=== PATIENT | female | born 2000 | race Caucasian/White ===

== ENCOUNTER 2020-10-23 23:27 | Emergency (ER) | payer OTHER, MEDICAID, SELFPAY ==
--- NOTE | ~2020-10-23 | CT_ITS ---
EXAMINATION: CT ABDOMEN AND PELVIS WITH CONTRAST CLINICAL INFORMATION: Right lower quadrant pain, nausea/vomiting COMPARISON: None TECHNIQUE: Multidetector volumetric images were obtained from the superior aspect of the liver through the pubic symphysis following administration 85 mL of Omnipaque 350 intravenous contrast. Sagittal and coronal reformatted images were obtained on the technologist's workstation. Oral contrast: No This CT examination was performed using dose optimization techniques as appropriate, variously including the following: *Automated exposure control *Adjustment of mA and/or kV according to patient size (this includes techniques or standardized protocols for targeted exams where dose is matched to indication/reason for exam; i.e. extremities or head) *Use of iterative reconstruction technique DLP: 974 mGy-cm FINDINGS: LUNG BASES: The visualized lung bases are unremarkable. LIVER, GALLBLADDER, AND BILIARY TREE: The liver is normal in size, shape, and attenuation. No focal hepatic lesion or biliary ductal dilatation is present. The gallbladder is unremarkable with no evidence of radiopaque gallstones, gallbladder wall thickening, or obvious pericholecystic inflammatory changes. PANCREAS: Unremarkable. SPLEEN: Unremarkable. ADRENAL GLANDS: Unremarkable. KIDNEYS AND URETERS: The kidneys are normal in size, shape, and attenuation. No hydronephrosis, hydroureter, or obstructing calculi seen. No perinephric stranding. BLADDER: Unremarkable. GASTROINTESTINAL TRACT: The small and large bowel are unremarkable. The appendix is unremarkable. No free fluid or free air is seen. ABDOMINAL WALL: No significant hernia is appreciated. LYMPH NODES: Scattered mesenteric and retroperitoneal subcentimeter lymph nodes are present, without significant enlargement by size criteria. VASCULAR: Unremarkable. PELVIC VISCERA: Unremarkable. OSSEOUS STRUCTURES: Unremarkable. CT/CT abdomen pelvis w con IMPRESSION: No acute findings identified in the abdomen/pelvis. Normal appendix.
[2020-10-24 00:45] VITALS: BP 147/83; PULSE 112; RESP 17; TEMP 37.1; O2SAT 98; BMI 49.1
[2020-10-24 01:03] LABS: Glucose Urine UA NEG (NEG); Leukocyte Esterase Urine NEG (NEG); Nitrite Urine NEG (NEG); Specific Gravity - Urine >= 1.030 (1.005-1.025); Urine Blood TRACE (NEG); Urine Ketones NEG (NEG); Urine Protein TRACE MG/DL (NEG-TRACE)
[2020-10-24 01:14] LABS: Appearance Urine CLEAR; Color Urine YELLOW
[2020-10-24 01:15] LABS: Mucus Urine TRACE /LPF; Squamous Epithelial Cell Urine TRACE /LPF; UPreg QC Valid YES; Urine Pregnancy NEGATIVE (NEGATIVE); WBC Urine 0 /HPF (0-4)
--- NOTE | 2020-10-24 01:23 | ED_ITS ---
HPI - Nausea/Vomiting/Diarrhea General Chief complaint: Nausea/Vomiting/Diarrhea Stated complaint: Vomiting/Headache Time Seen by Provider: 10/23/20 23:30 Source: patient Mode of arrival: ambulatory History of Present Illness HPI Narrative: This is a 20-year-old female without significant past medical history of presents with 1 week of feeling unwell for a few days and states that she has woken up feeling nauseous in the morning, especially after eating and this is been associated with headache but denies any fevers, chills, diarrhea, urinary pain/burning/frequency. Patient is currently menstruating, but feels that her symptoms are similar to when she was diagnosed with . Related Data Allergies Allergy/AdvReac Type Severity Reaction Status Date / Time sulfamethoxazole Allergy Intermediate HIVES Verified 10/24/20 00:44 [From BACTRIM] trimethoprim [From BACTRIM] Allergy Intermediate HIVES Verified 10/24/20 00:44 Review of Systems Review of Systems: Pertinent positives and negatives as stated in HPI 10 point review of systems is otherwise negative. PMFSH Past Medical History Source: nursing notes reviewed Social History Social History Advance Directives: No Advance Directives Information Provided: No Patient : No Physical Exam Vital Signs: Vital Signs: Last Vital Signs Temp 98.6 F 10/24/20 04:20 Pulse 114 H 10/24/20 04:20 Resp 16 10/24/20 04:20 BP 136/79 10/24/20 04:20 Pulse Ox 98 10/24/20 04:20 Body Mass Index 49.1 VITAL SIGNS: Reviewed. GENERAL: Well developed, well nourished, in no acute distress. HEAD: Normocephalic/atraumatic EYES: PERRLA, EOMI OROPHARYNX: no oral lesions noted, posterior pharynx clear NECK: Supple, no adenopathy LUNGS: Normal breath sounds. No adventitious sounds or accessory muscle use. SpO2<98> CARDIOVASCULAR: Regular rate and rhythm without noted murmurs ABDOMEN: Obese, Soft, mild tenderness without rebound noted in the right lower quadrant, non-distended with bowel sounds. Course Course Course Narrative: This is a 20-year-old female with history and clinical presentation suggestive of possible ectopic , renal colic, appendicitis. Review of all investigations negative for acute findings. Suspect that patient's symptoms may be secondary to acid reflux and she was encouraged to pursue [id number] acid control medications. MDM - Nausea/Vomiting/Diarrhea Lab Data Result diagrams: 10/24/20 02:36 10/24/20 02:36 Labs: Lab Results 10/24/20 10/24/20 10/24/20 Range/Units 00:52 00:52 02:36 WBC (4.8-10.8) X10*3/uL RBC (4.20-5.50) X10*6/uL Hgb (12.0-16.0) g/dl Hct (37-47) % MCV (80-98) fL MCH (27.0-33.0) pg MCHC (31.0-35.0) g/dl RDW (11.0-16.0) % Plt Count (160-400) X10*3/uL MPV (9.4-12.3) fL Immature Gran % (Auto) (0.0-0.4) % Neut % (Auto) (45-73) % Lymph % (Auto) (20-40) % Laporte % (Auto) (2-11) % Eos % (Auto) (0-4) % Baso % (Auto) (0-2) % Lymph # (Auto) (1.2-4.9) X10*3/uL [place] # (Auto) (0.1-1.2) X10*3/uL Eos # (Auto) (0.0-0.4) X10*3/uL Baso # (Auto) (0.0-0.2) X10*3/uL Abs Immat Gran (auto) (0.00-0.03) X10*3/uL Absolute Neuts (auto) (2.0-8.3) X10*3/uL Absolute Nucleated RBC (0.0-0.012) X10*3/uL Nucleated RBC % (auto) (0.0-0.2) /100WBC Sodium (135-145) mmol/L Potassium (3.3-5.1) mmol/L Chloride (96-108) mmol/L Carbon Dioxide (22-29) mmol/L Anion Gap (12-20) BUN (9-16) mg/dL Creatinine (0.5-1.4) mg/dL Estim Creat Clear Calc Estimated GFR Random Glucose (60-115) mg/dL Calcium (8.4-10.2) mg/dL Total Bilirubin (0.0-1.0) mg/dL AST (5-31) U/L ALT (0-31) U/L Alkaline Phosphatase (39-117) U/L Total Protein (6.5-8.0) g/dL Albumin (3.5-5.0) g/dL Beta HCG, Quant < 2 mIU/mL Urine Color YELLOW Urine Appearance CLEAR Urine pH 6.0 (5.0-8.0) Ur Specific [place] >= 1.030 H (1.005-1.025) Urine Protein TRACE (NEG-TRACE) MG/DL Urine Glucose (UA) NEG (NEG) MG/DL Urine Ketones NEG (NEG) MG/DL Urine Blood TRACE (NEG) Urine Nitrite NEG (NEG) Ur Leukocyte Esterase NEG (NEG) Urine RBC 5-9 H (0) /HPF Urine WBC 0 (0-4) /HPF Ur Squamous Epith Cells TRACE /LPF Urine Bacteria NONE /LPF Urine Mucus TRACE /LPF Urine Test NEGATIVE (NEGATIVE) 10/24/20 10/24/20 Range/Units 02:36 02:36 WBC 4.6 L (4.8-10.8) X10*3/uL RBC 4.51 (4.20-5.50) X10*6/uL Hgb 11.8 L (12.0-16.0) g/dl Hct 35.8 L (37-47) % MCV 79.4 L (80-98) fL MCH 26.2 L (27.0-33.0) pg MCHC 33.0 (31.0-35.0) g/dl RDW 13.8 (11.0-16.0) % Plt Count 304 (160-400) X10*3/uL MPV 9.3 L (9.4-12.3) fL Immature Gran % (Auto) 0.2 (0.0-0.4) % Neut % (Auto) 36.9 L (45-73) % Lymph % (Auto) 45.2 H (20-40) % Laporte % (Auto) 12.3 H (2-11) % Eos % (Auto) 5.0 H (0-4) % Baso % (Auto) 0.4 (0-2) % Lymph # (Auto) 2.1 (1.2-4.9) X10*3/uL [place] # (Auto) 0.6 (0.1-1.2) X10*3/uL Eos # (Auto) 0.2 (0.0-0.4) X10*3/uL Baso # (Auto) 0.0 (0.0-0.2) X10*3/uL Abs Immat Gran (auto) 0.01 (0.00-0.03) X10*3/uL Absolute Neuts (auto) 1.7 L (2.0-8.3) X10*3/uL Absolute Nucleated RBC 0.000 (0.0-0.012) X10*3/uL Nucleated RBC % (auto) 0.0 (0.0-0.2) /100WBC Sodium 140 (135-145) mmol/L Potassium 3.3 (3.3-5.1) mmol/L Chloride 107 (96-108) mmol/L Carbon Dioxide 24 (22-29) mmol/L Anion Gap 12 (12-20) BUN 10 (9-16) mg/dL Creatinine 0.49 L (0.5-1.4) mg/dL Estim Creat Clear Calc 219.3 Estimated GFR > 60 Random Glucose 137 H (60-115) mg/dL Calcium 9.3 (8.4-10.2) mg/dL Total Bilirubin 0.2 (0.0-1.0) mg/dL AST 13 (5-31) U/L ALT 22 (0-31) U/L Alkaline Phosphatase 162 H (39-117) U/L Total Protein 6.0 L (6.5-8.0) g/dL Albumin 3.7 (3.5-5.0) g/dL Beta HCG, Quant mIU/mL Urine Color Urine Appearance Urine pH (5.0-8.0) Ur Specific [place] (1.005-1.025) Urine Protein (NEG-TRACE) MG/DL Urine Glucose (UA) (NEG) MG/DL Urine Ketones (NEG) MG/DL Urine Blood (NEG) Urine Nitrite (NEG) Ur Leukocyte Esterase (NEG) Urine RBC (0) /HPF Urine WBC (0-4) /HPF Ur Squamous Epith Cells /LPF Urine Bacteria /LPF Urine Mucus /LPF Urine Test (NEGATIVE) Discharge Plan Discharge Clinical Impression: Acid reflux Patient Disposition: Home, Self-Care Instructions: Diet for Stomach Ulcers and Gastritis (ED), Gastroesophageal Reflux Disease (ED) Additional Instructions: 1. Recommend using [id number] acid control medications. 2. Please follow-up with your primary care provider in the next 2-3 days for re- evaluation. Return to the ER for any acute worsening of symptoms. Referrals: Gabby Lee DO [Primary Care Provider] - 2 days
[2020-10-24 02:40] LABS: MANUAL DIFF FLAG NO
[2020-10-24 02:41] LABS: Basophils Percent Auto 0.4 % (0-2); Eosinophils Absolute Auto 0.2 X10*3/uL (0.0-0.4); Hematocrit 35.8 % (37-47); Hemoglobin 11.8 g/dl (12.0-16.0); Imm Gran Abs Auto 0.01 X10*3/uL (0.00-0.03); Imm Gran Pct Auto 0.2 % (0.0-0.4); Lymphocytes Absolute Auto 2.1 X10*3/uL (1.2-4.9); Lymphocytes Percent Auto 45.2 % (20-40); Mean Corpuscular Hemoglobin 26.2 pg (27.0-33.0); Mean Corpuscular Volume 79.4 fL (80-98); Mean Platelet Volume 9.3 fL (9.4-12.3); Monocytes Absolute Auto 0.6 X10*3/uL (0.1-1.2); Monocytes Percent Auto 12.3 % (2-11); Neutrophils Absolute Auto 1.7 X10*3/uL (2.0-8.3); Neutrophils Percent Auto 36.9 % (45-73); Platelet Count 304 X10*3/uL (160-400); Red Blood Count 4.51 X10*6/uL (4.20-5.50); Red Cell Distribution Width 13.8 % (11.0-16.0); White Blood Count 4.6 X10*3/uL (4.8-10.8)
[2020-10-24 03:10] LABS: Alanine Aminotransferase 22 U/L (0-31); Albumin Level 3.7 g/dL (3.5-5.0); Alkaline Phosphatase 162 U/L (39-117); Anion Gap 12 (12-20); Aspartate Amino Transferase 13 U/L (5-31); Bilirubin Total 0.2 mg/dL (0.0-1.0); Blood Urea Nitrogen 10 mg/dL (9-16); Calcium 9.3 mg/dL (8.4-10.2); Carbon Dioxide 24 mmol/L (22-29); Chloride 107 mmol/L (96-108); Creatinine Clr Calc Pharmacy 219.3; Estimated Glomerular Filt Rate > 60; Glucose Random 137 mg/dL (60-115); Potassium 3.3 mmol/L (3.3-5.1); Sodium 140 mmol/L (135-145)
[2020-10-24 03:14] LABS: HCG Quantitative < 2 mIU/mL
[2020-10-24 04:20] VITALS: BP 136/79; PULSE 114; RESP 16; TEMP 37; O2SAT 98
[2020-10-24] MEDS: iohexoL 350 MG/ML 100 ML INFUS..BTL 85 ML IV (04:37)
== END 2020-10-24 06:11 | disposition home or self-care (01) ==
PROVIDERS: Emergency Provider Student in an Organized Health Care Education/Training Program; PCP Pediatrics
DX: K21.9 Gastro-esophageal reflux disease without esophagitis (principal); R11.0 Nausea; R51.9 Headache, unspecified
CPT/HCPCS: 36415; 74177; 80053; 81001; 81025; 84702; 85025; 99284; Q9967

== ENCOUNTER 2020-11-16 14:54 | Emergency (ER) | payer OTHER, MEDICAID, SELFPAY ==
[2020-11-16 14:57] VITALS: BP 145/75; PULSE 98; RESP 18; TEMP 36.4; O2SAT 97; BMI 36.6
--- NOTE | 2020-11-16 15:32 | ED_ITS ---
HPI - Extremity Injury (Lower) General Chief Complaint: Extremity Injury, Lower Stated Complaint: R LEG PAIN Time Seen by Provider: 11/16/20 15:31 Source: patient Mode of arrival: ambulatory Limitations: no limitations History of Present Illness HPI Narrative: otherwise healthy 20-year-old female who denies significant past medical or surgical history who presents today with complaint of right foot pain. Historically she reports on November 09 she fell at home and causing to the foot for which she subsequently went to urgent care and was placed in orthopedic shoe she was unclear if she had a fracture or not so she went to [facility] where she had x-rays she was told that she had navicular fracture of the right foot she was placed in cast and crutches states he has not been doing well with that has moved her splint and she is currently in orthopedic shoe. States still hurts to walk on it. Denies any new injury. Onset (ago): day(s) Injury: Right: foot Place: home Severity: mild Relieving factors: immobilization Exacerbating factors: weight bearing Other symptoms: none Treatments prior to arrival: other ( Crutches, splint) Related Data Previous Rx's Medication Instructions Recorded ibuprofen 800 mg PO Q8H PRN #14 tab 11/16/20 Allergies Allergy/AdvReac Type Severity Reaction Status Date / Time sulfamethoxazole Allergy Intermediate HIVES Verified 10/24/20 00:44 [From BACTRIM] trimethoprim [From BACTRIM] Allergy Intermediate HIVES Verified 10/24/20 00:44 Review of Systems Review of Systems: Constitutional: No Weight loss, No Fever, No Chills, No Night Sweats, No Fatigue, No Malaise ENT/Mouth: No Hearing loss, No Ear Pain, No Nasal Congestion, No Sinus Pain, No Hoarseness, No sore throat, No Rhinorrhea, No Swallowing Difficulty Eyes: No Eye Pain, No Swelling, No Redness, No Foreign Body, No Discharge, No Vision Changes Cardiovascular: No Chest Pain, No SOB, No Dyspnea on Exertion, No Orthopnea, No Edema, No Palpitations Respiratory: No Cough, No Sputum, No Wheezing, No Smoke Exposure, No Dyspnea Gastrointestinal: No Nausea, No Vomiting, No Diarrhea, No Constipation, No abdominal Pain, No Hematochezia, No Melena Genitourinary: no irregular bleeding, No Dysuria, No Urinary Frequency, No Hematuria, No Urinary Incontinence, No Urgency, No Flank Pain, No Urinary Flow Changes, No Hesitancy Musculoskeletal: No joint pain, No Myalgias, No Joint Swelling , as noted per HPI Skin: No Skin Lesions, No rash Neuro: No Weakness, No Numbness, No Paresthesias, No Loss of Consciousness, No Dizziness, No Headache Psych: No Social Issues Heme/Lymph: No Bruising, No Bleeding,No Lymphadenopathy Endocrine: No Polyuria, No Polydipsia, No Temperature Intolerance Yes all other systems are reviewed and are negative [facility] Social History Social History Advance Directives: No Advance Directives Information Provided: No Patient : No Physical Exam Vital Signs: Vital Signs: Last Vital Signs Temp 97.5 F 11/16/20 14:57 Pulse 98 11/16/20 14:57 Resp 18 11/16/20 14:57 BP 145/75 H 11/16/20 14:57 Pulse Ox 97 11/16/20 14:57 Body Mass Index 36.6 reviewed Const: Other: sitting up in bed, smiling conversing with significant other/ family member. General: cooperative and healthy appearing; No acute distress or intoxicated appearing Nutritional Appearance: average body habitus Orientation/consciousness: patient oriented x3 HENMT: Head: Yes normal to inspection Ears: hearing grossly normal bilaterally Eyes: General: appearance normal, both eyes and all related structures Visual Finley: normal visual finley by confrontation Neck: Neck: Yes normal visual inspection, No positive Brudzinski's sign, No positive Kernig's sign and No tender Thyroid: Thyroid normal Resp: Auscultation: clear to auscultation bilaterally : General: Yes no CVA tenderness Back/Spine/Pelvis: Back: no CVA tenderness Skin: General skin exam: no rashes or lesions noted Neuro: General: patient oriented x3 Extrem: Other: Complaint of pain to the mid dorsum foot, without any obvious deformity /ecchymosis. Neurovascularly intact, refill within normal limits. General: Yes normal to inspection Course Reevaluation(s) Reevaluation #1: with patient's consent records were requested from [facility] it appears that patient went to [facility] initially on November 06 were she had femur x-ray as well as right lower extremity ultrasound and foot x- ray which showed navicular fracture otherwise ultrasound was negative she had complaint of some swelling and pain radiating up her leg status post fall and foot x-ray showed again no vertical fracture. She was subsequently placed and splinting crutches she returned 2 days later to the ER at [place] without a splint and complaining of more pain so x-ray was repeated and it showed early healing of navicular fracture in stable alignment. No other fractures of the right foot. She was subsequently placed in ortho boot and has crutches. States she uses ortho boot but still has pain when she does certain activity. Aware that is essentially she continues to use the ortho boot for pain and healing, she can use crutches to support the joint and limit weight-bearing. She can take Tylenol and ibuprofen. I have uploaded the images to patient chart. States she was referred to Orthopedics and [facility] however she lives out here and would like to see Orthopedics here. I have given her referral to our orthopedic team. Consultations Consultation #1: [facility] medical records Discharge Plan Discharge Clinical Impression: Closed navicular fracture of right foot Patient Disposition: Home, Self-Care Instructions: Crutch Instructions (ED), Foot Fracture in Adults (ED), Walking Boot (ED) Additional Instructions: rest, ice, compress, elevate Use crutches as instructed Tylenol/ ibuprofen [id number] per label instructions as needed for pain discomfort Follow-up with orthopedic as discussed Return if any concerns or worsening symptoms Thank you Prescriptions: New ibuprofen 800 mg tablet 800 mg PO Q8H PRN (Reason: pain) Qty: 14 RF: 0 Referrals: Amanda Mcarthur MD [Physician] - 1 week
== END 2020-11-16 16:59 | disposition home or self-care (01) ==
PROVIDERS: Emergency Provider Internal Medicine
DX: S92.254D Nondisplaced fracture of navicular [scaphoid] of right foot, subsequent encounter for fracture with routine healing (principal); W19.XXXD Unspecified fall, subsequent encounter
CPT/HCPCS: 99283

== ENCOUNTER 2020-11-17 02:06 | Emergency (ER) | payer OTHER, MEDICAID, SELFPAY ==
[2020-11-17 02:23] VITALS: BP 123/68; PULSE 122; RESP 16; TEMP 37.1; O2SAT 99; BMI 43.3
--- NOTE | 2020-11-17 02:36 | ED.ALLEREA ---
HPI - Allergic Reaction General Chief complaint: Allergic Reaction Stated complaint: allergic reaction Time Seen by Provider: 11/17/20 02:36 History of Present Illness HPI narrative: Patient 20-year-old female presents today after taking being bitten by a mosquito to the right eye to the forehead and to the right knee. Patient denies any shortness of breath. No systemic complaints. Complaining of swelling around the eye. There is no changes in vision. Patient complained that she attempted to take a Claritin for the symptoms. However the swelling has not come down after 3 hours. Patient from home. Related Data Previous Rx's Medication Instructions Recorded ibuprofen 800 mg PO Q8H PRN #14 tab 11/16/20 Allergies Allergy/AdvReac Type Severity Reaction Status Date / Time sulfamethoxazole Allergy Intermediate HIVES Verified 10/24/20 00:44 [From BACTRIM] trimethoprim [From BACTRIM] Allergy Intermediate HIVES Verified 10/24/20 00:44 Review of Systems Review of Systems: Constitutional: No Weight loss, No Fever, No Chills, No Night Sweats, No Fatigue, No Malaise ENT/Mouth: No Hearing loss, No Ear Pain, No Nasal Congestion, No Sinus Pain, No Hoarseness, No sore throat, No Rhinorrhea, No Swallowing Difficulty Eyes: No Eye Pain, No Swelling, No Redness, No Foreign Body, No Discharge, No Vision Changes Cardiovascular: No Chest Pain, No SOB, No Dyspnea on Exertion, No Orthopnea, No Edema, No Palpitations Respiratory: No Cough, No Sputum, No Wheezing, No Smoke Exposure, No Dyspnea Gastrointestinal: No Nausea, No Vomiting, No Diarrhea, No Constipation, No abdominal Pain, No Hematochezia, No Melena Genitourinary: no irregular bleeding, No Dysuria, No Urinary Frequency, No Hematuria, No Urinary Incontinence, No Urgency, No Flank Pain, No Urinary Flow Changes, No Hesitancy Musculoskeletal: No joint pain, No Myalgias, No Joint Swelling Skin: Positive swelling around the right eye, forehead and right knee Neuro: No Weakness, No Numbness, No Paresthesias, No Loss of Consciousness, No Dizziness, No Headache Psych: No Anxiety/Panic, No Depression, No SI/HI/AH/VH, No Social Issues, Heme/Lymph: No Bruising, No Bleeding,No Lymphadenopathy Endocrine: No Polyuria, No Polydipsia, No Temperature Intolerance PMFSH Social History Social History Patient : No Physical Exam Vital Signs: Vital Signs: Last Vital Signs Temp 98.8 F 11/17/20 02:23 Pulse 122 H 11/17/20 02:23 Resp 16 11/17/20 02:23 BP 123/68 11/17/20 02:23 Pulse Ox 99 11/17/20 02:23 Body Mass Index 43.3 Appearance: Alert. Oriented X3. No acute distress. Eyes: Pupils equal, round and reactive to light. positive redness, swelling around the right eye upper and lower lid. Extraocular muscle was intact vision grossly intact. ENT: Pharynx normal. Neck: Normal inspection. Neck supple. No lymph nodes noted. No crepitus CVS: Normal heart rate and rhythm. Pulses normal. Normal S1 and S2 Respiratory: No respiratory distress. Breath sounds normal. No Wheezing. No rales Abdomen: Soft and nontender. No rigidity. No distention. good BS x4 Skin: Positive swelling around the right eye. Positive swelling in the forehead area positive swelling to the right knee. Range of motion at the knee completely intact. Extremities: No lower extremity edema. Neurovascular intact to all extremities. No Lacerations. No Rash Neuro: Oriented X 3. No motor deficit. No sensory deficit. Moving all extermities. No slurred speech MDM - Allergic Reaction MDM Narrative Medical decision making narrative: Positive insect bite. Lungs are clear no distress. Patient reassured. Told to follow up on an outpatient basis. Continue Claritin Discharge Plan Discharge Clinical Impression: Allergic reaction Patient Disposition: Home, Self-Care Instructions: Insect Bite or Sting (ED) Prescriptions: No Action ibuprofen 800 mg tablet 800 mg PO Q8H PRN (Reason: pain) Qty: 14 RF: 0 Referrals: Physician,Unknown [Primary Care Provider] - 2 days
== END 2020-11-17 02:51 | disposition home or self-care (01) ==
LOC: HO.ED 02:42
PROVIDERS: Emergency Provider Emergency Medicine Emergency Medical Services
DX: T63.481A Toxic effect of venom of other arthropod, accidental (unintentional), initial encounter (principal); Y92.9 Unspecified place or not applicable
CPT/HCPCS: 99282; 99284

== ENCOUNTER 2020-11-28 09:54 | Outpatient (REF) | payer OTHER, MEDICAID, SELFPAY ==
--- NOTE | ~2020-11-28 | XR_ITS ---
EXAMINATION: XR ANKLE, RIGHT CLINICAL INFORMATION: Pain in right ankle and joints. COMPARISON: None TECHNIQUE: AP, lateral, and mortise views of the right ankle. FINDINGS: Suspect a fracture involving the navicular bone without displacement versus a hypertrophic bony spur on the lateral view. The ankle mortise and subtalar joints are normal. No additional bony abnormality is seen. No abnormal soft tissue swelling. XR/XR ankle RT min 3V IMPRESSION: Suspect large bony spur or small fracture along the dorsal navicular bone. There is no abnormal soft tissue swelling seen, however. The rest of the ankle is unremarkable.
== END 2020-11-28 09:55 | disposition home or self-care (01) ==
LOC: HO.HOSX 09:54
PROVIDERS: Visit Provider Physician Assistant
DX: S92.251A Displaced fracture of navicular [scaphoid] of right foot, initial encounter for closed fracture (principal); M25.571 Pain in right ankle and joints of right foot
CPT/HCPCS: 73610

== ENCOUNTER 2021-02-16 19:15 | Emergency (ER) | payer OTHER, MEDICAID, SELFPAY ==
[2021-02-16 20:54] VITALS: BP 158/84; PULSE 121; RESP 20; TEMP 36.7; O2SAT 100; BMI 39.9
--- NOTE | 2021-02-16 21:58 | ED_ITS ---
HPI - Allergic Reaction General Chief complaint: Allergic Reaction Stated complaint: Allergic reaction Time Seen by Provider: 02/16/21 21:58 Source: patient Mode of arrival: ambulatory Limitations: no limitations History of Present Illness HPI narrative: patient was with a dog today, she developed hives, swollen eyes and thought her throat was closing. MD complaint: allergic reaction and hives Onset (ago): hour(s) Symptoms: rash and facial swelling Severity: mild Treatment prior to arrival: none Previous Allergic Reaction History: none Related Data Previous Rx's Medication Instructions Recorded ibuprofen 800 mg tablet 800 mg PO Q8H PRN #14 tab 11/16/20 diphenhydramine HCl 25 mg capsule 25 mg PO TID PRN #20 cap 02/16/21 (Benadryl) Allergies Allergy/AdvReac Type Severity Reaction Status Date / Time sulfamethoxazole Allergy Intermediate HIVES Verified 11/28/20 09:57 [From BACTRIM] trimethoprim [From BACTRIM] Allergy Intermediate HIVES Verified 11/28/20 09:57 Review of Systems Constitutional: Constitutional: Reports no additional constitutional c omplaints Eyes: Eyes: Reports no additional eye complaints ENT: Denies dizziness Cardiovascular: Cardiovascular: Reports no additional cardiovascular complaints Respiratory: Respiratory: Reports as per HPI Gastrointestinal: Gastrointestinal: Reports no additional gastrointestinal complaints Genitourinary: Genitourinary: Reports no additional female genitourinary complaints Musculoskeletal: Musculoskeletal: Reports no additional musculoskeletal complaints Integumentary/Breasts: Skin/Breast: Denies rash Neurologic: Reports system reviewed and no additional complaints, except as documented, Denies dizziness and Denies Sensory deficit (Neuro) Psychiatric: Psychiatric: Denies anxiety [facility] Social History Social History (Updated 11/28/20 @ 09:58 by Dio Rivera) Advance Directives: No Patient : No Current occupational status: employed 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 Physical Exam Vital Signs: Vital Signs: Last Vital Signs Temp 98.2 F 02/16/21 22:04 Pulse 115 H 02/16/21 22:04 Resp 14 02/16/21 22:04 BP 130/65 02/16/21 22:04 Pulse Ox 96 02/16/21 22:04 Body Mass Index 39.9 Const: General: healthy appearing Nutritional Appearance: average body habitus Orientation/consciousness: oriented to person and patient oriented x3 Limitations: no limitations HENMT: Other: pharynx, tongue and uvula all visible Ears: external ears normal General nose exam: Normal external nose present Mouth: Normal oral and palatal mucosa present and oropharynx normal Throat: Yes posterior orop harynx normal Eyes: Other: right eyelid swollen Neck: Other: supple Neck: Yes normal visual inspection Chest: Chest palpation & inspection: normal inspection of the chest Resp: Other: no wheezing Auscultation: clear to auscultation bilaterally Cardio: Jugular venous distension: no JVD Rate: regular rate Rhythm: regular rhythm Heart sounds: S1 normal heart sound present and S2 normal heart sound present GI: Inspection: Yes normal to inspection Palpation (GI): Soft to palpation, nontender and No hepatosplenomegaly present Auscultation: normal bowel sounds : General: Yes no CVA tenderness Back/Spine/Pelvis: Back: no CVA tenderness Skin: General skin exam: no rashes or lesions noted Neuro: General: oriented to person and patient oriented x3 Cranial nerves: Yes CN's II-XII intact bilaterally Motor exam (neuro): 5/5 motor strength present throughout Sensory Exam: No Sensory deficit (Neuro) Extrem: General: Yes normal to inspection Psych: Appearance: grossly normal Course Reevaluation(s) Reevaluation #1: Patient sleeping right eyelid less swollen will dc home. Lungs clear pharnx, tongue and uvula normal Time: 23:31 Discharge Plan Discharge Clinical Impression: Allergic reaction Qualifiers: Encounter type: initial encounter Qualified Code(s): T78.40XA - Allergy, unspecified, initial encounter Patient Disposition: Home, Self-Care Instructions: General Allergic Reaction (ED) Prescriptions: New diphenhydramine HCl [Benadryl] 25 mg capsule 25 mg PO TID PRN (Reason: allergic reaction) Qty: 20 RF: 0 No Action ibuprofen 800 mg tablet 800 mg PO Q8H PRN (Reason: pain) Qty: 14 RF: 0 Referrals: Physician,Unknown [Primary Care Provider] - 1 week
[2021-02-16 22:04] VITALS: BP 130/65; PULSE 115; RESP 14; TEMP 36.8; O2SAT 96
[2021-02-16] MEDS: diphenhydrAMINE HCL 25 MG TABLET 50 MG PO (22:13)
== END 2021-02-17 00:10 | disposition home or self-care (01) ==
PROVIDERS: Emergency Provider Emergency Medicine
DX: L50.0 Allergic urticaria (principal); Z79.899 Other long term (current) drug therapy
CPT/HCPCS: 99283; Q0163

== ENCOUNTER 2021-03-19 18:10 | Emergency (ER) | payer OTHER, MEDICAID, SELFPAY ==
[2021-03-19 18:27] VITALS: BP 141/65; PULSE 122; RESP 18; TEMP 36.7; O2SAT 97; BMI 39.3
--- NOTE | 2021-03-19 19:16 | ED_ITS ---
HPI - Extremity Injury (Lower) General Chief Complaint: Extremity Injury, Lower Stated Complaint: foot swelling Time Seen by Provider: 03/19/21 19:15 Source: patient Mode of arrival: ambulatory Limitations: no limitations History of Present Illness HPI Narrative: Patient had a questionable hairline fracture of navicular bone 11/10 since then complaining of pain in the right foot was seen at [facility] [place] 2 weeks ago x-ray was negative now comes here with nonspecific pain on the dorsum of the foot with slight swelling no recurrent injury patient ambulated to the ER Related Data Previous Rx's Medication Instructions Recorded ibuprofen 800 mg tablet 800 mg PO Q8H PRN #14 tab 11/16/20 diphenhydramine HCl 25 mg capsule 25 mg PO TID PRN #20 cap 02/16/21 (Benadryl) ibuprofen 600 mg tablet 600 mg PO Q6H PRN #20 tab 03/19/21 Allergies Allergy/AdvReac Type Severity Reaction Status Date / Time sulfamethoxazole Allergy Intermediate HIVES Verified 03/19/21 18:27 [From BACTRIM] trimethoprim [From BACTRIM] Allergy Intermediate HIVES Verified 11/28/20 09:57 Review of Systems Review of Systems: Yes all other systems are reviewed and are negative PMFSH Past Medical History Medical History Hyperthyroidism Tachycardia Social History Social History Advance Directives: No Advance Directives Information Provided: No Patient : No Current occupational status: employed 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 Slight soft tissue swelling with tenderness no deformity good muscle strength MDM - Extremity Injury (Lower) MDM Narrative Medical decision making narrative: Patient with soft tissue tenderness , Kamar wrap was applied advised to take ibuprofen patient ambulates in steady gait Discharge Plan Discharge Clinical Impression: Strain of foot, right Qualifiers: Encounter type: initial encounter Qualified Code(s): S96.911A - Strain of unspecified muscle and tendon at ankle and foot level, right foot, initial encounter Patient Disposition: Home, Self-Care Instructions: Musculoskeletal Pain (ED) Additional Instructions: Rest to your right foot Wear the Kamar wrap Ibuprofen for pain Prescriptions: New ibuprofen 600 mg tablet 600 mg PO Q6H PRN (Reason: pain) Qty: 20 RF: 0 No Action ibuprofen 800 mg tablet 800 mg PO Q8H PRN (Reason: pain) Qty: 14 RF: 0 diphenhydramine HCl [Benadryl] 25 mg capsule 25 mg PO TID PRN (Reason: allergic reaction) Qty: 20 RF: 0 Interventions: ED Discharge Assessment Last Done: 03/19/21 19:56 Discharge Date/Time: 03/19/21 19:59
[2021-03-19] MEDS: Ibuprofen 600 MG TABLET PO (19:43)
== END 2021-03-19 19:59 | disposition home or self-care (01) ==
PROVIDERS: Emergency Provider Internal Medicine
DX: S96.911A Strain of unspecified muscle and tendon at ankle and foot level, right foot, initial encounter (principal); X58.XXXA Exposure to other specified factors, initial encounter; Y93.9 Activity, unspecified; Y92.9 Unspecified place or not applicable; Y99.9 Unspecified external cause status
CPT/HCPCS: 99283; 99284

== ENCOUNTER 2021-04-28 13:31 | Emergency (ER) | payer OTHER, MEDICAID, SELFPAY ==
[2021-04-28 13:50] VITALS: BP 134/78; PULSE 108; RESP 18; TEMP 36.3; O2SAT 98; BMI 36.6
[2021-04-28 14:43] LABS: MANUAL DIFF FLAG NO
[2021-04-28 14:55] LABS: Basophils Percent Auto 0.2 % (0-2); Eosinophils Absolute Auto 0.3 X10*3/uL (0.0-0.4); Eosinophils Percent Auto 5.9 % (0-4); Hematocrit 37.8 % (37.0-47.0); Hemoglobin 12.3 g/dl (12.0-16.0); Imm Gran Abs Auto 0.01 X10*3/uL (0.00-0.03); Imm Gran Pct Auto 0.2 % (0.0-0.4); Lymphocytes Absolute Auto 1.4 X10*3/uL (1.2-4.9); Lymphocytes Percent Auto 33.3 % (20-40); Mean Corpuscular HGB Conc 32.5 g/dl (31.0-35.0); Mean Corpuscular Hemoglobin 26.2 pg (27.0-33.0); Mean Corpuscular Volume 80.6 fL (80.0-98.0); Mean Platelet Volume 9.6 fL (9.4-12.3); Monocytes Absolute Auto 0.4 X10*3/uL (0.1-1.2); Monocytes Percent Auto 9.2 % (2-11); Neutrophils Absolute Auto 2.2 x10*3/uL (2.0-8.3); Neutrophils Percent Auto 51.2 % (45-73); Platelet Count 321 X10*3/uL (160-400); Red Blood Count 4.69 X10*6/uL (4.20-5.50); White Blood Count 4.3 X10*3/uL (4.8-10.8)
[2021-04-28 15:12] LABS: Alanine Aminotransferase 32 U/L (0-31); Albumin Level 3.9 g/dL (3.5-5.0); Alkaline Phosphatase 214 U/L (39-117); Anion Gap 12 (12-20); Aspartate Amino Transferase 22 U/L (5-31); Bilirubin Direct 0.2 mg/dL (0.0-0.5); Bilirubin Total 0.5 mg/dL (0.0-1.0); Blood Urea Nitrogen 8 mg/dL (9-16); Calcium 9.5 mg/dL (8.4-10.2); Carbon Dioxide 25 mmol/L (22-29); Chloride 108 mmol/L (96-108); Creatinine Clr Calc Pharmacy 199.9; Estimated Glomerular Filt Rate > 60; Glucose Random 117 mg/dL (60-115); Lipase 9 U/L (8-78); Sodium 141 mmol/L (135-145); Total Protein 6.8 g/dL (6.5-8.0)
[2021-04-28 16:19] LABS: Appearance Urine CLEAR; Color Urine YELLOW; Glucose Urine UA NEG (NEG); Leukocyte Esterase Urine NEG (NEG); Nitrite Urine NEG (NEG); PH 5.5 (5.0-8.0); Specific Gravity - Urine 1.025 (1.005-1.025); UACC Culture Trigger NO; Urine Blood TRACE (NEG); Urine Ketones 5 MG/DL (NEG); Urine Protein 1+ MG/DL (NEG-TRACE)
[2021-04-28 16:28] LABS: UPreg QC Valid YES; Urine Pregnancy NEGATIVE (NEGATIVE)
[2021-04-28 16:30] LABS: Bacteria Urine 1+ /LPF; Calcium Oxalate Crystals Urine 1+ /LPF; WBC Urine 0-2 /HPF (0-4)
[2021-04-28 16:31] LABS: Squamous Epithelial Cell Urine 1+ /LPF
[2021-04-28 17:27] VITALS: BP 142/76; PULSE 125; RESP 16; TEMP 37.1; O2SAT 97
--- NOTE | 2021-04-28 17:43 | ED.NAVMDI ---
HPI - Nausea/Vomiting/Diarrhea General Chief complaint: Nausea/Vomiting/Diarrhea Stated complaint: SHAKING ALL THE TIME Time Seen by Provider: 04/28/21 17:25 Source: patient Mode of arrival: ambulatory Limitations: no limitations History of Present Illness HPI Narrative: 20-year-old female who presents emergency department for evaluation of nausea, vomiting, headache, diarrhea and fatigue. Patient states she has been sick for about 3 days. She states she has had constant nausea with 1 episode of vomiting. She states she has had 3 loose diarrheal stools per day with no blood in the stool. She is complaining of a headache. She states that her whole head hurts and feels as if someone is banging on her head. The headache is constant and is 8/10 at its worst. She has had a cough which is nonproductive. She feels short of breath. She states she is extremely fatigued and she has been sleeping for the past 2-3 days. The patient states that she did have a COVID infection approximately 1 year prior she received her 1st Pfizer COVID 19 vaccination 2 weeks prior. Related Data Previous Rx's Medication Instructions Recorded ibuprofen 800 mg tablet 800 mg PO Q8H PRN #14 tab 11/16/20 diphenhydramine HCl 25 mg capsule 25 mg PO TID PRN #20 cap 02/16/21 (Benadryl) ibuprofen 600 mg tablet 600 mg PO Q6H PRN #20 tab 03/19/21 ondansetron 4 mg disintegrating 4 mg PO Q6-8H PRN #14 tab 04/28/21 tablet Allergies Allergy/AdvReac Type Severity Reaction Status Date / Time sulfamethoxazole Allergy Intermediate HIVES Verified 03/19/21 18:27 [From BACTRIM] trimethoprim [From BACTRIM] Allergy Intermediate HIVES Verified 11/28/20 09:57 Review of Systems Review of Systems: Yes all other systems are reviewed and are negative PMFSH Past Medical History PMFSH Narrative: Social history: The patient denies tobacco, alcohol and drug use. 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 Physical Exam Vital Signs: Vital Signs: Last Vital Signs Temp 98.7 F 04/28/21 17:27 Pulse 115 H 04/28/21 20:55 Resp 16 04/28/21 20:55 BP 122/66 04/28/21 20:55 Pulse Ox 98 04/28/21 20:55 BMI result Body Mass Index 36.6 Const: General: cooperative and no acute distress Orientation/consciousness: oriented to person and oriented to place Limitations: no limitations HENMT: Head: Yes normal to inspection, Yes normocephalic and Yes atraumatic Ears: external ears normal General nose exam: Normal external nose present Face and sinus: Yes normal facial exam Mouth: Normal oral and palatal mucosa present Throat: Yes posterior oropharynx normal Eyes: General: appearance normal, both eyes and all related structures Pupils: Equal, round and reactive pupils present Neck: Neck: Yes normal visual inspection, Yes no lymphadenopathy, Yes trachea midline and Yes supple Chest: Chest palpation & inspection: normal inspection of the chest and normal palpation of entire chest wall Resp: Effort & Inspection: normal respiratory effort and able to speak in complete sentences Auscultation: clear to auscultation bilaterally Cardio: Rate: regular rate Rhythm: regular rhythm Heart sounds: S1 normal heart sound present, S2 normal heart sound present and no murmurs GI: Inspection: Yes normal to inspection Palpation (GI): Soft to palpation, Tenderness to palpation present (GI) in the epigastrum (Moderate) and no guarding Auscultation: normal bowel sounds : General: Yes no CVA tenderness Back/Spine/Pelvis: Back: no CVA tenderness Skin: General skin exam: no rashes or lesions noted Neuro: General: oriented to person and oriented to place Cranial nerves: Yes CN's II-XII intact bilaterally and Yes Equal, round and reactive pupils present Cognition (Neuro): normal cognition Motor exam (neuro): 5/5 motor strength present throughout Extrem: General: Yes normal to inspection Psych: Appearance: grossly normal Speech and movement: Normal speech and movement present Affect: normal affect Attitude: cooperative Thought process: Normal thought process present Thought content: Normal thought content present Course Course Course Narrative: 20-year-old female who presents emergency department for evaluation of 3 days of headache, nausea, emesis x1, diarrhea 3 times a day, occasional cough, shortness of breath and fatigue. The patient had a COVID-19 infection approximately 1 year prior and she had her 1st Pfizer COVID 19 vaccination 2 weeks prior. Vital signs revealed that she was tachycardic with a pulse of 108. Physical examination did reveal epigastric tenderness otherwise was unremarkable. Laboratory evaluation was obtained. I ordered normal saline x1 L. patient's headache we treated with Toradol 15 mg IV, Benadryl 50 mg IV and Reglan and 10 mg IV. 1748: CBC was normal. Glucose was elevated 117 AST and ALT are elevated at 32 and 214. Urine test was negative urinalysis revealed 1+ protein. Microscopic revealed 4 RBCs, 2 WBCs, no bacteria, positive squamous cells. COVID-19 was negative. TSH was below detectable limits. T4 was elevated at 3.4. This is consistent with the patient's untreated hyperthyroidism. 2100: The patient got minimal relief of her headache and symptoms with the above treatment therefore she was given morphine 4 mg IV with improvement of her pain. I did discuss the patient's laboratory evaluation with her. At this time I suspect the patient has acute viral illness as the cause for symptoms, her COVID-19 test was negative however she has only been sick for 1-2 days and I did discuss the possibility of a false negative with her. The patient does have hyperthyroidism that is not being treated and I did [place] when she better she is to follow-up with her window display designer to get restarted on medications or to seek another treatment for hyperthyroidism pain. Patient was was prescribed Zofran ODT 4 mg every 8 hours as needed for nausea vomiting, she also advised to take Tylenol and ibuprofen for pain. MDM - Nausea/Vomiting/Diarrhea Lab Data Result diagrams: 04/28/21 14:32 04/28/21 14:32 Labs: Lab Results 04/28/21 04/28/21 04/28/21 Range/Units 14:32 14:32 15:20 WBC 4.3 L (4.8-10.8) X10*3/uL RBC 4.69 (4.20-5.50) X10*6/uL Hgb 12.3 (12.0-16.0) g/dl Hct 37.8 (37.0-47.0) % MCV 80.6 (80.0-98.0) fL MCH 26.2 L (27.0-33.0) pg MCHC 32.5 (31.0-35.0) g/dl RDW 13.0 (11.0-16.0) % Plt Count 321 (160-400) X10*3/uL MPV 9.6 (9.4-12.3) fL Immature Gran % (Auto) 0.2 (0.0-0.4) % Neut % (Auto) 51.2 (45-73) % Lymph % (Auto) 33.3 (20-40) % [place] % (Auto) 9.2 (2-11) % Eos % (Auto) 5.9 H (0-4) % Baso % (Auto) 0.2 (0-2) % Lymph # (Auto) 1.4 (1.2-4.9) X10*3/uL [place] # (Auto) 0.4 (0.1-1.2) X10*3/uL Eos # (Auto) 0.3 (0.0-0.4) X10*3/uL Baso # (Auto) 0.0 (0.0-0.2) X10*3/uL Abs Immat Gran (auto) 0.01 (0.00-0.03) X10*3/uL Absolute Neuts (auto) 2.2 (2.0-8.3) x10*3/uL Absolute Nucleated RBC 0.000 (0.0-0.012) X10*3/uL Nucleated RBC % (auto) 0.0 (0.0-0.2) /100WBC Sodium 141 (135-145) mmol/L Potassium 4.0 D (3.3-5.1) mmol/L Chloride 108 (96-108) mmol/L Carbon Dioxide 25 (22-29) mmol/L Anion Gap 12 (12-20) BUN 8 L (9-16) mg/dL Creatinine 0.47 L (0.5-1.4) mg/dL Estim Creat Clear Calc 199.9 Estimated GFR > 60 Random Glucose 117 H (60-115) mg/dL Calcium 9.5 (8.4-10.2) mg/dL Total Bilirubin 0.5 (0.0-1.0) mg/dL Direct Bilirubin 0.2 (0.0-0.5) mg/dL AST 22 D (5-31) U/L ALT 32 H (0-31) U/L Alkaline Phosphatase 214 H D (39-117) U/L Total Protein 6.8 (6.5-8.0) g/dL Albumin 3.9 (3.5-5.0) g/dL Lipase 9 (8-78) U/L TSH < 0.01 L (0.32-4.0) uIU/mL Free T4 3.40 H (0.71-1.85) ng/dL Urine Color YELLOW Urine Appearance CLEAR Urine pH 5.5 (5.0-8.0) Ur Specific [place] 1.025 (1.005-1.025) Urine Protein 1+ H (NEG-TRACE) MG/DL Urine Glucose (UA) NEG (NEG) MG/DL Urine Ketones 5 (NEG) MG/DL Urine Blood TRACE (NEG) Urine Nitrite NEG (NEG) Ur Leukocyte Esterase NEG (NEG) Urine RBC 1-4 (0) /HPF Urine WBC 0-2 (0-4) /HPF Ur Squamous Epith Cells 1+ /LPF Calcium Oxalate Crystal 1+ /LPF Urine Bacteria 1+ /LPF Urine Test (NEGATIVE) COVID-19 (TONJA) (Negative) COVID-19 Clin Com 04/28/21 04/28/21 Range/Units 17:47 Unknown WBC (4.8-10.8) X10*3/uL RBC (4.20-5.50) X10*6/uL Hgb (12.0-16.0) g/dl Hct (37.0-47.0) % MCV (80.0-98.0) fL MCH (27.0-33.0) pg MCHC (31.0-35.0) g/dl RDW (11.0-16.0) % Plt Count (160-400) X10*3/uL MPV (9.4-12.3) fL Immature Gran % (Auto) (0.0-0.4) % Neut % (Auto) (45-73) % Lymph % (Auto) (20-40) % [place] % (Auto) (2-11) % Eos % (Auto) (0-4) % Baso % (Auto) (0-2) % Lymph # (Auto) (1.2-4.9) X10*3/uL [place] # (Auto) (0.1-1.2) X10*3/uL Eos # (Auto) (0.0-0.4) X10*3/uL Baso # (Auto) (0.0-0.2) X10*3/uL Abs Immat Gran (auto) (0.00-0.03) X10*3/uL Absolute Neuts (auto) (2.0-8.3) x10*3/uL Absolute Nucleated RBC (0.0-0.012) X10*3/uL Nucleated RBC % (auto) (0.0-0.2) /100WBC Sodium (135-145) mmol/L Potassium (3.3-5.1) mmol/L Chloride (96-108) mmol/L Carbon Dioxide (22-29) mmol/L Anion Gap (12-20) BUN (9-16) mg/dL Creatinine (0.5-1.4) mg/dL Estim Creat Clear Calc Estimated GFR Random Glucose (60-115) mg/dL Calcium (8.4-10.2) mg/dL Total Bilirubin (0.0-1.0) mg/dL Direct Bilirubin (0.0-0.5) mg/dL AST (5-31) U/L ALT (0-31) U/L Alkaline Phosphatase (39-117) U/L Total Protein (6.5-8.0) g/dL Albumin (3.5-5.0) g/dL Lipase (8-78) U/L TSH (0.32-4.0) uIU/mL Free T4 (0.71-1.85) ng/dL Urine Color Urine Appearance Urine pH (5.0-8.0) Ur Specific [place] (1.005-1.025) Urine Protein (NEG-TRACE) MG/DL Urine Glucose (UA) (NEG) MG/DL Urine Ketones (NEG) MG/DL Urine Blood (NEG) Urine Nitrite (NEG) Ur Leukocyte Esterase (NEG) Urine RBC (0) /HPF Urine WBC (0-4) /HPF Ur Squamous Epith Cells /LPF Calcium Oxalate Crystal /LPF Urine Bacteria /LPF Urine Test NEGATIVE (NEGATIVE) COVID-19 (TONJA) Negative (Negative) COVID-19 Clin Com See Note Discharge Plan Discharge Clinical Impression: Viral syndrome, Headache, Hyperthyroidism Patient Disposition: Home, Self-Care Instructions: Hyperthyroidism (ED), Viral Syndrome (ED) Additional Instructions: Your laboratory evaluation revealed a slight elevation in your liver enzyme. Your AST was elevated at 32 (normal range 0 to 31) in your alkaline phosphatase was elevated 214 (normal range 39 to 117). This could be related to your viral infection but you should have liver enzymes repeated when you are feeling better by your doctor. Your thyroid tests are consistent with an overactive thyroid. Your TSH was below detectable limits. Your free T4 was elevated at 3.4 (normal range is 0.7-1.85). Your COVID-19 test was negative. You have only been sick for 1-2 days. In the 1st 4 days of a COVID infection, the COVID-19 test can be falsely negative therefore you need to stay home and isolate for least 1 week and if your symptoms get worse then you need to be retested for COVID 19. Take Zofran ODT 4 mg pills, 1 pill dissolved in your mouth every 8 hours as needed for nausea and vomiting. Take ibuprofen 200 mg pills, 3 pills every 6 hours as needed for pain. Take Tylenol (acetaminophen) 500 mg pills, 2 pills every 4 to 6 hours as needed for pain. Follow-up with your doctor in 2 days. Please return to the emergency department if your symptoms get worse or if you develop any symptoms that are concerning to you. Please see the work note. No work for 7 days. You may return to work on May 05, 2021 if your completely asymptomatic otherwise you need to stay home for a total of 14 days from onset of her symptoms. Prescriptions: New ondansetron 4 mg tablet,disintegrating 4 mg PO Q6-8H PRN (Reason: nausea and vomiting) Qty: 14 RF: 0 No Action ibuprofen 800 mg tablet 800 mg PO Q8H PRN (Reason: pain) Qty: 14 RF: 0 ibuprofen 600 mg tablet 600 mg PO Q6H PRN (Reason: pain) Qty: 20 RF: 0 diphenhydramine HCl [Benadryl] 25 mg capsule 25 mg PO TID PRN (Reason: allergic reaction) Qty: 20 RF: 0 Stand Alone Forms: Work/School Release
[2021-04-28 18:08] LABS: COVID-19 Test Negative (Negative)
[2021-04-28] MEDS: Ketorolac Tromethamine 15 MG/ML VIAL IVPUSH (18:09)
[2021-04-28] MEDS: 0.9 % Sodium Chloride 1,000 ML 999 ML IV (18:09)
[2021-04-28] MEDS: Metoclopramide HCl 10 MG/2 ML VIAL IVPUSH (18:10)
[2021-04-28] MEDS: diphenhydrAMINE HCL 50 MG/ML VIAL IVPUSH (18:10)
[2021-04-28 18:48] LABS: TSH reflex Free T4 < 0.01 uIU/mL (0.32-4.0)
[2021-04-28] MEDS: Morphine Sulfate 4 MG/ML CARTRIDGE IVPUSH (19:43)
[2021-04-28 20:55] VITALS: BP 122/66; PULSE 115; RESP 16; O2SAT 98
--- NOTE | 2021-04-28 20:55 | PC.NURSE ---
MD at bedside for assessment, explaining results and plan of care.
== END 2021-04-28 21:15 | disposition home or self-care (01) ==
PROVIDERS: Emergency Provider Emergency Medicine Emergency Medical Services
DX: B34.9 Viral infection, unspecified (principal); E05.90 Thyrotoxicosis, unspecified without thyrotoxic crisis or storm; R51.9 Headache, unspecified; R11.2 Nausea with vomiting, unspecified; R19.7 Diarrhea, unspecified; Z20.822 Contact with and (suspected) exposure to COVID-19; Z79.899 Other long term (current) drug therapy
CPT/HCPCS: 36415; 80048; 80076; 81001; 81025; 83690; 84439; 84443; 85025; 87635; 96361; 96374; 96375; 99284; J1200; J1885; J2270; J2765

== ENCOUNTER 2021-07-25 13:31 | Emergency (ER) | payer OTHER, MEDICAID, SELFPAY ==
[2021-07-25 13:49] VITALS: BP 143/83; PULSE 123; RESP 17; TEMP 36.8; O2SAT 98; BMI 39.2
[2021-07-25 14:32] LABS: Appearance Urine HAZY; Color Urine YELLOW; Glucose Urine UA NEG (NEG); Leukocyte Esterase Urine NEG (NEG); Nitrite Urine NEG (NEG); Specific Gravity - Urine 1.015 (1.005-1.025); Urine Blood NEG (NEG); Urine Ketones NEG (NEG); Urine Protein NEG (NEG-TRACE)
[2021-07-25 14:34] LABS: UPreg QC Valid YES; Urine Pregnancy NEGATIVE (NEGATIVE)
[2021-07-25 14:44] LABS: Bacteria Urine 1+ /LPF; Mucus Urine 2+ /LPF; Renal Epithelial Cells Urine 1+ /LPF; Squamous Epithelial Cell Urine 2+ /LPF; UACC CULT YES
--- NOTE | 2021-07-25 14:50 | ED_ITS ---
HPI - Back Pain/Injury General Chief Complaint: Back Pain/Injury Stated Complaint: back pain Time Seen by Provider: 07/25/21 14:50 History of Present Illness HPI Narrative: Patient complains of low back pain worse with movement that radiates to the groin area, denies any injury, denies fever denies dysuria denies frequency denies incontinence denies numbness weakness or tingling no radiation of pain Related Data Previous Rx's Medication Instructions Recorded ibuprofen 800 mg tablet 800 mg PO Q8H PRN #14 tab 11/16/20 diphenhydramine HCl 25 mg capsule 25 mg PO TID PRN #20 cap 02/16/21 (Benadryl) ibuprofen 600 mg tablet 600 mg PO Q6H PRN #20 tab 03/19/21 ondansetron 4 mg disintegrating 4 mg PO Q6-8H PRN #14 tab 04/28/21 tablet acetaminophen 500 mg tablet 1,000 mg PO QID PRN #30 tab 07/25/21 cyclobenzaprine 5 mg tablet 5 mg PO TID PRN #10 tab 07/25/21 cyclobenzaprine 5 mg tablet 5 mg PO TID PRN #10 tab 07/25/21 ibuprofen 600 mg tablet 600 mg PO Q6H PRN #20 tab 07/25/21 ibuprofen 600 mg tablet 600 mg PO Q6H PRN #20 tab 07/25/21 Allergies Allergy/AdvReac Type Severity Reaction Status Date / Time sulfamethoxazole Allergy Intermediate HIVES Verified 03/19/21 18:27 [From BACTRIM] trimethoprim [From BACTRIM] Allergy Intermediate HIVES Verified 11/28/20 09:57 Review of Systems Review of Systems: Positive for back pain with movement negatives are no fever no chills no dizziness no weakness no headache no neck pain no chest pain no abdominal pain no nausea or vomiting no dysuria no frequency no incontinence no changes to bowel or bladder no skin rash Yes all other systems are reviewed and are negative PMFSH Past Medical History Source: nursing notes reviewed Medical History Hyperthyroidism Tachycardia Social History Social History Alcohol intake: current Alcohol intake frequency: a few times a week Alcohol type: wine and hard liquor Patient Tobacco Use Status: Never used Tobacco Use of substances other than those prescribed or required for medical reasons: No Advance Directives: No Advance Directives Information Provided: No Patient : No Current occupational status: employed 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 Physical Exam Vital Signs: Vital Signs: Last Vital Signs Temp 98.2 F 07/25/21 13:49 Pulse 118 H 07/25/21 14:53 Resp 18 07/25/21 14:53 BP 142/81 H 07/25/21 14:53 Pulse Ox 97 07/25/21 14:53 BMI result Body Mass Index 39.2 Tachycardia 118 was noted and was repeated with a pulse of 120 at rest General appearance comfortable no acute distress Head is normocephalic atraumatic Neck is supple The chest is clear to auscultation bilateral Heart no murmur Abdomen soft nontender Extremities full range of motion x4 no edema The back had lower lumbar paraspinal soft tissue tenderness no midline tenderness no CVA tenderness, pain is reproduced with movement Course Course Course Narrative: UA was contaminated but patient is asymptomatic so I read as a negative UA as the patient has no symptoms of urinary tract infection test was negative Patient's back pain is consistent with a musculoskeletal back strain and she is treated with Motrin Tylenol and a muscle relaxer Her tachycardia remained around 120 EKG was done and showed a sinus tachycardia rate [address] changes, intervals were normal, no acute ischemic changes Patient has a history of hyper thyroid and was taking a medication but stopped her medication some time ago and has not been checked recently She denies any chest pain or palpitations or shortness of breath CBC did not show any significant anemia hemoglobin 12 hematocrit 36 TSH was under 0.01 low, free T4 was 3.49 high consistent with hyperthyroid and patient will follow with her doctor and I also gave her the number of our director of safety to discuss treatment options for her hyperthyroid MDM - Back Pain/Injury Lab Data Result diagrams: 07/25/21 15:30 07/25/21 15:30 Labs: Lab Results 07/25/21 07/25/21 07/25/21 Range/Units 14:05 14:05 15:30 WBC (4.8-10.8) X10*3/uL RBC (4.20-5.50) X10*6/uL Hgb (12.0-16.0) g/dl Hct (37.0-47.0) % MCV (80.0-98.0) fL MCH (27.0-33.0) pg MCHC (31.0-35.0) g/dl RDW (11.0-16.0) % Plt Count (160-400) X10*3/uL MPV (9.4-12.3) fL Immature Gran % (Auto) (0.0-0.4) % Neut % (Auto) (45-73) % Lymph % (Auto) (20-40) % [place] % (Auto) (2-11) % Eos % (Auto) (0-4) % Baso % (Auto) (0-2) % Lymph # (Auto) (1.2-4.9) X10*3/uL [place] # (Auto) (0.1-1.2) X10*3/uL Eos # (Auto) (0.0-0.4) X10*3/uL Baso # (Auto) (0.0-0.2) X10*3/uL Abs Immat Gran (auto) (0.00-0.03) X10*3/uL Absolute Neuts (auto) (2.0-8.3) x10*3/uL Absolute Nucleated RBC (0.0-0.012) X10*3/uL Nucleated RBC % (auto) (0.0-0.2) /100WBC Sodium (135-145) mmol/L Potassium (3.3-5.1) mmol/L Chloride (96-108) mmol/L Carbon Dioxide (22-29) mmol/L Anion Gap (12-20) BUN (9-16) mg/dL Creatinine (0.5-1.4) mg/dL Estim Creat Clear Calc Estimated GFR Random Glucose (60-115) mg/dL Calcium (8.4-10.2) mg/dL TSH < 0.01 L (0.32-4.0) uIU/mL Free T4 3.49 H (0.71-1.85) ng/dL Urine Color YELLOW Urine Appearance HAZY Urine pH 7.0 (5.0-8.0) Ur Specific [place] 1.015 (1.005-1.025) Urine Protein NEG (NEG-TRACE) MG/DL Urine Glucose (UA) NEG (NEG) MG/DL Urine Ketones NEG (NEG) MG/DL Urine Blood NEG (NEG) Urine Nitrite NEG (NEG) Ur Leukocyte Esterase NEG (NEG) Urine RBC 1-4 (0) /HPF Urine WBC 5-9 H (0-4) /HPF Ur Squamous Epith Cells 2+ /LPF Ur Renal Epithelial Cell 1+ /LPF Urine Bacteria 1+ /LPF Urine Mucus 2+ /LPF Urine Test NEGATIVE (NEGATIVE) 07/25/21 07/25/21 Range/Units 15:30 15:30 WBC 5.6 (4.8-10.8) X10*3/uL RBC 4.54 (4.20-5.50) X10*6/uL Hgb 12.2 (12.0-16.0) g/dl Hct 36.5 L (37.0-47.0) % MCV 80.4 (80.0-98.0) fL MCH 26.9 L (27.0-33.0) pg MCHC 33.4 (31.0-35.0) g/dl RDW 12.8 (11.0-16.0) % Plt Count 342 (160-400) X10*3/uL MPV 9.6 (9.4-12.3) fL Immature Gran % (Auto) 0.4 (0.0-0.4) % Neut % (Auto) 58.7 (45-73) % Lymph % (Auto) 29.7 (20-40) % [place] % (Auto) 8.9 (2-11) % Eos % (Auto) 2.1 (0-4) % Baso % (Auto) 0.2 (0-2) % Lymph # (Auto) 1.7 (1.2-4.9) X10*3/uL [place] # (Auto) 0.5 (0.1-1.2) X10*3/uL Eos # (Auto) 0.1 (0.0-0.4) X10*3/uL Baso # (Auto) 0.0 (0.0-0.2) X10*3/uL Abs Immat Gran (auto) 0.02 (0.00-0.03) X10*3/uL Absolute Neuts (auto) 3.3 (2.0-8.3) x10*3/uL Absolute Nucleated RBC 0.000 (0.0-0.012) X10*3/uL Nucleated RBC % (auto) 0.0 (0.0-0.2) /100WBC Sodium 140 (135-145) mmol/L Potassium 4.2 (3.3-5.1) mmol/L Chloride 105 (96-108) mmol/L Carbon Dioxide 29 (22-29) mmol/L Anion Gap 10 L (12-20) BUN 6 L (9-16) mg/dL Creatinine 0.46 L (0.5-1.4) mg/dL Estim Creat Clear Calc 202.8 Estimated GFR > 60 Random Glucose 112 (60-115) mg/dL Calcium 9.6 (8.4-10.2) mg/dL TSH (0.32-4.0) uIU/mL Free T4 (0.71-1.85) ng/dL Urine Color Urine Appearance Urine pH (5.0-8.0) Ur Specific [place] (1.005-1.025) Urine Protein (NEG-TRACE) MG/DL Urine Glucose (UA) (NEG) MG/DL Urine Ketones (NEG) MG/DL Urine Blood (NEG) Urine Nitrite (NEG) Ur Leukocyte Esterase (NEG) Urine RBC (0) /HPF Urine WBC (0-4) /HPF Ur Squamous Epith Cells /LPF Ur Renal Epithelial Cell /LPF Urine Bacteria /LPF Urine Mucus /LPF Urine Test (NEGATIVE) Discharge Plan Discharge Clinical Impression: Strain of lumbar region, Hyperthyroidism Patient Disposition: Home, Self-Care Additional Instructions: We noticed that her pulse was fast and you told us that you have a history of hyperthyroid but were no longer taking the medication We recheck the thyroid and you are still hyper thyroid which can result in a fast heartbeat Follow with primary care doctor and director of safety for further evaluation Pain in your back is likely from muscle strain and irritation If it does not resolve on its own follow with primary care doctor for referral for physical therapy Return any time any worse condition or any concerns Prescriptions: New cyclobenzaprine 5 mg tablet 5 mg PO TID PRN (Reason: muscle spasm) Qty: 10 0RF ibuprofen 600 mg tablet 600 mg PO Q6H PRN (Reason: pain) Qty: 20 0RF acetaminophen 500 mg tablet 1,000 mg PO QID PRN (Reason: pain) Qty: 30 0RF cyclobenzaprine 5 mg tablet 5 mg PO TID PRN (Reason: muscle spasm) Qty: 10 0RF ibuprofen 600 mg tablet 600 mg PO Q6H PRN (Reason: pain) Qty: 20 0RF No Action ibuprofen 800 mg tablet 800 mg PO Q8H PRN (Reason: pain) Qty: 14 0RF ibuprofen 600 mg tablet 600 mg PO Q6H PRN (Reason: pain) Qty: 20 0RF ondansetron 4 mg tablet,disintegrating 4 mg PO Q6-8H PRN (Reason: nausea and vomiting) Qty: 14 0RF diphenhydramine HCl [Benadryl] 25 mg capsule 25 mg PO TID PRN (Reason: allergic reaction) Qty: 20 0RF Referrals: Dolores Beltrán MD [Physician] - 1 week (Hyperthyroid, has not been taking medication for some time, labs in the ER TSH under 0.01 and free T4 3.49)
[2021-07-25 14:53] VITALS: BP 142/81; PULSE 118; RESP 18; O2SAT 97
--- NOTE | 2021-07-25 15:00 | ECG_ITS ---
Test Reason : TACHYCARDIA Blood Pressure : / mmHG Vent. Rate : 121 BPM Atrial Rate : 121 BPM P-R Int : 140 ms QRS Dur : 088 ms QT Int : 352 ms P-R-T Axes : -01 030 000 degrees QTc Int : 499 ms Sinus tachycardia Minimal voltage criteria for LVH, may be normal variant ( R in aVL ) Borderline ECG No previous ECGs available Referred By: Iraj Feliciano Electronically Signed By:Morgan Engel
[2021-07-25] MEDS: Ketorolac Tromethamine 30 MG/ML VIAL IM (15:05)
[2021-07-25 15:34] LABS: MANUAL DIFF FLAG NO
[2021-07-25 15:42] LABS: Basophils Percent Auto 0.2 % (0-2); Eosinophils Absolute Auto 0.1 X10*3/uL (0.0-0.4); Eosinophils Percent Auto 2.1 % (0-4); Hematocrit 36.5 % (37.0-47.0); Hemoglobin 12.2 g/dl (12.0-16.0); Imm Gran Abs Auto 0.02 X10*3/uL (0.00-0.03); Imm Gran Pct Auto 0.4 % (0.0-0.4); Lymphocytes Absolute Auto 1.7 X10*3/uL (1.2-4.9); Lymphocytes Percent Auto 29.7 % (20-40); Mean Corpuscular HGB Conc 33.4 g/dl (31.0-35.0); Mean Corpuscular Hemoglobin 26.9 pg (27.0-33.0); Mean Corpuscular Volume 80.4 fL (80.0-98.0); Mean Platelet Volume 9.6 fL (9.4-12.3); Monocytes Absolute Auto 0.5 X10*3/uL (0.1-1.2); Monocytes Percent Auto 8.9 % (2-11); Neutrophils Absolute Auto 3.3 x10*3/uL (2.0-8.3); Neutrophils Percent Auto 58.7 % (45-73); Platelet Count 342 X10*3/uL (160-400); Red Blood Count 4.54 X10*6/uL (4.20-5.50); Red Cell Distribution Width 12.8 % (11.0-16.0); White Blood Count 5.6 X10*3/uL (4.8-10.8)
[2021-07-25 15:56] LABS: Anion Gap 10 (12-20); Blood Urea Nitrogen 6 mg/dL (9-16); Calcium 9.6 mg/dL (8.4-10.2); Carbon Dioxide 29 mmol/L (22-29); Chloride 105 mmol/L (96-108); Creatinine Clr Calc Pharmacy 202.8; Estimated Glomerular Filt Rate > 60; Glucose Random 112 mg/dL (60-115); Potassium 4.2 mmol/L (3.3-5.1); Sodium 140 mmol/L (135-145)
--- NOTE | 2021-07-25 16:04 | PC.NURSE ---
applied dressing to left great toe as ordered by provider . non -stick telpha secured with tape . patient tolerated well .
[2021-07-25 16:18] LABS: TSH reflex Free T4 < 0.01 uIU/mL (0.32-4.0)
[2021-07-25 17:17] LABS: Free T4 (Free Thyroxine) 3.49 ng/dL (0.71-1.85)
[2021-07-25 17:42] VITALS: BP 137/86; PULSE 115; RESP 18; TEMP 36.8; O2SAT 99
== END 2021-07-25 17:49 | disposition home or self-care (01) ==
PROVIDERS: Physician Assistant Medical; Emergency Provider Emergency Medicine
DX: N39.0 Urinary tract infection, site not specified (principal); B96.4 Proteus (mirabilis) (morganii) as the cause of diseases classified elsewhere; S39.012A Strain of muscle, fascia and tendon of lower back, initial encounter; X58.XXXA Exposure to other specified factors, initial encounter; R00.0 Tachycardia, unspecified; E05.90 Thyrotoxicosis, unspecified without thyrotoxic crisis or storm; Y93.9 Activity, unspecified; Y92.9 Unspecified place or not applicable; Y99.9 Unspecified external cause status
CPT/HCPCS: 36415; 80048; 81001; 81025; 84439; 84443; 85025; 87086; 87088; 87186; 93005; 96372; 99284; 99285; J1885

== ENCOUNTER 2021-08-27 19:00 | Emergency (ER) | payer OTHER, MEDICAID, SELFPAY ==
--- NOTE | ~2021-08-27 | XR_ITS ---
EXAMINATION: XR LUMBOSACRAL SPINE CLINICAL INFORMATION: Back pain COMPARISON: 10/24/2020 TECHNIQUE: Three views of the lumbosacral spine. FINDINGS: There is anatomic alignment of the vertebral bodies and posterior elements. Vertebral body heights and intervertebral disc spaces are maintained. No acute fracture is seen. Sacroiliac joints appear intact. XR/XR lumbar spine 2-3V IMPRESSION: No acute findings identified.
--- NOTE | ~2021-08-27 | CT_ITS ---
EXAMINATION: CT HEAD WITHOUT CONTRAST CLINICAL INFORMATION: Leg paresthesias COMPARISON: None TECHNIQUE: Contiguous axial imaging was performed from the skull base to vertex without intravenous administration of contrast. This CT examination was performed using dose optimization techniques as appropriate, variously including the following: *Automated exposure control *Adjustment of mA and/or kV according to patient size (this includes techniques or standardized protocols for targeted exams where dose is matched to indication/reason for exam; i.e. extremities or head) *Use of iterative reconstruction technique DLP: 661 mGy-cm FINDINGS: There is no evidence of acute intracranial hemorrhage or territorial infarction. No abnormal mass effect or midline shift is seen. Carrillo to white matter differentiation is well preserved. No extra-axial fluid collections are identified. The ventricles are normal in size. There is no abnormal attenuation within the brain parenchyma. The osseous structures and soft tissues are normal. There is complete opacification of the left maxillary, frontal, and ethmoid sinuses. Near-complete opacification of the right maxillary sinus. The mastoid air cells are well-aerated. CT/CT head/brain wo con IMPRESSION: No acute intracranial pathology. Paranasal sinus disease as noted above.
[2021-08-27 19:43] VITALS: BP 149/81; PULSE 118; RESP 19; TEMP 36.6; O2SAT 98; BMI 33.7
[2021-08-27 21:09] LABS: MANUAL DIFF FLAG NO
[2021-08-27 21:18] LABS: Basophils Percent Auto 0.2 % (0-2); Eosinophils Absolute Auto 0.1 X10*3/uL (0.0-0.4); Eosinophils Percent Auto 2.6 % (0-4); Hematocrit 39.6 % (37.0-47.0); Hemoglobin 12.6 g/dl (12.0-16.0); Imm Gran Abs Auto 0.01 X10*3/uL (0.00-0.03); Imm Gran Pct Auto 0.2 % (0.0-0.4); Lymphocytes Absolute Auto 1.6 X10*3/uL (1.2-4.9); Lymphocytes Percent Auto 30.1 % (20-40); Mean Corpuscular HGB Conc 31.8 g/dl (31.0-35.0); Mean Corpuscular Hemoglobin 26.4 pg (27.0-33.0); Mean Corpuscular Volume 82.8 fL (80.0-98.0); Mean Platelet Volume 9.8 fL (9.4-12.3); Monocytes Absolute Auto 0.5 X10*3/uL (0.1-1.2); Monocytes Percent Auto 8.3 % (2-11); Neutrophils Absolute Auto 3.2 x10*3/uL (2.0-8.3); Neutrophils Percent Auto 58.6 % (45-73); Platelet Count 343 X10*3/uL (160-400); Red Blood Count 4.78 X10*6/uL (4.20-5.50); Red Cell Distribution Width 12.7 % (11.0-16.0); White Blood Count 5.5 X10*3/uL (4.8-10.8)
[2021-08-27 21:28] LABS: Alanine Aminotransferase 33 U/L (0-31); Albumin Level 3.9 g/dL (3.5-5.0); Alkaline Phosphatase 224 U/L (39-117); Anion Gap 13 (12-20); Aspartate Amino Transferase 19 U/L (5-31); Bilirubin Total 0.3 mg/dL (0.0-1.0); Blood Urea Nitrogen 7 mg/dL (9-16); Calcium 9.5 mg/dL (8.4-10.2); Carbon Dioxide 25 mmol/L (22-29); Chloride 106 mmol/L (96-108); Creatinine Clr Calc Pharmacy 202.3; Estimated Glomerular Filt Rate > 60; Glucose Random 156 mg/dL (60-115); Potassium 4.2 mmol/L (3.3-5.1); Sodium 140 mmol/L (135-145); Total Protein 6.6 g/dL (6.5-8.0)
[2021-08-28 00:36] VITALS: BP 133/86; PULSE 120; RESP 18; TEMP 36.5; O2SAT 98
--- NOTE | 2021-08-28 00:38 | ED.NEUROSD ---
HPI - Neuro Symptoms/Deficit General Chief Complaint: General Medical Stated Complaint: both legs are going numb Time Seen by Provider: 08/28/21 00:35 Source: patient Mode of arrival: ambulatory Limitations: no limitations History of Present Illness HPI Narrative: 21 yo female with no sig PMH here with c/o intermittent lower extremity waxing and waning patchy tingling in both legs and then she feels like they give out. Both her mom and sister have MS. She is also worried she has MS. Her symptoms come and go. She has no other symptoms. She does have chronic low back pain but feels the symptoms start around her ankles and at times they fully resolve Onset (ago): day(s) (4) Location: left leg and right leg History of same: No Severity: mild Quality: weak and tingling Relieving factors: none Exacerbating factors: time Context: gradual onset On Anticoagulants: No Associated symptoms: denies other symptoms Treatments Prior to Arrival: none Related Data Previous Rx's Medication Instructions Recorded ibuprofen 800 mg tablet 800 mg PO Q8H PRN #14 tab 11/16/20 diphenhydramine HCl 25 mg capsule 25 mg PO TID PRN #20 cap 02/16/21 (Benadryl) ibuprofen 600 mg tablet 600 mg PO Q6H PRN #20 tab 03/19/21 ondansetron 4 mg disintegrating 4 mg PO Q6-8H PRN #14 tab 04/28/21 tablet acetaminophen 500 mg tablet 1,000 mg PO QID PRN #30 tab 07/25/21 cyclobenzaprine 5 mg tablet 5 mg PO TID PRN #10 tab 07/25/21 cyclobenzaprine 5 mg tablet 5 mg PO TID PRN #10 tab 07/25/21 ibuprofen 600 mg tablet 600 mg PO Q6H PRN #20 tab 07/25/21 ibuprofen 600 mg tablet 600 mg PO Q6H PRN #20 tab 07/25/21 cefuroxime axetil 250 mg tablet 250 mg PO BID 7 Days #14 tab 07/29/21 amoxicillin 875 mg-potassium 1 tab PO BID #14 tab 08/28/21 clavulanate 125 mg tablet Allergies Allergy/AdvReac Type Severity Reaction Status Date / Time sulfamethoxazole Allergy Intermediate HIVES Verified 03/19/21 18:27 [From BACTRIM] trimethoprim [From BACTRIM] Allergy Intermediate HIVES Verified 11/28/20 09:57 Review of Systems Review of Systems: Constitutional : No Weight loss, No Fever, No Chills, No Fatigue, No Malaise ENT/Mouth : No sore throat, No Rhinorrhea Eyes: No Eye Pain, No Swelling, No Redness Cardiovascular : No Chest Pain, No SOB, No Dyspnea on Exertion, No Orthopnea, No Edema, No Palpitations Respiratory : No Cough, No Sputum, No Wheezing Gastrointestinal : No Nausea, No Vomiting, No Diarrhea, No Constipation, No abdominal Pain, No Hematochezia, No Melena Genitourinary : No Dysuria, No Urinary Frequency, No Hematuria, Musculoskeletal : No joint pain, No Myalgias, No Joint Swelling, pos back pain Skin : No Skin Lesions, No rash Neuro : pos Weakness, pos Numbness, No Dizziness, No Headache Psych : No Anxiety/Panic, No Depression Heme/Lymph: No Bruising, No Bleeding,No Lymphadenopathy Endocrine : No Polyuria, No Polydipsia All other systems reviewed and are negative [facility] Past Medical History Attestation statement: The following information was validated with the patient. 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 Oriented X3. No acute distress. Eyes: Pupils equal, round and reactive to light. ENT: Pharynx normal. Neck: Normal inspection. Neck supple. CVS: Normal heart rate and rhythm. Pulses normal. Respiratory: No respiratory distress. Breath sounds normal. Abdomen: Soft and non-tender. Skin: Skin warm and dry. Normal skin color. Normal skin turgor. Extremities: No lower extremity edema. No calf ttp Neuro: Oriented X 3. No motor deficit. No sensory deficit. sensation intact bilateral LE, 2+ DTR in both legs patella and achilles, no clonus, normal gait Course Course Course Narrative: HR always above 100 CT head negative other than sinusitis will treat again needs MRI she is aware doubt GBS has no symptoms now MDM - Neuro Symptoms/Deficit MDM Narrative Medical decision making narrative: 21 yo female with intermittent patchy parasthesias of bilateral LE - at this time she has sig family hx of MS - she is not actively having symptoms right now. doubt GBS given they are intermittent she has normal DTRs, no clonus. Will obtain CT head for any evidence of disease, lumbar spine. She is aware she will need MRI we did discuss that I cannot obtain one at this time but that given she cannot get a hold of her PCP she can come back during the day to get MRI. Patient plans to do this. Lab Data Result diagrams: 08/27/21 21:05 08/27/21 21:05 Labs: Lab Results 08/27/21 08/27/21 08/28/21 Range/Units 21:05 21:05 02:05 WBC 5.5 (4.8-10.8) X10*3/uL RBC 4.78 (4.20-5.50) X10*6/uL Hgb 12.6 (12.0-16.0) g/dl Hct 39.6 (37.0-47.0) % MCV 82.8 (80.0-98.0) fL MCH 26.4 L (27.0-33.0) pg MCHC 31.8 (31.0-35.0) g/dl RDW 12.7 (11.0-16.0) % Plt Count 343 (160-400) X10*3/uL MPV 9.8 (9.4-12.3) fL Immature Gran % (Auto) 0.2 (0.0-0.4) % Neut % (Auto) 58.6 (45-73) % Lymph % (Auto) 30.1 (20-40) % [place] % (Auto) 8.3 (2-11) % Eos % (Auto) 2.6 (0-4) % Baso % (Auto) 0.2 (0-2) % Lymph # (Auto) 1.6 (1.2-4.9) X10*3/uL [place] # (Auto) 0.5 (0.1-1.2) X10*3/uL Eos # (Auto) 0.1 (0.0-0.4) X10*3/uL Baso # (Auto) 0.0 (0.0-0.2) X10*3/uL Abs Immat Gran (auto) 0.01 (0.00-0.03) X10*3/uL Absolute Neuts (auto) 3.2 (2.0-8.3) x10*3/uL Absolute Nucleated RBC 0.000 (0.0-0.012) X10*3/uL Nucleated RBC % (auto) 0.0 (0.0-0.2) /100WBC Sodium 140 (135-145) mmol/L Potassium 4.2 (3.3-5.1) mmol/L Chloride 106 (96-108) mmol/L Carbon Dioxide 25 (22-29) mmol/L Anion Gap 13 (12-20) BUN 7 L (9-16) mg/dL Creatinine 0.51 (0.5-1.4) mg/dL Estim Creat Clear Calc 202.3 Estimated GFR > 60 Random Glucose 156 H (60-115) mg/dL Calcium 9.5 (8.4-10.2) mg/dL Total Bilirubin 0.3 (0.0-1.0) mg/dL AST 19 (5-31) U/L ALT 33 H (0-31) U/L Alkaline Phosphatase 224 H (39-117) U/L Total Protein 6.6 (6.5-8.0) g/dL Albumin 3.9 (3.5-5.0) g/dL Urine Color YELLOW Urine Appearance CLEAR Urine pH 6.0 (5.0-8.0) Ur Specific [place] 1.020 (1.005-1.025) Urine Protein NEG (NEG-TRACE) MG/DL Urine Glucose (UA) NEG (NEG) MG/DL Urine Ketones NEG (NEG) MG/DL Urine Blood NEG (NEG) Urine Nitrite NEG (NEG) Ur Leukocyte Esterase NEG (NEG) Urine Test (NEGATIVE) 08/28/21 Range/Units 02:05 WBC (4.8-10.8) X10*3/uL RBC (4.20-5.50) X10*6/uL Hgb (12.0-16.0) g/dl Hct (37.0-47.0) % MCV (80.0-98.0) fL MCH (27.0-33.0) pg MCHC (31.0-35.0) g/dl RDW (11.0-16.0) % Plt Count (160-400) X10*3/uL MPV (9.4-12.3) fL Immature Gran % (Auto) (0.0-0.4) % Neut % (Auto) (45-73) % Lymph % (Auto) (20-40) % [place] % (Auto) (2-11) % Eos % (Auto) (0-4) % Baso % (Auto) (0-2) % Lymph # (Auto) (1.2-4.9) X10*3/uL [place] # (Auto) (0.1-1.2) X10*3/uL Eos # (Auto) (0.0-0.4) X10*3/uL Baso # (Auto) (0.0-0.2) X10*3/uL Abs Immat Gran (auto) (0.00-0.03) X10*3/uL Absolute Neuts (auto) (2.0-8.3) x10*3/uL Absolute Nucleated RBC (0.0-0.012) X10*3/uL Nucleated RBC % (auto) (0.0-0.2) /100WBC Sodium (135-145) mmol/L Potassium (3.3-5.1) mmol/L Chloride (96-108) mmol/L Carbon Dioxide (22-29) mmol/L Anion Gap (12-20) BUN (9-16) mg/dL Creatinine (0.5-1.4) mg/dL Estim Creat Clear Calc Estimated GFR Random Glucose (60-115) mg/dL Calcium (8.4-10.2) mg/dL Total Bilirubin (0.0-1.0) mg/dL AST (5-31) U/L ALT (0-31) U/L Alkaline Phosphatase (39-117) U/L Total Protein (6.5-8.0) g/dL Albumin (3.5-5.0) g/dL Urine Color Urine Appearance Urine pH (5.0-8.0) Ur Specific [place] (1.005-1.025) Urine Protein (NEG-TRACE) MG/DL Urine Glucose (UA) (NEG) MG/DL Urine Ketones (NEG) MG/DL Urine Blood (NEG) Urine Nitrite (NEG) Ur Leukocyte Esterase (NEG) Urine Test NEGATIVE (NEGATIVE) Discharge Plan Discharge Clinical Impression: Paresthesia Sinusitis Qualifiers: Sinusitis location: ethmoidal Chronicity: acute Recurrence: non-recurrent Qualified Code(s): J01.20 - Acute ethmoidal sinusitis, unspecified Patient Disposition: Home, Self-Care Instructions: Sinusitis (ED), Paresthesia (ED) Additional Instructions: return to ED for any worsening symptoms or concerns you will need a MRI of your brain to confirm if this is Multiple sclerosis given your family history Prescriptions: New amoxicillin-pot clavulanate 875-125 mg tablet 1 tab PO BID Qty: 14 0RF No Action ibuprofen 800 mg tablet 800 mg PO Q8H PRN (Reason: pain) Qty: 14 0RF ibuprofen 600 mg tablet 600 mg PO Q6H PRN (Reason: pain) Qty: 20 0RF ondansetron 4 mg tablet,disintegrating 4 mg PO Q6-8H PRN (Reason: nausea and vomiting) Qty: 14 0RF diphenhydramine HCl [Benadryl] 25 mg capsule 25 mg PO TID PRN (Reason: allergic reaction) Qty: 20 0RF cyclobenzaprine 5 mg tablet 5 mg PO TID PRN (Reason: muscle spasm) Qty: 10 0RF ibuprofen 600 mg tablet 600 mg PO Q6H PRN (Reason: pain) Qty: 20 0RF acetaminophen 500 mg tablet 1,000 mg PO QID PRN (Reason: pain) Qty: 30 0RF cyclobenzaprine 5 mg tablet 5 mg PO TID PRN (Reason: muscle spasm) Qty: 10 0RF ibuprofen 600 mg tablet 600 mg PO Q6H PRN (Reason: pain) Qty: 20 0RF cefuroxime axetil 250 mg tablet 250 mg PO BID 7 Days Qty: 14 0RF Referrals: Gabby Lee DO [Primary Care Provider] - 1 day Stand Alone Forms: Work/School Release
[2021-08-28 02:16] LABS: Appearance Urine CLEAR; Color Urine YELLOW; Glucose Urine UA NEG (NEG); Leukocyte Esterase Urine NEG (NEG); Nitrite Urine NEG (NEG); Urine Blood NEG (NEG); Urine Ketones NEG (NEG); Urine Protein NEG (NEG-TRACE)
[2021-08-28 02:17] LABS: UPreg QC Valid YES; Urine Pregnancy NEGATIVE (NEGATIVE)
[2021-08-28 03:20] VITALS: BP 137/87; PULSE 109; RESP 16; TEMP 36.9; O2SAT 98
== END 2021-08-28 03:22 | disposition home or self-care (01) ==
PROVIDERS: Emergency Provider Emergency Medicine; PCP Pediatrics
DX: J01.20 Acute ethmoidal sinusitis, unspecified (principal); R20.2 Paresthesia of skin; Z82.69 Family history of other diseases of the musculoskeletal system and connective tissue
CPT/HCPCS: 36415; 70450; 72100; 80053; 81003; 81025; 85025; 99284

== ENCOUNTER 2021-08-28 14:34 | Emergency (ER) | payer OTHER, MEDICAID, SELFPAY ==
[2021-08-28 14:50] VITALS: BP 143/80; PULSE 100; RESP 18; TEMP 36.1; O2SAT 97; BMI 38.7
== END 2021-08-28 19:07 | disposition left against medical advice (07) ==
PROVIDERS: Emergency Provider Emergency Medicine
DX: R20.0 Anesthesia of skin (principal)
CPT/HCPCS: 99281; 99282

== ENCOUNTER 2021-09-13 00:04 | Emergency (ER) | payer OTHER, MEDICAID, SELFPAY ==
--- NOTE | ~2021-09-13 | XR_ITS ---
EXAMINATION: XR CHEST CLINICAL INFORMATION: Chest pain COMPARISON: None TECHNIQUE: Frontal view of the chest was obtained. FINDINGS: The lungs are well expanded. There is no focal consolidation, edema, or effusion. No pneumothorax. The cardiomediastinal silhouette is within normal limits. No acute osseous abnormality. XR/XR chest 1V IMPRESSION: Clear lungs.
--- NOTE | 2021-09-13 00:10 | ECG_ITS ---
Test Reason : CP Blood Pressure : / mmHG Vent. Rate : 110 BPM Atrial Rate : 110 BPM P-R Int : 154 ms QRS Dur : 092 ms QT Int : 364 ms P-R-T Axes : 029 029 001 degrees QTc Int : 492 ms Sinus tachycardia Minimal voltage criteria for LVH, may be normal variant ( R in aVL ) Borderline ECG When compared with ECG of 25-JUL-2021 15:11, No significant change was found Referred By: Generic ED Physician Electronically Signed By:VIDYA DE LA TORRE MD
[2021-09-13 00:25] LABS: MANUAL DIFF FLAG NO
[2021-09-13 00:26] LABS: Basophils Percent Auto 0.2 % (0-2); Eosinophils Absolute Auto 0.2 X10*3/uL (0.0-0.4); Eosinophils Percent Auto 3.6 % (0-4); Hematocrit 36.2 % (37.0-47.0); Hemoglobin 11.7 g/dl (12.0-16.0); Imm Gran Abs Auto 0.01 X10*3/uL (0.00-0.03); Imm Gran Pct Auto 0.2 % (0.0-0.4); Lymphocytes Absolute Auto 2.2 X10*3/uL (1.2-4.9); Lymphocytes Percent Auto 42.7 % (20-40); Mean Corpuscular HGB Conc 32.3 g/dl (31.0-35.0); Mean Corpuscular Hemoglobin 26.1 pg (27.0-33.0); Mean Corpuscular Volume 80.8 fL (80.0-98.0); Mean Platelet Volume 9.4 fL (9.4-12.3); Monocytes Absolute Auto 0.5 X10*3/uL (0.1-1.2); Monocytes Percent Auto 9.9 % (2-11); Neutrophils Absolute Auto 2.2 x10*3/uL (2.0-8.3); Neutrophils Percent Auto 43.4 % (45-73); Platelet Count 305 X10*3/uL (160-400); Red Blood Count 4.48 X10*6/uL (4.20-5.50); Red Cell Distribution Width 12.6 % (11.0-16.0)
[2021-09-13 00:44] LABS: Anion Gap 10 (12-20); Blood Urea Nitrogen 10 mg/dL (9-16); Carbon Dioxide 25 mmol/L (22-29); Chloride 109 mmol/L (96-108); Estimated Glomerular Filt Rate > 60; Glucose Random 93 mg/dL (60-115); Potassium 3.5 mmol/L (3.3-5.1); Sodium 140 mmol/L (135-145)
[2021-09-13 00:50] VITALS: BP 135/81; PULSE 110; RESP 18; TEMP 36.8; O2SAT 98; BMI 38.7
[2021-09-13 00:50] LABS: Troponin-I High Sensitivity < 3.5 ng/L (<3.5-17.0)
--- NOTE | 2021-09-13 01:27 | ED_ITS ---
HPI - Chest Pain General Chief Complaint: Chest Pain Stated Complaint: chest pain, leg pain Time Seen by Provider: 09/13/21 01:27 History of Present Illness HPI narrative: Patient is a 21-year-old female presented with having chest pain. The pain is mid chest. Sharp. Worse with movement. There is no fever no chills no leg swelling. No travel history. No history diabetes, hypertension, high cholesterol, smoking, CA. No history of heart attacks. No sudden in the family. The pain is sharp. Related Data Previous Rx's Medication Instructions Recorded ibuprofen 800 mg tablet 800 mg PO Q8H PRN #14 tab 11/16/20 diphenhydramine HCl 25 mg capsule 25 mg PO TID PRN #20 cap 02/16/21 (Benadryl) ibuprofen 600 mg tablet 600 mg PO Q6H PRN #20 tab 03/19/21 ondansetron 4 mg disintegrating 4 mg PO Q6-8H PRN #14 tab 04/28/21 tablet acetaminophen 500 mg tablet 1,000 mg PO QID PRN #30 tab 07/25/21 cyclobenzaprine 5 mg tablet 5 mg PO TID PRN #10 tab 07/25/21 cyclobenzaprine 5 mg tablet 5 mg PO TID PRN #10 tab 07/25/21 ibuprofen 600 mg tablet 600 mg PO Q6H PRN #20 tab 07/25/21 ibuprofen 600 mg tablet 600 mg PO Q6H PRN #20 tab 07/25/21 cefuroxime axetil 250 mg tablet 250 mg PO BID 7 Days #14 tab 07/29/21 amoxicillin 875 mg-potassium 1 tab PO BID #14 tab 08/28/21 clavulanate 125 mg tablet Allergies Allergy/AdvReac Type Severity Reaction Status Date / Time sulfamethoxazole Allergy Intermediate HIVES Verified 09/13/21 00:50 [From BACTRIM] trimethoprim [From BACTRIM] Allergy Intermediate HIVES Verified 09/13/21 00:50 Review of Systems Review of Systems: No fever no chills no cough no congestion or upper respiratory symptom No diaphoresis All system reviewed otherwise negative Yes all other systems are reviewed and are negative PMFSH Past Medical History Attestation statement: The following information was validated with the patient. 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 Oriented X3. No acute distress. Eyes: Pupils equal, round and reactive to light. ENT: Pharynx normal. Neck: Normal inspection. Neck supple. No lymph nodes noted. No crepitus CVS: Normal heart rate and rhythm. Pulses normal. Normal S1 and S2 Respiratory: No respiratory distress. Breath sounds normal. No Wheezing. No rales Abdomen: Soft and nontender. No rigidity. No distention. good BS x4 Skin: Skin warm and dry. Normal skin color. Normal skin turgor. Extremities: No lower extremity edema. Neurovascular intact to all extremities. No Lacerations. No Rash Neuro: Oriented X 3. No motor deficit. No sensory deficit. Moving all extermities. No slurred speech MDM - Chest Pain MDM Narrative Medical decision making narrative: Patient's EKG showed a sinus tachycardia heart rate was approximately 100 MA QRS QT within normal limits no acute ST segment elevation. There is no risk for PE patient is not on control pills patient never had a sudden in the family, no history of blood clots in the family. No history of clotting disorder. Patient has no significant cardiac risk factors she is 21 years old denies any recreational drug use. Chest x-ray is negative for any acute eviden ce of pneumonia pneumothorax. Will discharge patient home close follow-up on an outpatient Medical Records Data Attestation: I reviewed the patient's medical records. Lab Data Attestation: I reviewed the patient's lab results. Result diagrams: 09/13/21 00:17 09/13/21 00:17 Labs: Lab Results 0409/13/21 09/13/21 Range/Units 00:17 00:17 00:17 WBC 5.0 (4.8-10.8) X10*3/uL RBC 4.48 (4.20-5.50) X10*6/uL Hgb 11.7 L (12.0-16.0) g/dl Hct 36.2 L (37.0-47.0) % MCV 80.8 (80.0-98.0) fL MCH 26.1 L (27.0-33.0) pg MCHC 32.3 (31.0-35.0) g/dl RDW 12.6 (11.0-16.0) % Plt Count 305 (160-400) X10*3/uL MPV 9.4 (9.4-12.3) fL Immature Gran % (Auto) 0.2 (0.0-0.4) % Neut % (Auto) 43.4 L (45-73) % Lymph % (Auto) 42.7 H (20-40) % [place] % (Auto) 9.9 (2-11) % Eos % (Auto) 3.6 (0-4) % Baso % (Auto) 0.2 (0-2) % Lymph # (Auto) 2.2 (1.2-4.9) X10*3/uL [place] # (Auto) 0.5 (0.1-1.2) X10*3/uL Eos # (Auto) 0.2 (0.0-0.4) X10*3/uL Baso # (Auto) 0.0 (0.0-0.2) X10*3/uL Abs Immat Gran (auto) 0.01 (0.00-0.03) X10*3/uL Absolute Neuts (auto) 2.2 (2.0-8.3) x10*3/uL Absolute Nucleated RBC 0.000 (0.0-0.012) X10*3/uL Nucleated RBC % (auto) 0.0 (0.0-0.2) /100WBC Sodium 140 (135-145) mmol/L Potassium 3.5 (3.3-5.1) mmol/L Chloride 109 H (96-108) mmol/L Carbon Dioxide 25 (22-29) mmol/L Anion Gap 10 L (12-20) BUN 10 (9-16) mg/dL Creatinine 0.49 L (0.5-1.4) mg/dL Estim Creat Clear Calc TNP Estimated GFR > 60 Random Glucose 93 (60-115) mg/dL Calcium 9.0 (8.4-10.2) mg/dL Troponin I High Sens < 3.5 (<3.5-17.0) ng/L Discharge Plan Discharge Clinical Impression: Chest pain Patient Disposition: Home, Self-Care Instructions: Chest Pain (ED) Prescriptions: No Action ibuprofen 800 mg tablet 800 mg PO Q8H PRN (Reason: pain) Qty: 14 0RF ibuprofen 600 mg tablet 600 mg PO Q6H PRN (Reason: pain) Qty: 20 0RF ondansetron 4 mg tablet,disintegrating 4 mg PO Q6-8H PRN (Reason: nausea and vomiting) Qty: 14 0RF diphenhydramine HCl [Benadryl] 25 mg capsule 25 mg PO TID PRN (Reason: allergic reaction) Qty: 20 0RF cyclobenzaprine 5 mg tablet 5 mg PO TID PRN (Reason: muscle spasm) Qty: 10 0RF ibuprofen 600 mg tablet 600 mg PO Q6H PRN (Reason: pain) Qty: 20 0RF acetaminophen 500 mg tablet 1,000 mg PO QID PRN (Reason: pain) Qty: 30 0RF cyclobenzaprine 5 mg tablet 5 mg PO TID PRN (Reason: muscle spasm) Qty: 10 0RF ibuprofen 600 mg tablet 600 mg PO Q6H PRN (Reason: pain) Qty: 20 0RF cefuroxime axetil 250 mg tablet 250 mg PO BID 7 Days Qty: 14 0RF amoxicillin-pot clavulanate 875-125 mg tablet 1 tab PO BID Qty: 14 0RF Referrals: Physician,Unknown J [Primary Care Provider] -
[2021-09-13 01:41] VITALS: BP 137/68; PULSE 94; RESP 15; O2SAT 99
== END 2021-09-13 01:41 | disposition home or self-care (01) ==
PROVIDERS: Emergency Provider Emergency Medicine Emergency Medical Services
DX: R07.89 Other chest pain (principal); M79.605 Pain in left leg; M79.604 Pain in right leg; Z79.899 Other long term (current) drug therapy
CPT/HCPCS: 36415; 71045; 80048; 84484; 85025; 93005; 99284

== ENCOUNTER 2021-09-25 17:18 | Emergency (ER) | payer OTHER, MEDICAID, SELFPAY ==
--- NOTE | 2021-09-25 | ECG_ITS ---
Test Reason : CP/DYSPNEA Blood Pressure : / mmHG Vent. Rate : 123 BPM Atrial Rate : 123 BPM P-R Int : 140 ms QRS Dur : 088 ms QT Int : 334 ms P-R-T Axes : 043 036 009 degrees QTc Int : 478 ms Sinus tachycardia Minimal voltage criteria for LVH, may be normal variant ( R in aVL ) Borderline ECG When compared with ECG of 13-SEP-2021 00:07, No significant change was found Referred By: Generic ED Physician Electronically Signed By:Morgan Engel
[2021-09-25 17:28] VITALS: BP 149/79; PULSE 126; RESP 18; TEMP 36.5; O2SAT 94; BMI 38.1
[2021-09-25 17:46] LABS: MANUAL DIFF FLAG NO
[2021-09-25 17:49] LABS: Hematocrit 34.5 % (37.0-47.0); Hemoglobin 11.3 g/dl (12.0-16.0); Imm Gran Abs Auto 0.01 X10*3/uL (0.00-0.03); Imm Gran Pct Auto 0.3 % (0.0-0.4); Lymphocytes Absolute Auto 1.1 X10*3/uL (1.2-4.9); Lymphocytes Percent Auto 36.7 % (20-40); Mean Corpuscular HGB Conc 32.8 g/dl (31.0-35.0); Mean Corpuscular Hemoglobin 26.8 pg (27.0-33.0); Mean Corpuscular Volume 81.8 fL (80.0-98.0); Mean Platelet Volume 9.5 fL (9.4-12.3); Monocytes Absolute Auto 0.3 X10*3/uL (0.1-1.2); Monocytes Percent Auto 10.7 % (2-11); Neutrophils Absolute Auto 1.5 x10*3/uL (2.0-8.3); Neutrophils Percent Auto 51.3 % (45-73); Platelet Count 257 X10*3/uL (160-400); Red Blood Count 4.22 X10*6/uL (4.20-5.50); Red Cell Distribution Width 12.7 % (11.0-16.0); White Blood Count 2.9 X10*3/uL (4.8-10.8)
[2021-09-25 18:01] LABS: Anion Gap 12 (12-20); Blood Urea Nitrogen 6 mg/dL (9-16); Calcium 8.6 mg/dL (8.4-10.2); Carbon Dioxide 25 mmol/L (22-29); Chloride 107 mmol/L (96-108); Creatinine Clr Calc Pharmacy 192.8; Estimated Glomerular Filt Rate > 60; Glucose Random 147 mg/dL (60-115); Potassium 3.8 mmol/L (3.3-5.1); Sodium 140 mmol/L (135-145)
[2021-09-25 18:08] LABS: Troponin-I High Sensitivity < 3.5 ng/L (<3.5-17.0)
[2021-09-25 23:14] VITALS: BP 156/77; PULSE 127; RESP 20; TEMP 36.8; O2SAT 98
--- NOTE | 2021-09-25 23:25 | ED_ITS ---
HPI - Chest Pain General Chief Complaint: Chest Pain Stated Complaint: Chest tightness Time Seen by Provider: 09/25/21 23:52 Source: patient Mode of arrival: ambulatory Limitations: no limitations History of Present Illness HPI narrative: 21-year-old female presents with 2 days of intermittent chest tightness and s hortness of breath. Also requesting a blood test. MD complaint: chest pain Onset (ago): day(s) (2) Timing of current episode: episodic Prior episodes: No Onset: during rest Pain location: substernal Pain radiation: none Severity: mild Quality: tightness Relieving factors: nothing Exacerbating factors: exertion and inspiration Treatment prior to arrival: none Risk Factors Thoracic aortic dissection risk factors: none Related Data On Oral Contraceptives: No Previous Rx's Medication Instructions Recorded ibuprofen 800 mg tablet 800 mg PO Q8H PRN #14 tab 11/16/20 diphenhydramine HCl 25 mg capsule 25 mg PO TID PRN #20 cap 02/16/21 (Benadryl) ibuprofen 600 mg tablet 600 mg PO Q6H PRN #20 tab 03/19/21 ondansetron 4 mg disintegrating 4 mg PO Q6-8H PRN #14 tab 04/28/21 tablet acetaminophen 500 mg tablet 1,000 mg PO QID PRN #30 tab 07/25/21 cyclobenzaprine 5 mg tablet 5 mg PO TID PRN #10 tab 07/25/21 cyclobenzaprine 5 mg tablet 5 mg PO TID PRN #10 tab 07/25/21 ibuprofen 600 mg tablet 600 mg PO Q6H PRN #20 tab 07/25/21 ibuprofen 600 mg tablet 600 mg PO Q6H PRN #20 tab 07/25/21 cefuroxime axetil 250 mg tablet 250 mg PO BID 7 Days #14 tab 07/29/21 amoxicillin 875 mg-potassium 1 tab PO BID #14 tab 08/28/21 clavulanate 125 mg tablet Allergies Allergy/AdvReac Type Severity Reaction Status Date / Time sulfamethoxazole Allergy Intermediate HIVES Verified 09/13/21 00:50 [From BACTRIM] trimethoprim [From BACTRIM] Allergy Intermediate HIVES Verified 09/13/21 00:50 Review of Systems Review of Systems: Constitutional: No Fever, No Chills ENT/Mouth: No Ear Pain, No Hoarseness, No sore throat Eyes: No Eye Pain, No Swelling, No Redness, No Foreign Body Cardiovascular: Positive Chest Pain, positive SOB Respiratory: No Cough, No Dyspnea Gastrointestinal: No Nausea, No Vomiting, No Diarrhea, No abdominal Pain Genitourinary: No Dysuria, No Hematuria Musculoskeletal: positive joint pain, No Myalgias, No Joint Swelling Skin: No Skin lacerations, No rash Neuro: No Weakness, No Numbness, No Paresthesias, No Loss of Consciousness, No Dizziness, No Headache Psych: No Anxiety/Panic, No Depression Heme/Lymph: no easy bruising, no Lymphadenopathy Endocrine: No Polyuria, No Polydipsia Yes all other systems are reviewed and are negative [facility] Past Medical History Attestation statement: The following information was validated with the patient. 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 Oriented X3. No acute distress. Eyes: Pupils equal, round and reactive to light. ENT: Pharynx normal. Neck: Normal inspection. Neck supple. CVS: Tachycardic heart rate and rhythm. Pulses normal. Respiratory: No respiratory distress. Breath sounds normal. Abdomen: Soft and nontender. Skin: Skin warm and dry. Normal skin color. Normal skin turgor. Extremities: No lower extremity edema. Gait well-balanced well coordinated. Neuro: No motor deficit. No sensory deficit. Cranial nerves 2-12 intact Course Course Course Narrative: 21-year-old female presents with multiple complaints. Lab values indicate a low white count of 2.9, Martha&H of 11.3 and 34.5 which is consistent with her prior values. COVID and influenza test are pending. Urinalysis is pending. EKG indicates tachycardia without ST elevation or depressions. 00:49 patient influenza A positive. Plan of care is to discharge home with supportive measures. MDM - Chest Pain Differential Diagnosis Differential diagnosis: Likely fracture of rib, pneumothorax, st elevation myocardial infarction and chest pain Medical Records Data Attestation: I reviewed the patient's medical records. Lab Data Attestation: I reviewed the patient's lab results. Result diagrams: 09/25/21 17:40 09/25/21 17:40 Labs: Lab Results 09/25/21 09/25/21 09/25/21 Range/Units 17:40 17:40 17:40 WBC 2.9 L (4.8-10.8) X10*3/uL RBC 4.22 (4.20-5.50) X10*6/uL Hgb 11.3 L (12.0-16.0) g/dl Hct 34.5 L (37.0-47.0) % MCV 81.8 (80.0-98.0) fL MCH 26.8 L (27.0-33.0) pg MCHC 32.8 (31.0-35.0) g/dl RDW 12.7 (11.0-16.0) % Plt Count 257 (160-400) X10*3/uL MPV 9.5 (9.4-12.3) fL Immature Gran % (Auto) 0.3 (0.0-0.4) % Neut % (Auto) 51.3 (45-73) % Lymph % (Auto) 36.7 (20-40) % Mcdonough % (Auto) 10.7 (2-11) % Eos % (Auto) 1.0 (0-4) % Baso % (Auto) 0.0 (0-2) % Lymph # (Auto) 1.1 L (1.2-4.9) X10*3/uL Mcdonough # (Auto) 0.3 (0.1-1.2) X10*3/uL Eos # (Auto) 0.0 (0.0-0.4) X10*3/uL Baso # (Auto) 0.0 (0.0-0.2) X10*3/uL Abs Immat Gran (auto) 0.01 (0.00-0.03) X10*3/uL Absolute Neuts (auto) 1.5 L (2.0-8.3) x10*3/uL Absolute Nucleated RBC 0.000 (0.0-0.012) X10*3/uL Nucleated RBC % (auto) 0.0 (0.0-0.2) /100WBC Sodium 140 (135-145) mmol/L Potassium 3.8 (3.3-5.1) mmol/L Chloride 107 (96-108) mmol/L Carbon Dioxide 25 (22-29) mmol/L Anion Gap 12 (12-20) BUN 6 L (9-16) mg/dL Creatinine 0.48 L (0.5-1.4) mg/dL Estim Creat Clear Calc 192.8 Estimated GFR > 60 Random Glucose 147 H (60-115) mg/dL Calcium 8.6 (8.4-10.2) mg/dL Troponin I High Sens < 3.5 (<3.5-17.0) ng/L Beta HCG, Quant < 2 mIU/mL Urine Color Urine Appearance Urine pH (5.0-8.0) Ur Specific [place] (1.005-1.025) Urine Protein (NEG-TRACE) MG/DL Urine Glucose (UA) (NEG) MG/DL Urine Ketones (NEG) MG/DL Urine Blood (NEG) Urine Nitrite (NEG) Ur Leukocyte Esterase (NEG) Urine RBC (0) /HPF Urine WBC (0-4) /HPF Ur Squamous Epith Cells /LPF Urine Bacteria /LPF COVID-19 (TONJA) (Negative) COVID-19 Clin Com Influenza Type A (SAIGE) (Negative) Influenza Type B (SAIGE) (Negative) Influenza A & B Note 09/25/21 09/25/21 09/26/21 Range/Units 23:44 23:44 00:48 WBC (4.8-10.8) X10*3/uL RBC (4.20-5.50) X10*6/uL Hgb (12.0-16.0) g/dl Hct (37.0-47.0) % MCV (80.0-98.0) fL MCH (27.0-33.0) pg MCHC (31.0-35.0) g/dl RDW (11.0-16.0) % Plt Count (160-400) X10*3/uL MPV (9.4-12.3) fL Immature Gran % (Auto) (0.0-0.4) % Neut % (Auto) (45-73) % Lymph % (Auto) (20-40) % Mcdonough % (Auto) (2-11) % Eos % (Auto) (0-4) % Baso % (Auto) (0-2) % Lymph # (Auto) (1.2-4.9) X10*3/uL Mcdonough # (Auto) (0.1-1.2) X10*3/uL Eos # (Auto) (0.0-0.4) X10*3/uL Baso # (Auto) (0.0-0.2) X10*3/uL Abs Immat Gran (auto) (0.00-0.03) X10*3/uL Absolute Neuts (auto) (2.0-8.3) x10*3/uL Absolute Nucleated RBC (0.0-0.012) X10*3/uL Nucleated RBC % (auto) (0.0-0.2) /100WBC Sodium (135-145) mmol/L Potassium (3.3-5.1) mmol/L Chloride (96-108) mmol/L Carbon Dioxide (22-29) mmol/L Anion Gap (12-20) BUN (9-16) mg/dL Creatinine (0.5-1.4) mg/dL Estim Creat Clear Calc Estimated GFR Random Glucose (60-115) mg/dL Calcium (8.4-10.2) mg/dL Troponin I High Sens (<3.5-17.0) ng/L Beta HCG, Quant mIU/mL Urine Color YELLOW Urine Appearance HAZY Urine pH 6.0 (5.0-8.0) Ur Specific [place] 1.025 (1.005-1.025) Urine Protein TRACE (NEG-TRACE) MG/DL Urine Glucose (UA) NEG (NEG) MG/DL Urine Ketones NEG (NEG) MG/DL Urine Blood NEG (NEG) Urine Nitrite NEG (NEG) Ur Leukocyte Esterase TRACE H (NEG) Urine RBC 0-2 (0) /HPF Urine WBC 1-4 (0-4) /HPF Ur Squamous Epith Cells 3+ /LPF Urine Bacteria TRACE /LPF COVID-19 (TONJA) Negative (Negative) COVID-19 Clin Com See Note Influenza Type A (SAIGE) Positive A (Negative) Influenza Type B (SAIGE) Negative (Negative) Influenza A & B Note See Note ECG Data ECG #1: Attestation: I personally reviewed and interpreted this ECG as follows: ECG interpretation date: 09/25/21 ECG interpretation time: 17:25 Prior ECG tracings: available for review Interpretation: Vent. rate 123 BPM OK interval 140 ms QRS duration 88 ms QT/QTc 334/478 ms P-R-T axes 43 36 9 Sinus tachycardia Minimal voltage criteria for LVH, may be normal variant ( R in aVL ) Borderline ECG When compared with ECG of 13-SEP-2021 00:07, No significant change was found Discharge Plan Discharge Clinical Impression: Influenza A Patient Disposition: Home, Self-Care Instructions: Influenza (ED) Additional Instructions: You were evaluated for multiple complaints. You tested positive for influenza A. Alternate Tylenol 650 mg every 6 hours and Motrin 600 mg every 6 hours as needed for fever and pain management. Write down what time you take these medications to prevent accidental overdose. Your hCG blood test was negative. Thank you for choosing this emergency department for evaluation. Please follow-up with primary care physician as needed. Return to the emergency department for any new, concerning, or worsening symptoms. Prescriptions: No Action ibuprofen 800 mg tablet 800 mg PO Q8H PRN (Reason: pain) Qty: 14 0RF ibuprofen 600 mg tablet 600 mg PO Q6H PRN (Reason: pain) Qty: 20 0RF ondansetron 4 mg tablet,disintegrating 4 mg PO Q6-8H PRN (Reason: nausea and vomiting) Qty: 14 0RF diphenhydramine HCl [Benadryl] 25 mg capsule 25 mg PO TID PRN (Reason: allergic reaction) Qty: 20 0RF cyclobenzaprine 5 mg tablet 5 mg PO TID PRN (Reason: muscle spasm) Qty: 10 0RF ibuprofen 600 mg tablet 600 mg PO Q6H PRN (Reason: pain) Qty: 20 0RF acetaminophen 500 mg tablet 1,000 mg PO QID PRN (Reason: pain) Qty: 30 0RF cyclobenzaprine 5 mg tablet 5 mg PO TID PRN (Reason: muscle spasm) Qty: 10 0RF ibuprofen 600 mg tablet 600 mg PO Q6H PRN (Reason: pain) Qty: 20 0RF cefuroxime axetil 250 mg tablet 250 mg PO BID 7 Days Qty: 14 0RF amoxicillin-pot clavulanate 875-125 mg tablet 1 tab PO BID Qty: 14 0RF Stand Alone Forms: Work/School Release Interventions: ED Discharge Assessment Last Done: 09/26/21 01:00 Discharge Date/Time: 09/26/21 01:15
[2021-09-25] MEDS: 0.9 % Sodium Chloride 1,000 ML 999 ML IVCONT (23:45)
[2021-09-26 00:24] LABS: HCG Quantitative < 2 mIU/mL
[2021-09-26 00:25] LABS: COVID-19 Test Negative (Negative); IDNOW Serial# 16C4AD1C; Influenza B2 Negative (Negative)
[2021-09-26 00:27] LABS: Influenza A Positive (Negative)
[2021-09-26 00:54] LABS: Appearance Urine HAZY; Color Urine YELLOW; Glucose Urine UA NEG (NEG); Leukocyte Esterase Urine TRACE (NEG); Nitrite Urine NEG (NEG); Specific Gravity - Urine 1.025 (1.005-1.025); Urine Blood NEG (NEG); Urine Ketones NEG (NEG); Urine Protein TRACE MG/DL (NEG-TRACE)
[2021-09-26 01:15] LABS: Bacteria Urine TRACE /LPF; RBC Urine 0-2 /HPF (0); Squamous Epithelial Cell Urine 3+ /LPF
== END 2021-09-26 01:15 | disposition home or self-care (01) ==
PROVIDERS: Nurse Practitioner Family; Emergency Provider Emergency Medicine Emergency Medical Services; PCP Pediatrics
DX: J10.1 Influenza due to other identified influenza virus with other respiratory manifestations (principal); Z20.822 Contact with and (suspected) exposure to COVID-19
CPT/HCPCS: 36415; 80048; 81001; 84484; 84702; 85025; 87502; 87635; 93005; 96360; 99283; 99284

== ENCOUNTER 2021-10-17 04:01 | Emergency (ER) | payer OTHER, MEDICAID, SELFPAY ==
[2021-10-17 04:33] VITALS: BP 128/70; PULSE 109; RESP 16; TEMP 36.3; O2SAT 98; BMI 87.5
== END 2021-10-17 09:10 | disposition left against medical advice (07) ==
PROVIDERS: Emergency Provider Emergency Medicine
DX: M79.604 Pain in right leg (principal)

== ENCOUNTER 2021-10-18 01:22 | Emergency (ER) | payer OTHER, MEDICAID, SELFPAY ==
[2021-10-18 01:53] VITALS: BP 140/80; PULSE 112; RESP 18; TEMP 35.9; O2SAT 98; BMI 38.4
[2021-10-18 02:23] LABS: Basophils Percent Auto 0.3 % (0-2); Lymphocytes Absolute Auto 1.8 X10*3/uL (1.2-4.9); PLT CLUMP 1; Red Cell Distribution Width 13.2 % (11.0-16.0); SCAN SMEAR FLAG 1
[2021-10-18 02:25] LABS: Eosinophils Absolute Auto 0.1 X10*3/uL (0.0-0.4); Eosinophils Percent Auto 3.8 % (0-4); Hematocrit 36.1 % (37.0-47.0); Hemoglobin 11.6 g/dl (12.0-16.0); Lymphocytes Percent Auto 48.1 % (20-40); Mean Corpuscular HGB Conc 32.1 g/dl (31.0-35.0); Mean Corpuscular Hemoglobin 26.5 pg (27.0-33.0); Mean Corpuscular Volume 82.4 fL (80.0-98.0); Mean Platelet Volume 10.2 fL (9.4-12.3); Monocytes Absolute Auto 0.4 X10*3/uL (0.1-1.2); Monocytes Percent Auto 12.1 % (2-11); Neutrophils Absolute Auto 1.3 x10*3/uL (2.0-8.3); Neutrophils Percent Auto 35.7 % (45-73); Red Blood Count 4.38 X10*6/uL (4.20-5.50)
[2021-10-18 02:26] LABS: MANUAL DIFF FLAG NO; White Blood Count 3.6 X10*3/uL (4.8-10.8)
[2021-10-18 02:45] LABS: Alanine Aminotransferase 28 U/L (0-31); Albumin Level 3.6 g/dL (3.5-5.0); Alkaline Phosphatase 196 U/L (39-117); Anion Gap 12 (12-20); Aspartate Amino Transferase 17 U/L (5-31); Bilirubin Total 0.3 mg/dL (0.0-1.0); Blood Urea Nitrogen 9 mg/dL (9-16); Calcium 9.3 mg/dL (8.4-10.2); Carbon Dioxide 23 mmol/L (22-29); Chloride 108 mmol/L (96-108); Creatinine Clr Calc Pharmacy 191.5; Estimated Glomerular Filt Rate > 60; Glucose Random 148 mg/dL (60-115); Potassium 3.7 mmol/L (3.3-5.1); Sodium 139 mmol/L (135-145); Total Protein 6.3 g/dL (6.5-8.0)
--- NOTE | 2021-10-18 09:35 | ED_ITS ---
HPI - General Adult General Chief complaint: Extremity Problem Stated complaint: leg cramps Time Seen by Provider: 10/18/21 09:35 Source: patient Mode of arrival: ambulatory Limitations: no limitations History of Present Illness HPI narrative: Patient is a 21 year old female presenting to the emergency department today with right knee pain. Patient states that her right leg keeps buckling and she isn't sure why. Patient denies any dizziness, lightheadedness, abdominal pain, nausea, vomiting, fever, chills, blurry vision, double vision, loss of vision, chest pain, difficulty breathing, shortness of breath, back pain, night sweats, pain with urination, increased urinary frequency, increased urinary urgency, blood in her urine or stool, syncope or a near syncopal episode, recent trauma or falls, bowel incontinence, bladder incontinence, bowel retention, bladder retention, or any other complaints at this time. Onset (ago): day(s) Location: right and lower extremity Radiation: non-radiation Severity: mild Severity scale (1-10): 2 Quality: dull Pain Consistency: now resolved Relieving factors: none Exacerbating factors: none Associated symptoms: denies other symptoms Treatments prior to arrival: none Related Data Previous Rx's Medication Instructions Recorded ibuprofen 800 mg tablet 800 mg PO Q8H PRN #14 tab 11/16/20 diphenhydramine HCl 25 mg capsule 25 mg PO TID PRN #20 cap 02/16/21 (Benadryl) ibuprofen 600 mg tablet 600 mg PO Q6H PRN #20 tab 03/19/21 ondansetron 4 mg disintegrating 4 mg PO Q6-8H PRN #14 tab 04/28/21 tablet acetaminophen 500 mg tablet 1,000 mg PO QID PRN #30 tab 07/25/21 cyclobenzaprine 5 mg tablet 5 mg PO TID PRN #10 tab 07/25/21 cyclobenzaprine 5 mg tablet 5 mg PO TID PRN #10 tab 07/25/21 ibuprofen 600 mg tablet 600 mg PO Q6H PRN #20 tab 07/25/21 ibuprofen 600 mg tablet 600 mg PO Q6H PRN #20 tab 07/25/21 cefuroxime axetil 250 mg tablet 250 mg PO BID 7 Days #14 tab 07/29/21 amoxicillin 875 mg-potassium 1 tab PO BID #14 tab 08/28/21 clavulanate 125 mg tablet Allergies Allergy/AdvReac Type Severity Reaction Status Date / Time sulfamethoxazole Allergy Intermediate HIVES Verified 10/18/21 02:03 [From BACTRIM] trimethoprim [From BACTRIM] Allergy Intermediate HIVES Verified 10/18/21 02:03 Review of Systems Constitutional: Constitutional: Reports no additional constitutional complaints, Denies chills, Denies fever(s) and Denies night sweats Eyes: Eyes: Reports no additional eye complaints, Denies blurry vision, Denies change in vision, Denies diplopia, Denies eye discharge, Denies loss of vision and Denies eye pain ENT: Denies dizziness Cardiovascular: Cardiovascular: Reports no additional cardiovascular compl aints, Denies chest pain, Denies lightheadedness, Denies Loss of Consciousness and Denies dyspnea Respiratory: Respiratory: Reports no additional respiratory complaints and Denies dyspnea Gastrointestinal: Gastrointestinal: Reports no additional gastrointestinal complaints, Denies abdominal pain, Denies melena, Denies hematochezia, Denies change in bowel habits and Denies change in stool character Genitourinary: Genitourinary: Denies hematuria, Denies urinary frequency, Denies dysuria, Denies urinary incontinence, Denies urinary hesitancy and Denies urinary urgency Musculoskeletal: Musculoskeletal: Reports no additional musculoskeletal complaints, Denies numbness and Denies tingling Comments: right knee pain Neurologic: Denies dizziness, Denies loss of vision, Denies numbness and Denies tingling Psychiatric: Psychiatric: Reports no additional psychiatric complaints Endocrine: Endocrine: Reports no additional endocrine complaints Hematologic/Lymphatic: Hematologic/Lymphatic: Reports no additional hematologic/lymphatic complaints Allergic/Immunologic: Allergic/Immunologic: Reports no additional allergic/immunologic complaints [facility] Past Medical History Attestation statement: The following information was validated with the patient. 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 Physical Exam ED Vital Signs: Vital Signs - 24 hr 10/18/21 01:53 Temperature 96.7 F L Pulse Rate 112 H Respiratory Rate 18 Blood Pressure 140/80 H Pulse Oximetry 98 BMI result Body Mass Index 38.4 Const General: cooperative, no acute distress, alert and awake Nutritional Appearance: well nourished Orientation/consciousness: patient oriented x3 Limitations: no limitations HENMT Head: Yes normal to inspection and Yes atraumatic Ears: hearing grossly normal bilaterally and external ears normal General nose exam: Normal external nose present, no nasal discharge noted and no epistaxis Face and sinus: Yes normal facial exam, No abrasion and No laceration Mouth: Normal oral and palatal mucosa present, no drooling and no muffled voice Eyes General: appearance normal, both eyes and all related structures Periorbital: periorbital findings normal Eyelids: Yes eyelids normal Conjunctivae: conjunctivae normal Pupils: Equal, round and reactive pupils present EOM: EOMs intact bilaterally Neck Neck: Yes normal visual inspection, Yes full ROM and Yes no lymphadenopathy Chest Chest palpation & inspection: normal inspection of the chest Resp Effort & Inspection: normal respiratory effort and able to speak in complete sentences Auscultation: clear to auscultation bilaterally Cardio Rate: regular rate Rhythm: regular rhythm GI Inspection: Yes normal to inspection Neuro General: patient oriented x3 and moves all extremities Cranial nerves: Yes Equal, round and reactive pupils present Cognition (Neuro): normal cognition Motor exam (neuro): 5/5 motor strength present throughout Sensory Exam: Normal double simultaneous stimulation for sensation Coordination: [id number] test normal Extrem General: Yes normal to inspection, Yes full ROM and Yes capillary refill normal Psych Appearance: grossly normal Mental Status: mental status grossly normal Affect: normal affect Attitude: cooperative Thought process: Normal thought process present Thought content: Normal thought content present Insight: Good insight present (Psych) Procedures Orthopedic Splinting/Casting Injury #1: Side: right Lower Extremity Injury Location: knee Lower Extremity Immobilizer: knee immobilizer Other Orthopedic Equipment: crutches Medical Decision Making [facility] Narrative Medical decision making narrative: Patient is a 21 year old female presenting to the emergency department today with right knee pain. Patient's physical exam was unremarkable. Patient's blood work was unremarkable. I explained my physical exam findings as well as all test results to the patient. I answered all questions asked by the patient. Patient's right knee was placed in an immobilizer and she was given crutches with crutch instructionsI stressed the importance of the patient taking her medication as prescribed. I stressed the importance of the patient following up with her primary care provider and an orthopedist. I stressed the importance of the patient returning to the emergency department immediately if her symptoms were to worsen or if she were to develop any dizziness, shortness of breath, difficulty breathing, chest pain, blurry vision, loss of vision, nausea, vomiting, abdominal pain, fever, chills, back pain, or any other complaints. Patient verbalized agreement and understanding with this treatment plan and discharge. Differential Diagnosis Differential Diagnosis: right knee injury Medical Records Medical records reviewed: Yes I reviewed the patient's medical records. Lab Data Lab results reviewed: Yes I reviewed the patient's lab results. Result diagrams: 10/18/21 02:17 10/18/21 02:17 Labs: Lab Results 10/18/21 10/18/21 Range/Units 02:17 02:17 WBC 3.6 L (4.8-10.8) X10*3/uL RBC 4.38 (4.20-5.50) X10*6/uL Hgb 11.6 L (12.0-16.0) g/dl Hct 36.1 L (37.0-47.0) % MCV 82.4 (80.0-98.0) fL MCH 26.5 L (27.0-33.0) pg MCHC 32.1 (31.0-35.0) g/dl RDW 13.2 (11.0-16.0) % Plt Count TNP MPV 10.2 (9.4-12.3) fL Immature Gran % (Auto) 0.0 (0.0-0.4) % Neut % (Auto) 35.7 L (45-73) % Lymph % (Auto) 48.1 H (20-40) % Lewis % (Auto) 12.1 H (2-11) % Eos % (Auto) 3.8 (0-4) % Baso % (Auto) 0.3 (0-2) % Lymph # (Auto) 1.8 (1.2-4.9) X10*3/uL Lewis # (Auto) 0.4 (0.1-1.2) X10*3/uL Eos # (Auto) 0.1 (0.0-0.4) X10*3/uL Baso # (Auto) 0.0 (0.0-0.2) X10*3/uL Abs Immat Gran (auto) 0.00 (0.00-0.03) X10*3/uL Absolute Neuts (auto) 1.3 L (2.0-8.3) x10*3/uL Absolute Nucleated RBC 0.000 (0.0-0.012) X10*3/uL Nucleated RBC % (auto) 0.0 (0.0-0.2) /100WBC Sodium 139 (135-145) mmol/L Potassium 3.7 (3.3-5.1) mmol/L Chloride 108 (96-108) mmol/L Carbon Dioxide 23 (22-29) mmol/L Anion Gap 12 (12-20) BUN 9 (9-16) mg/dL Creatinine 0.50 (0.5-1.4) mg/dL Estim Creat Clear Calc 191.5 Estimated GFR > 60 Random Glucose 148 H (60-115) mg/dL Calcium 9.3 D (8.4-10.2) mg/dL Total Bilirubin 0.3 (0.0-1.0) mg/dL AST 17 (5-31) U/L ALT 28 (0-31) U/L Alkaline Phosphatase 196 H (39-117) U/L Total Protein 6.3 L (6.5-8.0) g/dL Albumin 3.6 (3.5-5.0) g/dL Discharge Plan Discharge Clinical Impression: Right knee pain Patient Disposition: Home, Self-Care Instructions: Knee Pain (ED) Additional Instructions: Follow up with your primary care provider and an orthopedic provider. Return to the emergency department immediately if your symptoms worsen or if you develop any dizziness, shortness of breath, difficulty breathing, chest pain, blurry vision, loss of vision, nausea, vomiting, abdominal pain, fever, chills, back pain, or any other complaints. Prescriptions: No Action ibuprofen 800 mg tablet 800 mg PO Q8H PRN (Reason: pain) Qty: 14 0RF ibuprofen 600 mg tablet 600 mg PO Q6H PRN (Reason: pain) Qty: 20 0RF ondansetron 4 mg tablet,disintegrating 4 mg PO Q6-8H PRN (Reason: nausea and vomiting) Qty: 14 0RF diphenhydramine HCl [Benadryl] 25 mg capsule 25 mg PO TID PRN (Reason: allergic reaction) Qty: 20 0RF cyclobenzaprine 5 mg tablet 5 mg PO TID PRN (Reason: muscle spasm) Qty: 10 0RF ibuprofen 600 mg tablet 600 mg PO Q6H PRN (Reason: pain) Qty: 20 0RF acetaminophen 500 mg tablet 1,000 mg PO QID PRN (Reason: pain) Qty: 30 0RF cyclobenzaprine 5 mg tablet 5 mg PO TID PRN (Reason: muscle spasm) Qty: 10 0RF ibuprofen 600 mg tablet 600 mg PO Q6H PRN (Reason: pain) Qty: 20 0RF cefuroxime axetil 250 mg tablet 250 mg PO BID 7 Days Qty: 14 0RF amoxicillin-pot clavulanate 875-125 mg tablet 1 tab PO BID Qty: 14 0RF Referrals: [facility] Family Medicine [Provider Group] [facility] [Provider Group] [facility] [Provider Group] [facility] [Provider Group] Stand Alone Forms: Work/School Release Interventions: ED Discharge Assessment Last Done: 10/18/21 09:54 Discharge Date/Time: 10/18/21 09:55 Print Language: Grenadian
== END 2021-10-18 09:55 | disposition home or self-care (01) ==
PROVIDERS: Emergency Medicine; Emergency Provider Emergency Medicine
DX: M25.561 Pain in right knee (principal); Z79.899 Other long term (current) drug therapy
CPT/HCPCS: 29505; 36415; 80053; 85025; 99283

== ENCOUNTER 2022-03-09 18:15 | Observation (INO) | payer OTHER, MEDICAID, SELFPAY ==
--- NOTE | ~2022-03-09 | XR_ITS ---
EXAMINATION: XR CHEST CLINICAL INFORMATION: Fever. COMPARISON: 03/09/2022 chest radiograph. TECHNIQUE: Frontal view of the chest was obtained. FINDINGS: No significant abnormality is noted involving the heart, lungs, mediastinum, bony thorax or soft tissues. XR/XR chest 1V IMPRESSION: No acute cardiopulmonary process.
--- NOTE | ~2022-03-09 | XR_ITS ---
EXAMINATION: XR CHEST CLINICAL INFORMATION: Chest discomfort COMPARISON: 09/13/2021 TECHNIQUE: Frontal view of the chest was obtained. FINDINGS: No significant abnormality is noted involving the heart, lungs, mediastinum, bony thorax or soft tissues. XR/XR chest 1V IMPRESSION: Unremarkable examination.
[2022-03-09 19:23] VITALS: BP 164/86; PULSE 137; RESP 16; TEMP 37.3; O2SAT 98; BMI 39.6
[2022-03-09 19:40] LABS: MANUAL DIFF FLAG NO
[2022-03-09 19:42] LABS: Basophils Percent Auto 0.3 % (0-2); Eosinophils Percent Auto 0.3 % (0-4); Hematocrit 36.8 % (37.0-47.0); Hemoglobin 12.3 g/dl (12.0-16.0); Imm Gran Abs Auto 0.01 X10*3/uL (0.00-0.03); Imm Gran Pct Auto 0.3 % (0.0-0.4); Lymphocytes Absolute Auto 0.8 X10*3/uL (1.2-4.9); Lymphocytes Percent Auto 19.7 % (20-40); Mean Corpuscular HGB Conc 33.4 g/dl (31.0-35.0); Mean Corpuscular Hemoglobin 26.3 pg (27.0-33.0); Mean Corpuscular Volume 78.8 fL (80.0-98.0); Mean Platelet Volume 9.6 fL (9.4-12.3); Monocytes Absolute Auto 0.4 X10*3/uL (0.1-1.2); Monocytes Percent Auto 10.4 % (2-11); Neutrophils Absolute Auto 2.7 x10*3/uL (2.0-8.3); Platelet Count 283 X10*3/uL (160-400); Red Blood Count 4.67 X10*6/uL (4.20-5.50); Red Cell Distribution Width 12.9 % (11.0-16.0)
[2022-03-09 19:59] LABS: Anion Gap 17 (12-20); Blood Urea Nitrogen 6 mg/dL (9-16); Carbon Dioxide 22 mmol/L (22-29); Chloride 104 mmol/L (96-108); Creatinine Clr Calc Pharmacy 156.3; Estimated Glomerular Filt Rate > 60; Glucose Random 158 mg/dL (60-115); Potassium 3.6 mmol/L (3.3-5.1); Sodium 139 mmol/L (135-145)
[2022-03-09 20:03] LABS: Strep A Nucleic Acid Negative (Negative)
[2022-03-09 20:22] LABS: Influenza A PCR NEGATIVE (Negative); Influenza B PCR NEGATIVE (Negative); Resp Syncy Virus RNA Qual PCR NEGATIVE (Negative); SARS COV2 PCR INHOUSE NEGATIVE (Negative)
[2022-03-09 21:23] VITALS: BP 143/84; PULSE 129; RESP 20; TEMP 36.4; O2SAT 97
--- NOTE | 2022-03-09 21:27 | ECG_ITS ---
Test Reason : NV Blood Pressure : / mmHG Vent. Rate : 125 BPM Atrial Rate : 125 BPM P-R Int : 136 ms QRS Dur : 090 ms QT Int : 318 ms P-R-T Axes : 035 027 -01 degrees QTc Int : 458 ms Sinus tachycardia Minimal voltage criteria for LVH, may be normal variant ( R in aVL ) Nonspecific T wave abnormality Abnormal ECG When compared with ECG of 25-SEP-2021 17:25, Nonspecific T wave abnormality now evident in Lateral leads Anterior leads Referred By: Dylon Celaya Electronically Signed By:RICKY CARRANZA MD
--- OUTSIDE RECORDS SUMMARY | 2022-03-09 21:36 | XMS_ITS | Continuity of Care Document ---
:2000 Author Organization [facility] Address [address] [place] [address]- Care Team Providers Name Role Phone Anthony Marte MD, Chaitanya Key Primary Care Physician Encounter [facility] Date(s): 04/10/20 - 05/10/20 [facility] [address] [place] [id number] Attending Physician: Crista Corrales Admitting Physician: Crista Corrales Referring Physician: Crista Corrales Allergies, Adverse Reactions, Alerts Substance Reaction Severity Status Bactrim RASH Active Medications Implanon Maintenance, 08/22/17 13:02:11 EDT Start Date: 08/22/17 Status: Orderedmethimazole 5 mg oral tablet 5 mg, 1, tablet, By Mouth, 2 times a day, # 180 tablet, Refills 5, Tot. Refills 5, Maintenance, 01/03/20 13:04:00 EDT, Route to Pharmacy Electronically, [facility], 158.4, cm, 07/23/2014:21:00 EST, Height, 84.7, kg, 12/25/19 14:52:00... Start Date: 01/03/20 Status: Ordered Problem List Condition Effective Dates Status Health Status Informant Constipation(Confirmed) Active Diarrhea(Confirmed) Active Graves disease(Confirmed) Active Social History Social History Type Response Smoking Status Never smoker entered on: 08/22/17 Sex
--- OUTSIDE RECORDS SUMMARY | 2022-03-09 21:36 | XMS_ITS | Continuity of Care Document ---
:2000 Author Organization [facility] Address [address] [place] [address]- Care Team Providers Name Role Phone Anthony Marte MD, Chaitanya Key Primary Care Physician [place] [facility] 10/02/19 [facility] [address] [place] [address]- [facility] Attending Physician: Titus KERN, Radha Allergies, Adverse Reactions, Alerts Substance Reaction Severity Status Bactrim RASH Active Medications Implanon Maintenance, 08/22/17 13:02:11 EDT Start Date: 08/22/17 Status: Orderedpropylthiouracil 50 mg oral tablet 1 tablet = 50 mg, By Mouth, 3 times a day, # 90 tablet, 2 Refills, Maintenance, 09/25/19 15:07:00 EDT, Tablet, [id number], 158.4, cm, 07/24/19 15:21:00 EST, Height, 91, kg, 07/24/19 15:21:00 EST, Dry Weight Start Date: 09/25/19 Status: Ordered Problem List Condition Effective Dates Status Health Status Informant Constipation(Confirmed) Active Diarrhea(Confirmed) Active Graves disease(Confirmed) Active Social History Social History Type Response Smoking Status Never smoker entered on: 08/22/17 Sex
--- OUTSIDE RECORDS SUMMARY | 2022-03-09 21:36 | XMS_ITS | Continuity of Care Document ---
:2000 Author Organization [facility] Address [address] [place] [address]- Care Team Providers Name Role Phone Anthony Marte MD, Chaitanya Key Primary Care Physician [place] [facility] [place] 10/02/20 - 11/05/20 [facility] [address] [place] [address]- Attending Physician: Radha Qureshi MD Admitting Physician: Radha Qureshi MD Allergies, Adverse Reactions, Alerts Substance Reaction Severity Status Bactrim RASH Active Medications Implanon Maintenance, 08/22/17 13:02:11 EDT Start Date: 08/22/17 Status: Orderedmethimazole 10 mg oral tablet 1, tablet, By Mouth, Daily, # 90 tablet, Refills 0, Tot. Refills 0, Maintenance, 10/02/20 8:51:00 EDT, Route to Pharmacy Electronically, [id number], 158.4, cm, 07/24/19 15:21:00 EST, Height, 84.7,kg, 12/25/19 14:52:00 EDT, Dry Weight Start Date: 10/02/20 Status: Ordered Problem List Condition Effective Dates Status Health Status Informant Constipation(Confirmed) Active Diarrhea(Confirmed) Active Graves disease(Confirmed) Active Social History Social History Type Response Smoking Status Never smoker entered on: 08/22/17 Sex
--- OUTSIDE RECORDS SUMMARY | 2022-03-09 21:36 | XMS_ITS | Continuity of Care Document ---
:2000 Author Organization [facility] Address [address] [place] [address]- Care Team Providers Name Role Phone Anthony Marte MD, Chaitanya Key Primary Care Physician En[place] [facility] [place]s): 08/25/20 - 09/24/20 [facility] [address] [place] [address] Attending Physician: Crista Corrales Admitting Physician: Crista Corrales Referring Physician: Crista Corrales Allergies, Adverse Reactions, Alerts Substance Reaction Severity Status Bactrim RASH Active Medications Implanon Maintenance, 08/22/17 13:02:11 EDT Start Date: 08/22/17 Status: Orderedmethimazole 10 mg oral tablet 10 mg, 1, tablet, By Mouth, Daily, # 30 tablet, Refills 3, Tot. Refills 3, Maintenance, 07/10/20 17:55:00 EST, Route to Pharmacy Electronically, [facility]pharmacy #[id number], Partial fill upon patient request ifthe prescription is for a schedule II opioid drug... Start Date: 07/10/20 Status: Ordered Problem List Condition Effective Dates Status Health Status Informant Constipation(Confirmed) Active Diarrhea(Confirmed) Active Graves disease(Confirmed) Active Social History Social History Type Response Smoking Status Never smoker entered on: 08/22/17 Sex
--- OUTSIDE RECORDS SUMMARY | 2022-03-09 21:36 | XMS_ITS | Continuity of Care Document ---
:2000 Author Organization [facility] Address [address] [place] [address]- Care Team Providers Name Role Phone Anthony Marte MD, Chaitanya Key Primary Care Physician En[place] [facility] [place] Date(s): 06/17/20 - 09/24/20 [facility] [address] [place] [id number] Attending Physician: Radha Qureshi MD Admitting Physician: Radha Qureshi MD Allergies, Adverse Reactions, Alerts Substance Reaction Severity Status Bactrim RASH Active Medications Implanon Maintenance, 08/22/17 13:02:11 EDT Start Date: 08/22/17 Status: Orderedmethimazole 10 mg oral tablet 10 mg, 1, tablet, By Mouth, Daily, # 30 tablet, Refills 3, Tot. Refills 3, Maintenance, 07/10/20 17:55:00 EST, Route to Pharmacy Electronically, [facility]pharmacy #[id number], Partial fill upon patient request ifthe prescription is for a schedule II opioid drug... Start Date: 07/10/20 Status: Ordered Problem List Condition Effective Dates Status Health Status Informant Constipation(Confirmed) Active Diarrhea(Confirmed) Active Graves disease(Confirmed) Active Social History Social History Type Response Smoking Status Never smoker entered on: 08/22/17 Sex
--- OUTSIDE RECORDS SUMMARY | 2022-03-09 21:36 | XMS_ITS | Continuity of Care Document ---
:2000 Author Organization [facility] Address [address] [place] [address]- Care Team Providers Name Role Phone Anthony Marte MD, Chaitanya Key Primary Care Physician [place] [facility] [place] 12/25/19 - 02/21/20 [facility] [address] [place] [address]- [facility] Attending Physician: Titus KERN, Radha Allergies, Adverse Reactions, Alerts Substance Reaction Severity Status Bactrim RASH Active Medications Implanon Maintenance, 08/22/17 13:02:11 EDT Start Date: 08/22/17 Status: Orderedmethimazole 5 mg oral tablet 5 mg, 1, tablet, By Mouth, 2 times a day, # 180 tablet, Refills 5, Tot. Refills 5, Maintenance, 01/03/20 13:04:00 EDT, Route to Pharmacy Electronically, [facility], 158.4, cm, 07/23/2014:21:00 EST, Height, 84.7, kg, 12/25/19 14:52:00... Start Date: 01/03/20 Status: Ordered Problem List Condition Effective Dates Status Health Status Informant Constipation(Confirmed) Active Diarrhea(Confirmed) Active Graves disease(Confirmed) Active Social History Social History Type Response Smoking Status Never smoker entered on: 08/22/17 Sex
--- OUTSIDE RECORDS SUMMARY | 2022-03-09 21:36 | XMS_ITS | Continuity of Care Document ---
:2000 Author Organization [facility] Address [address] [place] [address]- Care Team Providers Name Role Phone Anthony Marte MD, Chaitanya Key Primary Care Physician [place] [facility] [place] 11[place]13[place] 12/13/19 [facility] [address] [place] [address]- [facility] Attending Physician: Crista Corrales Admitting Physician: AdmCrista morales Referring Physician: AdmtrCrista Allergies, Adverse Reactions, Alerts Substance Reaction Severity Status Bactrim RASH Active Medications Implanon Maintenance, 08/22/17 13:02:11 EDT Start Date: 08/22/17 Status: Orderedpropylthiouracil 50 mg oral tablet See Instructions, 1 and 0.5 tablet By Mouth 3 times a day, # 135 each, 2 Refills, Maintenance, 10/26/19 12:49:00 EDT, Tablet, [id number], 158.4, cm, 07/24/19 15:21:00 EST, Height, 91, kg, 07/24/19 15:21:00 EST, Dry Weight Start Date: 10/26/19 Status: Ordered Problem List Condition Effective Dates Status Health Status Informant Constipation(Confirmed) Active Diarrhea(Confirmed) Active Graves disease(Confirmed) Active Social History Social History Type Response Smoking Status Never smoker entered on: 08/22/17 Sex
--- OUTSIDE RECORDS SUMMARY | 2022-03-09 21:36 | XMS_ITS | Continuity of Care Document ---
:2000 Author Organization [facility] Address [address] [place] [address]- Care Team Providers Name Role Phone Anthony Marte MD, Chaitanya Key Primary Care Physician [place] [facility] [place] Date(s): 10/30/19 - 11/06/19 [facility]ology [address] [place] [address]- [facility] Attending Physician: Titus KERN, Radha Allergies, Adverse [...]
--- OUTSIDE RECORDS SUMMARY | 2022-03-09 21:36 | XMS_ITS | Continuity of Care Document ---
:2000 Author Organization [facility] Address [address] [place] [address]- Care Team Providers Name Role Phone Anthony Marte MD, Chaitanya Key Primary Care Physician [place] [facility] [place] 12/03/20 [facility] [address] [place] [address]- Attending Physician: Soo Coyle MD Admitting Physician: Soo Coyle MD Allergies, Adverse Reactions, Alerts Substance Reaction Severity Status Bactrim RASH Active Medications Implanon Maintenance, 08/22/17 13:02:11 EDT Start Date: 08/22/17 Status: Orderedmethimazole 10 mg oral tablet 1, tablet, By Mouth, Daily, # 90 tablet, Refills 0, Tot. Refills 0, Maintenance, 10/02/20 8:51:00 EDT, Route to Pharmacy Electronically, [id number], 158.4, cm, 07/24/19 15:21:00 EST, Height, 84.7,kg, 12/25/19 14:52:00 EDT, Dry Weight Start Date: 10/02/20 Status: Ordered Problem List Condition Effective Dates Status Health Status Informant Constipation(Confirmed) Active Diarrhea(Confirmed) Active Graves disease(Confirmed) Active Social History Social History Type Response Smoking Status Never smoker entered on: 08/22/17 Sex
--- OUTSIDE RECORDS SUMMARY | 2022-03-09 21:36 | XMS_ITS | Continuity of Care Document ---
:2000 Author Organization [facility] Address [address] [place] [address]- Care Team Providers Name Role Phone Chaitanya Humphries MD Primary Care Physician [id number] - 01/01/20 [facility] [address] [place] [address]- [facility] Attending Physician: Titus KERN, Radha Referring Physician: Chaitanya Humphries MD Allergies, Adverse Reactions, Alerts Substance Reaction Severity Status Bactrim RASH Active Medications Implanon Maintenance, 08/22/17 13:02:11 EDT Start Date: 08/22/17 Status: Orderedmethimazole 5 mg oral tablet 5 mg, 1, tablet, By Mouth, 2 times a day, # 60 tablet, Refills 5, Tot. Refills 5, Maintenance, 12/25/19 15:35:00 EDT, Route to Pharmacy Electronically, [facility]/pharmacy #[id number], 158.4, cm, 07/24/19 15:21:00 EST, Height, 84.7, kg, 12/25/19 14:52:00 EDT, Dry... Start Date: 12/25/19 Status: Ordered Problem List Condition Effective Dates Status Health Status Informant Constipation(Confirmed) Active Diarrhea(Confirmed) Active Graves disease(Confirmed) Active Vital Signs Most recent to oldest [Reference Range]: 1 Weight 84.7 kg (12/25/19 2:52 PM) Pulse Rate [55-90 bpm] 124 bpm *H* (12/25/19 2:52 PM) Blood Pressure [90-138/55-84 mm Hg] 128/75 mm Hg (12/25/19 2:52 PM) Dry Weight 84.7 kg (12/25/19 2:52 PM) Social History Social History Type Response Smoking Status Never smoker entered on: 08/22/17 Sex
--- OUTSIDE RECORDS SUMMARY | 2022-03-09 21:36 | XMS_ITS | Continuity of Care Document ---
:2000 Author Organization [facility] Address [address] [place] [address]- Care Team Providers Name Role Phone Anthony Marte MD, Chaitanya Key Primary Care Physician [phone] [place] [facility] [place]20 [facility] [address] [place] [address]- Allergies, Adverse Reactions, Alerts Substance Reaction Severity Status Bactrim RASH Active Medications Implanon Maintenance, 08/22/17 13:02:11 EDT Start Date: 08/22/17 Status: Orderedmethimazole 5 mg oral tablet 5 mg, 1, tablet, By Mouth, 2 times a day, # 180 tablet, Refills 5, Tot. Refills 5, Maintenance, 01/03/20 13:04:00 EDT, Route to Pharmacy Electronically, [facility], 158.4, cm, 07/23/2014:21:00 EST, Height, 84.7, kg, 12/25/19 14:52:00... Start Date: 01/03/20 Status: Ordered Problem List Condition Effective Dates Status Health Status Informant Constipation(Confirmed) Active Diarrhea(Confirmed) Active Graves disease(Confirmed) Active Social History Social History Type Response Smoking Status Never smoker entered on: 08/22/17 Sex
--- OUTSIDE RECORDS SUMMARY | 2022-03-09 21:36 | XMS_ITS | Continuity of Care Document ---
:2000 Author Organization [facility] Address [address] [place] [address]- Care Team Providers Name Role Phone Anthony Marte MD, Chaitanya Key Primary Care Physician [phone] [place] [facility] [place] 07/24/19 - 08/03/19 [facility] [address] [place] [address] [facility] Attending Physician: Crista Corrales Admitting Physician: Crista Corrales Referring Physician: Crista Corrales Allergies, Adverse Reactions, Alerts Substance Reaction Severity Status Bactrim RASH Active Medications Implanon Maintenance, 08/22/17 13:02:11 EDT Start Date: 08/22/17 Status: Orderedmethimazole 10 mg oral tablet 20 mg, 2, tablet, By Mouth, 2 times a day, 20 mg twice a day, # 120 tablet, Refills 5, Tot. Refills 5, Maintenance, 09/12/18 17:01:55 EDT, Route to Pharmacy Electronically, [id number], [facility]/pharmacy #[id number] Start Date: 09/12/18 Status: Ordered Problem List Condition Effective Dates Status Health Status Informant Constipation(Confirmed) Active Diarrhea(Confirmed) Active Graves disease(Confirmed) Active Social History Social History Type Response Smoking Status Never smoker entered on: 08/22/17 Sex
--- OUTSIDE RECORDS SUMMARY | 2022-03-09 21:36 | XMS_ITS | Continuity of Care Document ---
:2000 Author Organization [facility] Address [address] [place] [address]- Care Team Providers Name Role Phone Anthony Marte MD, Chaitanya Key Primary Care Physician En[place] [facility] [place] Date(s): 07/24/19 - 07/31/19 [facility] [address] [place] [address]- [facility] Attending Physician: Titus KERN, Radha [...] 09/12/18 17:01:55 EDT, Route to Pharmacy Electronically, [id number], [facility]/pharmacy #[id number] Start Date: 09/12/18 Status: Ordered Problem List Condition Effective Dates Status Health Status Informant Constipation(Confirmed) Active Diarrhea(Confirmed) Active Graves disease(Confirmed) Active Vital Signs Most recent to oldest [Reference Range]: 1 Height 158.4 cm (07/24/19 3:21 PM) Weight 91.0 kg (07/24/19 3:21 PM) Pulse Rate [55-90 bpm] 110 bpm *H* (07/24/19 3:21 PM) Body Mass Index [18.5-24.99] 36.27 *>HHI* (07/24/19 3:21 PM) Blood Pressure [90-138/55-84 mm Hg] 127/82 mm Hg (07/24/19 3:21 PM) Dry Weight 91.0 kg (07/24/19 3:21 PM) Social History Social History Type Response Smoking Status Never smoker entered on: 08/22/17 Sex
--- OUTSIDE RECORDS SUMMARY | 2022-03-09 21:36 | XMS_ITS | Continuity of Care Document ---
:2000 Author Organization [facility] Address [address] [place] [address]- Care Team Providers Name Role Phone Anthony Marte MD, Chaitanya Key Primary Care Physician [place] [facility] [place] 02[place]22/20 [facility] [address] [place] [address]- [facility] Attending Physician: Mariya Miller MD Allergies, Adverse Reactions, Alerts Substance Reaction Severity Status Bactrim RASH Active Medications Implanon Maintenance, 08/22/17 13:02:11 EDT Start Date: 08/22/17 Status: Orderedmethimazole 5 mg oral tablet 5 mg, 1, tablet, By Mouth, 2 times a day, # 180 tablet, Refills 5, Tot. Refills 5, Maintenance, 01/03/20 13:04:00 EDT, Route to Pharmacy Electronically, [facility], 158.4, cm, 07/23/2014:21:00 EST, Height, 84.7, kg, 12/25/19 14:52:00... Start Date: 01/03/20 Status: Ordered Problem List Condition Effective Dates Status Health Status Informant Constipation(Confirmed) Active Diarrhea(Confirmed) Active Graves disease(Confirmed) Active Social History Social History Type Response Smoking Status Never smoker entered on: 08/22/17 Sex
--- OUTSIDE RECORDS SUMMARY | 2022-03-09 21:36 | XMS_ITS | Continuity of Care Document ---
:2000 Author Organization [facility] Address [address] [place] [address]- Care Team Providers Name Role Phone Anthony Marte MD, Chaitanya Key Primary Care Physician [place] [facility] [place]20 - 06/25/20 [facility] [address] [place] [address]- Allergies, Adverse Reactions, Alerts Substance Reaction Severity Status Bactrim RASH Active Medications Implanon Maintenance, 08/22/17 13:02:11 EDT Start Date: 08/22/17 Status: Orderedmethimazole 5 mg oral tablet 5 mg, 1, tablet, By Mouth, 2 times a day, # 180 tablet, Refills 5, Tot. Refills 5, Maintenance, 01/03/20 13:04:00 EDT, Route to Pharmacy Electronically, [facility], 158.4, cm, 07/23/2014:21:00 EST, Height, 84.7, kg, 12/25/19 14:52:00... Start Date: 01/03/20 Status: Ordered Problem List Condition Effective Dates Status Health Status Informant Constipation(Confirmed) Active Diarrhea(Confirmed) Active Graves disease(Confirmed) Active Social History Social History Type Response Smoking Status Never smoker entered on: 08/22/17 Sex
--- OUTSIDE RECORDS SUMMARY | 2022-03-09 21:36 | XMS_ITS | Continuity of Care Document ---
:2000 Author Organization [facility] Address [address] [place] [address]- Care Team Providers Name Role Phone Anthony Marte MD, Chaitanya Key Primary Care Physician [place] [facility] [place] - 01/13/20 [facility] [address] [place] [address] [facility] Allergies, Adverse Reactions, Alerts Substance Reaction Severity Status Bactrim RASH Active Medications Implanon Maintenance, 08/22/17 13:02:11 EDT Start Date: 08/22/17 Status: Orderedmethimazole 5 mg oral tablet 5 mg, 1, tablet, By Mouth, 2 times a day, # 180 tablet, Refills 5, Tot. Refills 5, Maintenance, 01/03/20 13:04:00 EDT, Route to Pharmacy Electronically, [facility], 158.4, cm, 07/23/2014:21:00 EST, Height, 84.7, kg, 12/25/19 14:52:00... Start Date: 01/03/20 Status: Ordered Problem List Condition Effective Dates Status Health Status Informant Constipation(Confirmed) Active Diarrhea(Confirmed) Active Graves disease(Confirmed) Active Social History Social History Type Response Smoking Status Never smoker entered on: 08/22/17 Sex
--- OUTSIDE RECORDS SUMMARY | 2022-03-09 21:36 | XMS_ITS | Continuity of Care Document ---
:2000 Author Organization [facility] Address [address] [place] [address]- Care Team Providers Name Role Phone Anthony Marte MD, Chaitanya Key Primary Care Physician [place] [facility] [place]/23/20 - 02/22/20 [facility] [address] [place] [address]- [facility] Attending Physician: Crista Corrales Admitting Physician: Crista [...] 01/03/20 13:04:00 EDT, Route to Pharmacy Electronically, [facility], 158.4, cm, 07/23/2014:21:00 EST, Height, 84.7, kg, 12/25/19 14:52:00... Start Date: 01/03/20 Status: Ordered Problem List Condition Effective Dates Status Health Status Informant Constipation(Confirmed) Active Diarrhea(Confirmed) Active Graves disease(Confirmed) Active Social History Social History Type Response Smoking Status Never smoker entered on: 08/22/17 Sex
--- OUTSIDE RECORDS SUMMARY | 2022-03-09 21:36 | XMS_ITS | Continuity of Care Document ---
:2000 Author Organization [facility] Address [address] [place] [address]- Care Team Providers Name Role Phone Anthony Marte MD, Chaitanya Key Primary Care Physician En[place] [facility] [place] 10/30/19 - 12/13/19 [facility] [address] [place] [address]- [facility] Attending Physician: Titus KERN, Radha Allergies, Adverse [...]
--- OUTSIDE RECORDS SUMMARY | 2022-03-09 21:36 | XMS_ITS | Continuity of Care Document ---
:2000 Author Organization [facility] Address [address] [place] [address]- Care Team Providers Name Role Phone Anthony Marte MD, Chaitanya Key Primary Care Physician [phone] [place] [facility] [place]20 - 12/03/20 [facility] [address] [place] [address]- Attending Physician: Crista Corrales Admitting Physician: Crista Corrales Referring Physician: Crista Corrales Allergies, Adverse Reactions, Alerts Substance Reaction Severity Status Bactrim RASH Active Medications Implanon Maintenance, 08/22/17 13:02:11 EDT Start Date: 08/22/17 Status: Orderedmethimazole 10 mg oral tablet 1, tablet, By Mouth, Daily, # 90 tablet, Refills 0, Tot. Refills 0, Maintenance, 10/02/20 8:51:00 EDT, Route to Pharmacy Electronically, [id number], 158.4, cm, 07/24/19 15:21:00 EST, Height, 84.7,kg, 12/25/19 14:52:00 EDT, Dry Weight Start Date: 10/02/20 Status: Ordered Problem List Condition Effective Dates Status Health Status Informant Constipation(Confirmed) Active Diarrhea(Confirmed) Active Graves disease(Confirmed) Active Social History Social History Type Response Smoking Status Never smoker entered on: 08/22/17 Sex
[2022-03-09] MEDS: 0.9 % Sodium Chloride 1,000 ML 999 ML IV ×2 (22:13→22:15)
[2022-03-09 22:14] VITALS: BP 140/73; PULSE 124; RESP 15; TEMP 36.4; O2SAT 100
[2022-03-09 22:17] LABS: Appearance Urine Clear; Color Urine Yellow; Glucose Urine UA Negative (Negative); Leukocyte Esterase Urine Negative (Negative); Nitrite Urine Negative (Negative); PH 5.5 (5.0-9.0); Specific Gravity - Urine 1.015 (1.005-1.025); Urine Blood Negative (Negative); Urine Ketones Negative (Negative); Urine Protein Negative (Neg-Trace)
[2022-03-09 22:20] LABS: Urine Pregnancy NEGATIVE (NEGATIVE)
[2022-03-09 22:21] LABS: UPreg QC Valid YES
[2022-03-09 22:27] LABS: INTERNATIONAL NORM RATIO 1.3 (0.9-1.1); Prothrombin Time 15.4 SEC (10.0-13.1)
[2022-03-09 22:29] LABS: D Dimer High Sensitivity 171 NG/ML
[2022-03-09 22:30] LABS: Partial Thromboplastin Time 27.3 SEC (26.0-36.4)
[2022-03-09 22:35] LABS: Troponin-I High Sensitivity 3.8 ng/L (<3.5-17.0)
[2022-03-09 22:50] LABS: HCG Quantitative < 2 mIU/mL; TSH reflex Free T4 0.02 uIU/mL (0.32-4.0)
[2022-03-09 23:58] VITALS: BP 125/64; PULSE 126; RESP 30; TEMP 37.1; O2SAT 97
[2022-03-10] VITALS (8 sets, daily range): BP systolic 118–157; BP diastolic 68–90; PULSE 93–106; RESP 13–21; TEMP 37.1; O2SAT 96–99
--- NOTE | 2022-03-10 00:18 | ED.GENADULT ---
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 Patient states no throat pain or recorded fever. Denies any abdominal pain. Patient states she has been without her thyroid medications for the past 3 years. 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 Related Data Previous Rx's Medication Instructions Recorded ibuprofen 800 mg tablet 800 mg PO Q8H PRN pain #14 tabs 11/16/20 diphenhydramine HCl 25 mg capsule 25 mg PO TID PRN allergic reaction 02/16/21 (Benadryl) #20 caps ibuprofen 600 mg tablet 600 mg PO Q6H PRN pain #20 tabs 03/19/21 ondansetron 4 mg disintegrating 4 mg PO Q6-8H PRN nausea and 04/28/21 tablet vomiting #14 tabs acetaminophen 500 mg tablet 1,000 mg PO QID PRN pain #30 tabs 07/25/21 cyclobenzaprine 5 mg tablet 5 mg PO TID PRN muscle spasm #10 07/25/21 tabs cyclobenzaprine 5 mg tablet 5 mg PO TID PRN muscle spasm #10 07/25/21 tabs ibuprofen 600 mg tablet 600 mg PO Q6H PRN pain #20 tabs 07/25/21 ibuprofen 600 mg tablet 600 mg PO Q6H PRN pain #20 tabs 07/25/21 cefuroxime axetil 250 mg tablet 250 mg PO BID 7 days #14 tabs 07/29/21 amoxicillin 875 mg-potassium 1 tab PO BID #14 tabs 08/28/21 clavulanate 125 mg tablet Allergies Allergy/AdvReac Type Severity Reaction Status Date / Time sulfamethoxazole Allergy Intermediate HIVES Verified 10/18/21 02:03 [From BACTRIM] trimethoprim [From BACTRIM] Allergy Intermediate HIVES Verified 10/18/21 02:03 Review of Systems Review of Systems: Headache, nausea, diarrhea, chills Yes all other systems are reviewed and are negative PMF Past Medical History Medical History (Updated 10/19/22 @ 01:44 by KAYCEE Paul) History of depression Hyperthyroidism Sheltered homelessness Tachycardia Family History Family History (Updated 03/02/22 @ 10:10 by SARAN Cardona) Mother Multiple sclerosis Father Diabetes Sister No problems noted. Sister ADHD Son No problems noted. 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 Physical Exam ED Vital Signs: Vital Signs - 24 hr 03/09/22 19:23 03/09/22 21:23 03/09/22 22:14 Temperature 99.1 F 97.5 F 97.6 F Pulse Rate 137 H 129 H 124 H Respiratory Rate 16 20 15 Blood Pressure 164/86 H 143/84 H 140/73 H Pulse Oximetry 98 97 100 Oxygen Delivery Method Room Air Room Air Room Air 03/09/22 23:58 Temperature 98.8 F Pulse Rate 126 H Respiratory Rate 30 H Blood Pressure 125/64 Pulse Oximetry 97 Oxygen Delivery Method Room Air BMI result Body Mass Index 39.6 Const General: cooperative, healthy appearing, comfortable, no acute distress, well developed, alert, awake and Physically active Orientation/consciousness: oriented to time and patient oriented x3 HENMT Head: Yes normal to inspection, Yes No palpable skull fracture present, Yes normocephalic, Yes atraumatic and No abrasion Eyes General: appearance normal, both eyes and all related structures Neck Neck: Yes normal visual inspection, Yes full ROM, Yes no lymphadenopathy, Yes no meningeal signs, Yes trachea midline, Yes supple, No anterior neck swelling and No tender Chest Chest palpation & inspection: normal inspection of the chest and normal palpation of entire chest wall Resp Effort & Inspection: normal respiratory effort and able to speak in complete sentences Auscultation: clear to auscultation bilaterally Cardio Jugular venous distension: no JVD Heart sounds: S1 normal heart sound present and S2 normal heart sound present GI Inspection: Yes normal to inspection and No abdominal wall ecchymosis Palpation (GI): Soft to palpation, not firm, nontender, no guarding and not rigid General: No CVA tenderness and Yes no CVA tenderness Back/Spine/Pelvis Back: no CVA tenderness, No CVA tenderness and No back tenderness Skin General skin exam: no rashes or lesions noted and elasticity normal Neuro General: oriented to time, patient oriented x3, gait normal, tone normal, no meningeal signs and CN's II-XI intact bilaterally Cranial nerves: Yes CN's II-XII intact bilaterally Extrem Other: Lower extremities negative for swelling, pitting edema, or calf tenderness. General: Yes normal to inspection and Yes full ROM Psych Appearance: grossly normal, well kempt and not disheveled Course Course Course Narrative: Patient heart rate high. labs ordered and showed negative for any elevated white blood cell count. Patient not . Patient tachycardic will do EKG and dimer and also thyroid level. Reevaluation(s) Reevaluation #1: Case was discussed with Dr. Munoz hospitalists who recommends giving patient propanol and methimazole. She does not think patinet has thryoid storm but states add LFTs and BNP to see if patient has indicators for thryoid keesha. Heart rate Hysingla monitor 145. D-dimer was 171 which is negative. PERC Score 1. Time: 00:39 Reevaluation #2: Dr. Munoz came to the and evaluated patient recommended patient be admitted for hyperthyroidism. She states patient's symptoms due to uncontrolled hypothyroidism but does not suspect thyroid storm. Patient is not having a fever or neck pain. Patient Agree plan. Heart rate improved to 111. Abdomen benign and nontender on palpation Time: 01:42 Medical Decision Making [facility] Narrative Medical decision making narrative: Hyperthyroidism Lab Data Result diagrams: 03/09/22 19:37 03/09/22 19:37 Labs: Lab Results 03/09/22 03/09/22 03/09/22 Range/Units 19:37 19:37 19:37 WBC 4.0 L (4.8-10.8) X10*3/uL RBC 4.67 (4.20-5.50) X10*6/uL Hgb 12.3 (12.0-16.0) g/dl Hct 36.8 L (37.0-47.0) % MCV 78.8 L (80.0-98.0) fL MCH 26.3 L (27.0-33.0) pg MCHC 33.4 (31.0-35.0) g/dl RDW 12.9 (11.0-16.0) % Plt Count 283 (160-400) X10*3/uL MPV 9.6 (9.4-12.3) fL Immature Gran % (Auto) 0.3 (0.0-0.4) % Neut % (Auto) 69.0 (45-73) % Lymph % (Auto) 19.7 L (20-40) % [place] % (Auto) 10.4 (2-11) % Eos % (Auto) 0.3 (0-4) % Baso % (Auto) 0.3 (0-2) % Lymph # (Auto) 0.8 L (1.2-4.9) X10*3/uL [place] # (Auto) 0.4 (0.1-1.2) X10*3/uL Eos # (Auto) 0.0 (0.0-0.4) X10*3/uL Baso # (Auto) 0.0 (0.0-0.2) X10*3/uL Abs Immat Gran (auto) 0.01 (0.00-0.03) X10*3/uL Absolute Neuts (auto) 2.7 (2.0-8.3) x10*3/uL Absolute Nucleated RBC 0.000 (0.0-0.012) X10*3/uL Nucleated RBC % (auto) 0.0 (0.0-0.2) /100WBC PT (10.0-13.1) SEC INR (0.9-1.1) APTT (26.0-36.4) SEC D-Dimer High Sensitivty NG/ML Sodium 139 (135-145) mmol/L Potassium 3.6 (3.3-5.1) mmol/L Chloride 104 (96-108) mmol/L Carbon Dioxide 22 (22-29) mmol/L Anion Gap 17 (12-20) BUN 6 L (9-16) mg/dL Creatinine 0.60 (0.5-1.4) mg/dL Estim Creat Clear Calc 156.3 Estimated GFR > 60 Random Glucose 158 H (60-115) mg/dL Calcium 9.0 (8.4-10.2) mg/dL Total Bilirubin 0.4 (0.0-1.0) mg/dL Direct Bilirubin 0.2 (0.0-0.5) mg/dL AST 22 (5-31) U/L ALT 32 H (0-31) U/L Alkaline Phosphatase 207 H (39-117) U/L Troponin I High Sens (<3.5-17.0) ng/L B-Natriuretic Peptide (<100) pg/mL Total Protein 6.4 L (6.5-8.0) g/dL Albumin 3.8 (3.5-5.0) g/dL TSH (0.32-4.0) uIU/mL Free T4 (0.71-1.85) ng/dL Beta HCG, Quant mIU/mL Urine Color Urine Appearance Urine pH (5.0-9.0) Ur Specific [place] (1.005-1.025) Urine Protein (Neg-Trace) mg/dL Urine Glucose (UA) (Negative) mg/dL Urine Ketones (Negative) mg/dL Urine Blood (Negative) Urine Nitrite (Negative) Ur Leukocyte Esterase (Negative) Urine Test (NEGATIVE) Influenza Type A (PCR) (Negative) Influenza Type B (PCR) (Negative) RSV RNA Qual (PCR) (Negative) SARS-CoV-2 RNA (RT-PCR) (Negative) S. pyogenes GrpA SAIGE Negative (Negative) 03/09/22 03/09/22 03/09/22 Range/Units 19:37 22:10 22:10 WBC (4.8-10.8) X10*3/uL RBC (4.20-5.50) X10*6/uL Hgb (12.0-16.0) g/dl Hct (37.0-47.0) % MCV (80.0-98.0) fL MCH (27.0-33.0) pg MCHC (31.0-35.0) g/dl RDW (11.0-16.0) % Plt Count (160-400) X10*3/uL MPV (9.4-12.3) fL Immature Gran % (Auto) (0.0-0.4) % Neut % (Auto) (45-73) % Lymph % (Auto) (20-40) % [place] % (Auto) (2-11) % Eos % (Auto) (0-4) % Baso % (Auto) (0-2) % Lymph # (Auto) (1.2-4.9) X10*3/uL [place] # (Auto) (0.1-1.2) X10*3/uL Eos # (Auto) (0.0-0.4) X10*3/uL Baso # (Auto) (0.0-0.2) X10*3/uL Abs Immat Gran (auto) (0.00-0.03) X10*3/uL Absolute Neuts (auto) (2.0-8.3) x10*3/uL Absolute Nucleated RBC (0.0-0.012) X10*3/uL Nucleated RBC % (auto) (0.0-0.2) /100WBC PT 15.4 H (10.0-13.1) SEC INR 1.3 H (0.9-1.1) APTT 27.3 (26.0-36.4) SEC D-Dimer High Sensitivty 171 NG/ML Sodium (135-145) mmol/L Potassium (3.3-5.1) mmol/L Chloride (96-108) mmol/L Carbon Dioxide (22-29) mmol/L Anion Gap (12-20) BUN (9-16) mg/dL Creatinine (0.5-1.4) mg/dL Estim Creat Clear Calc Estimated GFR Random Glucose (60-115) mg/dL Calcium (8.4-10.2) mg/dL Total Bilirubin (0.0-1.0) mg/dL Direct Bilirubin (0.0-0.5) mg/dL AST (5-31) U/L ALT (0-31) U/L Alkaline Phosphatase (39-117) U/L Troponin I High Sens 3.8 (<3.5-17.0) ng/L B-Natriuretic Peptide < 10 (<100) pg/mL Total Protein (6.5-8.0) g/dL Albumin (3.5-5.0) g/dL TSH (0.32-4.0) uIU/mL Free T4 (0.71-1.85) ng/dL Beta HCG, Quant mIU/mL Urine Color Urine Appearance Urine pH (5.0-9.0) Ur Specific [place] (1.005-1.025) Urine Protein (Neg-Trace) mg/dL Urine Glucose (UA) (Negative) mg/dL Urine Ketones (Negative) mg/dL Urine Blood (Negative) Urine Nitrite (Negative) Ur Leukocyte Esterase (Negative) Urine Test (NEGATIVE) Influenza Type A (PCR) NEGATIVE (Negative) Influenza Type B (PCR) NEGATIVE (Negative) RSV RNA Qual (PCR) NEGATIVE (Negative) SARS-CoV-2 RNA (RT-PCR) NEGATIVE (Negative) S. pyogenes GrpA SAIGE (Negative) 03/09/22 03/09/22 03/09/22 Range/Units 22:10 22:10 22:10 WBC (4.8-10.8) X10*3/uL RBC (4.20-5.50) X10*6/uL Hgb (12.0-16.0) g/dl Hct (37.0-47.0) % MCV (80.0-98.0) fL MCH (27.0-33.0) pg MCHC (31.0-35.0) g/dl RDW (11.0-16.0) % Plt Count (160-400) X10*3/uL MPV (9.4-12.3) fL Immature Gran % (Auto) (0.0-0.4) % Neut % (Auto) (45-73) % Lymph % (Auto) (20-40) % [place] % (Auto) (2-11) % Eos % (Auto) (0-4) % Baso % (Auto) (0-2) % Lymph # (Auto) (1.2-4.9) X10*3/uL [place] # (Auto) (0.1-1.2) X10*3/uL Eos # (Auto) (0.0-0.4) X10*3/uL Baso # (Auto) (0.0-0.2) X10*3/uL Abs Immat Gran (auto) (0.00-0.03) X10*3/uL Absolute Neuts (auto) (2.0-8.3) x10*3/uL Absolute Nucleated RBC (0.0-0.012) X10*3/uL Nucleated RBC % (auto) (0.0-0.2) /100WBC PT (10.0-13.1) SEC INR (0.9-1.1) APTT (26.0-36.4) SEC D-Dimer High Sensitivty NG/ML Sodium (135-145) mmol/L Potassium (3.3-5.1) mmol/L Chloride (96-108) mmol/L Carbon Dioxide (22-29) mmol/L Anion Gap (12-20) BUN (9-16) mg/dL Creatinine (0.5-1.4) mg/dL Estim Creat Clear Calc Estimated GFR Random Glucose (60-115) mg/dL Calcium (8.4-10.2) mg/dL Total Bilirubin (0.0-1.0) mg/dL Direct Bilirubin (0.0-0.5) mg/dL AST (5-31) U/L ALT (0-31) U/L Alkaline Phosphatase (39-117) U/L Troponin I High Sens (<3.5-17.0) ng/L B-Natriuretic Peptide (<100) pg/mL Total Protein (6.5-8.0) g/dL Albumin (3.5-5.0) g/dL TSH 0.02 L (0.32-4.0) uIU/mL Free T4 4.00 H (0.71-1.85) ng/dL Beta HCG, Quant < 2 mIU/mL Urine Color Yellow Urine Appearance Clear Urine pH 5.5 (5.0-9.0) Ur Specific [place] 1.015 (1.005-1.025) Urine Protein Negative (Neg-Trace) mg/dL Urine Glucose (UA) Negative (Negative) mg/dL Urine Ketones Negative (Negative) mg/dL Urine Blood Negative (Negative) Urine Nitrite Negative (Negative) Ur Leukocyte Esterase Negative (Negative) Urine Test NEGATIVE (NEGATIVE) Influenza Type A (PCR) (Negative) Influenza Type B (PCR) (Negative) RSV RNA Qual (PCR) (Negative) SARS-CoV-2 RNA (RT-PCR) (Negative) S. pyogenes GrpA SAIGE (Negative) ECG Data Interpretation: Sinus tachycardia. Ventricular rate 125. VT interval 136. QRS 90. QTC 438. Negative STEMI Discharge Plan Discharge Clinical Impression: Hyperthyroidism Patient Disposition: Admitted As Inpatient
[2022-03-10 00:37] LABS: Alanine Aminotransferase 32 U/L (0-31); Albumin Level 3.8 g/dL (3.5-5.0); Alkaline Phosphatase 207 U/L (39-117); Aspartate Amino Transferase 22 U/L (5-31); Bilirubin Direct 0.2 mg/dL (0.0-0.5); Bilirubin Total 0.4 mg/dL (0.0-1.0); Total Protein 6.4 g/dL (6.5-8.0)
[2022-03-10 00:43] LABS: B Type Natriuretic Peptide < 10 pg/mL (<100)
[2022-03-10] MEDS: Propranolol HCL 20 MG TABLET 60 MG PO (00:51)
[2022-03-10] MEDS: methIMAzole 10 MG TABLET 20 MG PO ×2 (01:58→08:27)
--- NOTE | 2022-03-10 05:33 | PM.IMHP ---
History of Present Illness Date of Service: 03/10/22 Chief Complaint: headache, diarrhea, palpitations This is a 21-year-old female with past medical history of hyperthyroidism noncompliant to the medication for the past 3 years presents to the hospital with complaints of headache, diarrhea, chills, body aches, nausea, palpitations and chest tightness. Patient reports that her symptoms worsened over the past 4 days, she reports feeling significant chills, reports no abdominal pain, no urinary symptoms and no lower extremity edema. Denies any orthopnea or PND. Denies any confusion, change in mentation. Reports that she has not been taking her thyroid medication for 3 years because it made her depressed. She denies any weakness numbness or tingling. On arrival to the ED patient found to have a heart rate in the 130s to 150s, blood pressure of 164/86 Labs are significant for though RBC count of 4.0, TSH of 0.02, free T4 of 4.0, UA negative, COVID-19 negative, BNP negative, troponin negative EKG shows sinus tachycardia Chest x-ray negative. Review of Systems Review of Systems: Yes all other systems are reviewed and are negative [facility] Medical History (Updated 03/10/22 @ 05:37 by Renee Clinton MD) History of depression Hyperthyroidism Sheltered homelessness Tachycardia Family History Mother Multiple sclerosis Father Diabetes Sister No problems noted. Sister ADHD Son No problems noted. 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 Allergies Allergy/AdvReac Type Severity Reaction Status Date / Time sulfamethoxazole Allergy Intermediate HIVES Verified 10/18/21 02:03 [From BACTRIM] trimethoprim [From BACTRIM] Allergy Intermediate HIVES Verified 10/18/21 02:03 Active Medications: Current Medications Acetaminophen (Acetaminophen 325 Mg Tablet) 650 mg PO Q6H PRN PRN Reason: Pain, Mild (Pain Scale 1-3) Docusate Sodium (Docusate Sodium 100 Mg Capsule) 100 mg PO DAILY PRN PRN Reason: Constipation Methimazole (Methimazole 10 Mg Tablet) 20 mg PO DAILY [facility] Ondansetron HCl (Ondansetron Hcl 4 Mg/2 Ml Vial) 4 mg IVPUSH Q8H PRN PRN Reason: Nausea and Vomiting Propranolol HCl (Propranolol Hcl 20 Mg Tablet) 20 mg PO BID NAVEED; Protocol Sodium Chloride (0.9 % Sodium Chloride Flush 3 Ml Syringe) 3 ml IVFLUSH QSHIFT NAVEED Physical Exam Vital Signs and Narrative: Vital Signs: Last Vital Signs Temp 98.7 F 03/10/22 02:43 Pulse 93 03/10/22 04:00 Resp 21 H 03/10/22 04:00 BP 120/74 03/10/22 04:00 Pulse Ox 96 03/10/22 04:00 O2 Del Method 03/10/22 04:00 BMI result Body Mass Index 39.6 Const: General: cooperative and no acute distress Orientation/consciousness: patient oriented x3 HEENT: Other: Has a large goiter Eyes: General: appearance normal, both eyes and all related structures Pupils: Equal, round and reactive pupils present Resp: Effort & Inspection: normal respiratory effort Auscultation: clear to auscultation bilaterally Cardio: Other: Tachycardic Rhythm: regular rhythm GI: Palpation (GI): Soft to palpation Auscultation: normal bowel sounds Skin: General skin exam: no rashes or lesions noted Neuro: General: patient oriented x3 Cranial nerves: Yes Equal, round and reactive pupils present Cognition (Neuro): normal cognition Extrem: General: Yes normal to inspection and Yes no pedal edema Results Labs CBC and Chem 7: 03/09/22 19:37 03/09/22 19:37 Labs: Laboratory Results - last 24 hr 03/09/22 03/09/22 03/09/22 19:37 19:37 19:37 MCV 78.8 L MCH 26.3 L MCHC 33.4 RDW 12.9 Plt Count 283 MPV 9.6 Immature Gran % (Auto) 0.3 Neut % (Auto) 69.0 Lymph % (Auto) 19.7 L [place] % (Auto) 10.4 Eos % (Auto) 0.3 Baso % (Auto) 0.3 Lymph # (Auto) 0.8 L [place] # (Auto) 0.4 Eos # (Auto) 0.0 Baso # (Auto) 0.0 Abs Immat Gran (auto) 0.01 Absolute Neuts (auto) 2.7 Absolute Nucleated RBC 0.000 Nucleated RBC % (auto) 0.0 PT INR APTT D-Dimer High Sensitivty Anion Gap 17 Estim Creat Clear Calc 156.3 Estimated GFR > 60 Random Glucose 158 H Calcium 9.0 Total Bilirubin 0.4 Direct Bilirubin 0.2 AST 22 ALT 32 H Alkaline Phosphatase 207 H Troponin I High Sens B-Natriuretic Peptide Total Protein 6.4 L Albumin 3.8 TSH Free T4 Beta HCG, Quant Urine Color Urine Appearance Urine pH Ur Specific [place] Urine Protein Urine Glucose (UA) Urine Ketones Urine Blood Urine Nitrite Ur Leukocyte Esterase Urine Test Influenza Type A (PCR) Influenza Type B (PCR) RSV RNA Qual (PCR) SARS-CoV-2 RNA (RT-PCR) S. pyogenes GrpA SAIGE Negative 03/09/22 03/09/22 03/09/22 19:37 22:10 22:10 MCV MCH MCHC RDW Plt Count MPV Immature Gran % (Auto) Neut % (Auto) Lymph % (Auto) [place] % (Auto) Eos % (Auto) Baso % (Auto) Lymph # (Auto) [place] # (Auto) Eos # (Auto) Baso # (Auto) Abs Immat Gran (auto) Absolute Neuts (auto) Absolute Nucleated RBC Nucleated RBC % (auto) PT 15.4 H INR 1.3 H APTT 27.3 D-Dimer High Sensitivty 171 Anion Gap Estim Creat Clear Calc Estimated GFR Random Glucose Calcium Total Bilirubin Direct Bilirubin AST ALT Alkaline Phosphatase Troponin I High Sens 3.8 B-Natriuretic Peptide < 10 Total Protein Albumin TSH Free T4 Beta HCG, Quant Urine Color Urine Appearance Urine pH Ur Specific [place] Urine Protein Urine Glucose (UA) Urine Ketones Urine Blood Urine Nitrite Ur Leukocyte Esterase Urine Test Influenza Type A (PCR) NEGATIVE Influenza Type B (PCR) NEGATIVE RSV RNA Qual (PCR) NEGATIVE SARS-CoV-2 RNA (RT-PCR) NEGATIVE S. pyogenes GrpA SAIGE 03/09/22 03/09/22 03/09/22 22:10 22:10 22:10 MCV MCH MCHC RDW Plt Count MPV Immature Gran % (Auto) Neut % (Auto) Lymph % (Auto) [place] % (Auto) Eos % (Auto) Baso % (Auto) Lymph # (Auto) [place] # (Auto) Eos # (Auto) Baso # (Auto) Abs Immat Gran (auto) Absolute Neuts (auto) Absolute Nucleated RBC Nucleated RBC % (auto) PT INR APTT D-Dimer High Sensitivty Anion Gap Estim Creat Clear Calc Estimated GFR Random Glucose Calcium Total Bilirubin Direct Bilirubin AST ALT Alkaline Phosphatase Troponin I High Sens B-Natriuretic Peptide Total Protein Albumin TSH 0.02 L Free T4 4.00 H Beta HCG, Quant < 2 Urine Color Yellow Urine Appearance Clear Urine pH 5.5 Ur Specific [place] 1.015 Urine Protein Negative Urine Glucose (UA) Negative Urine Ketones Negative Urine Blood Negative Urine Nitrite Negative Ur Leukocyte Esterase Negative Urine Test NEGATIVE Influenza Type A (PCR) Influenza Type B (PCR) RSV RNA Qual (PCR) SARS-CoV-2 RNA (RT-PCR) S. pyogenes GrpA SAIGE Imaging Radiologist's Impressions: Impressions Chest X-Ray 03/09/22 19:35 IMPRESSION: Unremarkable examination. Assessment and Plan (1) Thyrotoxicosis due to Graves' disease: Status: Acute Plan This is a 21-year-old female with past medical history of hyperthyroidism to Graves disease presents the hospital with complaints of palpitations, diarrhea secondary to thyrotoxicosis # thyrotoxicosis secondary to Graves disease - has tachycardia, diarrhea - no heart failure, no confusion, no evidence other evidence of thyroid storm - at this time will treat with propranolol, methimazole - monitor heart rate # diarrhea - likely secondary to above - treat underlying cause of hyperthyroid is DVT prophylaxis: Early ambulation Quality Stroke Does the patient have a stroke diagnosis?: No VTE Prior VTE?: No VTE Risk Level:: Medical - low VTE Device Contraindication: Treatment Not Indicated VTE Drug Contraindication: Treatment Not Indicated
--- NOTE | 2022-03-10 05:52 | PC.NURSE ---
pt sleeping, no sign of distress. Will continue to monitor.
--- NOTE | 2022-03-10 07:00 | CA_ITS ---
Transthoracic Echocardiogram Patient (Last, First, Middle): Charlie Juarez, Gender: Female Date of : 2000 Age: 21 Procedure Date: 03/10/2022 Procedure Type: Transthoracic Echocardiogram Location: ER Height: 154.94 cm Weight: 95.26 kg BSA: 1.93 m2 Heart Rate: 105 bpm BP: 127 / 68 mmHg Shoe Fitter: Referring MD: Rusty Vela MD Symptoms: chest pain Study Quality: Adequate ECG Rhythm: Sinus Conclusions: - Normal left ventricular size and systolic function. There is mildly increased left ventricular wall thickness. The visually estimated ejection fraction is between 60-65%. There is no evidence of regional wall motion abnormalities. Diastolic function is normal for age. - Normal right ventricular cavity size and systolic function. - The left atrium is mildly dilated. - Ascending aorta upper limit of normal. Findings Left Ventricle Normal left ventricular size and systolic function. There is mildly increased left ventricular wall thickness. The visually estimated ejection fraction is between 60-65%. There is no evidence of regional wall motion abnormalities. Diastolic function is normal for age. Right Ventricle Normal right ventricular cavity size and systolic function. Atria The left atrium is mildly dilated. Aortic Valve Normal aortic valve structure and function. There is no aortic valve stenosis. There is no aortic valve regurgitation. Vmax 197 centimeter/second due to hyperthyroidism. Mitral Valve Normal mitral valve structure and function. There is no mitral valve regurgitation. There is no mitral valve stenosis. Pulmonic Valve Normal pulmonic valve structure and function. There is no pulmonic valve regurgitation. Tricuspid Valve Normal tricuspid valve structure and function. There is mild tricuspid valve regurgitation. Normal right atrial pressure. There is no evidence of pulmonary hypertension. Great Vessels The visualized portions of the pulmonary artery and branches are normal. Ascending aorta upper limit of normal. Venous The inferior vena cava is normal in size and collapses greater than 50% with inspiration. Pericardium/Pleural There is no evidence of pericardial effusion. Prior Study Comparison No prior study available for comparison. Measurements 2D Linear Measurements IVSd: 1.08 0.6-0.9/0.6-1.0 cm LVIDd: 5.01 3.9-5.3/4.2-5.9 cm LVIDd Index: 2.60 2.4-3.2/2.2-3.1 cm/m2 LVIDs: 3.27 2.0-3.6 cm LVPWd: 0.96 0.7-1.1 cm Ao Root: 2.80 2.1-3.5 cm LA Diam: 3.70 2.7-3.8/3.0-4.0 cm LAIDs Index: 1.92 1.5-2.3 cm/m2 LV Mass: 233.64 67-162/88-224 g LV Mass Index: 121.06 43-95/49-115 g/m2 LVOT Diam: 2.00 3.0+(-)1.3 cm Mitral Valve MV Pk E: 0.96 MV PK A: 0.61 MV Decel Time: 155.00 E/A: 1.60 E'Lateral: 14.90 E'Medial: 10.20 E/E' Med: 9.50 E/E' Lat: 6.50 PHT: 45.00 MVA PHT: 4.89 Decel [place]: 6.24 Aortic Valve AoV Pk Ben: 1.98 AoV Mn Ben: 1.23 AoV VTI: 0.32 AoV Pk Grad: 16.00 Aov Mn Grad: 8.00 ABDIEL Cont.VTI: 2.28 LVOT LVOT Pk Ben: 1.48 LVOT Mn Ben: 1.05 LVOT VTI: 0.23 LVOT Pk Grad: 9.00 LVOT Mn Grad: 5.00 LVOT Diam: 2.00 LVOT Area: 3.14 Diastolic Function MV Pk E: 0.96 MV Pk A: 0.61 E/A: 1.60 E'Medial: 10.20 E/E' Med: 9.50 E' Laterial: 14.90 E/E' Lat: 6.50 Right Ventricle TAPSE (mm): 31.00 TVS' Ben: 22.00 Tricuspid Valve TR Pk Ben: 2.43 TR Pk Grad: 24.00 RA Press: 3.00 RVSP: 27.00 Great Vessels Aorta Ao Root-2D: 2.80 2.0-3.7 cm Ao Asc: 3.10 2.1-3.4 cm Pulmonary Valve PV Pk Ben: 1.55 Peak PV Grad: 10.00 Updated in Other Vendor System with Status of Final Morgan Engel MD electronically signed on 03/11/2022 9:42:35 AM with status of Final
[2022-03-10] MEDS: 0.9 % Sodium Chloride Flush 3 ML SYRINGE IVFLUSH ×3 (08:27→21:58)
[2022-03-10] MEDS: Propranolol HCL 20 MG TABLET PO ×2 (08:27→21:56)
[2022-03-10 08:39] LABS: MANUAL DIFF FLAG NO
[2022-03-10 08:42] LABS: Basophils Percent Auto 0.3 % (0-2); Eosinophils Absolute Auto 0.1 X10*3/uL (0.0-0.4); Eosinophils Percent Auto 1.7 % (0-4); Hemoglobin 11.9 g/dl (12.0-16.0); Lymphocytes Absolute Auto 0.9 X10*3/uL (1.2-4.9); Lymphocytes Percent Auto 32.1 % (20-40); Mean Corpuscular HGB Conc 33.1 g/dl (31.0-35.0); Mean Corpuscular Hemoglobin 26.6 pg (27.0-33.0); Mean Corpuscular Volume 80.5 fL (80.0-98.0); Mean Platelet Volume 9.8 fL (9.4-12.3); Monocytes Absolute Auto 0.5 X10*3/uL (0.1-1.2); Monocytes Percent Auto 16.9 % (2-11); Neutrophils Absolute Auto 1.4 x10*3/uL (2.0-8.3); Platelet Count 267 X10*3/uL (160-400); Red Blood Count 4.47 X10*6/uL (4.20-5.50); White Blood Count 2.9 X10*3/uL (4.8-10.8)
--- NOTE | 2022-03-10 08:45 | PHA.MEDREC ---
Pharmacy Consult ? Medication Reconciliation Pharmacy has completed the medication reconciliation. Patient reported all medications. Della Sr, DaniaD
[2022-03-10 09:00] LABS: Anion Gap 14 (12-20); Blood Urea Nitrogen 6 mg/dL (9-16); Calcium 8.8 mg/dL (8.4-10.2); Carbon Dioxide 22 mmol/L (22-29); Chloride 107 mmol/L (96-108); Creatinine Clr Calc Pharmacy 234.5; Estimated Glomerular Filt Rate > 60; Glucose Random 107 mg/dL (60-115); Potassium 3.7 mmol/L (3.3-5.1); Sodium 139 mmol/L (135-145)
--- NOTE | 2022-03-10 10:02 | P.PNIM_ITS ---
Subjective Subjective Date of Service: 03/10/22 Interval History: patient has been seen today. Denies any nausea vomiting. Reports he has been having diarrhea for the past 3 days-loose and watery; reports intermittent abdominal discomfort. Patient also reports that she has been having intermittent episodes of headaches. Denies any blurry visions. Denies any phonophobia or photophobia. Currently denies any headaches or neck pain at the time of my interview. Mentioned that she has prior history of hyperthyroidism at- has been on methimazole but has not taken for the past 3 years. Reports he has been having chest tightness intermittently associated with palpitations. Physical Exam Vital Signs: Vital Signs: Last Vital Signs Temp 98.7 F 03/10/22 02:43 Pulse 95 03/10/22 06:58 Resp 16 03/10/22 06:58 BP 118/90 H 03/10/22 06:58 Pulse Ox 98 03/10/22 06:58 O2 Del Method 03/10/22 06:58 BMI result Body Mass Index 39.6 Gen: Appears be in no acute distress HEENT: NCAT, Moist mucosa. Neck is supple Pulmonary: Vesicular breath sounds, fair air entry CVS: Normal S1-S2 Abdomen: BS+, Soft, Nontender Extremities: Warm well perfused Neuro: Alert and awake. nonfocal. Objective Data Active Medications Acetaminophen (Acetaminophen 325 Mg Tablet) 650 mg PO Q6H PRN PRN Reason: Pain, Mild (Pain Scale 1-3) Docusate Sodium (Docusate Sodium 100 Mg Capsule) 100 mg PO DAILY PRN PRN Reason: Constipation Methimazole (Methimazole 10 Mg Tablet) 20 mg PO DAILY [facility] Last Admin: 03/10/22 08:27 Dose: 20 mg Documented By: KERLINE Ondansetron HCl (Ondansetron Hcl 4 Mg/2 Ml Vial) 4 mg IVPUSH Q8H PRN PRN Reason: Nausea and Vomiting Propranolol HCl (Propranolol Hcl 20 Mg Tablet) 20 mg PO BID [facility]; Protocol Last Admin: 03/10/22 08:27 Dose: 20 mg Documented By: KERLINE Sodium Chloride (0.9 % Sodium Chloride Flush 3 Ml Syringe) 3 ml IVFLUSH QSHIFT [facility] Last Admin: 03/10/22 08:27 Dose: 3 ml Documented By: HO.COOPEB Labs CBC & Chem 7: 03/10/22 08:14 03/10/22 08:14 Labs: Laboratory Results - last 24 hr 03/09/22 03/09/22 03/09/22 19:37 19:37 19:37 MCV 78.8 L MCH 26.3 L MCHC 33.4 RDW 12.9 Plt Count 283 MPV 9.6 Immature Gran % (Auto) 0.3 Neut % (Auto) 69.0 Lymph % (Auto) 19.7 L [place] % (Auto) 10.4 Eos % (Auto) 0.3 Baso % (Auto) 0.3 Lymph # (Auto) 0.8 L [place] # (Auto) 0.4 Eos # (Auto) 0.0 Baso # (Auto) 0.0 Abs Immat Gran (auto) 0.01 Absolute Neuts (auto) 2.7 Absolute Nucleated RBC 0.000 Nucleated RBC % (auto) 0.0 PT INR APTT D-Dimer High Sensitivty Anion Gap 17 Estim Creat Clear Calc 156.3 Estimated GFR > 60 Random Glucose 158 H Calcium 9.0 Total Bilirubin 0.4 Direct Bilirubin 0.2 AST 22 ALT 32 H Alkaline Phosphatase 207 H Troponin I High Sens B-Natriuretic Peptide Total Protein 6.4 L Albumin 3.8 TSH Free T4 Beta HCG, Quant Urine Color Urine Appearance Urine pH Ur Specific [place] Urine Protein Urine Glucose (UA) Urine Ketones Urine Blood Urine Nitrite Ur Leukocyte Esterase Urine Test Influenza Type A (PCR) Influenza Type B (PCR) RSV RNA Qual (PCR) SARS-CoV-2 RNA (RT-PCR) S. pyogenes GrpA SAIGE Negative 03/09/22 03/09/22 03/09/22 19:37 22:10 22:10 MCV MCH MCHC RDW Plt Count MPV Immature Gran % (Auto) Neut % (Auto) Lymph % (Auto) [place] % (Auto) Eos % (Auto) Baso % (Auto) Lymph # (Auto) [place] # (Auto) Eos # (Auto) Baso # (Auto) Abs Immat Gran (auto) Absolute Neuts (auto) Absolute Nucleated RBC Nucleated RBC % (auto) PT 15.4 H INR 1.3 H APTT 27.3 D-Dimer High Sensitivty 171 Anion Gap Estim Creat Clear Calc Estimated GFR Random Glucose Calcium Total Bilirubin Direct Bilirubin AST ALT Alkaline Phosphatase Troponin I High Sens 3.8 B-Natriuretic Peptide < 10 Total Protein Albumin TSH Free T4 Beta HCG, Quant Urine Color Urine Appearance Urine pH Ur Specific [place] Urine Protein Urine Glucose (UA) Urine Ketones Urine Blood Urine Nitrite Ur Leukocyte Esterase Urine Test Influenza Type A (PCR) NEGATIVE Influenza Type B (PCR) NEGATIVE RSV RNA Qual (PCR) NEGATIVE SARS-CoV-2 RNA (RT-PCR) NEGATIVE S. pyogenes GrpA SIAGE 03/09/22 03/09/22 03/09/22 22:10 22:10 22:10 MCV MCH MCHC RDW Plt Count MPV Immature Gran % (Auto) Neut % (Auto) Lymph % (Auto) [place] % (Auto) Eos % (Auto) Baso % (Auto) Lymph # (Auto) [place] # (Auto) Eos # (Auto) Baso # (Auto) Abs Immat Gran (auto) Absolute Neuts (auto) Absolute Nucleated RBC Nucleated RBC % (auto) PT INR APTT D-Dimer High Sensitivty Anion Gap Estim Creat Clear Calc Estimated GFR Random Glucose Calcium Total Bilirubin Direct Bilirubin AST ALT Alkaline Phosphatase Troponin I High Sens B-Natriuretic Peptide Total Protein Albumin TSH 0.02 L Free T4 4.00 H Beta HCG, Quant < 2 Urine Color Yellow Urine Appearance Clear Urine pH 5.5 Ur Specific [place] 1.015 Urine Protein Negative Urine Glucose (UA) Negative Urine Ketones Negative Urine Blood Negative Urine Nitrite Negative Ur Leukocyte Esterase Negative Urine Test NEGATIVE Influenza Type A (PCR) Influenza Type B (PCR) RSV RNA Qual (PCR) SARS-CoV-2 RNA (RT-PCR) S. pyogenes GrpA SAIGE 03/10/22 03/10/22 08:14 08:14 MCV 80.5 MCH 26.6 L MCHC 33.1 RDW 13.0 Plt Count 267 MPV 9.8 Immature Gran % (Auto) 0.0 Neut % (Auto) 49.0 Lymph % (Auto) 32.1 [place] % (Auto) 16.9 H Eos % (Auto) 1.7 Baso % (Auto) 0.3 Lymph # (Auto) 0.9 L [place] # (Auto) 0.5 Eos # (Auto) 0.1 Baso # (Auto) 0.0 Abs Immat Gran (auto) 0.00 Absolute Neuts (auto) 1.4 L Absolute Nucleated RBC 0.000 Nucleated RBC % (auto) 0.0 PT INR APTT D-Dimer High Sensitivty Anion Gap 14 Estim Creat Clear Calc 234.5 Estimated GFR > 60 Random Glucose 107 Calcium 8.8 Total Bilirubin Direct Bilirubin AST ALT Alkaline Phosphatase Troponin I High Sens B-Natriuretic Peptide Total Protein Albumin TSH Free T4 Beta HCG, Quant Urine Color Urine Appearance Urine pH Ur Specific [place] Urine Protein Urine Glucose (UA) Urine Ketones Urine Blood Urine Nitrite Ur Leukocyte Esterase Urine Test Influenza Type A (PCR) Influenza Type B (PCR) RSV RNA Qual (PCR) SARS-CoV-2 RNA (RT-PCR) S. pyogenes GrpA SAIGE Assessment and Plan (1) Thyrotoxicosis due to Graves' disease: Status: Acute Plan 21-year-old female with a past medical history of hyperthyroidism -has been noncompliant with methimazole presented to the hospital today with a chief complaint of headache/ palpitations/diarrhea / chest pain. Noted to have very low TSH levels concerning for hyperthyroidism. Admitted for further management. Hyperthyroidism: Patient TSH noted to be 0.02; free T4--> 4.0. T3 pending Patient has been not taking methimazole for the past 3 years. Patient was initially noted to be tachycardic. patient was started on 20 mg of proponolol b.i.d.. Continue methimazole 20 mg daily pt has been following tatianna Colon -> tried to reach out; left message. Chest pain: EKG non ischemic; DDImer negative. Initial troponin negative. spoke to Dr. Engel, recommended echocardiogram. Diarrhea: Benign abd exam. Supportive care. DVT ppx: Lovenox Code status: Full code Quality Stroke Does the patient have a stroke diagnosis?: No VTE Prior VTE?: No VTE Risk Level:: Medical - low VTE Device Contraindication: Treatment Not Indicated VTE Drug Contraindication: Treatment Not Indicated
--- NOTE | 2022-03-10 10:26 | P.CONCA_ITS ---
History of Present Illness History of Present Illness Date of Service: 03/10/22 Requesting physician: Rusty Vela Chief complaint: Thyrotoxicosis, Chest pain Narrative: 21-year-old female who is presenting for diarrhea, heat intolerance and tachycardia. She has known history of hyperthyroidism secondary to Graves disease. Approximately 4 years ago he stopped taking all her medications. she said the medications made her feel depressed and she stopped taking them. She has not followed up with anyone since then. She has been experiencing some chest pains off and on. She describes them as severe pain across the chest which happens randomly. She does not have any history of reactive airway disease. She has not been taking any medications as mentioned above. She was noted to be tachycardic in the emergency department. Her TSH is 0.02 and her free T4 is 4. she has been started on propanolol and methimazole. [facility] Past Medical History Medical History (Updated 03/10/22 @ 11:00 by Morgan Engel MD) History of depression Hyperthyroidism Sheltered homelessness Tachycardia Family History Family History Mother Multiple sclerosis Father Diabetes Sister No problems noted. Sister ADHD Son No problems noted. 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 Meds Allergies Allergy/AdvReac Type Severity Reaction Status Date / Time sulfamethoxazole Allergy Intermediate HIVES Verified 10/18/21 02:03 [From BACTRIM] trimethoprim [From BACTRIM] Allergy Intermediate HIVES Verified 10/18/21 02:03 Active Medications: Current Medications Acetaminophen (Acetaminophen 325 Mg Tablet) 650 mg PO Q6H PRN PRN Reason: Pain, Mild (Pain Scale 1-3) Docusate Sodium (Docusate Sodium 100 Mg Capsule) 100 mg PO DAILY PRN PRN Reason: Constipation Enoxaparin Sodium (Enoxaparin Sodium 40 Mg/0.4 Ml Syringe) 40 mg SUBCUT Q24H [facility] Famotidine (Famotidine 20 Mg Tablet) 20 mg PO BID [facility] Methimazole (Methimazole 10 Mg Tablet) 20 mg PO DAILY [facility] Last Admin: 03/10/22 08:27 Dose: 20 mg Ondansetron HCl (Ondansetron Hcl 4 Mg/2 Ml Vial) 4 mg IVPUSH Q8H PRN PRN Reason: Nausea and Vomiting Propranolol HCl (Propranolol Hcl 20 Mg Tablet) 20 mg PO BID [facility]; Protocol Last Admin: 03/10/22 08:27 Dose: 20 mg Sodium Chloride (0.9 % Sodium Chloride Flush 3 Ml Syringe) 3 ml IVFLUSH QSHIFT [facility] Last Admin: 03/10/22 08:27 Dose: 3 ml Home Medications Medication Instructions Recorded Confirmed Last Taken Type ibuprofen 200 mg tablet 400 mg PO Q6H PRN Pain 03/10/22 03/10/22 Unknown History Physical Exam Vital Signs: Vital Signs: Last Vital Signs Temp 98.7 F 03/10/22 02:43 Pulse 95 03/10/22 06:58 Resp 16 03/10/22 06:58 BP 118/90 H 03/10/22 06:58 Pulse Ox 98 03/10/22 06:58 O2 Del Method 03/10/22 06:58 BMI result Body Mass Index 39.6 GENERAL APPEARANCE: in no acute distress, pleasant. NECK: no carotid bruit, Mild jugular venous distention. SKIN: no suspicious lesions, warm and dry. HEART: no murmurs, regular rate and rhythm. LUNGS: clear to auscultation bilaterally. ABDOMEN: soft, nontender. EXTREMITIES: no edema. PERIPHERAL PULSES: equal. NEUROLOGIC: No gross deficits, AAO X 3 Objective Labs and Meds Result diagrams: 03/10/22 08:14 03/10/22 08:14 Lab results: Laboratory Results - last 24 hr 03/09/22 03/09/22 03/09/22 19:37 19:37 19:37 WBC 4.0 L RBC 4.67 Hgb 12.3 Hct 36.8 L MCV 78.8 L MCH 26.3 L MCHC 33.4 RDW 12.9 Plt Count 283 MPV 9.6 Immature Gran % (Auto) 0.3 Neut % (Auto) 69.0 Lymph % (Auto) 19.7 L [place] % (Auto) 10.4 Eos % (Auto) 0.3 Baso % (Auto) 0.3 Lymph # (Auto) 0.8 L [place] # (Auto) 0.4 Eos # (Auto) 0.0 Baso # (Auto) 0.0 Abs Immat Gran (auto) 0.01 Absolute Neuts (auto) 2.7 Absolute Nucleated RBC 0.000 Nucleated RBC % (auto) 0.0 PT INR APTT D-Dimer High Sensitivty Sodium 139 Potassium 3.6 Chloride 104 Carbon Dioxide 22 Anion Gap 17 BUN 6 L Creatinine 0.60 Estim Creat Clear Calc 156.3 Estimated GFR > 60 Random Glucose 158 H Calcium 9.0 Total Bilirubin 0.4 Direct Bilirubin 0.2 AST 22 ALT 32 H Alkaline Phosphatase 207 H Troponin I High Sens B-Natriuretic Peptide Total Protein 6.4 L Albumin 3.8 TSH Free T4 Beta HCG, Quant Urine Color Urine Appearance Urine pH Ur Specific [place] Urine Protein Urine Glucose (UA) Urine Ketones Urine Blood Urine Nitrite Ur Leukocyte Esterase Urine Test Influenza Type A (PCR) Influenza Type B (PCR) RSV RNA Qual (PCR) SARS-CoV-2 RNA (RT-PCR) S. pyogenes GrpA SAIGE Negative 03/09/22 03/09/22 03/09/22 19:37 22:10 22:10 WBC RBC Hgb Hct MCV MCH MCHC RDW Plt Count MPV Immature Gran % (Auto) Neut % (Auto) Lymph % (Auto) [place] % (Auto) Eos % (Auto) Baso % (Auto) Lymph # (Auto) [place] # (Auto) Eos # (Auto) Baso # (Auto) Abs Immat Gran (auto) Absolute Neuts (auto) Absolute Nucleated RBC Nucleated RBC % (auto) PT 15.4 H INR 1.3 H APTT 27.3 D-Dimer High Sensitivty 171 Sodium Potassium Chloride Carbon Dioxide Anion Gap BUN Creatinine Estim Creat Clear Calc Estimated GFR Random Glucose Calcium Total Bilirubin Direct Bilirubin AST ALT Alkaline Phosphatase Troponin I High Sens 3.8 B-Natriuretic Peptide < 10 Total Protein Albumin TSH Free T4 Beta HCG, Quant Urine Color Urine Appearance Urine pH Ur Specific [place] Urine Protein Urine Glucose (UA) Urine Ketones Urine Blood Urine Nitrite Ur Leukocyte Esterase Urine Test Influenza Type A (PCR) NEGATIVE Influenza Type B (PCR) NEGATIVE RSV RNA Qual (PCR) NEGATIVE SARS-CoV-2 RNA (RT-PCR) NEGATIVE S. pyogenes GrpA SAIGE 03/09/22 03/09/22 03/09/22 22:10 22:10 22:10 WBC RBC Hgb Hct MCV MCH MCHC RDW Plt Count MPV Immature Gran % (Auto) Neut % (Auto) Lymph % (Auto) [place] % (Auto) Eos % (Auto) Baso % (Auto) Lymph # (Auto) [place] # (Auto) Eos # (Auto) Baso # (Auto) Abs Immat Gran (auto) Absolute Neuts (auto) Absolute Nucleated RBC Nucleated RBC % (auto) PT INR APTT D-Dimer High Sensitivty Sodium Potassium Chloride Carbon Dioxide Anion Gap BUN Creatinine Estim Creat Clear Calc Estimated GFR Random Glucose Calcium Total Bilirubin Direct Bilirubin AST ALT Alkaline Phosphatase Troponin I High Sens B-Natriuretic Peptide Total Protein Albumin TSH 0.02 L Free T4 4.00 H Beta HCG, Quant < 2 Urine Color Yellow Urine Appearance Clear Urine pH 5.5 Ur Specific [place] 1.015 Urine Protein Negative Urine Glucose (UA) Negative Urine Ketones Negative Urine Blood Negative Urine Nitrite Negative Ur Leukocyte Esterase Negative Urine Test NEGATIVE Influenza Type A (PCR) Influenza Type B (PCR) RSV RNA Qual (PCR) SARS-CoV-2 RNA (RT-PCR) S. pyogenes GrpA SAIGE 03/10/22 03/10/22 08:14 08:14 WBC 2.9 L RBC 4.47 Hgb 11.9 L Hct 36.0 L MCV 80.5 MCH 26.6 L MCHC 33.1 RDW 13.0 Plt Count 267 MPV 9.8 Immature Gran % (Auto) 0.0 Neut % (Auto) 49.0 Lymph % (Auto) 32.1 [place] % (Auto) 16.9 H Eos % (Auto) 1.7 Baso % (Auto) 0.3 Lymph # (Auto) 0.9 L [place] # (Auto) 0.5 Eos # (Auto) 0.1 Baso # (Auto) 0.0 Abs Immat Gran (auto) 0.00 Absolute Neuts (auto) 1.4 L Absolute Nucleated RBC 0.000 Nucleated RBC % (auto) 0.0 PT INR APTT D-Dimer High Sensitivty Sodium 139 Potassium 3.7 Chloride 107 Carbon Dioxide 22 Anion Gap 14 BUN 6 L Creatinine 0.40 L Estim Creat Clear Calc 234.5 Estimated GFR > 60 Random Glucose 107 Calcium 8.8 Total Bilirubin Direct Bilirubin AST ALT Alkaline Phosphatase Troponin I High Sens B-Natriuretic Peptide Total Protein Albumin TSH Free T4 Beta HCG, Quant Urine Color Urine Appearance Urine pH Ur Specific [place] Urine Protein Urine Glucose (UA) Urine Ketones Urine Blood Urine Nitrite Ur Leukocyte Esterase Urine Test Influenza Type A (PCR) Influenza Type B (PCR) RSV RNA Qual (PCR) SARS-CoV-2 RNA (RT-PCR) S. pyogenes GrpA SAIGE Imaging Radiologist's impression: Impressions Chest X-Ray 03/09/22 19:35 IMPRESSION: Unremarkable examination. Assessment and Plan (1) Thyrotoxicosis due to Graves' disease: Status: Acute (2) Chest pain: Status: Acute Plan 21-year-old female who has known history of hyperthyroidism secondary to Graves disease presenting with thyrotoxicosis. She has not been taking medications for approximately 3 years. clinically not in heart failure but has mild JVD. Hypothyroidism can lead to cardiomyopathy in some patients as well as elevated pulmonary pressures. She does not have any ischemic EKG changes. She occasionally gets chest discomfort. Difficult to say whether these chest pains are due to underlying cardiovascular issue or GI symptoms. In any case I think currently she is hyperthyroid. I would start echocardiography to assess LV for any myopathy and to assess PA pressures. She has appropriate started on propanolol and methimazole. As she gets euthyroid reassess her whether she should have stress testing. Coronary vasospasm has been reported with thyrotoxicosis. She is young to develop atherosclerosis currently. we will follow along with you. Thank you for allowing me to participate in the care of your patient. Please feel free to contact me if you have any questions. Procedures Date of Service Date of Service: 03/10/22
--- NOTE | 2022-03-10 10:28 | MHC.CM.PN ---
Met with patient in regards to discharge planning. Patient lives in a residential in [place], ambulates independently and had no services prior to coming to the hospital. Patient denies having a PCP. Patient received 2 Pfizer vaccines. Patient's boyfriend will transport patient home when medically stable. No services anticipated to be needed because patient does not have a PCP and is also not homebound. Continue to monitor for d/c needs.
[2022-03-10 11:32] LABS: Troponin-I High Sensitivity < 3.5 ng/L (<3.5-17.0)
[2022-03-10] MEDS: Enoxaparin Sodium 40 MG/0.4 ML SYRINGE SUBCUT (11:39)
[2022-03-10] MEDS: Acetaminophen 325 MG TABLET 650 MG PO (14:05)
[2022-03-10] MEDS: ondansetron HCL 4 MG/2 ML VIAL IVPUSH (15:35)
--- NOTE | 2022-03-10 20:43 | PC.NURSE ---
pt resting quietly during shift, pt ate tuna sandwich with fries for lunch, and 100% of dinner. APAP 650 given for headache with (+) effect per pt. no epistaxsis since 1500. pt requested pads to line her pants d/t diarrhea, sts she has has 5 loose movements today. report given to rox [place]
[2022-03-10] MEDS: Famotidine 20 MG TABLET PO (21:56)
[2022-03-11] VITALS (8 sets, daily range): BP systolic 123–155; BP diastolic 66–91; PULSE 90–108; RESP 12–30; TEMP 36.2–38.3; O2SAT 98
[2022-03-11] MEDS: Ibuprofen 600 MG TABLET PO (00:45)
[2022-03-11] MEDS: Acetaminophen 325 MG TABLET 650 MG PO ×2 (06:07→15:13)
--- NOTE | 2022-03-11 07:21 | PC.NURSE ---
pt woken up for breakfast- no distress noted. pt offers no complaints. aware of plan of care at this time. denied having any questions.
[2022-03-11] MEDS: methIMAzole 10 MG TABLET 20 MG PO (08:07)
[2022-03-11] MEDS: Propranolol HCL 20 MG TABLET PO ×3 (08:07→20:36)
[2022-03-11] MEDS: 0.9 % Sodium Chloride Flush 3 ML SYRINGE IVFLUSH ×2 (08:07→15:12)
[2022-03-11] MEDS: Famotidine 20 MG TABLET PO ×2 (08:07→20:32)
[2022-03-11 10:27] LABS: MANUAL DIFF FLAG NO
[2022-03-11 10:29] LABS: White Blood Count 6.6 X10*3/uL (4.8-10.8)
[2022-03-11 10:30] LABS: Basophils Percent Auto 0.3 % (0-2); Eosinophils Absolute Auto 0.1 X10*3/uL (0.0-0.4); Eosinophils Percent Auto 1.1 % (0-4); Hematocrit 36.1 % (37.0-47.0); Hemoglobin 11.9 g/dl (12.0-16.0); Imm Gran Abs Auto 0.02 X10*3/uL (0.00-0.03); Imm Gran Pct Auto 0.3 % (0.0-0.4); Lymphocytes Absolute Auto 0.9 X10*3/uL (1.2-4.9); Lymphocytes Percent Auto 13.1 % (20-40); Mean Corpuscular Hemoglobin 26.2 pg (27.0-33.0); Mean Corpuscular Volume 79.5 fL (80.0-98.0); Mean Platelet Volume 9.7 fL (9.4-12.3); Monocytes Absolute Auto 0.7 X10*3/uL (0.1-1.2); Monocytes Percent Auto 10.4 % (2-11); Neutrophils Absolute Auto 4.9 x10*3/uL (2.0-8.3); Neutrophils Percent Auto 74.8 % (45-73); Platelet Count 243 X10*3/uL (160-400); Red Blood Count 4.54 X10*6/uL (4.20-5.50); Red Cell Distribution Width 12.7 % (11.0-16.0)
[2022-03-11 10:45] LABS: Anion Gap 13 (12-20); Blood Urea Nitrogen 6 mg/dL (9-16); Calcium 8.8 mg/dL (8.4-10.2); Carbon Dioxide 24 mmol/L (22-29); Chloride 106 mmol/L (96-108); Creatinine Clr Calc Pharmacy 218.1; Estimated Glomerular Filt Rate > 60; Glucose Random 127 mg/dL (60-115); Potassium 3.7 mmol/L (3.3-5.1); Sodium 139 mmol/L (135-145)
--- NOTE | 2022-03-11 12:09 | PM.PNCARD ---
Subjective Subjective Date of Service: 03/11/22 Interval history: Patient seen examined at bedside. Echocardiography reviewed and discussed with the patient. She is feeling better. Physical Exam Vital Signs: Last Vital Signs Temp 97.1 F 03/11/22 09:14 Pulse 90 03/11/22 09:40 Resp 12 03/11/22 09:14 BP 123/88 03/11/22 09:14 Pulse Ox 98 03/11/22 09:14 O2 Del Method 03/11/22 06:38 BMI result Body Mass Index 39.6 GENERAL APPEARANCE: in no acute distress, pleasant. NECK: no carotid bruit, Mild jugular venous distention. SKIN: no suspicious lesions, warm and dry. HEART: no murmurs, regular rate and rhythm. LUNGS: clear to auscultation bilaterally. ABDOMEN: soft, nontender. EXTREMITIES: no edema. PERIPHERAL PULSES: equal. NEUROLOGIC: No gross deficits, AAO X 3 Objective Labs and Meds Result diagrams: 03/11/22 10:16 03/11/22 10:16 Lab results: Laboratory Results - last 24 hr 03/11/22 03/11/22 10:16 10:16 WBC 6.6 RBC 4.54 Hgb 11.9 L Hct 36.1 L MCV 79.5 L MCH 26.2 L MCHC 33.0 RDW 12.7 Plt Count 243 MPV 9.7 Immature Gran % (Auto) 0.3 Neut % (Auto) 74.8 H Lymph % (Auto) 13.1 L [place] % (Auto) 10.4 Eos % (Auto) 1.1 Baso % (Auto) 0.3 Lymph # (Auto) 0.9 L [place] # (Auto) 0.7 Eos # (Auto) 0.1 Baso # (Auto) 0.0 Abs Immat Gran (auto) 0.02 Absolute Neuts (auto) 4.9 Absolute Nucleated RBC 0.000 Nucleated RBC % (auto) 0.0 Sodium 139 Potassium 3.7 Chloride 106 Carbon Dioxide 24 Anion Gap 13 BUN 6 L Creatinine 0.43 L Estim Creat Clear Calc 218.1 Estimated GFR > 60 Random Glucose 127 H Calcium 8.8 Progress Note: A&P Assessment and plan (1) Chest pain: Status: Acute (2) Thyrotoxicosis due to Graves' disease: Status: Acute Plan 21-year-old female with hyperthyroidism secondary to Graves disease who stop taking her medications approximately 3 years ago. She is presenting with multiple complaints. She has been started on propanolol and methimazole. Overall improving. She complained of some chest discomfort from time to time. Echocardiography has shown normal biventricular function. There is mild left ventricular hypertrophy and mild left atrial enlargement. I think these changes are related to chronic hyperthyroidism. PA pressures are normal. Right ventricular function normal to. I think currently she should be treated for hyperthyroidism. Once she is euthyroid then would consider further workup for the chest pains. Currently these symptoms can be related to hyperthyroidism. She can follow up with us as outpatient for further workup. Thank you for allowing me to participate in the care of your patient. Please feel free to contact me if you have any questions. Time Spent With Patient Time: Total time spent is greater than 50% in coordination of care (as documented) at patient's floor/unit and/or counseling patient: Progress Note: Quality Stroke Does the patient have a stroke diagnosis?: No Procedures Date of Service Date of Service: 03/11/22
--- NOTE | 2022-03-11 12:19 | PC.NURSE ---
pt reports spotting nose bleed and x1 episode of vomiting
--- NOTE | 2022-03-11 12:23 | PC.NURSE ---
verbal consent given to speak with pt mother on phone
--- NOTE | 2022-03-11 14:09 | P.PNIM_ITS ---
Subjective Subjective Date of Service: 03/11/22 Interval History: patient is seen today. Reports he had episode of nausea and vomiting or diarrhea. Mentions mild abdominal discomfort. Able to tolerate diet to keep. Yesterday when she tried to blow her nose she had mild blood in her nasal secretions- streaks of Will heard. Denies any further episodes. Physical Exam Vital Signs: Vital Signs: Last Vital Signs Temp 97.1 F 03/11/22 09:14 Pulse 90 03/11/22 09:40 Resp 12 03/11/22 09:14 BP 123/88 03/11/22 09:14 Pulse Ox 98 03/11/22 09:14 O2 Del Method 03/11/22 06:38 BMI result Body Mass Index 39.6 Gen: Appears be in no acute distress; mentating well; appropriate affect. HEENT: NCAT, Moist mucosa. Pulmonary: Vesicular breath sounds, fair air entry CVS: Normal S1-S2 Abdomen: BS+, Soft, Nontender Extremities: Warm well perfused Neuro: Alert and awake. Objective Data Active Medications Acetaminophen (Acetaminophen 325 Mg Tablet) 650 mg PO Q6H PRN PRN Reason: Pain, Mild (Pain Scale 1-3) Last Admin: 03/11/22 06:07 Dose: 650 mg Documented By: SAM Docusate Sodium (Docusate Sodium 100 Mg Capsule) 100 mg PO DAILY PRN PRN Reason: Constipation Famotidine (Famotidine 20 Mg Tablet) 20 mg PO BID [facility] Last Admin: 03/11/22 08:07 Dose: 20 mg Documented By: MEERA Methimazole (Methimazole 10 Mg Tablet) 20 mg PO DAILY [facility] Last Admin: 03/11/22 08:07 Dose: 20 mg Documented By: MEERA Ondansetron HCl (Ondansetron Hcl 4 Mg/2 Ml Vial) 4 mg IVPUSH Q8H PRN PRN Reason: Nausea and Vomiting Last Admin: 03/10/22 15:35 Dose: 4 mg Documented By: JAK Propranolol HCl (Propranolol Hcl 20 Mg Tablet) 20 mg PO BID [facility]; Protocol Last Admin: 03/11/22 08:07 Dose: 20 mg Documented By: MEERA Sodium Chloride (0.9 % Sodium Chloride Flush 3 Ml Syringe) 3 ml IVFLUSH QSHIFT [facility] Last Admin: 03/11/22 08:07 Dose: 3 ml Documented By: MEERA Labs CBC & Chem 7: 03/11/22 10:16 03/11/22 10:16 Labs: Laboratory Results - last 24 hr 03/11/22 03/11/22 10:16 10:16 MCV 79.5 L MCH 26.2 L MCHC 33.0 RDW 12.7 Plt Count 243 MPV 9.7 Immature Gran % (Auto) 0.3 Neut % (Auto) 74.8 H Lymph % (Auto) 13.1 L Gilchrist % (Auto) 10.4 Eos % (Auto) 1.1 Baso % (Auto) 0.3 Lymph # (Auto) 0.9 L [place] # (Auto) 0.7 Eos # (Auto) 0.1 Baso # (Auto) 0.0 Abs Immat Gran (auto) 0.02 Absolute Neuts (auto) 4.9 Absolute Nucleated RBC 0.000 Nucleated RBC % (auto) 0.0 Anion Gap 13 Estim Creat Clear Calc 218.1 Estimated GFR > 60 Random Glucose 127 H Calcium 8.8 Assessment and Plan (1) Chest pain: Status: Acute (2) Hyperthyroidism: Status: Acute Plan 21-year-old female with a past medical history of hyperthyroidism -has been noncompliant with methimazole presented to the hospital today with a chief complaint of headache/ palpitations/diarrhea / chest pain.? Noted to have very low TSH levels concerning for? hyperthyroidism.? Admitted for further management.? Hyperthyroidism: Patient TSH noted to be 0.02; free T4--> 4.0. T3 pending Patient has been not taking methimazole for the past 3 years.? Patient was initially noted to be tachycardic.? patient was started on 20 mg of proponolol b.i.d. and methimazole 20 mg daily pt has been following tatianna Colon at [facility] -> tried to reach out; left message. 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 Spoke dr Villalpando from endocrine at [facility]; suggested to continue current meds. also mentioned if HR goes High, give extra propranolol. Pt currently not in thyroid storm. Lucas and Wartofsky?score (BW score)is only 5 in the morning Around 3:45pm pt was feeling palpitaitons-> HR in 120s-> gave extra propranolol, has nausea; Became Febrile to 101f. BW score is 40. Spoke to Endocrine-> discontinue Methimazole; Started PTU 100mg BID, Hydr ocortisone 50mg TID. continued Propranolol. I called [facility] and [facility] for urgent transfer given concerns for Impending storm. They are not accepting transfers at the moment. I called [facility], gave information for transfer, pending Call back. Chest pain: EKG non ischemic; DDImer negative. Initial troponin negative.? spoke to Dr. Engel, recommended out pt follow up after treating Hyperthyroidism Echo: normal EF; no regional wall motion abnormality; Mild LVH DVT ppx: SCDs Code status:? Full code Quality Stroke Does the patient have a stroke diagnosis?: No VTE Prior VTE?: No VTE Risk Level:: Medical - low VTE Device Contraindication: Treatment Not Indicated VTE Drug Contraindication: Treatment Not Indicated
--- NOTE | 2022-03-11 15:16 | PC.NURSE ---
after removing blankets and rechecking pt temp is elevated. attending aware.
--- NOTE | 2022-03-11 15:36 | PC.NURSE ---
spoke with attending- endocrinology states to transfer attempting to find accepting hospital
--- NOTE | 2022-03-11 15:56 | P.DS_ITS ---
DS: Providers Provider Date of Service: 03/11/22 Date of admission: 03/10/22 01:45 Date of discharge: 03/11/22 Primary care physician: Unknown Physician Consults: 03/10/22 10:02 Consult to Cardiology Routine Consulting Provider: Morgan Engel Reason for consultation: chest pain DS: Diagnosis Discharge Diagnosis (1) Chest pain: Status: Acute (2) Hyperthyroidism: Status: Acute DS: Summary Hospital Course Hospital Course: 21-year-old female with a past medical history of hyperthyroidism -has been noncompliant with methimazole presented to the hospital today with a chief complaint of headache/ palpitations/diarrhea / chest pain.? Noted to have very low TSH levels concerning for? hyperthyroidism.? Admitted for further managem ent.? Hyperthyroidism: Patient TSH noted to be 0.02; free T4--> 4.0. T3 pending Patient has been not taking methimazole for the past 3 years.? Patient was initially noted to be tachycardic to 120s.? patient was started on 20 mg of proponolol b.i.d. and methimazole 20 mg daily pt has been following tatianna Colon at [facility] -> tried to reach out; left message. 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 Spoke dr Villalpando, out patient pit recorder at [facility]; suggested to continue current meds. also mentioned if HR goes High, give extra propranolol. Pt currently not in thyroid storm.?Lucas and Wartofsky?score (BW score)is only 5 in the morning Around 3:45pm pt was feeling palpitaitons-> HR in 120s-> gave extra propranolol, has nausea; Became Febrile to 101f. BW score is 40. Hebrew Teacher suggested transter. Spoke to Endocrine-> discontinue Methimazole; Started PTU 100mg TID, Hydrocortisone 50mg TID. continued Propranolol 20mg BID. I called [facility] and [facility] for urgent transfer given concerns for Impending storm. Both hospitals not accepting transfers at the moment. I called [facility], gave information for transfer, --> Spoke to [facility] ICU attending at [facility]. Pt is accepted to ICU Fever: Likely secondary to thyrotoxicosis. Also ordered for UA, CXR, Blood cx. Chest pain: EKG non ischemic; DDImer negative. Initial troponin negative.? spoke to cardiology Dr. Engel, recommended out pt follow up after treating Hyperthyroidism Echo: normal EF; no regional wall motion abnormality; Mild LVH DVT ppx: SCDs Code status:? Full code Time Spent with Patient Time attestation: Total time spent providing and/or coordinating discharge services: Discharge coordination time: Greater than 30 minutes Quality: Safe Use of Opioids Does Pt have an Active Cancer Diagnosis on the Problem List?: No Quality: Stroke Does the patient have a stroke diagnosis?: No Physical Exam Vital Signs: Vital Signs: Last Vital Signs Temp 101 F H 03/11/22 15:14 Pulse 90 03/11/22 14:52 Resp 12 03/11/22 14:52 BP 141/91 H 03/11/22 14:52 Pulse Ox 98 03/11/22 14:52 O2 Del Method 03/11/22 14:52 BMI result Body Mass Index 39.6 Gen: Appears be in no acute distress HEENT: NCAT, Moist mucosa. Pulmonary: Vesicular breath sounds, fair air entry CVS: Normal S1-S2 Abdomen: BS+, Soft, Nontender Extremities: Warm well perfused Neuro: Alert and awake. DS: Data Data Completed and Pending Labs on day of discharge: Laboratory Results - last 24 hr 03/11/22 03/11/22 10:16 10:16 WBC 6.6 RBC 4.54 Hgb 11.9 L Hct 36.1 L MCV 79.5 L MCH 26.2 L MCHC 33.0 RDW 12.7 Plt Count 243 MPV 9.7 Immature Gran % (Auto) 0.3 Neut % (Auto) 74.8 H Lymph % (Auto) 13.1 L [place] % (Auto) 10.4 Eos % (Auto) 1.1 Baso % (Auto) 0.3 Lymph # (Auto) 0.9 L [place] # (Auto) 0.7 Eos # (Auto) 0.1 Baso # (Auto) 0.0 Abs Immat Gran (auto) 0.02 Absolute Neuts (auto) 4.9 Absolute Nucleated RBC 0.000 Nucleated RBC % (auto) 0.0 Sodium 139 Potassium 3.7 Chloride 106 Carbon Dioxide 24 Anion Gap 13 BUN 6 L Creatinine 0.43 L Estim Creat Clear Calc 218.1 Estimated GFR > 60 Random Glucose 127 H Calcium 8.8 Discharge Plan Discharge Patient Disposition: Xfer Acute Care Hospital Referrals: Physician,Unknown J [Primary Care Provider] - 1 Week Discharge Medications: New acetaminophen 325 mg Tablet 650 mg PO Q6H PRN (Reason: Pain, Mild (Pain Scale 1-3)) Qty: 30 0RF propylthiouracil 50 mg Tablet 100 mg PO TID Qty: 90 0RF famotidine 20 mg Tablet 20 mg PO BID Qty: 60 0RF propranolol 20 mg Tablet 20 mg PO BID Qty: 60 0RF Protocol: Hold for SBP/HR < HOLD for SBP < : 90 HOLD for HR < : 60 ondansetron HCl (PF) 4 mg/2 mL Solution 4 mg IVPUSH Q8H PRN (Reason: Nausea And Vomiting) Qty: 10 0RF Solu-Cortef Act-O-Vial (PF) 100 mg/2 mL Recon Soln 50 mg IVPUSH Q8H Qty: 10 0RF Discontinued ibuprofen 200 mg Tablet 400 mg PO Q6H PRN (Reason: Pain) acetaminophen 500 mg tablet 1,000 mg PO QID PRN (Reason: pain) Qty: 30 0RF Discharge Orders: Discharge Order (Routine); Ordered 03/11/22 Ordered By: Rusty Vela Activity on Discharge: As tolerated Stand Alone Forms: Patient Portal Discharge page Care Plan Goals: You are being transferred to [facility] for close monitoring of impending thyroid storm. Health Concerns: Please continue taking medications as suggested by Endocrinology team at [facility] Plan of Treatment: continue taking Medications as instructed. Assessment: Follow up with Endocrinology
--- NOTE | 2022-03-11 16:22 | PC.NURSE ---
awaiting med from pharmacy
[2022-03-11] MEDS: Hydrocortisone Sod Succ/PF 100 MG VIAL 50 MG IVPUSH ×2 (16:33→20:33)
--- NOTE | 2022-03-11 16:58 | PC.NURSE ---
pt aware of plan of care for transfer to [facility]. pharmacy called again for po med.
--- NOTE | 2022-03-11 17:01 | PC.NURSE ---
accepted at [facility]- dr walker accepting ICU
--- NOTE | 2022-03-11 17:27 | PC.NURSE ---
no available bed at [facility] must call every hour
--- NOTE | 2022-03-11 17:39 | PC.NURSE ---
call placed to pharmacy. med still not arrived
--- NOTE | 2022-03-11 17:58 | PC.NURSE ---
[facility] called to confirm # will be in contact with bed info and nurse to nurse #
[2022-03-11] MEDS: 0.9 % Sodium Chloride 500 ML IV (18:28)
[2022-03-11] MEDS: propylthiouraciL 50 MG TABLET 100 MG PO ×2 (18:43→20:31)
--- NOTE | 2022-03-11 18:56 | PC.NURSE ---
attempt to call report audio visual secretary states change of shift and they will call back
--- NOTE | 2022-03-11 19:36 | PC.NURSE ---
report given to RN at [facility] - ambulance being booked for transport to [place].
[2022-03-11] MEDS: 0.9 % Sodium Chloride 1,000 ML 75 ML IVCONT (20:33)
--- NOTE | 2022-03-11 20:38 | PC.NURSE ---
night time meds given, pt talking on phone with friend . no current complaints or apparent distress. waiting for ambulance transport to [facility].
--- NOTE | 2022-03-11 21:16 | PC.NURSE ---
ambulance here to bring patient to [facility]
[2022-03-12 06:47] LABS: Triiodothyronine T3 Free >20.0 pg/mL (2.3-4.2); Triiodothyronine T3 Total 548 ng/dL (76-181)
== END 2022-03-11 21:30 | disposition short-term general hospital (02) ==
LOC: HO.ED 03-10 01:44 → HO.EDOVER 03-10 01:53
PROVIDERS: Physician Assistant; Admitting Provider Internal Medicine; Emergency Provider Internal Medicine; Visit Provider Hospitalist
DX: E05.00 Thyrotoxicosis with diffuse goiter without thyrotoxic crisis or storm (principal); R07.9 Chest pain, unspecified; R00.0 Tachycardia, unspecified; R19.7 Diarrhea, unspecified; Z20.822 Contact with and (suspected) exposure to COVID-19; Z91.14 Patient's other noncompliance with medication regimen; Z59.01 Sheltered homelessness
CPT/HCPCS: 0241U; 36415; 71045; 80048; 80076; 81003; 81025; 83880; 84439; 84443; 84480; 84481; 84484; 84702; 85025; 85379; 85610; 85730; 87040; 87651; 93005; 93306; 96360; 96361; 96372; 96374; 96375; 99218; 99285; J1650; J2405; Q9957

== ENCOUNTER 2022-04-12 18:22 | Emergency (ER) | payer OTHER, MEDICAID, SELFPAY ==
[2022-04-12 18:35] VITALS: BP 145/87; PULSE 121; RESP 19; TEMP 36.8; O2SAT 97; BMI 38.1
[2022-04-12 21:20] VITALS: BP 128/79; PULSE 120; RESP 20; TEMP 36.8; O2SAT 98
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
[2022-04-12 22:40] LABS: UPreg QC Valid YES; Urine Pregnancy NEGATIVE (NEGATIVE)
[2022-04-12 22:41] LABS: MANUAL DIFF FLAG NO
[2022-04-12 22:43] LABS: Basophils Percent Auto 0.2 % (0-2); Eosinophils Absolute Auto 0.2 X10*3/uL (0.0-0.4); Eosinophils Percent Auto 4.5 % (0-4); Hematocrit 34.2 % (37.0-47.0); Hemoglobin 11.4 g/dl (12.0-16.0); Imm Gran Abs Auto 0.01 X10*3/uL (0.00-0.03); Imm Gran Pct Auto 0.2 % (0.0-0.4); Lymphocytes Percent Auto 42.9 % (20-40); Mean Corpuscular HGB Conc 33.3 g/dl (31.0-35.0); Mean Corpuscular Hemoglobin 26.9 pg (27.0-33.0); Mean Corpuscular Volume 80.7 fL (80.0-98.0); Mean Platelet Volume 9.2 fL (9.4-12.3); Monocytes Absolute Auto 0.4 X10*3/uL (0.1-1.2); Monocytes Percent Auto 9.2 % (2-11); Platelet Count 308 X10*3/uL (160-400); Red Blood Count 4.24 X10*6/uL (4.20-5.50); Red Cell Distribution Width 13.5 % (11.0-16.0); White Blood Count 4.7 X10*3/uL (4.8-10.8)
[2022-04-12 23:03] LABS: Alanine Aminotransferase 28 U/L (0-31); Albumin Level 3.7 g/dL (3.5-5.0); Alkaline Phosphatase 200 U/L (39-117); Anion Gap 12 (12-20); Aspartate Amino Transferase 17 U/L (5-31); Bilirubin Total 0.2 mg/dL (0.0-1.0); Blood Urea Nitrogen 10 mg/dL (9-16); Calcium 8.9 mg/dL (8.4-10.2); Carbon Dioxide 25 mmol/L (22-29); Chloride 108 mmol/L (96-108); Creatinine Clr Calc Pharmacy 187.3; Estimated Glomerular Filt Rate > 60; Glucose Random 150 mg/dL (60-115); Potassium 3.7 mmol/L (3.3-5.1); Sodium 141 mmol/L (135-145); Total Protein 6.3 g/dL (6.5-8.0)
--- NOTE | 2022-04-12 23:03 | PC.NURSE ---
Vaginal exam performed by mlp. Vaginal specimen collected. Pt tolerated well.
[2022-04-12] MEDS: Post Exposure Medication Kit 1 KIT PO (23:10)
--- NOTE | 2022-04-12 23:11 | PC.NURSE ---
PreP Medication Kit provided to pt. One [place] administered to pt. Instructions reviewed. Pt verbalizes understanding.
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
[2022-04-12] MEDS: metroNIDAZOLE 500 MG TABLET PO (23:23)
[2022-04-12] MEDS: Doxycycline Monohydrate 100 MG CAPSULE PO (23:23)
[2022-04-12] MEDS: cefTRIAXone sodium 500 MG, Lidocaine HCl 1 % MPF 1 ML IM (23:33)
[2022-04-12] MEDS: Penicillin G Benzathine 2,400,000 UNIT/4 ML SYRINGE 2400000 UNIT IM (23:35)
--- NOTE | 2022-04-13 00:10 | PC.NURSE ---
Truvada administered to pt per MLP.
[2022-04-13 00:26] VITALS: BP 145/70; PULSE 118; TEMP 36.6; O2SAT 99
[2022-04-13 01:26] LABS: HIV Num 1 2.05 S/CO (0.00-0.99)
[2022-04-13 02:20] LABS: HIV Num 2 0.06 S/CO
[2022-04-13 02:21] LABS: HIV AB/AG Nonreactive (Nonreactive); HIV Num 3 0.06 S/CO
[2022-04-13 02:41] VITALS: BP 150/74; PULSE 109; RESP 14; TEMP 36.5; O2SAT 98
--- NOTE | 2022-04-13 02:44 | PC.NURSE ---
Discharge instructions reviewed with pt. Pt verbalizes understanding.
[2022-04-13 04:35] LABS: HBS Num1 0.71 mIU/mL (0-7.99); HBc Num1 0.04 S/CO (0.00-0.79); HBsAGNum1 0.33 S/CO (0.00-0.99); Hepatitis B Core Antibody Nonreactive (Nonreactive); Hepatitis B Surface Antigen Negative (Negative); ~HepC Num1 0.07 S/CO (0.00-0.79); ~Hepatitis B Surface Antibody NONREACTIVE (Nonreactive); ~Hepatitis C Antibody Nonreactive (Nonreactive)
[2022-04-13 05:33] LABS: CT PCR NOT DETECTED (Not Detect.); NG PCR NOT DETECTED (Not Detect.)
[2022-04-13 12:06] LABS: BV Int Neg Control Negative (Negative); BV Int Pos Control Positive (Positive)
== END 2022-04-13 02:45 | disposition home or self-care (01) ==
PROVIDERS: Physician Assistant; Emergency Provider Emergency Medicine
DX: T76.21XA Adult sexual abuse, suspected, initial encounter (principal); R00.0 Tachycardia, unspecified; Z59.01 Sheltered homelessness; F12.90 Cannabis use, unspecified, uncomplicated
CPT/HCPCS: 36415; 80053; 81025; 85025; 86704; 86706; 86803; 87255; 87340; 87389; 87480; 87491; 87510; 87591; 87660; 96372; 99284; J0561; J0696

== ENCOUNTER 2022-08-15 19:01 | Emergency (ER) | payer OTHER, MEDICAID, SELFPAY ==
--- NOTE | ~2022-08-15 | US_ITS ---
EXAMINATION: US OBSTETRICAL ULTRASOUND CLINICAL INFORMATION: Pelvic pain. Positive test. COMPARISON: None available.. LMP: Uncertain. TECHNIQUE: Sonographic evaluation of the pelvis is performed transabdominally. To better visualize the uterus and endometrium, endovaginal scanning was performed. FINDINGS: There is a thickened endometrium, approximately 1.2 cm, which is diffusely echogenic. No intrauterine gestational sac. MATERNAL ADNEXA: The right maternal ovary measures 2.9 x 1.7 x 2.2 cm The left maternal ovary measures 2.6 x 1.9 x 1.7 cm. There is no significant maternal adnexal mass. Small amount of free fluid in the cul-de-sac. US/US OB pelvic and transvaginal IMPRESSION: No intrauterine gestational sac. No adnexal mass. Small amount of free pelvic fluid. A very early intrauterine , an ectopic , and spontaneous remain as possibilities. Recommend follow-up serial beta hCG levels and ultrasound if indicated.
[2022-08-15 19:21] VITALS: BP 149/84; PULSE 124; RESP 20; TEMP 36.9; O2SAT 99; BMI 40.1
--- NOTE | 2022-08-15 19:25 | ED_ITS ---
HPI - General Adult General Chief complaint: Urogenital-Female <KAYCEE Paul - Last Filed: 08/16/22 12:32> Stated complaint: Vaginal pain/Thyroid issues <KAYCEE Paul - Last Filed: 08/16/22 12:32> Time Seen by Provider: 08/15/22 21:30 <KAYCEE Paul - Last Filed: 08/16/22 12:32> Source: patient <KAYCEE Morales - Last Filed: 08/15/22 23:15> Mode of arrival: ambulatory <KAYCEE Morales - Last Filed: 08/15/22 23:15> Limitations: no limitations <KAYCEE Morales - Last Filed: 08/15/22 23:15> History of Present Illness HPI narrative: This is a 22-year-old female presenting to the emergency department with complaints of subjective fevers, chills, body aches and pains, congestion, fatigue and malaise x2 days. Patient also complaining of vaginal cramping, she tells me it feels like she has her period states vaginal spasms intermittently not having them now. However she does not she tells me she is currently therefore she wanted this evaluated. She denies any vaginal bleeding or discharge or abdominal trauma. Patient denies chest pain, shortness of breath, nausea, vomiting, abdominal pain, changes in urination or bowel habits. Is prescribed vitamins however has not started them yet. She tells me her PCP told her she is around 2 weeks . <KAYCEE Morales - Last Filed: 08/15/22 23:15> Related Data Home medications: Previous Rx's Medication Instructions Recorded acetaminophen 325 mg tablet 650 mg PO Q6H PRN Pain, Mild (Pain 03/11/22 Scale 1-3) #30 tabs famotidine 20 mg tablet 20 mg PO BID #60 tabs 03/11/22 hydrocortisone sod succ (PF) 100 50 mg IVPUSH Q8H #10 ea 03/11/22 mg/2 mL solution for injection (Solu-Cortef Act-O-Vial (PF)) ondansetron HCl (PF) 4 mg/2 mL 4 mg (2 mL) IVPUSH Q8H PRN Nausea 03/11/22 injection solution And Vomiting #10 mL propranolol 20 mg tablet 20 mg PO BID #60 tabs 03/11/22 propylthiouracil 50 mg tablet 100 mg PO TID #90 tabs 03/11/22 doxycycline hyclate 100 mg capsule 100 mg PO BID 7 days #14 caps 04/13/22 metronidazole 500 mg tablet 500 mg PO BID 7 days #14 tabs 04/13/22 albuterol sulfate 90 mcg/actuation 2 inh inhalation Q4-6H PRN 08/15/22 breath activated powder inhaler shortness of breath or wheezing #1 ea <KAYCEE Paul Last Filed: 08/16/22 12:32> Allergies/adverse reactions: Allergies Allergy/AdvReac Type Severity Reaction Status Date / Time sulfamethoxazole Allergy Intermediate HIVES Verified 08/15/22 19:21 [From BACTRIM] trimethoprim [From BACTRIM] Allergy Intermediate HIVES Verified 08/15/22 19:21 <KAYCEE Paul Last Filed: 08/16/22 12:32> Review of Systems Review of Systems: Constitutional : No Weight loss, + Fever, + Chills, + Fatigue, + Malaise ENT/Mouth : No sore throat, No Rhinorrhea Eyes: No Eye Pain, No Swelling, No Redness Cardiovascular : No Chest Pain, No SOB, No Dyspnea on Exertion, No Orthopnea, No Edema, No Palpitations Respiratory : No Cough, No Sputum, No Wheezing Gastrointestinal : No Nausea, No Vomiting, No Diarrhea, No Constipation, No abdominal Pain, No Hematochezia, No Melena Genitourinary : No Dysuria, No Urinary Frequency, No Hematuria, Musculoskeletal : No joint pain, + Myalgias, No Joint Swelling Skin : No Skin Lesions, No rash Neuro : No Weakness, No Numbness, No Dizziness, No Headache Psych : No Anxiety/Panic, No Depression All other systems reviewed and are negative <KAYCEE Morales Last Filed: 08/15/22 23:15> Yes all other systems are reviewed and are negative <KAYCEE Morales Last Filed: 08/15/22 23:15> [facility] Past Medical History Attestation statement: The following information was validated with the patient. <KAYCEE Morales Last Filed: 08/15/22 23:15> Source: old records reviewed and nursing notes reviewed <KAYCEE Morales - Last Filed: 08/15/22 23:15> Medical History: Medical History History of depression Hyperthyroidism Sheltered homelessness Tachycardia <KAYCEE Paul - Last Filed: 08/16/22 12:32> Surgical History: Surgical History No pertinent past surgical history <KAYCEE Paul - Last Filed: 08/16/22 12:32> Family History Family History: Family History Mother Multiple sclerosis Father Diabetes Sister No problems noted. Sister ADHD Son No problems noted. 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 <KAYCEE Paul - Last Filed: 08/16/22 12:32> Physical Exam ED Vital Signs: Vital Signs - 24 hr 08/15/22 19:21 08/15/22 22:45 Temperature 98.5 F 99.1 F Pulse Rate 124 H 129 H Respiratory Rate 20 20 Blood Pressure 149/84 H 140/78 H Pulse Oximetry 99 98 Oxygen Delivery Method Room Air Room Air BMI result Body Mass Index 40.1 <KAYCEE Paul - Last Filed: 08/16/22 12:32> Vital Signs - 24 hr 08/15/22 19:21 08/15/22 22:45 Temperature 98.5 F 99.1 F Pulse Rate 124 H 129 H Respiratory Rate 20 20 Blood Pressure 149/84 H 140/78 H Pulse Oximetry 99 98 Oxygen Delivery Method Room Air Room Air BMI result Body Mass Index 40.1 vss <KAYCEE Morales - Last Filed: 08/15/22 23:15> Appearance: Alert.? Oriented X3.? No acute distress.? Head: Normocephalic, atraumatic, no step-offs or deformities Eyes: Pupils equal, round and reactive to light.? CVS: Normal heart rate and rhythm.? Pulses normal.? Respiratory: No respiratory distress.? Breath sounds normal.? Abdomen: Soft and nontender.? Normoactive bowel sounds throughout. Skin: Skin warm and dry.? Normal skin color.? Normal skin turgor.? Extremities: No lower extremity edema.? No calf ttp. 5/5 strength to bilateral upper and lower extremities Back: No midline tenderness, no C-spine tenderness, full range of motion, no CVA tenderness bilaterally Neuro: Oriented X 3.? No motor deficit.? No sensory deficit. CN 2-12 intact <KAYCEE Morales - Last Filed: 08/15/22 23:15> Course Course Course Narrative: RME: 22 yold female presents to the ED for COughing, headache, chills, fever, bodyaches. Patient secondary complaints pelvic area, but denies any vaginal bleeding, nausea, or vomitting. Lungs Clear. no leg swelling <KAYCEE Paul - Last Filed: 08/16/22 12:32> Reevaluation(s) Reevaluation #1: Patient's CBC appears to be around baseline. No acute findings. Chemistry with no acute electrolyte abnormalities requiring intervention. Beta hCG 289. Patient's TSH less than 0.1, this appears to be her normal value. UA without infection. COVID influenza negative. Ultrasound OB pelvic and transvaginal with no intrauterine gestation sac. No adnexal mass. Small amount of free pelvic fluid. A very early intrauterine and ectopic and spontaneous remain as possibilities per imaging however patient without abdominal pain, she just reports intermittent vaginal spasming not present at this time. Tells me her main concern is a URI symptoms. I will have her follow-up with OBGYN tomorrow, gave her information also having her follow- up with her PCP. Advised to return with new or worsening symptoms. Educated patient on diagnosis and treatment plan, answered all question, patient verbalizes understanding. At this time patient will be discharged home, advised to return with new or worsening symptoms. Educated on worrisome signs and symptoms and when to return. At this time I feel comfortable discharge home. <KAYCEE Morales - Last Filed: 08/15/22 23:15> Time: 23:12 <KAYCEE Morales - Last Filed: 08/15/22 23:15> Medical Decision Making Medical Decision Making [facility] Narrative: 2149 22-year-old female presents with viral like symptoms and vaginal spasming/cramping. Tells me she thinks she is around 2 weeks right now. Physical exam benign. No abdominal tenderness. Pelvic exam was offered however patient tells me she is going to see OBGYN this week and would rather just do it there she is agreeable to however to an ultrasound. Likely viral illness. I do not suspect endocrine crisis, ectopic , spontaneous , acute abdomen, ovarian torsion, PE, PNA Plan at this time labs, imaging, viral testing, TSH. <KAYCEE Morales - Last Filed: 08/15/22 23:15> Differential Diagnosis Differential Diagnoses: The differential diagnosis associated with the presentation includes <KAYCEE Morales - Last Filed: 08/15/22 23:15> Likely viral illness. I do not suspect endocrine crisis, demise, ectopic , acute abdomen, ovarian torsion, PE, PNA <KAYCEE Morales - Last Filed: 08/15/22 23:15> Lab Data Result Diagrams: 08/15/22 20:04 08/15/22 20:04 <KAYCEE Paul - Last Filed: 08/16/22 12:32> Labs: Lab Results 08/15/22 08/15/22 08/15/22 Range/Units 20:04 20:04 20:04 WBC 3.4 L (4.8-10.8) X10*3/uL RBC 4.55 (4.20-5.50) X10*6/uL Hgb 12.0 (12.0-16.0) g/dl Hct 36.4 L (37.0-47.0) % MCV 80.0 (80.0-98.0) fL MCH 26.4 L (27.0-33.0) pg MCHC 33.0 (31.0-35.0) g/dl RDW 13.2 (11.0-16.0) % Plt Count 243 (160-400) X10*3/uL MPV 9.4 (9.4-12.3) fL Immature Gran % (Auto) 0.0 (0.0-0.4) % Neut % (Auto) 61.7 (45-73) % Lymph % (Auto) 20.9 (20-40) % [place] % (Auto) 16.5 H (2-11) % Eos % (Auto) 0.6 (0-4) % Baso % (Auto) 0.3 (0-2) % Lymph # (Auto) 0.7 L (1.2-4.9) X10*3/uL [place] # (Auto) 0.6 (0.1-1.2) X10*3/uL Eos # (Auto) 0.0 (0.0-0.4) X10*3/uL Baso # (Auto) 0.0 (0.0-0.2) X10*3/uL Abs Immat Gran (auto) 0.00 (0.00-0.03) X10*3/uL Absolute Neuts (auto) 2.1 (2.0-8.3) x10*3/uL Absolute Nucleated RBC 0.000 (0.0-0.012) X10*3/uL Nucleated RBC % (auto) 0.0 (0.0-0.2) /100WBC PT (10.0-13.1) SEC INR (0.9-1.1) APTT (26.0-36.4) SEC Sodium 137 (135-145) mmol/L Potassium 3.5 (3.3-5.1) mmol/L Chloride 106 (96-108) mmol/L Carbon Dioxide 21 L (22-29) mmol/L Anion Gap 14 (12-20) BUN 8 L (9-16) mg/dL Creatinine 0.45 L (0.5-1.4) mg/dL Estim Creat Clear Calc 210.0 Estimated GFR > 60 Random Glucose 122 H (60-115) mg/dL Calcium 8.4 (8.4-10.2) mg/dL Total Bilirubin 0.4 (0.0-1.0) mg/dL AST 16 (5-31) U/L ALT 22 (0-31) U/L Alkaline Phosphatase 184 H (39-117) U/L Total Protein 6.2 L (6.5-8.0) g/dL Albumin 3.7 (3.5-5.0) g/dL TSH < 0.01 L (0.32-4.0) uIU/mL Beta HCG, Quant 289 mIU/mL Urine Color Urine Appearance Urine pH (5.0-9.0) Ur Specific [place] (1.005-1.025) Urine Protein (Neg-Trace) mg/dL Urine Glucose (UA) (Negative) mg/dL Urine Ketones (Negative) mg/dL Urine Blood (Negative) Urine Nitrite (Negative) Ur Leukocyte Esterase (Negative) Influenza Type A (PCR) NEGATIVE (Negative) Influenza Type B (PCR) NEGATIVE (Negative) RSV RNA Qual (PCR) NEGATIVE (Negative) SARS-CoV-2 RNA (RT-PCR) NEGATIVE (Negative) 08/15/22 08/15/22 Range/Units 20:04 20:04 WBC (4.8-10.8) X10*3/uL RBC (4.20-5.50) X10*6/uL Hgb (12.0-16.0) g/dl Hct (37.0-47.0) % MCV (80.0-98.0) fL MCH (27.0-33.0) pg MCHC (31.0-35.0) g/dl RDW (11.0-16.0) % Plt Count (160-400) X10*3/uL MPV (9.4-12.3) fL Immature Gran % (Auto) (0.0-0.4) % Neut % (Auto) (45-73) % Lymph % (Auto) (20-40) % [place] % (Auto) (2-11) % Eos % (Auto) (0-4) % Baso % (Auto) (0-2) % Lymph # (Auto) (1.2-4.9) X10*3/uL [place] # (Auto) (0.1-1.2) X10*3/uL Eos # (Auto) (0.0-0.4) X10*3/uL Baso # (Auto) (0.0-0.2) X10*3/uL Abs Immat Gran (auto) (0.00-0.03) X10*3/uL Absolute Neuts (auto) (2.0-8.3) x10*3/uL Absolute Nucleated RBC (0.0-0.012) X10*3/uL Nucleated RBC % (auto) (0.0-0.2) /100WBC PT 15.3 H (10.0-13.1) SEC INR 1.3 H (0.9-1.1) APTT 28.4 (26.0-36.4) SEC Sodium (135-145) mmol/L Potassium (3.3-5.1) mmol/L Chloride (96-108) mmol/L Carbon Dioxide (22-29) mmol/L Anion Gap (12-20) BUN (9-16) mg/dL Creatinine (0.5-1.4) mg/dL Estim Creat Clear Calc Estimated GFR Random Glucose (60-115) mg/dL Calcium (8.4-10.2) mg/dL Total Bilirubin (0.0-1.0) mg/dL AST (5-31) U/L ALT (0-31) U/L Alkaline Phosphatase (39-117) U/L Total Protein (6.5-8.0) g/dL Albumin (3.5-5.0) g/dL TSH (0.32-4.0) uIU/mL Beta HCG, Quant mIU/mL Urine Color Yellow Urine Appearance Clear Urine pH 5.5 (5.0-9.0) Ur Specific [place] 1.020 (1.005-1.025) Urine Protein Trace (Neg-Trace) mg/dL Urine Glucose (UA) Negative (Negative) mg/dL Urine Ketones Negative (Negative) mg/dL Urine Blood Negative (Negative) Urine Nitrite Negative (Negative) Ur Leukocyte Esterase Negative (Negative) Influenza Type A (PCR) (Negative) Influenza Type B (PCR) (Negative) RSV RNA Qual (PCR) (Negative) SARS-CoV-2 RNA (RT-PCR) (Negative) <KAYCEE Paul - Last Filed: 08/16/22 12:32> Lab Results 08/15/22 08/15/22 08/15/22 Range/Units 20:04 20:04 20:04 WBC 3.4 L (4.8-10.8) X10*3/uL RBC 4.55 (4.20-5.50) X10*6/uL Hgb 12.0 (12.0-16.0) g/dl Hct 36.4 L (37.0-47.0) % MCV 80.0 (80.0-98.0) fL MCH 26.4 L (27.0-33.0) pg MCHC 33.0 (31.0-35.0) g/dl RDW 13.2 (11.0-16.0) % Plt Count 243 (160-400) X10*3/uL MPV 9.4 (9.4-12.3) fL Immature Gran % (Auto) 0.0 (0.0-0.4) % Neut % (Auto) 61.7 (45-73) % Lymph % (Auto) 20.9 (20-40) % [place] % (Auto) 16.5 H (2-11) % Eos % (Auto) 0.6 (0-4) % Baso % (Auto) 0.3 (0-2) % Lymph # (Auto) 0.7 L (1.2-4.9) X10*3/uL [place] # (Auto) 0.6 (0.1-1.2) X10*3/uL Eos # (Auto) 0.0 (0.0-0.4) X10*3/uL Baso # (Auto) 0.0 (0.0-0.2) X10*3/uL Abs Immat Gran (auto) 0.00 (0.00-0.03) X10*3/uL Absolute Neuts (auto) 2.1 (2.0-8.3) x10*3/uL Absolute Nucleated RBC 0.000 (0.0-0.012) X10*3/uL Nucleated RBC % (auto) 0.0 (0.0-0.2) /100WBC PT (10.0-13.1) SEC INR (0.9-1.1) APTT (26.0-36.4) SEC Sodium 137 (135-145) mmol/L Potassium 3.5 (3.3-5.1) mmol/L Chloride 106 (96-108) mmol/L Carbon Dioxide 21 L (22-29) mmol/L Anion Gap 14 (12-20) BUN 8 L (9-16) mg/dL Creatinine 0.45 L (0.5-1.4) mg/dL Estim Creat Clear Calc 210.0 Estimated GFR > 60 Random Glucose 122 H (60-115) mg/dL Calcium 8.4 (8.4-10.2) mg/dL Total Bilirubin 0.4 (0.0-1.0) mg/dL AST 16 (5-31) U/L ALT 22 (0-31) U/L Alkaline Phosphatase 184 H (39-117) U/L Total Protein 6.2 L (6.5-8.0) g/dL Albumin 3.7 (3.5-5.0) g/dL TSH < 0.01 L (0.32-4.0) uIU/mL Beta HCG, Quant 289 mIU/mL Urine Color Urine Appearance Urine pH (5.0-9.0) Ur Specific [place] (1.005-1.025) Urine Protein (Neg-Trace) mg/dL Urine Glucose (UA) (Negative) mg/dL Urine Ketones (Negative) mg/dL Urine Blood (Negative) Urine Nitrite (Negative) Ur Leukocyte Esterase (Negative) Influenza Type A (PCR) NEGATIVE (Negative) Influenza Type B (PCR) NEGATIVE (Negative) RSV RNA Qual (PCR) NEGATIVE (Negative) SARS-CoV-2 RNA (RT-PCR) NEGATIVE (Negative) 08/15/22 08/15/22 Range/Units 20:04 20:04 WBC (4.8-10.8) X10*3/uL RBC (4.20-5.50) X10*6/uL Hgb (12.0-16.0) g/dl Hct (37.0-47.0) % MCV (80.0-98.0) fL MCH (27.0-33.0) pg MCHC (31.0-35.0) g/dl RDW (11.0-16.0) % Plt Count (160-400) X10*3/uL MPV (9.4-12.3) fL Immature Gran % (Auto) (0.0-0.4) % Neut % (Auto) (45-73) % Lymph % (Auto) (20-40) % [place] % (Auto) (2-11) % Eos % (Auto) (0-4) % Baso % (Auto) (0-2) % Lymph # (Auto) (1.2-4.9) X10*3/uL [place] # (Auto) (0.1-1.2) X10*3/uL Eos # (Auto) (0.0-0.4) X10*3/uL Baso # (Auto) (0.0-0.2) X10*3/uL Abs Immat Gran (auto) (0.00-0.03) X10*3/uL Absolute Neuts (auto) (2.0-8.3) x10*3/uL Absolute Nucleated RBC (0.0-0.012) X10*3/uL Nucleated RBC % (auto) (0.0-0.2) /100WBC PT 15.3 H (10.0-13.1) SEC INR 1.3 H (0.9-1.1) APTT 28.4 (26.0-36.4) SEC Sodium (135-145) mmol/L Potassium (3.3-5.1) mmol/L Chloride (96-108) mmol/L Carbon Dioxide (22-29) mmol/L Anion Gap (12-20) BUN (9-16) mg/dL Creatinine (0.5-1.4) mg/dL Estim Creat Clear Calc Estimated GFR Random Glucose (60-115) mg/dL Calcium (8.4-10.2) mg/dL Total Bilirubin (0.0-1.0) mg/dL AST (5-31) U/L ALT (0-31) U/L Alkaline Phosphatase (39-117) U/L Total Protein (6.5-8.0) g/dL Albumin (3.5-5.0) g/dL TSH (0.32-4.0) uIU/mL Beta HCG, Quant mIU/mL Urine Color Yellow Urine Appearance Clear Urine pH 5.5 (5.0-9.0) Ur Specific [place] 1.020 (1.005-1.025) Urine Protein Trace (Neg-Trace) mg/dL Urine Glucose (UA) Negative (Negative) mg/dL Urine Ketones Negative (Negative) mg/dL Urine Blood Negative (Negative) Urine Nitrite Negative (Negative) Ur Leukocyte Esterase Negative (Negative) Influenza Type A (PCR) (Negative) Influenza Type B (PCR) (Negative) RSV RNA Qual (PCR) (Negative) SARS-CoV-2 RNA (RT-PCR) (Negative) <KAYCEE Morales - Last Filed: 08/15/22 23:15> Critical Care Time Critical Care Time Critical Care Time: No <KAYCEE Morales - Last Filed: 08/15/22 23:15> Discharge Plan Discharge Clinical Impression: Viral illness, Pelvic pain with positive beta-human chorionic gonadotropin (BhCG) in female, , Vaginal discomfort <KAYCEE Paul - Last Filed: 08/16/22 12:32> Patient Disposition: Home, Self-Care <KAYCEE Paul - Last Filed: 08/16/22 12:32> Instructions: (ED), Viral Syndrome (ED) <KAYCEE Paul - Last Filed: 08/16/22 12:32> Additional Instructions: Take your medications as prescribed. If you were prescribed antibiotics today, it is important that you take your medication to their entirety, do not skip any doses, do not finish them early. Follow-up with your primary care provider this week. Return to the emergency department with new or worsening symptoms. Such as fevers, chills, chest pain, shortness of breath, nausea, vomiting, dizziness, headache, vision changes, lethargy, vaginal pain or bleeding In case of emergency call 911 Please take vitamins as prescribed. Please follow-up with OBGYN as soon as possible. Your beta hCG is 289. You should have a repeat beta-hCG in 24-48 hours. US/US OB pelvic and transvaginal IMPRESSION: No intrauterine gestational sac. No adnexal mass. Small amount of free pelvic fluid. A very early intrauterine , an ectopic , and spontaneous remain as possibilities. Recommend follow-up serial beta hCG levels and ultrasound if indicated. <KAYCEE Paul Last Filed: 08/16/22 12:32> Prescriptions: New albuterol sulfate 90 mcg/actuation aerosol powdr breath activated 2 inh inhalation Q4-6H PRN (Reason: shortness of breath or wheezing) Qty: 1 0RF No Action acetaminophen 325 mg Tablet 650 mg PO Q6H PRN (Reason: Pain, Mild (Pain Scale 1-3)) Qty: 30 0RF propylthiouracil 50 mg Tablet 100 mg PO TID Qty: 90 0RF famotidine 20 mg Tablet 20 mg PO BID Qty: 60 0RF propranolol 20 mg Tablet 20 mg PO BID Qty: 60 0RF Protocol: Hold for SBP/HR < HOLD for SBP < : 90 HOLD for HR < : 60 ondansetron HCl (PF) 4 mg/2 mL Solution 4 mg IVPUSH Q8H PRN (Reason: Nausea And Vomiting) Qty: 10 0RF Solu-Cortef Act-O-Vial (PF) 100 mg/2 mL Recon Soln 50 mg IVPUSH Q8H Qty: 10 0RF doxycycline hyclate 100 mg capsule 100 mg PO BID 7 Days Qty: 14 0RF metronidazole 500 mg tablet 500 mg PO BID 7 Days Qty: 14 0RF <KAYCEE Paul - Last Filed: 08/16/22 12:32> Referrals: [facility] [Provider Group] - 2 days PhysicianErrol [Primary Care Provider] - 2 days Fred Landeros MD [Physician] - 1 day <KAYCEE Paul - Last Filed: 08/16/22 12:32> Interventions: ED Discharge Assessment Last Done: 08/15/22 23:21 <KAYCEE Paul - Last Filed: 08/16/22 12:32> Discharge Date/Time: 08/15/22 23:21 <KAYCEE Paul - Last Filed: 08/16/22 12:32>
--- NOTE | 2022-08-15 20:06 | MHC.EDTECH ---
pt blood drawn , urine sample collected and rsv swab collected all sent to lab .
[2022-08-15 20:12] LABS: MANUAL DIFF FLAG NO
[2022-08-15 20:14] LABS: Appearance Urine Clear; Color Urine Yellow; Glucose Urine UA Negative (Negative); Leukocyte Esterase Urine Negative (Negative); Nitrite Urine Negative (Negative); PH 5.5 (5.0-9.0); Urine Blood Negative (Negative); Urine Ketones Negative (Negative); Urine Protein Trace mg/dL (Neg-Trace)
[2022-08-15 20:20] LABS: Basophils Percent Auto 0.3 % (0-2); Eosinophils Percent Auto 0.6 % (0-4); Hematocrit 36.4 % (37.0-47.0); Lymphocytes Absolute Auto 0.7 X10*3/uL (1.2-4.9); Lymphocytes Percent Auto 20.9 % (20-40); Mean Corpuscular Hemoglobin 26.4 pg (27.0-33.0); Mean Platelet Volume 9.4 fL (9.4-12.3); Monocytes Absolute Auto 0.6 X10*3/uL (0.1-1.2); Monocytes Percent Auto 16.5 % (2-11); Neutrophils Absolute Auto 2.1 x10*3/uL (2.0-8.3); Neutrophils Percent Auto 61.7 % (45-73); Platelet Count 243 X10*3/uL (160-400); Red Blood Count 4.55 X10*6/uL (4.20-5.50); Red Cell Distribution Width 13.2 % (11.0-16.0); White Blood Count 3.4 X10*3/uL (4.8-10.8)
[2022-08-15 20:25] LABS: INTERNATIONAL NORM RATIO 1.3 (0.9-1.1); Prothrombin Time 15.3 SEC (10.0-13.1)
[2022-08-15 20:28] LABS: Partial Thromboplastin Time 28.4 SEC (26.0-36.4)
[2022-08-15 20:57] LABS: Influenza A PCR NEGATIVE (Negative); Influenza B PCR NEGATIVE (Negative); Resp Syncy Virus RNA Qual PCR NEGATIVE (Negative); SARS COV2 PCR INHOUSE NEGATIVE (Negative)
[2022-08-15 21:04] LABS: Alanine Aminotransferase 22 U/L (0-31); Albumin Level 3.7 g/dL (3.5-5.0); Alkaline Phosphatase 184 U/L (39-117); Anion Gap 14 (12-20); Aspartate Amino Transferase 16 U/L (5-31); Bilirubin Total 0.4 mg/dL (0.0-1.0); Blood Urea Nitrogen 8 mg/dL (9-16); Calcium 8.4 mg/dL (8.4-10.2); Carbon Dioxide 21 mmol/L (22-29); Chloride 106 mmol/L (96-108); Estimated Glomerular Filt Rate > 60; Glucose Random 122 mg/dL (60-115); HCG Quantitative 289 mIU/mL; Potassium 3.5 mmol/L (3.3-5.1); Sodium 137 mmol/L (135-145); Total Protein 6.2 g/dL (6.5-8.0)
[2022-08-15 22:40] LABS: Thyroid Stimulating Hormone < 0.01 uIU/mL (0.32-4.0)
[2022-08-15 22:45] VITALS: BP 140/78; PULSE 129; RESP 20; TEMP 37.3; O2SAT 98
== END 2022-08-15 23:21 | disposition home or self-care (01) ==
PROVIDERS: Physician Assistant; Emergency Provider Internal Medicine
DX: B34.9 Viral infection, unspecified (principal); R50.9 Fever, unspecified; M79.10 Myalgia, unspecified site; R10.2 Pelvic and perineal pain; Z20.822 Contact with and (suspected) exposure to COVID-19; Z20.828 Contact with and (suspected) exposure to other viral communicable diseases; Z79.899 Other long term (current) drug therapy
CPT/HCPCS: 0241U; 36415; 76801; 76817; 80053; 81003; 84443; 84702; 85025; 85610; 85730; 99283

== ENCOUNTER 2022-09-01 00:30 | Emergency (ER) | payer OTHER, MEDICAID, SELFPAY ==
[2022-09-01 00:33] VITALS: BP 145/79; PULSE 113; RESP 16; TEMP 36.6; O2SAT 99; BMI 38.9
--- NOTE | 2022-09-01 04:05 | ED.DIZZY ---
HPI - Dizziness General Chief Complaint: Dizziness Stated Complaint: Abd pain/ 4 weeks Time Seen by Provider: 09/01/22 03:34 Source: patient Mode of arrival: ambulatory Limitations: no limitations History of Present Illness HPI Narrative: Patient about 4 weeks has not seen any ObG complaining of dizziness vertiginous feeling since 22:00. Which has gone by now. Also complaining of lower abdominal discomfort for 3- 4 days no urinary complaints no vaginal bleed or discharge no chest pain or palpitation Related Data Previous Rx's Medication Instructions Recorded acetaminophen 325 mg tablet 650 mg PO Q6H PRN Pain, Mild (Pain 03/11/22 Scale 1-3) #30 tabs famotidine 20 mg tablet 20 mg PO BID #60 tabs 03/11/22 hydrocortisone sod succ (PF) 100 50 mg IVPUSH Q8H #10 ea 03/11/22 mg/2 mL solution for injection (Solu-Cortef Act-O-Vial (PF)) ondansetron HCl (PF) 4 mg/2 mL 4 mg (2 mL) IVPUSH Q8H PRN Nausea 03/11/22 injection solution And Vomiting #10 mL propranolol 20 mg tablet 20 mg PO BID #60 tabs 03/11/22 propylthiouracil 50 mg tablet 100 mg PO TID #90 tabs 03/11/22 doxycycline hyclate 100 mg capsule 100 mg PO BID 7 days #14 caps 04/13/22 metronidazole 500 mg tablet 500 mg PO BID 7 days #14 tabs 04/13/22 albuterol sulfate 90 mcg/actuation 2 inh inhalation Q4-6H PRN 08/15/22 breath activated powder inhaler shortness of breath or wheezing #1 ea meclizine 25 mg tablet 25 mg PO TID PRN dizziness #20 tabs 09/01/22 Allergies Allergy/AdvReac Type Severity Reaction Status Date / Time sulfamethoxazole Allergy Intermediate HIVES Verified 08/15/22 19:21 [From BACTRIM] trimethoprim [From BACTRIM] Allergy Intermediate HIVES Verified 08/15/22 19:21 Review of Systems Review of Systems: Yes all other systems are reviewed and are negative PMFSH Past Medical History Medical History History of depression Hyperthyroidism Sheltered homelessness Tachycardia Surgical History No pertinent past surgical history Family History Family History Mother Multiple sclerosis Father Diabetes Sister No problems noted. Sister ADHD Son No problems noted. 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 Oriented X3. No acute distress. Eyes: No pallor or icterus ENT: Pharynx normal. Oral Mucosa moist Neck: Normal inspection. Neck supple. CVS: Normal heart rate and rhythm. Pulses normal. Respiratory: No respiratory distress. Equal air entry bilateral, no wheezing/rales/rhonchi Abdomen: Soft , mild suprapubic tenderness Bowel sounds are present, no mass palpable, no CVA tenderness Skin: Skin warm and dry. Normal skin color. Normal skin turgor. Extremities: No lower extremity edema. No calf tenderness Neuro: Oriented X 3. No motor deficit. No sensory deficit.No cerebellar signs , cranial nerves II-XII intact no tremors Medical Decision Making Medical Decision Making MDM Narrative: Patient with mild vertigo feeling which has gone by now will check the urine for suprapubic pain no vaginal discharge patient just 4 weeks preg patient UA is negative for infection denies any dizziness at this time will discharge patient home on meclizine as needed Lab Data [facility] Lab Attestation statement: I reviewed the patient's lab results. Labs: Lab Results 09/01/22 09/01/22 Range/Units 05:13 05:13 Urine Color Yellow Urine Appearance Clear Urine pH 6.5 (5.0-9.0) Ur Specific [place] 1.015 (1.005-1.025) Urine Protein Negative (Neg-Trace) mg/dL Urine Glucose (UA) Negative (Negative) mg/dL Urine Ketones Negative (Negative) mg/dL Urine Blood Negative (Negative) Urine Nitrite Negative (Negative) Ur Leukocyte Esterase Negative (Negative) Urine Test POSITIVE H (NEGATIVE) Discharge Plan Discharge Clinical Impression: Benign paroxysmal positional vertigo Patient Disposition: Home, Self-Care Instructions: Benign Paroxysmal Positional Vertigo (ED) Additional Instructions: Drink plenty of fluids Take meclizine 1 tablet every 8 hours as needed for severe dizziness Follow with PCP as needed Prescriptions: New meclizine 25 mg tablet 25 mg PO TID PRN (Reason: dizziness) Qty: 20 0RF No Action acetaminophen 325 mg Tablet 650 mg PO Q6H PRN (Reason: Pain, Mild (Pain Scale 1-3)) Qty: 30 0RF propylthiouracil 50 mg Tablet 100 mg PO TID Qty: 90 0RF famotidine 20 mg Tablet 20 mg PO BID Qty: 60 0RF propranolol 20 mg Tablet 20 mg PO BID Qty: 60 0RF Protocol: Hold for SBP/HR < HOLD for SBP < : 90 HOLD for HR < : 60 ondansetron HCl (PF) 4 mg/2 mL Solution 4 mg IVPUSH Q8H PRN (Reason: Nausea And Vomiting) Qty: 10 0RF Solu-Cortef Act-O-Vial (PF) 100 mg/2 mL Recon Soln 50 mg IVPUSH Q8H Qty: 10 0RF doxycycline hyclate 100 mg capsule 100 mg PO BID 7 Days Qty: 14 0RF metronidazole 500 mg tablet 500 mg PO BID 7 Days Qty: 14 0RF albuterol sulfate 90 mcg/actuation aerosol powdr breath activated 2 inh inhalation Q4-6H PRN (Reason: shortness of breath or wheezing) Qty: 1 0RF
[2022-09-01 04:24] VITALS: BP 128/67; PULSE 102
[2022-09-01 04:25] VITALS: BP 128/67; BP 129/69; BP 136/60; PULSE 102; PULSE 104; PULSE 112; RESP 18; TEMP 36.8; O2SAT 97
[2022-09-01 05:27] LABS: Appearance Urine Clear; Color Urine Yellow; Glucose Urine UA Negative (Negative); Leukocyte Esterase Urine Negative (Negative); Nitrite Urine Negative (Negative); PH 6.5 (5.0-9.0); Specific Gravity - Urine 1.015 (1.005-1.025); Urine Blood Negative (Negative); Urine Ketones Negative (Negative); Urine Protein Negative (Neg-Trace)
[2022-09-01 05:28] LABS: UPreg QC Valid YES; Urine Pregnancy POSITIVE (NEGATIVE)
== END 2022-09-01 06:35 | disposition home or self-care (01) ==
PROVIDERS: Emergency Provider Internal Medicine
DX: O26.891 Other specified pregnancy related conditions, first trimester (principal); H81.10 Benign paroxysmal vertigo, unspecified ear; R10.30 Lower abdominal pain, unspecified
CPT/HCPCS: 81003; 81025; 99283

== ENCOUNTER 2022-09-01 19:46 | Emergency (ER) | payer MEDICAID, SELFPAY ==
--- NOTE | ~2022-09-01 | US_ITS ---
EXAMINATION: US OBSTETRICAL ULTRASOUND CLINICAL INFORMATION: Vaginal bleeding. LMP unknown. COMPARISON: Ultrasound dated from 08/15/2022. TECHNIQUE: Ultrasound of the maternal pelvis is performed using transabdominal and transvaginal transducers. Transvaginal imaging is performed due to inadequate visualization transabdominally. M-mode Doppler is also performed. FINDINGS: There is a single intrauterine gestational sac with visible yolk sac, embryo/fetus, and cardiac activity. There is no significant subchorionic hemorrhage or hematoma. HR: 142 beats per minute. CRL (crown rump length): 0.3 cm (6 weeks +/- 4 days). YESICA (estimated date of delivery): 04/27/2023 +/- 4 days. MATERNAL ADNEXA: The right maternal ovary measures 2.3 x 1.4 x 1.4 cm. Simple cyst versus corpus luteal cyst in the right ovary measuring 1 cm. The left maternal ovary measures 1.4 x 1.6 x 1.3 cm. Simple cyst versus corpus luteal cyst in the left ovary measuring 0.9 cm. There is no significant maternal adnexal mass. No maternal pelvic ascites. US/US OB pelvic and transvaginal IMPRESSION: 1. Single live intrauterine gestation with ultrasound gestational age of 6 weeks +/- 4 days. 2. Estimated date of delivery is 04/27/2023 +/- 4 days. 3. No maternal adnexal mass or pelvic ascites.
[2022-09-01 19:57] VITALS: BP 151/76; PULSE 114; RESP 16; TEMP 36.6; O2SAT 97; BMI 39.9
--- NOTE | 2022-09-01 19:59 | ED_ITS ---
HPI - General Adult General Chief complaint: Vaginal Bleeding Stated complaint: vaginal bleeding ,dizziness Time Seen by Provider: 09/01/22 23:23 Related Data Previous Rx's Medication Instructions Recorded acetaminophen 325 mg tablet 650 mg PO Q6H PRN Pain, Mild (Pain 03/11/22 Scale 1-3) #30 tabs famotidine 20 mg tablet 20 mg PO BID #60 tabs 03/11/22 hydrocortisone sod succ (PF) 100 50 mg IVPUSH Q8H #10 ea 03/11/22 mg/2 mL solution for injection (Solu-Cortef Act-O-Vial (PF)) ondansetron HCl (PF) 4 mg/2 mL 4 mg (2 mL) IVPUSH Q8H PRN Nausea 03/11/22 injection solution And Vomiting #10 mL propranolol 20 mg tablet 20 mg PO BID #60 tabs 03/11/22 propylthiouracil 50 mg tablet 100 mg PO TID #90 tabs 03/11/22 doxycycline hyclate 100 mg capsule 100 mg PO BID 7 days #14 caps 04/13/22 metronidazole 500 mg tablet 500 mg PO BID 7 days #14 tabs 04/13/22 albuterol sulfate 90 mcg/actuation 2 inh inhalation Q4-6H PRN 08/15/22 breath activated powder inhaler shortness of breath or wheezing #1 ea meclizine 25 mg tablet 25 mg PO TID PRN dizziness #20 tabs 09/01/22 Allergies Allergy/AdvReac Type Severity Reaction Status Date / Time sulfamethoxazole Allergy Intermediate HIVES Verified 09/01/22 20:04 [From BACTRIM] trimethoprim [From BACTRIM] Allergy Intermediate HIVES Verified 09/01/22 20:04 [facility] Past Medical History Medical History History of depression Hyperthyroidism Sheltered homelessness Tachycardia Surgical History No pertinent past surgical history Family History Family History Mother Multiple sclerosis Father Diabetes Sister No problems noted. Sister ADHD Son No problems noted. 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 Deferred additional HPI, ROS, PE to primary provider. 22 yo female here with lower abdominal pain since 08/15, with vaginal bleeding (spotting) today. Currently 5 weeks . Followed by OB at [facility]. G 2 P 1. Had an US on August 15 which did not show any intrauterine . The recommendations at time were to follow-up in 48 hours for a beta quant. The patient tried to follow-up but was unable to make an appointment with her OBGYN. She is here today because my mom told me to come here because it would be quicker then seeing my [facility] . Will obtain labs, UA. VSS Medications Administered Discontinued Medications Generic Name Dose Route Start Last Admin Trade Name Freq PRN Reason Stop Dose Admin Acetaminophen 650 mg 09/02/22 00:31 09/02/22 00:34 Acetaminophen 325 Mg Tablet PO 09/02/22 00:32 650 mg ONCE ONE Administration Medical Decision Making Lab Data 09/01/22 20:37 09/01/22 20:37 Labs: Lab Results 09/01/22 09/01/22 09/01/22 Range/Units 20:37 20:37 20:37 WBC 5.3 (4.8-10.8) X10*3/uL RBC 4.40 (4.20-5.50) X10*6/uL Hgb 11.3 L (12.0-16.0) g/dl Hct 36.0 L (37.0-47.0) % MCV 81.8 (80.0-98.0) fL MCH 25.7 L (27.0-33.0) pg MCHC 31.4 (31.0-35.0) g/dl RDW 13.2 (11.0-16.0) % Plt Count 306 D (160-400) X10*3/uL MPV 9.5 (9.4-12.3) fL Immature Gran % (Auto) 0.2 (0.0-0.4) % Neut % (Auto) 60.2 (45-73) % Lymph % (Auto) 28.4 (20-40) % [place] % (Auto) 8.7 (2-11) % Eos % (Auto) 2.3 (0-4) % Baso % (Auto) 0.2 (0-2) % Lymph # (Auto) 1.5 (1.2-4.9) X10*3/uL [place] # (Auto) 0.5 (0.1-1.2) X10*3/uL Eos # (Auto) 0.1 (0.0-0.4) X10*3/uL Baso # (Auto) 0.0 (0.0-0.2) X10*3/uL Abs Immat Gran (auto) 0.01 (0.00-0.03) X10*3/uL Absolute Neuts (auto) 3.2 (2.0-8.3) x10*3/uL Absolute Nucleated RBC 0.000 (0.0-0.012) X10*3/uL Nucleated RBC % (auto) 0.0 (0.0-0.2) /100WBC Sodium 140 (135-145) mmol/L Potassium 4.0 (3.3-5.1) mmol/L Chloride 109 H (96-108) mmol/L Carbon Dioxide 24 (22-29) mmol/L Anion Gap 11 L (12-20) BUN 8 L (9-16) mg/dL Creatinine 0.49 L (0.5-1.4) mg/dL Estim Creat Clear Calc 190.7 Estimated GFR > 60 Random Glucose 111 (60-115) mg/dL Calcium 8.4 (8.4-10.2) mg/dL Total Bilirubin 0.3 (0.0-1.0) mg/dL Direct Bilirubin 0.1 (0.0-0.5) mg/dL AST 18 (5-31) U/L ALT 23 (0-31) U/L Alkaline Phosphatase 141 H (39-117) U/L Total Protein 6.0 L (6.5-8.0) g/dL Albumin 3.5 (3.5-5.0) g/dL Beta HCG, Quant 2033 mIU/mL Blood Type A Positive Discharge Plan Discharge Clinical Impression: Threatened Patient Disposition: Home, Self-Care Instructions: Threatened Miscarriage (ED) Additional Instructions: Take your medications as prescribed. If you were prescribed antibiotics today, it is important that you take your medication to their entirety, do not skip any doses, do not finish them early. This start taking vitamins Follow-up with your primary care provider this week. Follow-up with OBGYN as soon as possible call tomorrow. Return to the emergency department with new or worsening symptoms. Such as f verónica, chills, chest pain, shortness of breath, nausea, vomiting, dizziness, headache, vision changes, lethargy, worsening vaginal bleeding or bleeding through more than 2 pads in 1 hour, worsening abdominal pain or change in type or severity of pain. In case of emergency call 911 Recommend repeat hCG in 24-48 hours as well as possible repeat ultrasound The swabs we obtained are pending. You will be called only if results are positive. US/US OB pelvic and transvaginal IMPRESSION: 1. Single live intrauterine gestation with ultrasound gestational age of? 6 weeks +/- 4 days. 2. Estimated date of delivery is 04/27/2023 +/- 4 days. 3. No maternal adnexal mass or pelvic ascites. Prescriptions: No Action acetaminophen 325 mg Tablet 650 mg PO Q6H PRN (Reason: Pain, Mild (Pain Scale 1-3)) Qty: 30 0RF propylthiouracil 50 mg Tablet 100 mg PO TID Qty: 90 0RF famotidine 20 mg Tablet 20 mg PO BID Qty: 60 0RF propranolol 20 mg Tablet 20 mg PO BID Qty: 60 0RF Protocol: Hold for SBP/HR < HOLD for SBP < : 90 HOLD for HR < : 60 ondansetron HCl (PF) 4 mg/2 mL Solution 4 mg IVPUSH Q8H PRN (Reason: Nausea And Vomiting) Qty: 10 0RF Solu-Cortef Act-O-Vial (PF) 100 mg/2 mL Recon Soln 50 mg IVPUSH Q8H Qty: 10 0RF doxycycline hyclate 100 mg capsule 100 mg PO BID 7 Days Qty: 14 0RF metronidazole 500 mg tablet 500 mg PO BID 7 Days Qty: 14 0RF albuterol sulfate 90 mcg/actuation aerosol powdr breath activated 2 inh inhalation Q4-6H PRN (Reason: shortness of breath or wheezing) Qty: 1 0RF meclizine 25 mg tablet 25 mg PO TID PRN (Reason: dizziness) Qty: 20 0RF Referrals: ED Physician,Generic [Emergency Provider] - 2 days Stand Alone Forms: Work/School Release
[2022-09-01 20:42] LABS: MANUAL DIFF FLAG NO
[2022-09-01 20:50] LABS: Basophils Percent Auto 0.2 % (0-2); Eosinophils Absolute Auto 0.1 X10*3/uL (0.0-0.4); Eosinophils Percent Auto 2.3 % (0-4); Hemoglobin 11.3 g/dl (12.0-16.0); Imm Gran Abs Auto 0.01 X10*3/uL (0.00-0.03); Imm Gran Pct Auto 0.2 % (0.0-0.4); Lymphocytes Absolute Auto 1.5 X10*3/uL (1.2-4.9); Lymphocytes Percent Auto 28.4 % (20-40); Mean Corpuscular HGB Conc 31.4 g/dl (31.0-35.0); Mean Corpuscular Hemoglobin 25.7 pg (27.0-33.0); Mean Corpuscular Volume 81.8 fL (80.0-98.0); Mean Platelet Volume 9.5 fL (9.4-12.3); Monocytes Absolute Auto 0.5 X10*3/uL (0.1-1.2); Monocytes Percent Auto 8.7 % (2-11); Neutrophils Absolute Auto 3.2 x10*3/uL (2.0-8.3); Neutrophils Percent Auto 60.2 % (45-73); Platelet Count 306 X10*3/uL (160-400); Red Cell Distribution Width 13.2 % (11.0-16.0); White Blood Count 5.3 X10*3/uL (4.8-10.8)
[2022-09-01 21:16] LABS: Alanine Aminotransferase 23 U/L (0-31); Albumin Level 3.5 g/dL (3.5-5.0); Alkaline Phosphatase 141 U/L (39-117); Anion Gap 11 (12-20); Aspartate Amino Transferase 18 U/L (5-31); Bilirubin Direct 0.1 mg/dL (0.0-0.5); Bilirubin Total 0.3 mg/dL (0.0-1.0); Blood Urea Nitrogen 8 mg/dL (9-16); Calcium 8.4 mg/dL (8.4-10.2); Carbon Dioxide 24 mmol/L (22-29); Chloride 109 mmol/L (96-108); Creatinine Clr Calc Pharmacy 190.7; Estimated Glomerular Filt Rate > 60; Glucose Random 111 mg/dL (60-115); HCG Quantitative 2033 mIU/mL; Sodium 140 mmol/L (135-145)
--- NOTE | 2022-09-01 23:55 | ED_ITS ---
HPI - General Chief complaint: Vaginal Bleeding Stated complaint: vaginal bleeding ,dizziness Time Seen by Provider: 09/01/22 23:23 Source: patient Mode of arrival: ambulatory Limitations: no limitations History of Present Illness HPI Narrative: This is a 22 year old female [id number] is currently around 4-5 weeks who has not yet seen an OBGYN provider ( but is scheduled to see one next week) pres ents to the ED w/ vaginal bleeding since this morning. Patient states that when she woke up this morning she went to the bathroom and when she wiped she noted some pink/red tinged blood on the toilet paper. Blood did not fill the toilet seat, no blood clots. She also noted that her underwear were stained with small amount of blood. Patient reports diffuse abdominal discomfort for the past few weeks, unable to tell me what makes it better worse. She does however tell me abdominal pain is worse the lower region and is described as a crampy sensation that is intermittent in nature he tells me it feels like ? Period ramps ? She reports that she was seen here last night for dizziness and abdominal pain. She tells me she was discharged home with meclizine for dizziness. Patient is taking vitamins. Related Data Previous Rx's Medication Instructions Recorded acetaminophen 325 mg tablet 650 mg PO Q6H PRN Pain, Mild (Pain 03/11/22 Scale 1-3) #30 tabs famotidine 20 mg tablet 20 mg PO BID #60 tabs 03/11/22 hydrocortisone sod succ (PF) 100 50 mg IVPUSH Q8H #10 ea 03/11/22 mg/2 mL solution for injection (Solu-Cortef Act-O-Vial (PF)) ondansetron HCl (PF) 4 mg/2 mL 4 mg (2 mL) IVPUSH Q8H PRN Nausea 03/11/22 injection solution And Vomiting #10 mL propranolol 20 mg tablet 20 mg PO BID #60 tabs 03/11/22 propylthiouracil 50 mg tablet 100 mg PO TID #90 tabs 03/11/22 doxycycline hyclate 100 mg capsule 100 mg PO BID 7 days #14 caps 04/13/22 metronidazole 500 mg tablet 500 mg PO BID 7 days #14 tabs 04/13/22 albuterol sulfate 90 mcg/actuation 2 inh inhalation Q4-6H PRN 08/15/22 breath activated powder inhaler shortness of breath or wheezing #1 ea meclizine 25 mg tablet 25 mg PO TID PRN dizziness #20 tabs 09/01/22 Allergies Allergy/AdvReac Type Severity Reaction Status Date / Time sulfamethoxazole Allergy Intermediate HIVES Verified 09/01/22 20:04 [From BACTRIM] trimethoprim [From BACTRIM] Allergy Intermediate HIVES Verified 09/01/22 20:04 Review of Systems Review of Systems: Constitutional : No Weight loss, No Fever, No Chills, No Fatigue, No Malaise ENT/Mouth : No sore throat, No Rhinorrhea Eyes: No Eye Pain, No Swelling, No Redness Cardiovascular : No Chest Pain, No SOB, No Dyspnea on Exertion, No Orthopnea, No Edema, No Palpitations Respiratory : No Cough, No Sputum, No Wheezing Gastrointestinal : No Nausea, No Vomiting, No Diarrhea, No Constipation, + abdominal Pain, No Hematochezia, No Melena Genitourinary : No Dysuria, No Urinary Frequency, No Hematuria, + vaginal bleeding Musculoskeletal : No joint pain, No Myalgias, No Joint Swelling Skin : No Skin Lesions, No rash Neuro : No Weakness, No Numbness, No Dizziness, No Headache Psych : No Anxiety/Panic, No Depression All other systems reviewed and are negative Yes all other systems are reviewed and are negative [facility] Past Medical History Attestation statement: The following information was validated with the patient. Source: old records reviewed and nursing notes reviewed Medical History History of depression Hyperthyroidism Sheltered homelessness Tachycardia Surgical History No pertinent past surgical history Family History Family History Mother Multiple sclerosis Father Diabetes Sister No problems noted. Sister ADHD Son No problems noted. 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 Oriented X3.? No acute distress.? Head: Normocephalic, atraumatic, no step-offs or deformities Eyes: Pupils equal, round and reactive to light.? ENT: Pharynx normal.? Neck: Normal inspection.? Neck supple.? CVS: Normal heart rate and rhythm.? Pulses normal.? Respiratory: No respiratory distress.? Breath sounds normal.? Abdomen: Soft and + suprapuic discomfort, no tenderness to RLQ or LLQ.? Skin: Skin warm and dry.? Normal skin color.? Normal skin turgor.? Extremities: No lower extremity edema.? No calf ttp. 5/5 strength to bilateral upper and lower extremities Back: No midline tenderness, no C-spine tenderness, full range of motion, no CVA tenderness bilaterally Neuro: Oriented X 3.? No motor deficit.? No sensory deficit. CN 2-12 intact Sensitive exam: Closed cervical os, small amount of bleeding noted within vaginal canal. No lesions, lumps or masses. Patient tolerated procedure well, no cervical motion tenderness or adnexal tenderness. Course Reevaluation(s) Reevaluation #1: Patient's CBC appears to be at baseline with normocytic anemia. Chemistry also at patient's baseline. Patient's hCG is 3, meaning patient is likely 5-6 weeks . UA from earlier today without infection. positive in urine. Swabs obtained and pending results. Also pending ultrasound read. Patient remains hemodynamically stable. Time: 00:11 Reevaluation #2: Patient's OB pelvic and transvaginal ultrasound with a single live intrauterine gestation with gestational age of 6 weeks +/-4 days. No maternal adnexal mass or pelvic ascites. Patient feels well. Time: 00:14 Reevaluation #3: Patient is no longer tachycardic, she tells me she was anxious when she 1st came in. Her abdominal re-evaluation essentially benign, no tenderness to palpation of abdomen. I did discuss this case with OBGYN who recommends I have patient's vital signs are within normal limits and patient is well-appearing she can be discharged home with spontaneous warnings, and prompt outpatient f ollow-up. Swabs have been obtained and are pending and she should continue to take her vitamins. Educated patient on diagnosis and treatment plan, answered all question, patient verbalizes understanding. At this time patient will be discharged home, advised to return with new or worsening symptoms. Educated on worrisome signs and symptoms and when to return. At this time I feel comfortable discharge home. I did explain to patient that I have low suspicion that this is appendicitis however pain changes, quality or quantity of pain she should return immediately for prompt evaluation. Reassuring that patient's vital signs are stable, labs unremarkable and patient is no longer tender to palpation on exam. I did give her strict return precautions. Time: 00:39 Medications Administered Discontinued Medications Generic Name Dose Route Start Last Admin Trade Name Norman PRN Reason Stop Dose Admin Acetaminophen 650 mg 09/02/22 00:31 09/02/22 00:34 Acetaminophen 325 Mg Tablet PO 09/02/22 00:32 650 mg ONCE ONE Administration Medical Decision Making Medical Decision Making [facility] Narrative: 0365 22-year-old female [id number] was 4-5 weeks reports scant vaginal bleeding , diffuse abdominal discomfort worse in lower region since this morning when she woke up. Not followed by OBGYN yet but is taking prenatals. Physical exam w/ suprapuic discomfort, no tenderness to RLQ or LLQ. ?Closed cervical os, small amount of bleeding noted within vaginal canal. No lesions, lumps or masses. Patient tolerated procedure well, no cervical motion tenderness or adnexal tenderness. Concern for threatened versus abnormal vaginal bleeding in 1st trimester verses hematuria. Unlikely acute blood loss anemia, electrolyte abnormalities or UTI. Unlikley you abdomen, diverticulitis, appendicitis, cholecystitis or pancreatitis. Unlikely that this is ectopic Plan at this time labs, imaging, urine, ultrasound. Will also obtain hCG Differential Diagnosis Differential Diagnoses: The differential diagnosis associated with the presentation includes Concern for threatened versus abnormal vaginal bleeding in 1st trimester verses hematuria. Unlikely acute blood loss anemia, electrolyte abnormalities or UTI.Unlikley you abdomen, diverticulitis, appendicitis, cholecystitis or pancreatitis. 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 09/01/22 20:37 09/01/22 20:37 Labs: Lab Results 09/01/22 09/01/22 09/01/22 Range/Units 20:37 20:37 20:37 WBC 5.3 (4.8-10.8) X10*3/uL RBC 4.40 (4.20-5.50) X10*6/uL Hgb 11.3 L (12.0-16.0) g/dl Hct 36.0 L (37.0-47.0) % MCV 81.8 (80.0-98.0) fL MCH 25.7 L (27.0-33.0) pg MCHC 31.4 (31.0-35.0) g/dl RDW 13.2 (11.0-16.0) % Plt Count 306 D (160-400) X10*3/uL MPV 9.5 (9.4-12.3) fL Immature Gran % (Auto) 0.2 (0.0-0.4) % Neut % (Auto) 60.2 (45-73) % Lymph % (Auto) 28.4 (20-40) % [place] % (Auto) 8.7 (2-11) % Eos % (Auto) 2.3 (0-4) % Baso % (Auto) 0.2 (0-2) % Lymph # (Auto) 1.5 (1.2-4.9) X10*3/uL [place] # (Auto) 0.5 (0.1-1.2) X10*3/uL Eos # (Auto) 0.1 (0.0-0.4) X10*3/uL Baso # (Auto) 0.0 (0.0-0.2) X10*3/uL Abs Immat Gran (auto) 0.01 (0.00-0.03) X10*3/uL Absolute Neuts (auto) 3.2 (2.0-8.3) x10*3/uL Absolute Nucleated RBC 0.000 (0.0-0.012) X10*3/uL Nucleated RBC % (auto) 0.0 (0.0-0.2) /100WBC Sodium 140 (135-145) mmol/L Potassium 4.0 (3.3-5.1) mmol/L Chloride 109 H (96-108) mmol/L Carbon Dioxide 24 (22-29) mmol/L Anion Gap 11 L (12-20) BUN 8 L (9-16) mg/dL Creatinine 0.49 L (0.5-1.4) mg/dL Estim Creat Clear Calc 190.7 Estimated GFR > 60 Random Glucose 111 (60-115) mg/dL Calcium 8.4 (8.4-10.2) mg/dL Total Bilirubin 0.3 (0.0-1.0) mg/dL Direct Bilirubin 0.1 (0.0-0.5) mg/dL AST 18 (5-31) U/L ALT 23 (0-31) U/L Alkaline Phosphatase 141 H (39-117) U/L Total Protein 6.0 L (6.5-8.0) g/dL Albumin 3.5 (3.5-5.0) g/dL Beta HCG, Quant 2033 mIU/mL Blood Type A Positive Independent Interpretation I performed an independent interpretation of an: Ultrasound Radiology Impression Discussion of test interpretation with radiology: I have reviewed the radiologist's reading. Core Measures AMI core measures followed: Yes Measure exclusions: not indicated Critical Care Time Critical Care Time Critical Care Time: Yes Total Critical Care Time: 35 Attestation: I attest to this time spent taking care of the patient, obtaining history, physical, reviewing labs, imaging, speaking to my attending, speaking to specialist. Discharge Plan Discharge Clinical Impression: Threatened , First-trimester bleeding, Intrauterine Patient Disposition: Home, Self-Care Instructions: Threatened Miscarriage (ED) Additional Instructions: Take your medications as prescribed. If you were prescribed antibiotics today, it is important that you take your medication to their entirety, do not skip any doses, do not finish them early. This start taking vitamins Follow-up with your primary care provider this week. Follow-up with OBGYN as soon as possible call tomorrow. Return to the emergency department with new or worsening symptoms. Such as fevers, chills, chest pain, shortness of breath, nausea, vomiting, dizziness, headache, vision changes, lethargy, worsening vaginal bleeding or bleeding t hrough more than 2 pads in 1 hour, worsening abdominal pain or change in type or severity of pain. In case of emergency call 911 Recommend repeat hCG in 24-48 hours as well as possible repeat ultrasound The swabs we obtained are pending. You will be called only if results are positive. US/US OB pelvic and transvaginal IMPRESSION: 1. Single live intrauterine gestation with ultrasound gestational age of? 6 weeks +/- 4 days. 2. Estimated date of delivery is 04/27/2023 +/- 4 days. 3. No maternal adnexal mass or pelvic ascites. Prescriptions: No Action acetaminophen 325 mg Tablet 650 mg PO Q6H PRN (Reason: Pain, Mild (Pain Scale 1-3)) Qty: 30 0RF propylthiouracil 50 mg Tablet 100 mg PO TID Qty: 90 0RF famotidine 20 mg Tablet 20 mg PO BID Qty: 60 0RF propranolol 20 mg Tablet 20 mg PO BID Qty: 60 0RF Protocol: Hold for SBP/HR < HOLD for SBP < : 90 HOLD for HR < : 60 ondansetron HCl (PF) 4 mg/2 mL Solution 4 mg IVPUSH Q8H PRN (Reason: Nausea And Vomiting) Qty: 10 0RF Solu-Cortef Act-O-Vial (PF) 100 mg/2 mL Recon Soln 50 mg IVPUSH Q8H Qty: 10 0RF doxycycline hyclate 100 mg capsule 100 mg PO BID 7 Days Qty: 14 0RF metronidazole 500 mg tablet 500 mg PO BID 7 Days Qty: 14 0RF albuterol sulfate 90 mcg/actuation aerosol powdr breath activated 2 inh inhalation Q4-6H PRN (Reason: shortness of breath or wheezing) Qty: 1 0RF meclizine 25 mg tablet 25 mg PO TID PRN (Reason: dizziness) Qty: 20 0RF Referrals: ED Physician,Generic [Physician] - 2 days Stand Alone Forms: Work/School Release
--- NOTE | 2022-09-02 00:33 | PM.GYNCN ---
[place] - CN: HPI Data of Consult Consult date: 09/02/22 Primary Care Provider: Unknown Physician Consult Narrative Narrative: I was consulted on Charlie Juarez who is a 22 year old female who is currently at around 6 weeks of gestation by LMP presenting to the emergency room complaining of mild vaginal spotting/bleeding associated with pelvic cramping, no passage of blood clots, no vaginal discharge, no other GI or since.? Patient is taking vitamins. Blood type A positive. H&H within normal. UA within normal. Pelvic ultrasound showed intrauterine live at 6 weeks and 4 days gestation. The patient has an appointment scheduled with her OBGYN within few days . cc:: CC: OB PMFSH Past Medical History Medical History History of depression Hyperthyroidism Sheltered homelessness Tachycardia Family History Family History Mother Multiple sclerosis Father Diabetes Sister No problems noted. Sister ADHD Son No problems noted. 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 Allergies Allergy/AdvReac Type Severity Reaction Status Date / Time sulfamethoxazole Allergy Intermediate HIVES Verified 09/01/22 20:04 [From BACTRIM] trimethoprim [From BACTRIM] Allergy Intermediate HIVES Verified 09/01/22 20:04 [place] Physical Exam Vitals Vital signs: Temp Pulse Resp BP Pulse Ox 97.8 F 114 H 16 151/76 H 97 09/01/22 19:57 09/01/22 19:57 09/01/22 19:57 09/01/22 19:57 09/01/22 19:57 BMI result Body Mass Index 39.9 Additional Comments: Reported by KAYCEE Morales the following: Abdomen: Soft, minimal suprapubic tenderness with no rebound or guarding Pelvic exam : closed cervix, no evidence of active bleeding, no cervical motion tenderness, uterine or adnexal tenderness [place] - Results Labs 09/01/22 20:37 09/01/22 20:37 Labs: Short CBC 09/01/22 Range/Units 20:37 WBC 5.3 (4.8-10.8) X10*3/uL Hgb 11.3 L (12.0-16.0) g/dl Hct 36.0 L (37.0-47.0) % Plt Count 306 D (160-400) X10*3/uL BMP 09/01/22 20:37 Sodium 140 Potassium 4.0 Chloride 109 H Carbon Dioxide 24 BUN 8 L Creatinine 0.49 L Calcium 8.4 Liver Function 09/01/22 Range/Units 20:37 Total Bilirubin 0.3 (0.0-1.0) mg/dL Direct Bilirubin 0.1 (0.0-0.5) mg/dL AST 18 (5-31) U/L ALT 23 (0-31) U/L Alkaline Phosphatase 141 H (39-117) U/L Albumin 3.5 (3.5-5.0) g/dL Imaging US - abdomen: Radiologist's impression: ITS Impressions Pelvic/Transvag US 09/01/22 23:45 IMPRESSION: 1. Single live intrauterine gestation with ultrasound gestational age of 6 weeks +/- 4 days. 2. Estimated date of delivery is 04/27/2023 +/- 4 days. 3. No maternal adnexal mass or pelvic ascites. Assessment and Plan (1) Threatened : Status: Acute Plan Recommended the following to KAYCEE Morales: GC/chlamydia, BV panel and Trichomonas to be collected. SAB warnings to be given to the patient, vitamin 1 tablet p.o. q.d. , close outpatient follow-up within 1-2 day, instructions to be given to patient to come back to the emergency room in case of pelvic pain, vaginal bleeding, nausea or vomiting, fever above 100.4 and schedule a follow-up appointment with OBGYN office karen for repeat blood pressure monitoring as an outpatient in order to rule out chronic hypertension and assess the indication for antihypertensive treatment. I spent a total of 20 minute reviewing the chart, communicating with the emergency room provider and documenting in the medical record Time Spent With Patient Time: Total time managing care of this patient today ____ minutes.
[2022-09-02] MEDS: Acetaminophen 325 MG TABLET 650 MG PO (00:34)
[2022-09-02 00:36] VITALS: BP 142/81; PULSE 90; RESP 16; O2SAT 98
[2022-09-02 02:00] LABS: CT PCR NOT DETECTED (Not Detect.); NG PCR NOT DETECTED (Not Detect.)
[2022-09-02 09:19] LABS: BV Int Neg Control Negative (Negative); BV Int Pos Control Positive (Positive)
== END 2022-09-02 01:08 | disposition home or self-care (01) ==
PROVIDERS: Nurse Practitioner Family; Physician Assistant; Emergency Provider Internal Medicine
DX: O20.0 Threatened abortion (principal); Z3A.01 Less than 8 weeks gestation of pregnancy; R10.30 Lower abdominal pain, unspecified
CPT/HCPCS: 0353U; 36415; 76801; 76817; 80048; 80076; 84702; 85025; 86900; 86901; 87480; 87510; 87660; 99284

== ENCOUNTER 2022-09-27 17:16 | Emergency (ER) | payer MEDICAID, SELFPAY ==
[2022-09-27 17:43] VITALS: BP 160/96; PULSE 110; RESP 18; TEMP 36.8; O2SAT 99; BMI 39.7
--- NOTE | 2022-09-27 17:45 | ED.GENADULT ---
HPI - General Adult General Chief complaint: Skin/Abscess/Foreign Body Stated complaint: body rash very itchy Time Seen by Provider: 09/27/22 20:08 Source: patient, RN notes reviewed and old records reviewed Mode of arrival: ambulatory Limitations: no limitations History of Present Illness HPI narrative: 22-year-old female presents for evaluation of a rash She states that it started initially on her left thigh She notes that it then spread to her breast, her groin as well as her abdomen and back No involvement of the face Denies any fevers, chills. The rash is very itchy and she has been scratching at it She reports the rash started about 3 weeks ago when she had a miscarriage She has not had any medications in that time or since No new soaps, lotions, detergents Related Data Previous Rx's Medication Instructions Recorded acetaminophen 325 mg tablet 650 mg PO Q6H PRN Pain, Mild (Pain 03/11/22 Scale 1-3) #30 tabs famotidine 20 mg tablet 20 mg PO BID #60 tabs 03/11/22 hydrocortisone sod succ (PF) 100 50 mg IVPUSH Q8H #10 ea 03/11/22 mg/2 mL solution for injection (Solu-Cortef Act-O-Vial (PF)) ondansetron HCl (PF) 4 mg/2 mL 4 mg (2 mL) IVPUSH Q8H PRN Nausea 03/11/22 injection solution And Vomiting #10 mL propranolol 20 mg tablet 20 mg PO BID #60 tabs 03/11/22 propylthiouracil 50 mg tablet 100 mg PO TID #90 tabs 03/11/22 doxycycline hyclate 100 mg capsule 100 mg PO BID 7 days #14 caps 04/13/22 metronidazole 500 mg tablet 500 mg PO BID 7 days #14 tabs 04/13/22 albuterol sulfate 90 mcg/actuation 2 inh inhalation Q4-6H PRN 08/15/22 breath activated powder inhaler shortness of breath or wheezing #1 ea meclizine 25 mg tablet 25 mg PO TID PRN dizziness #20 tabs 09/01/22 metronidazole 500 mg tablet 500 mg PO BID 7 days #14 tabs 09/04/22 diphenhydramine HCl 25 mg capsule 25 mg PO TID PRN itching #20 caps 09/27/22 (Benadryl) ketoconazole 2 % topical cream 1 appl topical BID 7 days #30 grams 09/27/22 prednisone 20 mg tablet 40 mg PO DAILY #10 tabs 09/27/22 Allergies Allergy/AdvReac Type Severity Reaction Status Date / Time sulfamethoxazole Allergy Intermediate HIVES Verified 09/01/22 20:04 [From BACTRIM] trimethoprim [From BACTRIM] Allergy Intermediate HIVES Verified 09/01/22 20:04 Review of Systems Constitutional: Constitutional: Reports as per HPI, Denies chills and Denies fever(s) Integumentary/Breasts: Skin/Breast: Reports rash PMFSH Past Medical History Medical History History of depression Hyperthyroidism Sheltered homelessness Tachycardia Surgical History No pertinent past surgical history Family History Family History Mother Multiple sclerosis Father Diabetes Sister No problems noted. Sister ADHD Son No problems noted. 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 Physical Exam ED Vital Signs: Vital Signs - 24 hr 09/27/22 17:43 Temperature 98.3 F Pulse Rate 110 H Respiratory Rate 18 Blood Pressure 160/96 H Pulse Oximetry 99 Oxygen Delivery Method Room Air BMI result Body Mass Index 39.7 Const General: healthy appearing, comfortable, no acute distress, alert and awake Nutritional Appearance: well nourished [facility] Head: Yes normocephalic and Yes atraumatic Throat: Yes posterior oropharynx normal Resp Effort & Inspection: normal respiratory effort, able to speak in complete sentences, no audible wheezes and not labored Auscultation: clear to auscultation bilaterally Skin Other: Patient has a diffuse rash with varying sizes of macular papular lesions. Some lesions have scaling and central clearing, others do not. There are some excoriations surrounding the lesions. There is no involvement of the face, palms soles or buccal mucosa Extrem Other: Moving all extremities well without any obvious deformities Course Course Course Narrative: A 22-year-old female presents for evaluation of a rash to most of her body. She states this started on her breast and spread elsewhere and is to her inner thighs and groin. She reports has been there for 3 weeks and is very itchy. Medical Decision Making Medical Decision Making [facility] Narrative: Most of the lesions appear consistent with fungal rash with scaling central clearing. This reason we will treat with ketoconazole. Will also treat with prednisone and Benadryl for symptomatic care Differential Diagnosis Acute rash Dermatitis Candidiasis Tinea corporis Cellulitis Discharge Plan Discharge Clinical Impression: Acute maculopapular rash Patient Disposition: Home, Self-Care Instructions: Acute Rash (ED) Additional Instructions: Apply ketoconazole twice daily for 7 days Take prednisone twice daily for next 5 days Use Benadryl every 4-6 hours as needed for rash Follow-up with your primary doctor because if it does not improve you will need to be referred to a toe puncher Prescriptions: New ketoconazole 2 % cream 1 appl topical BID 7 Days Qty: 30 0RF prednisone 20 mg tablet 40 mg PO DAILY Qty: 10 0RF diphenhydramine HCl [Benadryl] 25 mg capsule 25 mg PO TID PRN (Reason: itching) Qty: 20 0RF No Action acetaminophen 325 mg Tablet 650 mg PO Q6H PRN (Reason: Pain, Mild (Pain Scale 1-3)) Qty: 30 0RF propylthiouracil 50 mg Tablet 100 mg PO TID Qty: 90 0RF famotidine 20 mg Tablet 20 mg PO BID Qty: 60 0RF propranolol 20 mg Tablet 20 mg PO BID Qty: 60 0RF Protocol: Hold for SBP/HR < HOLD for SBP < : 90 HOLD for HR < : 60 ondansetron HCl (PF) 4 mg/2 mL Solution 4 mg IVPUSH Q8H PRN (Reason: Nausea And Vomiting) Qty: 10 0RF Solu-Cortef Act-O-Vial (PF) 100 mg/2 mL Recon Soln 50 mg IVPUSH Q8H Qty: 10 0RF doxycycline hyclate 100 mg capsule 100 mg PO BID 7 Days Qty: 14 0RF metronidazole 500 mg tablet 500 mg PO BID 7 Days Qty: 14 0RF albuterol sulfate 90 mcg/actuation aerosol powdr breath activated 2 inh inhalation Q4-6H PRN (Reason: shortness of breath or wheezing) Qty: 1 0RF meclizine 25 mg tablet 25 mg PO TID PRN (Reason: dizziness) Qty: 20 0RF metronidazole 500 mg tablet 500 mg PO BID 7 Days Qty: 14 0RF Interventions: ED Discharge Assessment Last Done: 09/27/22 17:52
--- NOTE | 2022-09-27 17:54 | PC.NURSE ---
eval and dc by PIT
== END 2022-09-27 20:09 | disposition home or self-care (01) ==
PROVIDERS: Emergency Provider Internal Medicine
DX: R21 Rash and other nonspecific skin eruption (principal); Z79.899 Other long term (current) drug therapy
CPT/HCPCS: 99282; 99283

== ENCOUNTER 2023-03-11 03:27 | Emergency (ER) | payer OTHER, SELFPAY ==
[2023-03-11 03:54] VITALS: BP 136/74; PULSE 114; RESP 18; TEMP 36.7; O2SAT 98; BMI 39.9
--- NOTE | 2023-03-11 03:59 | ED.GENADULT ---
HPI - General Adult General Chief complaint: General Medical Stated complaint: chills Time Seen by Provider: 03/11/23 03:59 Source: patient Mode of arrival: ambulatory Limitations: no limitations History of Present Illness HPI narrative: Patient complaining of sore throat , running nose , cough body aches headache for last few days no shortness of breath no urinary complaint Related Data Previous Rx's Medication Instructions Recorded acetaminophen 325 mg tablet 650 mg (2 x 325 mg) PO Q6H PRN 03/11/22 Pain, Mild (Pain Scale 1-3) #30 tabs famotidine 20 mg tablet 20 mg PO BID #60 tabs 03/11/22 hydrocortisone sod succ (PF) 100 50 mg IVPUSH Q8H #10 ea 03/11/22 mg/2 mL solution for injection (Solu-Cortef Act-O-Vial (PF)) ondansetron HCl (PF) 4 mg/2 mL 4 mg (2 mL) IVPUSH Q8H PRN Nausea 03/11/22 injection solution And Vomiting #10 mL propranolol 20 mg tablet 20 mg PO BID #60 tabs 03/11/22 propylthiouracil 50 mg tablet 100 mg (2 x 50 mg) PO TID #90 tabs 03/11/22 doxycycline hyclate 100 mg capsule 100 mg PO BID 7 days #14 caps 04/13/22 metronidazole 500 mg tablet 500 mg PO BID 7 days #14 tabs 04/13/22 albuterol sulfate 90 mcg/actuation 2 inh inhalation Q4-6H PRN 08/15/22 breath activated powder inhaler shortness of breath or wheezing #1 ea meclizine 25 mg tablet 25 mg PO TID PRN dizziness #20 tabs 09/01/22 metronidazole 500 mg tablet 500 mg PO BID 7 days #14 tabs 09/04/22 diphenhydramine HCl 25 mg capsule 25 mg PO TID PRN itching #20 caps 09/27/22 (Benadryl) ketoconazole 2 % topical cream 1 appl topical BID 7 days #30 grams 09/27/22 prednisone 20 mg tablet 40 mg (2 x 20 mg) PO DAILY #10 tabs 09/27/22 cefuroxime axetil 500 mg tablet 500 mg PO BID 7 days #14 tabs 03/11/23 Allergies Allergy/AdvReac Type Severity Reaction Status Date / Time sulfamethoxazole Allergy Intermediate HIVES Verified 09/01/22 20:04 [From BACTRIM] trimethoprim [From BACTRIM] Allergy Intermediate HIVES Verified 09/01/22 20:04 Review of Systems Review of Systems: Yes all other systems are reviewed and are negative [facility] Past Medical History Medical History Sheltered homelessness History of depression Tachycardia Hyperthyroidism Surgical History No pertinent past surgical history Family History Family History Mother Multiple sclerosis Father Diabetes Sister No problems noted. Sister ADHD Son No problems noted. 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 Oriented X3. No acute distress. Eyes: PERRLA, No Nystagmus ENT: Pharynx normal. Oral Mucosa moist Neck: Normal inspection. Neck supple. CVS: Normal heart rate and rhythm. Pulses normal. Respiratory: No respiratory distress. Equal air entry bilateral, no wheezing/rales/rhonchi Abdomen: Soft and nontender. Bowel sounds are present, no mass palpable, no CVA tenderness Skin: Skin warm and dry. Normal skin color. Normal skin turgor. Extremities: No lower extremity edema. No calf tenderness Neuro: Oriented X 3. Medications Administered Discontinued Medications Generic Name Dose Route Start Last Admin Trade Name Freq PRN Reason Stop Dose Admin Cefuroxime Axetil 500 mg 03/11/23 05:23 03/11/23 05:38 Cefuroxime Axetil 500 Mg Tablet PO 03/11/23 05:24 500 mg ONCE ONE Administration Medical Decision Making Medical Decision Making MDM Narrative: Patient with URI likely viral Differential Diagnosis Differential Diagnoses: The differential diagnosis associated with the presentation includes COVID/influenza/viral Lab Data [facility] Lab Attestation statement: I reviewed the patient's lab results. Labs: Lab Results 03/11/23 Range/Units 04:07 Influenza Type A (PCR) NEGATIVE (Negative) Influenza Type B (PCR) NEGATIVE (Negative) RSV RNA Qual (PCR) NEGATIVE (Negative) SARS-CoV-2 RNA (RT-PCR) NEGATIVE (Negative) Discharge Plan Discharge Clinical Impression: Acute bronchitis Patient Disposition: Home, Self-Care Instructions: Acute Bronchitis (ED) Additional Instructions: Drink plenty of fluid Tylenol Motrin for the fever Antibiotic as prescribed Prescriptions: New cefuroxime axetil 500 mg tablet 500 mg PO BID 7 Days Qty: 14 0RF No Action acetaminophen 325 mg Tablet 650 mg PO Q6H PRN (Reason: Pain, Mild (Pain Scale 1-3)) Qty: 30 0RF propylthiouracil 50 mg Tablet 100 mg PO TID Qty: 90 0RF famotidine 20 mg Tablet 20 mg PO BID Qty: 60 0RF propranolol 20 mg Tablet 20 mg PO BID Qty: 60 0RF Protocol: Hold for SBP/HR < HOLD for SBP < : 90 HOLD for HR < : 60 ondansetron HCl (PF) 4 mg/2 mL Solution 4 mg IVPUSH Q8H PRN (Reason: Nausea And Vomiting) Qty: 10 0RF Solu-Cortef Act-O-Vial (PF) 100 mg/2 mL Recon Soln 50 mg IVPUSH Q8H Qty: 10 0RF doxycycline hyclate 100 mg capsule 100 mg PO BID 7 Days Qty: 14 0RF metronidazole 500 mg tablet 500 mg PO BID 7 Days Qty: 14 0RF albuterol sulfate 90 mcg/actuation aerosol powdr breath activated 2 inh inhalation Q4-6H PRN (Reason: shortness of breath or wheezing) Qty: 1 0RF meclizine 25 mg tablet 25 mg PO TID PRN (Reason: dizziness) Qty: 20 0RF ketoconazole 2 % cream 1 appl topical BID 7 Days Qty: 30 0RF prednisone 20 mg tablet 40 mg PO DAILY Qty: 10 0RF diphenhydramine HCl [Benadryl] 25 mg capsule 25 mg PO TID PRN (Reason: itching) Qty: 20 0RF metronidazole 500 mg tablet 500 mg PO BID 7 Days Qty: 14 0RF Stand Alone Forms: Work/School Release Interventions: ED Discharge Assessment Last Done: 03/11/23 05:47 Discharge Date/Time: 03/11/23 05:47
[2023-03-11 05:07] LABS: Influenza A PCR NEGATIVE (Negative); Influenza B PCR NEGATIVE (Negative); Resp Syncy Virus RNA Qual PCR NEGATIVE (Negative); SARS COV2 PCR INHOUSE NEGATIVE (Negative)
[2023-03-11] MEDS: cefuroxime axetiL 500 MG TABLET PO (05:38)
[2023-03-11 05:45] VITALS: BP 113/77; PULSE 108; RESP 16; TEMP 36.6; O2SAT 98
--- NOTE | 2023-03-11 05:46 | PC.NURSE ---
pt a&o, no sob or chest pain, pt medicated per mar, reviewed discharge instruction with pt and plan of care. No sign distress. pt discharged home.
== END 2023-03-11 05:47 | disposition home or self-care (01) ==
PROVIDERS: Emergency Provider Internal Medicine
DX: J20.9 Acute bronchitis, unspecified (principal); M79.10 Myalgia, unspecified site; R05.9 Cough, unspecified; Z20.822 Contact with and (suspected) exposure to COVID-19; Z20.828 Contact with and (suspected) exposure to other viral communicable diseases; Z79.899 Other long term (current) drug therapy
CPT/HCPCS: 0241U; 99283; 99284

== ENCOUNTER 2023-04-01 23:54 | Emergency (ER) | payer OTHER, SELFPAY ==
--- NOTE | ~2023-04-01 | XR_ITS ---
EXAMINATION: XR CHEST CLINICAL INFORMATION: Chest tightness. COMPARISON: Chest radiograph 03/11/2022. TECHNIQUE: 2 views of the chest were obtained. FINDINGS: Normal appearance of the cardiomediastinal silhouette. Parahilar peribronchial thickening. No focal consolidation, pleural effusion or pneumothorax. No acute osseous findings. XR/XR chest 2V IMPRESSION: Findings suggesting small airways disease or atypical/viral infection with mild central bronchial wall thickening.
[2023-04-02 00:03] VITALS: BP 141/79; PULSE 115; RESP 16; TEMP 36.6; O2SAT 98; BMI 36.8
--- NOTE | 2023-04-02 00:13 | ECG_ITS ---
Test Reason : SOB Blood Pressure : / mmHG Vent. Rate : 111 BPM Atrial Rate : 111 BPM P-R Int : 132 ms QRS Dur : 102 ms QT Int : 368 ms P-R-T Axes : 000 020 -26 degrees QTc Int : 500 ms Sinus tachycardia Nonspecific T wave abnormality Abnormal ECG When compared with ECG of 09-MAR-2022 21:37, No significant change was found Referred By: Generic ED Physician Electronically Signed By:RICKY CARRANZA MD
[2023-04-02 00:28] VITALS: BP 123/67; PULSE 115; RESP 18; O2SAT 98
[2023-04-02 00:32] LABS: Hematocrit 34.4 % (37.0-47.0); Hemoglobin 11.2 g/dl (12.0-16.0); Mean Corpuscular HGB Conc 32.6 g/dl (31.0-35.0); Mean Corpuscular Hemoglobin 26.5 pg (27.0-33.0); Mean Corpuscular Volume 81.5 fL (80.0-98.0); Mean Platelet Volume 9.6 fL (9.4-12.3); Platelet Count 257 X10*3/uL (160-400); Red Blood Count 4.22 X10*6/uL (4.20-5.50); Red Cell Distribution Width 13.1 % (11.0-16.0); White Blood Count 4.4 X10*3/uL (4.8-10.8)
--- NOTE | 2023-04-02 00:33 | ED_ITS ---
HPI - General Adult General Chief complaint: General Medical Stated complaint: SOB, Headache Time Seen by Provider: 04/02/23 00:27 Source: patient Mode of arrival: ambulatory Limitations: no limitations History of Present Illness HPI narrative: Patient with history of occasional bronchitis complain of chest tightness shortness of breath for last 3 days having dry cough no fever no chills also has headache which is going on for a while no fever no chills patient not take any control pills no family history of blood clots no recent travel no leg pain or swelling patient is saturating 98% on room air but tachycardic to 115 afebrile Related Data Previous Rx's Medication Instructions Recorded acetaminophen 325 mg tablet 650 mg (2 x 325 mg) PO Q6H PRN 03/11/22 Pain, Mild (Pain Scale 1-3) #30 tabs famotidine 20 mg tablet 20 mg PO BID #60 tabs 03/11/22 hydrocortisone sod succ (PF) 100 50 mg IVPUSH Q8H #10 ea 03/11/22 mg/2 mL solution for injection (Solu-Cortef Act-O-Vial (PF)) ondansetron HCl (PF) 4 mg/2 mL 4 mg (2 mL) IVPUSH Q8H PRN Nausea 03/11/22 injection solution And Vomiting #10 mL propranolol 20 mg tablet 20 mg PO BID #60 tabs 03/11/22 propylthiouracil 50 mg tablet 100 mg (2 x 50 mg) PO TID #90 tabs 03/11/22 doxycycline hyclate 100 mg capsule 100 mg PO BID 7 days #14 caps 04/13/22 metronidazole 500 mg tablet 500 mg PO BID 7 days #14 tabs 04/13/22 albuterol sulfate 90 mcg/actuation 2 inh inhalation Q4-6H PRN 08/15/22 breath activated powder inhaler shortness of breath or wheezing #1 ea meclizine 25 mg tablet 25 mg PO TID PRN dizziness #20 tabs 09/01/22 metronidazole 500 mg tablet 500 mg PO BID 7 days #14 tabs 09/04/22 diphenhydramine HCl 25 mg capsule 25 mg PO TID PRN itching #20 caps 09/27/22 (Benadryl) ketoconazole 2 % topical cream 1 appl topical BID 7 days #30 grams 09/27/22 prednisone 20 mg tablet 40 mg (2 x 20 mg) PO DAILY #10 tabs 09/27/22 cefuroxime axetil 500 mg tablet 500 mg PO BID 7 days #14 tabs 03/11/23 albuterol sulfate 90 mcg/actuation 2 puff inhalation Q4-6H PRN 04/02/23 aerosol inhaler (ProAir HFA) shortness of breath or wheezing #8.5 grams benzonatate 200 mg capsule 200 mg PO TID PRN cough #30 caps 04/02/23 prednisone 20 mg tablet 40 mg (2 x 20 mg) PO DAILY #10 tabs 04/02/23 Allergies Allergy/AdvReac Type Severity Reaction Status Date / Time sulfamethoxazole Allergy Intermediate HIVES Verified 09/01/22 20:04 [From BACTRIM] trimethoprim [From BACTRIM] Allergy Intermediate HIVES Verified 09/01/22 20:04 Review of Systems 2 Review of Systems: Yes all other systems are reviewed and are negative [facility] Past Medical History Medical History Sheltered homelessness History of depression Tachycardia Hyperthyroidism Surgical History No pertinent past surgical history Family History Family History Mother Multiple sclerosis Father Diabetes Sister No problems noted. Sister ADHD Son No problems noted. 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 Oriented X3. No acute distress. Eyes: PERRLA, No Nystagmus ENT: Pharynx normal. Oral Mucosa moist Neck: Normal inspection. Neck supple. CVS: Normal heart rate and rhythm. Pulses normal. Respiratory: No respiratory distress. Equal air entry bilateral, no wheezing/rales/rhonchi Abdomen: Soft and nontender. Bowel sounds are present, no mass palpable, no CVA tenderness Skin: Skin warm and dry. Normal skin color. Normal skin turgor. Extremities: No lower extremity edema. No calf tenderness Neuro: Oriented X 3. No motor deficit. Medications Administered Discontinued Medications Generic Name Dose Route Start Last Admin Trade Name Freq PRN Reason Stop Dose Admin Albuterol/Ipratropium 3 ml 04/02/23 00:39 04/02/23 01:30 Albuterol/Iprat 2.5/0.5mg 3 Ml Ampul.Neb INHALE 04/02/23 00:40 3 ml ONCE ONE Administration Medical Decision Making Medical Decision Making [facility] Narrative: Patient x-ray showing some inflammation of small airways, D-dimer negative for PE patient felt better after bronchodilator treatment Differential Diagnosis Pneumonia/bronchitis/viral infection/PE Admission/Observation Consideration of admission/observation: Escalation of care including admission/observation considered Lab Data [facility] Lab Attestation statement: I reviewed the patient's lab results. 04/02/23 00:26 04/02/23 00:26 Labs: Lab Results 04/02/23 04/02/23 Range/Units 00:26 00:59 WBC 4.4 L (4.8-10.8) X10*3/uL RBC 4.22 (4.20-5.50) X10*6/uL Hgb 11.2 L (12.0-16.0) g/dl Hct 34.4 L (37.0-47.0) % MCV 81.5 (80.0-98.0) fL MCH 26.5 L (27.0-33.0) pg MCHC 32.6 (31.0-35.0) g/dl RDW 13.1 (11.0-16.0) % Plt Count 257 (160-400) X10*3/uL MPV 9.6 (9.4-12.3) fL Absolute Nucleated RBC 0.000 (0.0-0.012) X10*3/uL Nucleated RBC % (auto) 0.0 (0.0-0.2) /100WBC D-Dimer High Sensitivty < 150 NG/ML Sodium 140 (135-145) mmol/L Potassium 3.5 (3.3-5.1) mmol/L Chloride 108 (96-108) mmol/L Carbon Dioxide 25 (22-29) mmol/L Anion Gap 11 L (12-20) BUN 11 (9-16) mg/dL Creatinine 0.46 L (0.5-1.4) mg/dL Estim Creat Clear Calc 194.0 Estimated GFR > 60 Random Glucose 117 H (60-115) mg/dL Calcium 8.8 (8.4-10.2) mg/dL Total Bilirubin 0.2 (0.0-1.0) mg/dL AST 15 (5-31) U/L ALT 20 (0-31) U/L Alkaline Phosphatase 169 H (39-117) U/L Total Protein 6.1 L (6.5-8.0) g/dL Albumin 3.5 (3.5-5.0) g/dL Urine Color Yellow Urine Appearance Cloudy Urine pH 5.5 (5.0-9.0) Ur Specific [place] 1.025 (1.005-1.025) Urine Protein Trace (Neg-Trace) mg/dL Urine Glucose (UA) Negative (Negative) mg/dL Urine Ketones Negative (Negative) mg/dL Urine Blood Negative (Negative) Urine Nitrite Negative (Negative) Ur Leukocyte Esterase Trace H (Negative) Urine RBC 0-2 (0-2) /HPF Urine WBC 6-10 H (0-5) /HPF Ur Squamous Epith Cells 11-20 (0-2) /HPF Urine Bacteria 1+ (None Seen) Hyaline Casts 0-2 (0-2) /LPF COVID-19 (TONJA) Negative (Negative) COVID-19 Clin Com See Note Influenza Type A (SAIGE) Negative (Negative) Influenza Type B (SAIGE) Negative (Negative) Influenza A & B Note See Note Independent Interpretation I performed an independent interpretation of an: EKG Interpretation: Sinus tachycardia heart rate 111 beats per minute normal interval normal axis no acute ST-T changes no acute ischemia Discharge Plan Discharge Clinical Impression: Acute bronchitis Patient Disposition: Home, Self-Care Instructions: Acute Bronchitis (ED) Additional Instructions: Use albuterol inhaler as prescribed Cough drops as prescribed Prednisone for 5 days Follow with PCP if not better Prescriptions: New benzonatate 200 mg capsule 200 mg PO TID PRN (Reason: cough) Qty: 30 0RF albuterol sulfate [ProAir HFA] 90 mcg/actuation HFA aerosol inhaler 2 puff inhalation Q4-6H PRN (Reason: shortness of breath or wheezing) Qty: 8.5 0RF prednisone 20 mg tablet 40 mg PO DAILY Qty: 10 0RF No Action acetaminophen 325 mg Tablet 650 mg PO Q6H PRN (Reason: Pain, Mild (Pain Scale 1-3)) Qty: 30 0RF propylthiouracil 50 mg Tablet 100 mg PO TID Qty: 90 0RF famotidine 20 mg Tablet 20 mg PO BID Qty: 60 0RF propranolol 20 mg Tablet 20 mg PO BID Qty: 60 0RF Protocol: Hold for SBP/HR < HOLD for SBP < : 90 HOLD for HR < : 60 ondansetron HCl (PF) 4 mg/2 mL Solution 4 mg IVPUSH Q8H PRN (Reason: Nausea And Vomiting) Qty: 10 0RF Solu-Cortef Act-O-Vial (PF) 100 mg/2 mL Recon Soln 50 mg IVPUSH Q8H Qty: 10 0RF doxycycline hyclate 100 mg capsule 100 mg PO BID 7 Days Qty: 14 0RF metronidazole 500 mg tablet 500 mg PO BID 7 Days Qty: 14 0RF albuterol sulfate 90 mcg/actuation aerosol powdr breath activated 2 inh inhalation Q4-6H PRN (Reason: shortness of breath or wheezing) Qty: 1 0RF meclizine 25 mg tablet 25 mg PO TID PRN (Reason: dizziness) Qty: 20 0RF ketoconazole 2 % cream 1 appl topical BID 7 Days Qty: 30 0RF prednisone 20 mg tablet 40 mg PO DAILY Qty: 10 0RF diphenhydramine HCl [Benadryl] 25 mg capsule 25 mg PO TID PRN (Reason: itching) Qty: 20 0RF metronidazole 500 mg tablet 500 mg PO BID 7 Days Qty: 14 0RF cefuroxime axetil 500 mg tablet 500 mg PO BID 7 Days Qty: 14 0RF
--- NOTE | 2023-04-02 00:33 | PC.NURSE ---
Addendum entered by Melissa Leahy 04/02/23 00:35: pt lung sounds clear bilaterally. Original Note: pt a&ox4, respirations even and unlabored. pt reports chest tightness, nausea and SOB for one day. pt denies vomiting and diarrhea. pt reports not being around any sick contacts at this time. pt reports intermittent headache. pt sinus tachy on tele 115-118.
[2023-04-02 00:46] LABS: COVID-19 Test Negative (Negative); IDNOW Serial# 6674DD1D
[2023-04-02 00:48] LABS: IDNOW Serial# 58CA691E; Influenza A Negative (Negative); Influenza B2 Negative (Negative)
[2023-04-02 00:51] LABS: Alanine Aminotransferase 20 U/L (0-31); Albumin Level 3.5 g/dL (3.5-5.0); Alkaline Phosphatase 169 U/L (39-117); Anion Gap 11 (12-20); Aspartate Amino Transferase 15 U/L (5-31); Bilirubin Total 0.2 mg/dL (0.0-1.0); Blood Urea Nitrogen 11 mg/dL (9-16); Calcium 8.8 mg/dL (8.4-10.2); Carbon Dioxide 25 mmol/L (22-29); Chloride 108 mmol/L (96-108); Estimated Glomerular Filt Rate > 60; Glucose Random 117 mg/dL (60-115); Potassium 3.5 mmol/L (3.3-5.1); Sodium 140 mmol/L (135-145); Total Protein 6.1 g/dL (6.5-8.0)
[2023-04-02 01:06] LABS: Appearance Urine Cloudy; Color Urine Yellow; Glucose Urine UA Negative (Negative); Leukocyte Esterase Urine Trace (Negative); Nitrite Urine Negative (Negative); PH 5.5 (5.0-9.0); Specific Gravity - Urine 1.025 (1.005-1.025); UMIC TRIGGER UACC YES; Urine Blood Negative (Negative); Urine Ketones Negative (Negative); Urine Protein Trace mg/dL (Neg-Trace)
[2023-04-02 01:08] LABS: Bacteria Urine 1+ (None Seen); Hyaline Casts Urine 0-2 /LPF (0-2); RBC Urine 0-2 /HPF (0-2); UACC Culture Trigger YES
[2023-04-02 01:16] LABS: D Dimer High Sensitivity < 150 NG/ML
[2023-04-02] MEDS: Albuterol/Iprat 2.5/0.5MG 3 ML AMPUL.NEB INHALE (01:30)
[2023-04-02 01:34] VITALS: PULSE 112; RESP 16; O2SAT 96
[2023-04-02] MEDS: predniSONE 20 MG TABLET 40 MG PO (01:53)
== END 2023-04-02 02:23 | disposition home or self-care (01) ==
PROVIDERS: Emergency Provider Internal Medicine
DX: J20.9 Acute bronchitis, unspecified (principal)
CPT/HCPCS: 36415; 71046; 80053; 81001; 85027; 85379; 87086; 87147; 87502; 87635; 93005; 94640; 99284; 99285

== ENCOUNTER 2023-04-14 21:03 | Emergency (ER) | payer OTHER, SELFPAY ==
[2023-04-14 21:18] VITALS: BP 157/82; PULSE 114; RESP 16; TEMP 37.4; O2SAT 100; BMI 17.3
[2023-04-14 22:21] LABS: IDNOW Serial# 08D9AD1C; Strep A Nucleic Acid Negative (Negative)
[2023-04-14 22:22] LABS: Influenza A PCR NEGATIVE (Negative); Influenza B PCR NEGATIVE (Negative); Resp Syncy Virus RNA Qual PCR NEGATIVE (Negative); SARS COV2 PCR INHOUSE NEGATIVE (Negative)
[2023-04-14 22:24] VITALS: BP 108/74; PULSE 109; RESP 16; TEMP 36.7; O2SAT 98
[2023-04-14 22:51] LABS: Appearance Urine Clear; Color Urine Yellow; Glucose Urine UA Negative (Negative); Leukocyte Esterase Urine Negative (Negative); Nitrite Urine Negative (Negative); Urine Blood Negative (Negative); Urine Ketones Negative (Negative); Urine Protein Negative (Neg-Trace)
[2023-04-14 23:30] VITALS: BP 155/62; PULSE 112; RESP 18; TEMP 36.8
--- NOTE | 2023-04-14 23:41 | ED.URI ---
HPI - URI/Sore Throat General Chief Complaint: Upper Respiratory Symptoms Stated Complaint: wheezing,breast pain Time Seen by Provider: 04/14/23 22:06 Source: patient Mode of arrival: ambulatory Limitations: no limitations History of Present Illness HPI Narrative: Patient no history of asthma been having upper respiratory symptoms with dry cough and wheezing for last few days history of same in the past has lot of allergies no fever no chills patient has irregular periods and wants to be sure that she does not as she been having some pain in the breast area no vaginal discharge Related Data Previous Rx's Medication Instructions Recorded acetaminophen 325 mg tablet 650 mg (2 x 325 mg) PO Q6H PRN 03/11/22 Pain, Mild (Pain Scale 1-3) #30 tabs famotidine 20 mg tablet 20 mg PO BID #60 tabs 03/11/22 hydrocortisone sod succ (PF) 100 50 mg IVPUSH Q8H #10 ea 03/11/22 mg/2 mL solution for injection (Solu-Cortef Act-O-Vial (PF)) ondansetron HCl (PF) 4 mg/2 mL 4 mg (2 mL) IVPUSH Q8H PRN Nausea 03/11/22 injection solution And Vomiting #10 mL propranolol 20 mg tablet 20 mg PO BID #60 tabs 03/11/22 propylthiouracil 50 mg tablet 100 mg (2 x 50 mg) PO TID #90 tabs 03/11/22 doxycycline hyclate 100 mg capsule 100 mg PO BID 7 days #14 caps 04/13/22 metronidazole 500 mg tablet 500 mg PO BID 7 days #14 tabs 04/13/22 albuterol sulfate 90 mcg/actuation 2 inh inhalation Q4-6H PRN 08/15/22 breath activated powder inhaler shortness of breath or wheezing #1 ea meclizine 25 mg tablet 25 mg PO TID PRN dizziness #20 tabs 09/01/22 metronidazole 500 mg tablet 500 mg PO BID 7 days #14 tabs 09/04/22 diphenhydramine HCl 25 mg capsule 25 mg PO TID PRN itching #20 caps 09/27/22 (Benadryl) ketoconazole 2 % topical cream 1 appl topical BID 7 days #30 grams 09/27/22 prednisone 20 mg tablet 40 mg (2 x 20 mg) PO DAILY #10 tabs 09/27/22 cefuroxime axetil 500 mg tablet 500 mg PO BID 7 days #14 tabs 03/11/23 albuterol sulfate 90 mcg/actuation 2 puff inhalation Q4-6H PRN 04/02/23 aerosol inhaler (ProAir HFA) shortness of breath or wheezing #8.5 grams benzonatate 200 mg capsule 200 mg PO TID PRN cough #30 caps 04/02/23 prednisone 20 mg tablet 40 mg (2 x 20 mg) PO DAILY #10 tabs 04/02/23 albuterol sulfate 90 mcg/actuation 2 puff inhalation Q4-6H PRN 04/15/23 aerosol inhaler (ProAir HFA) shortness of breath or wheezing #8.5 grams benzonatate 200 mg capsule 200 mg PO TID PRN cough #30 caps 04/15/23 prednisone 20 mg tablet 40 mg (2 x 20 mg) PO DAILY #10 tabs 04/15/23 Allergies Allergy/AdvReac Type Severity Reaction Status Date / Time sulfamethoxazole Allergy Intermediate HIVES Verified 09/01/22 20:04 [From BACTRIM] trimethoprim [From BACTRIM] Allergy Intermediate HIVES Verified 09/01/22 20:04 Review of Systems Review of Systems: Yes all other systems are reviewed and are negative [facility] Past Medical History Medical History Sheltered homelessness History of depression Tachycardia Hyperthyroidism Surgical History No pertinent past surgical history Family History Family History Mother Multiple sclerosis Father Diabetes Sister No problems noted. Sister ADHD Son No problems noted. 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 Oriented X3. No acute distress. ENT: Pharynx normal. Oral Mucosa moist Neck: Normal inspection. Neck supple. CVS: Normal heart rate and rhythm. Pulses normal. Respiratory: No respiratory distress. Equal air entry bilateral, bilateral wheezing Abdomen: Soft and nontender. Bowel sounds are present, Skin: Skin warm and dry. Normal skin color. Normal skin turgor. Extremities: No lower extremity edema. No calf tenderness Neuro: Oriented X 3. Medications Administered Discontinued Medications Generic Name Dose Route Start Last Admin Trade Name Freq PRN Reason Stop Dose Admin Albuterol Sulfate 2.5 mg/ 0 mg 04/14/23 23:48 04/15/23 01:07 Albuterol/Ipratropium 3 ml INHALE 04/14/23 23:49 5 dose ONCE ONE Administration Dexamethasone 10 mg 04/14/23 23:48 04/14/23 23:53 Dexamethasone 2 Mg Tablet PO 04/14/23 23:49 10 mg ONCE ONE Administration Medical Decision Making Medical Decision Making [facility] Narrative: Patient with bronchitis COVID flu and strep negative patient feeling much better after doing as a treatment and steroids saturating 98% on room air Differential Diagnosis Differential Diagnoses: The differential diagnosis associated with the presentation includes Bronchitis /COVID/influenza/pneumonia Admission/Observation Consideration of admission/observation: Escalation of care including admission/observation considered Lab Data [facility] Lab Attestation statement: I reviewed the patient's lab results. Labs: Lab Results 04/14/23 04/14/23 04/15/23 Range/Units 21:38 22:41 00:11 Beta HCG, Quant 5 mIU/mL Urine Color Yellow Urine Appearance Clear Urine pH 8.0 (5.0-9.0) Ur Specific [place] 1.020 (1.005-1.025) Urine Protein Negative (Neg-Trace) mg/dL Urine Glucose (UA) Negative (Negative) mg/dL Urine Ketones Negative (Negative) mg/dL Urine Blood Negative (Negative) Urine Nitrite Negative (Negative) Ur Leukocyte Esterase Negative (Negative) Urine Test NEGATIVE (NEGATIVE) Influenza Type A (PCR) NEGATIVE (Negative) Influenza Type B (PCR) NEGATIVE (Negative) RSV RNA Qual (PCR) NEGATIVE (Negative) SARS-CoV-2 RNA (RT-PCR) NEGATIVE (Negative) S. pyogenes GrpA SAIGE Negative (Negative) Discharge Plan Discharge Clinical Impression: Bronchitis Patient Disposition: Home, Self-Care Instructions: Acute Bronchitis (ED) Additional Instructions: Take albuterol inhaler and prednisone as prescribed Recheck for the in 1 week to confirm if you are Prescriptions: New benzonatate 200 mg capsule 200 mg PO TID PRN (Reason: cough) Qty: 30 0RF prednisone 20 mg tablet 40 mg PO DAILY Qty: 10 0RF albuterol sulfate [ProAir HFA] 90 mcg/actuation HFA aerosol inhaler 2 puff inhalation Q4-6H PRN (Reason: shortness of breath or wheezing) Qty: 8.5 0RF No Action acetaminophen 325 mg Tablet 650 mg PO Q6H PRN (Reason: Pain, Mild (Pain Scale 1-3)) Qty: 30 0RF propylthiouracil 50 mg Tablet 100 mg PO TID Qty: 90 0RF famotidine 20 mg Tablet 20 mg PO BID Qty: 60 0RF propranolol 20 mg Tablet 20 mg PO BID Qty: 60 0RF Protocol: Hold for SBP/HR < HOLD for SBP < : 90 HOLD for HR < : 60 ondansetron HCl (PF) 4 mg/2 mL Solution 4 mg IVPUSH Q8H PRN (Reason: Nausea And Vomiting) Qty: 10 0RF Solu-Cortef Act-O-Vial (PF) 100 mg/2 mL Recon Soln 50 mg IVPUSH Q8H Qty: 10 0RF doxycycline hyclate 100 mg capsule 100 mg PO BID 7 Days Qty: 14 0RF metronidazole 500 mg tablet 500 mg PO BID 7 Days Qty: 14 0RF albuterol sulfate 90 mcg/actuation aerosol powdr breath activated 2 inh inhalation Q4-6H PRN (Reason: shortness of breath or wheezing) Qty: 1 0RF meclizine 25 mg tablet 25 mg PO TID PRN (Reason: dizziness) Qty: 20 0RF ketoconazole 2 % cream 1 appl topical BID 7 Days Qty: 30 0RF prednisone 20 mg tablet 40 mg PO DAILY Qty: 10 0RF diphenhydramine HCl [Benadryl] 25 mg capsule 25 mg PO TID PRN (Reason: itching) Qty: 20 0RF benzonatate 200 mg capsule 200 mg PO TID PRN (Reason: cough) Qty: 30 0RF albuterol sulfate [ProAir HFA] 90 mcg/actuation HFA aerosol inhaler 2 puff inhalation Q4-6H PRN (Reason: shortness of breath or wheezing) Qty: 8.5 0RF prednisone 20 mg tablet 40 mg PO DAILY Qty: 10 0RF metronidazole 500 mg tablet 500 mg PO BID 7 Days Qty: 14 0RF cefuroxime axetil 500 mg tablet 500 mg PO BID 7 Days Qty: 14 0RF Interventions: ED Discharge Assessment Last Done: 04/15/23 01:52 Discharge Date/Time: 04/15/23 01:53
[2023-04-14 23:43] LABS: UPreg QC Valid YES; Urine Pregnancy NEGATIVE (NEGATIVE)
[2023-04-14] MEDS: dexAMETHasone 2 MG TABLET 10 MG PO (23:53)
--- NOTE | 2023-04-15 00:13 | MHC.EDTECH ---
Hcg drawn and sent to lab .
[2023-04-15 00:34] LABS: HCG Quantitative 5 mIU/mL
[2023-04-15 01:07] VITALS: PULSE 115; RESP 17; O2SAT 96
[2023-04-15] MEDS: Albuterol Sulfate 2.5 MG, Albuterol/Iprat 2.5/0.5MG 3 ML 3 ML INHALE (01:07)
[2023-04-15 01:39] VITALS: BP 137/62; PULSE 100; RESP 18; TEMP 36.8; O2SAT 98
== END 2023-04-15 01:53 | disposition home or self-care (01) ==
PROVIDERS: Emergency Provider Internal Medicine
DX: J40 Bronchitis, not specified as acute or chronic (principal); Z20.822 Contact with and (suspected) exposure to COVID-19; Z20.828 Contact with and (suspected) exposure to other viral communicable diseases; R06.2 Wheezing; F12.90 Cannabis use, unspecified, uncomplicated
CPT/HCPCS: 0241U; 36415; 81003; 81025; 84702; 87651; 94640; 99284; J8540

== ENCOUNTER 2023-04-17 22:37 | Emergency (ER) | payer OTHER, SELFPAY ==
--- NOTE | 2023-04-17 | ECG_ITS ---
Test Reason : CHEST PAIN Blood Pressure : / mmHG Vent. Rate : 118 BPM Atrial Rate : 118 BPM P-R Int : 142 ms QRS Dur : 090 ms QT Int : 350 ms P-R-T Axes : 054 050 022 degrees QTc Int : 490 ms Sinus tachycardia Nonspecific ST abnormality Inferior leads RSR' or QR pattern in V1 suggests right ventricular conduction delay Abnormal ECG When compared with ECG of 02-APR-2023 00:17, T wave inversion less evident in Inferior leads T wave amplitude has increased in Anterolateral leads Referred By: Generic ED Physician Electronically Signed By:RICKY CARRANZA MD
[2023-04-17 22:43] VITALS: BP 141/93; PULSE 124; RESP 18; TEMP 36.1; O2SAT 97; BMI 37.3
[2023-04-17 23:06] LABS: Basophils Percent Auto 0.2 % (0-2); Eosinophils Absolute Auto 0.1 X10*3/uL (0.0-0.4); Eosinophils Percent Auto 1.8 % (0-4); Hematocrit 36.1 % (37.0-47.0); Hemoglobin 11.6 g/dl (12.0-16.0); Imm Gran Abs Auto 0.01 X10*3/uL (0.00-0.03); Imm Gran Pct Auto 0.2 % (0.0-0.4); Lymphocytes Absolute Auto 2.3 X10*3/uL (1.2-4.9); Lymphocytes Percent Auto 37.4 % (20-40); MANUAL DIFF FLAG NO; Mean Corpuscular HGB Conc 32.1 g/dl (31.0-35.0); Mean Corpuscular Hemoglobin 26.3 pg (27.0-33.0); Mean Corpuscular Volume 81.9 fL (80.0-98.0); Mean Platelet Volume 9.4 fL (9.4-12.3); Monocytes Absolute Auto 0.6 X10*3/uL (0.1-1.2); Neutrophils Absolute Auto 3.2 x10*3/uL (2.0-8.3); Neutrophils Percent Auto 51.4 % (45-73); Platelet Count 300 X10*3/uL (160-400); Red Blood Count 4.41 X10*6/uL (4.20-5.50); White Blood Count 6.2 X10*3/uL (4.8-10.8)
[2023-04-17 23:19] LABS: Alanine Aminotransferase 31 U/L (0-31); Albumin Level 3.7 g/dL (3.5-5.0); Alkaline Phosphatase 173 U/L (39-117); Anion Gap 12 (12-20); Aspartate Amino Transferase 18 U/L (5-31); Bilirubin Direct < 0.2 mg/dL (0.0-0.5); Bilirubin Total 0.2 mg/dL (0.0-1.0); Blood Urea Nitrogen 11 mg/dL (9-16); Calcium 9.4 mg/dL (8.4-10.2); Carbon Dioxide 28 mmol/L (22-29); Chloride 107 mmol/L (96-108); Creatinine Clr Calc Pharmacy 183.3; Estimated Glomerular Filt Rate > 60; Glucose Random 122 mg/dL (60-115); Lipase 10 U/L (8-78); Potassium 3.6 mmol/L (3.3-5.1); Sodium 143 mmol/L (135-145); Total Protein 6.5 g/dL (6.5-8.0)
[2023-04-18 00:02] VITALS: PULSE 117; RESP 27; TEMP 36.4; O2SAT 98
[2023-04-18 00:10] VITALS: BP 135/70; PULSE 111; RESP 28; TEMP 36.9; O2SAT 99
--- NOTE | 2023-04-18 00:46 | ED_ITS ---
HPI - General Adult General Chief complaint: Abdominal Pain Stated complaint: lower abd pain,congested cough Time Seen by Provider: 04/18/23 00:19 Source: patient Mode of arrival: ambulatory Limitations: no limitations History of Present Illness HPI narrative: Pt is a 22yo female who presents to the ED with chest and abdominal pain. Pt states she was evaluted multiple times for chest pain, SOB, cough, chills, and nausea in the past 2 weeks. She was diagnosed with bronchitis and given an antibiotic and inhaler. Pt notes no relief with either. She says the chest pain is stabbing in quality, located in the center of her chest, and lasts about 5- 10minutes occuring multiple times a day. She notes non-bloody diarrhea for a week. Today the pt began experiencing lower abdominal pain described as a pressure. Pt expresses the possibility she may be and denies vaginal bleeding. Unknown LMP, sexually active, and does not use protection/ control. Related Data Previous Rx's Medication Instructions Recorded acetaminophen 325 mg tablet 650 mg (2 x 325 mg) PO Q6H PRN 03/11/22 Pain, Mild (Pain Scale 1-3) #30 tabs famotidine 20 mg tablet 20 mg PO BID #60 tabs 03/11/22 hydrocortisone sod succ (PF) 100 50 mg IVPUSH Q8H #10 ea 03/11/22 mg/2 mL solution for injection (Solu-Cortef Act-O-Vial (PF)) ondansetron HCl (PF) 4 mg/2 mL 4 mg (2 mL) IVPUSH Q8H PRN Nausea 03/11/22 injection solution And Vomiting #10 mL propranolol 20 mg tablet 20 mg PO BID #60 tabs 03/11/22 propylthiouracil 50 mg tablet 100 mg (2 x 50 mg) PO TID #90 tabs 03/11/22 doxycycline hyclate 100 mg capsule 100 mg PO BID 7 days #14 caps 04/13/22 metronidazole 500 mg tablet 500 mg PO BID 7 days #14 tabs 04/13/22 albuterol sulfate 90 mcg/actuation 2 inh inhalation Q4-6H PRN 08/15/22 breath activated powder inhaler shortness of breath or wheezing #1 ea meclizine 25 mg tablet 25 mg PO TID PRN dizziness #20 tabs 04/12/23 metronidazole 500 mg tablet 500 mg PO BID 7 days #14 tabs 09/04/22 diphenhydramine HCl 25 mg capsule 25 mg PO TID PRN itching #20 caps 09/27/22 (Benadryl) ketoconazole 2 % topical cream 1 appl topical BID 7 days #30 grams 09/27/22 prednisone 20 mg tablet 40 mg (2 x 20 mg) PO DAILY #10 tabs 09/27/22 cefuroxime axetil 500 mg tablet 500 mg PO BID 7 days #14 tabs 03/11/23 albuterol sulfate 90 mcg/actuation 2 puff inhalation Q4-6H PRN 04/02/23 aerosol inhaler (ProAir HFA) shortness of breath or wheezing #8.5 grams benzonatate 200 mg capsule 200 mg PO TID PRN cough #30 caps 04/02/23 prednisone 20 mg tablet 40 mg (2 x 20 mg) PO DAILY #10 tabs 04/02/23 albuterol sulfate 90 mcg/actuation 2 puff inhalation Q4-6H PRN 04/15/23 aerosol inhaler (ProAir HFA) shortness of breath or wheezing #8.5 grams benzonatate 200 mg capsule 200 mg PO TID PRN cough #30 caps 04/15/23 prednisone 20 mg tablet 40 mg (2 x 20 mg) PO DAILY #10 tabs 04/15/23 amoxicillin 875 mg-potassium 1 tab PO BID #14 tabs 04/18/23 clavulanate 125 mg tablet Allergies Allergy/AdvReac Type Severity Reaction Status Date / Time sulfamethoxazole Allergy Intermediate HIVES Verified 09/01/22 20:04 [From BACTRIM] trimethoprim [From BACTRIM] Allergy Intermediate HIVES Verified 09/01/22 20:04 Review of Systems 2 Constitutional: Constitutional: Reports chills, Denies fever(s) and Reports headache(s) Eyes: Eyes: Denies change in vision ENT: Denies dizziness and Reports headache(s) Cardiovascular: Cardiovascular: Reports chest pain, Reports pedal edema and Reports dyspnea Respiratory: Respiratory: Reports chest congestion, Reports cough and Reports dyspnea Gastrointestinal: Gastrointestinal: Denies constipation, Reports diarrhea, Reports nausea and Reports vomiting Genitourinary: Genitourinary: Denies abnormal vaginal bleeding, Reports amenorrhea, Denies hematuria, Denies difficulty voiding, Denies dysuria and Denies vaginal discharge Musculoskeletal: Musculoskeletal: Denies back pain Neurologic: Denies dizziness and Reports headache(s) [facility] Past Medical History Medical History Sheltered homelessness History of depression Tachycardia Hyperthyroidism Surgical History No pertinent past surgical history Family History Family History Mother Multiple sclerosis Father Diabetes Sister No problems noted. Sister ADHD Son No problems noted. 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 Physical Exam ED Vital Signs: Vital Signs - 24 hr 04/17/23 22:43 04/18/23 00:02 04/18/23 00:10 Temperature 97 F 97.6 F 98.4 F Pulse Rate 124 H 117 H 111 H Respiratory Rate 18 27 H 28 H Blood Pressure 141/93 H 135/70 Pulse Oximetry 97 98 99 Oxygen Delivery Method Room Air Room Air Room Air BMI result Body Mass Index 37.3 Const General: cooperative, comfortable, no acute distress, alert and awake Orientation/consciousness: patient oriented x3 Limitations: no limitations [facility] Head: Yes normocephalic and Yes atraumatic Ears: hearing grossly normal bilaterally General nose exam: Normal external nose present Eyes General: appearance normal, both eyes and all related structures Eyelids: Yes eyelids normal Conjunctivae: conjunctivae normal Pupils: Equal, round and reactive pupils present Neck Neck: Yes normal visual inspection Resp Effort & Inspection: normal respiratory effort, able to speak in complete sentences and Actively coughing Auscultation: clear to auscultation bilaterally Cardio Rate: tachycardic Rhythm: regular rhythm Heart sounds: S1 normal heart sound present GI Inspection: Yes normal to inspection Palpation (GI): Soft to palpation, Tenderness to palpation present (GI) (pressure) suprapubicly and no masses Auscultation: normal bowel sounds Neuro General: patient oriented x3, gait normal and moves all extremities Cranial nerves: Yes CN's II-XII intact bilaterally and Yes Equal, round and reactive pupils present Motor exam (neuro): 5/5 motor strength present throughout Medical Decision Making Medical Decision Making [facility] Narrative: 22-year-old female presents for evaluation of cough, congestion and lower abdominal pain. Patient had a serum HCG of 5 3 days ago. Therefore I had initially ordered a chest x-ray but waited until her hCG was back. Her HCG came back at 34 and she is likely in very early stages of . The patient's lungs are clear to auscultation, she is not hypoxic. I have a low suspicion for pneumonia therefore we will hold the chest x-ray. She has no leukocytosis. She has evidence of a UTI and concern for respiratory infection and will treat with Augmentin 875-125 b.i.d. x7 days. As far as her lower abdominal pain goes maybe just related to the versus UTI. I have a low suspicion for ectopic as the patient's pain is generalized across the entire lower abdomen and is nonfocal. She is subjectively tender but there is no guarding or rebound to the lower abdomen. She has close follow-up with OBGYN and was instructed to return for new or worsening symptoms including vaginal bleeding. Differential Diagnosis Differential Diagnoses: The differential diagnosis associated with the presentation includes (intrauterine , community acquired pna, bronchitis, flu, gastroenteritis) Lab Data [facility] Lab Attestation statement: I reviewed the patient's lab results. No leukocytosis, mild anemia. No electrolyte abnormalities. 04/17/23 22:58 04/17/23 22:58 Labs: Lab Results 04/17/23 04/18/23 Range/Units 22:58 00:42 WBC 6.2 (4.8-10.8) X10*3/uL RBC 4.41 (4.20-5.50) X10*6/uL Hgb 11.6 L (12.0-16.0) g/dl Hct 36.1 L (37.0-47.0) % MCV 81.9 (80.0-98.0) fL MCH 26.3 L (27.0-33.0) pg MCHC 32.1 (31.0-35.0) g/dl RDW 13.0 (11.0-16.0) % Plt Count 300 (160-400) X10*3/uL MPV 9.4 (9.4-12.3) fL Immature Gran % (Auto) 0.2 (0.0-0.4) % Neut % (Auto) 51.4 (45-73) % Lymph % (Auto) 37.4 (20-40) % Power % (Auto) 9.0 (2-11) % Eos % (Auto) 1.8 (0-4) % Baso % (Auto) 0.2 (0-2) % Lymph # (Auto) 2.3 (1.2-4.9) X10*3/uL Power # (Auto) 0.6 (0.1-1.2) X10*3/uL Eos # (Auto) 0.1 (0.0-0.4) X10*3/uL Baso # (Auto) 0.0 (0.0-0.2) X10*3/uL Abs Immat Gran (auto) 0.01 (0.00-0.03) X10*3/uL Absolute Neuts (auto) 3.2 (2.0-8.3) x10*3/uL Absolute Nucleated RBC 0.000 (0.0-0.012) X10*3/uL Nucleated RBC % (auto) 0.0 (0.0-0.2) /100WBC Sodium 143 (135-145) mmol/L Potassium 3.6 (3.3-5.1) mmol/L Chloride 107 (96-108) mmol/L Carbon Dioxide 28 (22-29) mmol/L Anion Gap 12 (12-20) BUN 11 (9-16) mg/dL Creatinine 0.51 (0.5-1.4) mg/dL Estim Creat Clear Calc 183.3 Estimated GFR > 60 Random Glucose 122 H (60-115) mg/dL Calcium 9.4 D (8.4-10.2) mg/dL Total Bilirubin 0.2 (0.0-1.0) mg/dL Direct Bilirubin < 0.2 (0.0-0.5) mg/dL AST 18 (5-31) U/L ALT 31 (0-31) U/L Alkaline Phosphatase 173 H (39-117) U/L Total Protein 6.5 (6.5-8.0) g/dL Albumin 3.7 (3.5-5.0) g/dL Lipase 10 (8-78) U/L Beta HCG, Quant 33 mIU/mL Urine Color Yellow Urine Appearance Cloudy Urine pH 6.5 (5.0-9.0) Ur Specific [place] 1.020 (1.005-1.025) Urine Protein Negative (Neg-Trace) mg/dL Urine Glucose (UA) Negative (Negative) mg/dL Urine Ketones Negative (Negative) mg/dL Urine Blood Negative (Negative) Urine Nitrite Negative (Negative) Ur Leukocyte Esterase Moderate (2+) H (Negative) Urine RBC 3-5 H (0-2) /HPF Urine WBC 11-20 H (0-5) /HPF Ur Squamous Epith Cells 11-20 (0-2) /HPF Urine Bacteria 2+ (None Seen) Hyaline Casts 0-2 (0-2) /LPF Discharge Plan Discharge Clinical Impression: at early stage, Cough, UTI (urinary tract infection) Patient Disposition: Home, Self-Care Instructions: (ED), Acute Cough (ED) Additional Instructions: Your home was 34 today. It appears to be increasing appropriately as a few days ago it was only 5 It should increase approximately double every other day. Call your OBGYN tomorrow morning to schedule follow-up Return to the ER for severe lower abdominal pain or vaginal bleeding. In the meantime take Augmentin twice daily for respiratory infection as well as UTI. You should start taking vitamins Use Tylenol for any pain or fevers Prescriptions: New amoxicillin-pot clavulanate 875-125 mg tablet 1 tab PO BID Qty: 14 0RF No Action acetaminophen 325 mg Tablet 650 mg PO Q6H PRN (Reason: Pain, Mild (Pain Scale 1-3)) Qty: 30 0RF propylthiouracil 50 mg Tablet 100 mg PO TID Qty: 90 0RF famotidine 20 mg Tablet 20 mg PO BID Qty: 60 0RF propranolol 20 mg Tablet 20 mg PO BID Qty: 60 0RF Protocol: Hold for SBP/HR < HOLD for SBP < : 90 HOLD for HR < : 60 ondansetron HCl (PF) 4 mg/2 mL Solution 4 mg IVPUSH Q8H PRN (Reason: Nausea And Vomiting) Qty: 10 0RF Solu-Cortef Act-O-Vial (PF) 100 mg/2 mL Recon Soln 50 mg IVPUSH Q8H Qty: 10 0RF doxycycline hyclate 100 mg capsule 100 mg PO BID 7 Days Qty: 14 0RF metronidazole 500 mg tablet 500 mg PO BID 7 Days Qty: 14 0RF albuterol sulfate 90 mcg/actuation aerosol powdr breath activated 2 inh inhalation Q4-6H PRN (Reason: shortness of breath or wheezing) Qty: 1 0RF meclizine 25 mg tablet 25 mg PO TID PRN (Reason: dizziness) Qty: 20 0RF ketoconazole 2 % cream 1 appl topical BID 7 Days Qty: 30 0RF prednisone 20 mg tablet 40 mg PO DAILY Qty: 10 0RF diphenhydramine HCl [Benadryl] 25 mg capsule 25 mg PO TID PRN (Reason: itching) Qty: 20 0RF benzonatate 200 mg capsule 200 mg PO TID PRN (Reason: cough) Qty: 30 0RF albuterol sulfate [ProAir HFA] 90 mcg/actuation HFA aerosol inhaler 2 puff inhalation Q4-6H PRN (Reason: shortness of breath or wheezing) Qty: 8.5 0RF prednisone 20 mg tablet 40 mg PO DAILY Qty: 10 0RF benzonatate 200 mg capsule 200 mg PO TID PRN (Reason: cough) Qty: 30 0RF prednisone 20 mg tablet 40 mg PO DAILY Qty: 10 0RF albuterol sulfate [ProAir HFA] 90 mcg/actuation HFA aerosol inhaler 2 puff inhalation Q4-6H PRN (Reason: shortness of breath or wheezing) Qty: 8.5 0RF metronidazole 500 mg tablet 500 mg PO BID 7 Days Qty: 14 0RF cefuroxime axetil 500 mg tablet 500 mg PO BID 7 Days Qty: 14 0RF
[2023-04-18 00:50] LABS: Appearance Urine Cloudy; Color Urine Yellow; Glucose Urine UA Negative (Negative); Leukocyte Esterase Urine Moderate (2+) (Negative); Nitrite Urine Negative (Negative); PH 6.5 (5.0-9.0); UMIC TRIGGER UACC YES; Urine Blood Negative (Negative); Urine Ketones Negative (Negative); Urine Protein Negative (Neg-Trace)
[2023-04-18 00:55] LABS: Bacteria Urine 2+ (None Seen); Hyaline Casts Urine 0-2 /LPF (0-2); UACC Culture Trigger YES
[2023-04-18 00:58] LABS: HCG Quantitative 33 mIU/mL
[2023-04-18 01:26] LABS: Influenza A PCR NEGATIVE (Negative); Influenza B PCR NEGATIVE (Negative); Resp Syncy Virus RNA Qual PCR NEGATIVE (Negative); SARS COV2 PCR INHOUSE NEGATIVE (Negative)
== END 2023-04-18 01:40 | disposition home or self-care (01) ==
PROVIDERS: Physician Assistant; Emergency Provider Emergency Medicine Emergency Medical Services
DX: O23.41 Unspecified infection of urinary tract in pregnancy, first trimester (principal); N39.0 Urinary tract infection, site not specified; O26.891 Other specified pregnancy related conditions, first trimester; R05.9 Cough, unspecified; Z3A.00 Weeks of gestation of pregnancy not specified; Z20.822 Contact with and (suspected) exposure to COVID-19; Z20.828 Contact with and (suspected) exposure to other viral communicable diseases
CPT/HCPCS: 0241U; 36415; 80048; 80076; 81001; 83690; 84702; 85025; 87086; 93005; 99284; 99285

== ENCOUNTER 2023-04-28 21:53 | Emergency (ER) | payer OTHER, SELFPAY ==
--- NOTE | ~2023-04-28 | US_ITS ---
EXAMINATION: US OBSTETRICAL ULTRASOUND CLINICAL INFORMATION: Pain. COMPARISON: None available. LMP: 03/11/2023. Gestational age by maternal dates is 7 weeks and 0 days. Estimated date of delivery by maternal dates is 12/16/2023. TECHNIQUE: Transabdominal and transvaginal ultrasound performed. FINDINGS: There is a single intrauterine gestational sac with mean sac diameter of 0.34 cm suggesting a 4 week 6 day gestation. No pole currently identified. No yolk sac is seen. There is no significant subchorionic hemorrhage or hematoma. MATERNAL ADNEXA: The right maternal ovary measures 4.2 x 1.7 x 2.3 cm. The left maternal ovary measures 3.2 x 2.1 x 1.2 cm. There is no significant maternal adnexal mass. No maternal pelvic ascites. US/US OB pelvic and transvaginal IMPRESSION: Apparent intrauterine gestational sac with mean sac diameter suggesting a 4 week 6 day gestation. No yolk sac or pole currently seen. Findings likely related to early . Ectopic is not excluded and correlation with quantitative beta-hCG and follow-up needed.
[2023-04-28 22:09] VITALS: BP 133/75; PULSE 114; RESP 20; TEMP 36.9; O2SAT 99; BMI 33.6
[2023-04-28 22:52] LABS: MANUAL DIFF FLAG NO
[2023-04-28 22:53] LABS: Basophils Percent Auto 0.2 % (0-2); Eosinophils Absolute Auto 0.1 X10*3/uL (0.0-0.4); Eosinophils Percent Auto 1.9 % (0-4); Hematocrit 35.8 % (37.0-47.0); Hemoglobin 11.4 g/dl (12.0-16.0); Imm Gran Abs Auto 0.01 X10*3/uL (0.00-0.03); Imm Gran Pct Auto 0.2 % (0.0-0.4); Lymphocytes Absolute Auto 1.8 X10*3/uL (1.2-4.9); Lymphocytes Percent Auto 36.5 % (20-40); Mean Corpuscular HGB Conc 31.8 g/dl (31.0-35.0); Mean Corpuscular Volume 81.5 fL (80.0-98.0); Mean Platelet Volume 9.6 fL (9.4-12.3); Monocytes Absolute Auto 0.5 X10*3/uL (0.1-1.2); Monocytes Percent Auto 9.6 % (2-11); Neutrophils Absolute Auto 2.5 x10*3/uL (2.0-8.3); Neutrophils Percent Auto 51.6 % (45-73); Platelet Count 300 X10*3/uL (160-400); Red Blood Count 4.39 X10*6/uL (4.20-5.50); Red Cell Distribution Width 13.2 % (11.0-16.0); White Blood Count 4.8 X10*3/uL (4.8-10.8)
[2023-04-28 23:12] LABS: Alanine Aminotransferase 31 U/L (0-31); Albumin Level 3.8 g/dL (3.5-5.0); Alkaline Phosphatase 154 U/L (39-117); Anion Gap 12 (12-20); Aspartate Amino Transferase 23 U/L (5-31); Bilirubin Total 0.3 mg/dL (0.0-1.0); Blood Urea Nitrogen 12 mg/dL (9-16); Calcium 9.4 mg/dL (8.4-10.2); Carbon Dioxide 25 mmol/L (22-29); Chloride 109 mmol/L (96-108); Creatinine Clr Calc Pharmacy 204.3; Estimated Glomerular Filt Rate > 60; Glucose Random 119 mg/dL (60-115); Potassium 3.9 mmol/L (3.3-5.1); Sodium 142 mmol/L (135-145); Total Protein 6.5 g/dL (6.5-8.0)
[2023-04-28 23:13] LABS: HCG Quantitative 2021 mIU/mL
[2023-04-29 00:10] VITALS: BP 141/78; PULSE 116; RESP 18; TEMP 37.2; O2SAT 98
--- NOTE | 2023-04-29 01:43 | ED_ITS ---
HPI - General Chief complaint: Abdominal Pain Stated complaint: back and belly pain Time Seen by Provider: 04/29/23 01:34 Source: patient Mode of arrival: ambulatory Limitations: no limitations History of Present Illness HPI Narrative: Patient is a A1 at approximately 6 weeks of gestational age by last menstrual period. Patient comes to the emergency room complaining of abdominal cramping. Patient states that she has been cramping for the last couple of days. Patient concerned because in August of this year, at 6 weeks of gestational age on her 2nd , patient had a spontaneous miscarriage. Patient denies it is vaginal spotting or bleeding. Patient denies hyperemesis. Related Data Previous Rx's Medication Instructions Recorded acetaminophen 325 mg tablet 650 mg (2 x 325 mg) PO Q6H PRN 03/11/22 Pain, Mild (Pain Scale 1-3) #30 tabs famotidine 20 mg tablet 20 mg PO BID #60 tabs 03/11/22 hydrocortisone sod succ (PF) 100 50 mg IVPUSH Q8H #10 ea 03/11/22 mg/2 mL solution for injection (Solu-Cortef Act-O-Vial (PF)) ondansetron HCl (PF) 4 mg/2 mL 4 mg (2 mL) IVPUSH Q8H PRN Nausea 03/11/22 injection solution And Vomiting #10 mL propranolol 20 mg tablet 20 mg PO BID #60 tabs 03/11/22 propylthiouracil 50 mg tablet 100 mg (2 x 50 mg) PO TID #90 tabs 03/11/22 doxycycline hyclate 100 mg capsule 100 mg PO BID 7 days #14 caps 04/13/22 metronidazole 500 mg tablet 500 mg PO BID 7 days #14 tabs 04/13/22 albuterol sulfate 90 mcg/actuation 2 inh inhalation Q4-6H PRN 08/15/22 breath activated powder inhaler shortness of breath or wheezing #1 ea meclizine 25 mg tablet 25 mg PO TID PRN dizziness #20 tabs 09/01/22 metronidazole 500 mg tablet 500 mg PO BID 7 days #14 tabs 09/04/22 diphenhydramine HCl 25 mg capsule 25 mg PO TID PRN itching #20 caps 09/27/22 (Benadryl) ketoconazole 2 % topical cream 1 appl topical BID 7 days #30 grams 09/27/22 prednisone 20 mg tablet 40 mg (2 x 20 mg) PO DAILY #10 tabs 09/27/22 cefuroxime axetil 500 mg tablet 500 mg PO BID 7 days #14 tabs 03/11/23 albuterol sulfate 90 mcg/actuation 2 puff inhalation Q4-6H PRN 04/02/23 aerosol inhaler (ProAir HFA) shortness of breath or wheezing #8.5 grams benzonatate 200 mg capsule 200 mg PO TID PRN cough #30 caps 04/02/23 prednisone 20 mg tablet 40 mg (2 x 20 mg) PO DAILY #10 tabs 04/02/23 albuterol sulfate 90 mcg/actuation 2 puff inhalation Q4-6H PRN 04/15/23 aerosol inhaler (ProAir HFA) shortness of breath or wheezing #8.5 grams benzonatate 200 mg capsule 200 mg PO TID PRN cough #30 caps 04/15/23 prednisone 20 mg tablet 40 mg (2 x 20 mg) PO DAILY #10 tabs 04/15/23 amoxicillin 875 mg-potassium 1 tab PO BID #14 tabs 04/18/23 clavulanate 125 mg tablet nitrofurantoin 100 mg PO Q12H 7 days #14 caps 04/29/23 monohydrate/macrocrystals 100 mg capsule (Macrobid) Allergies Allergy/AdvReac Type Severity Reaction Status Date / Time sulfamethoxazole Allergy Intermediate HIVES Verified 04/28/23 22:09 [From BACTRIM] trimethoprim [From BACTRIM] Allergy Intermediate HIVES Verified 04/28/23 22:09 Review of Systems 2 Review of Systems: Constitutional : No Weight loss, No Fever, No Chills, No Night Sweats, No Fatigue, No Malaise ENT/Mouth : No Hearing loss, No Ear Pain, No Nasal Congestion, No Sinus Pain, No Hoarseness, No sore throat, No Rhinorrhea, No Swallowing Difficulty Eyes: No Eye Pain, No Swelling, No Redness, No Foreign Body, No Discharge, No Vision Changes Cardiovascular : No Chest Pain, No SOB, No Dyspnea on Exertion, No Orthopnea, No Edema, No Palpitations Respiratory : No Cough, No Sputum, No Wheezing, No Smoke Exposure, No Dyspnea Gastrointestinal : No Nausea, No Vomiting, No Diarrhea, No Constipation, complaining of intermittent abdominal cramping, no hematochezia or melena Genitourinary : No spotting or vaginal bleeding, No Dysuria, No Urinary Frequency, No Hematuria, No Urinary Incontinence, No Urgency, No Flank Pain, No Urinary Flow Changes, No Hesitancy Musculoskeletal : No joint pain, No Myalgias, No Joint Swelling Skin : No Skin Lesions, No rash Neuro : No Weakness, No Numbness, No Paresthesias, No Loss of Consciousness, No Dizziness, No Headache Psych : No Anxiety/Panic, No Depression, No SI/HI/AH/VH, No Social Issues, Heme/Lymph: No Bruising, No Bleeding,No Lymphadenopathy Endocrine : No Polyuria, No Polydipsia, No Temperature Intolerance [facility] Past Medical History Medical History Sheltered homelessness History of depression Tachycardia Hyperthyroidism Surgical History No pertinent past surgical history Family History Family History Mother Multiple sclerosis Father Diabetes Sister No problems noted. Sister ADHD Son No problems noted. 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 Oriented X3. No acute distress. Eyes: Pupils equal, round and reactive to light. ENT: Pharynx normal. Neck: Normal inspection. Neck supple. No lymph nodes noted. No crepitus CVS: Normal heart rate and rhythm. Pulses normal. Normal S1 and S2 Respiratory: No respiratory distress. Breath sounds normal. No Wheezing. No rales Abdomen: Soft and nontender. No rigidity. No distention. Skin: Skin warm and dry. Normal skin color. Normal skin turgor. Extremities: No lower extremity edema. No Lacerations. No Rash Neuro: Oriented X 3. No motor deficit. No sensory deficit. Moving all extremities. No slurred speech. CN 2 through 12 grossly intact Psych: calm, cooperative, normal affect Medications Administered Discontinued Medications Generic Name Dose Route Start Last Admin Trade Name Norman PRN Reason Stop Dose Admin Acetaminophen 975 mg 04/29/23 01:45 04/29/23 03:00 Acetaminophen 325 Mg Tablet PO 04/29/23 01:46 975 mg ONCE ONE Administration -my interpretation of labs: White blood cell count within normal limits, normal chemistry, hCG level 2,021 -Ob abdominal/transvaginal ultrasound pending Medical Decision Making Medical Decision Making [facility] Narrative: -I discussed the ultrasound reports with the patient, at this time, based on ultrasound she may be between 4-6 weeks of gestational age, no pole was seen. However, this could be due to early . -patient will need an hCG to be repeated, ideally in the next 48 hours which will be on a Tuesday. Our lab is closed, therefore patient may have to come through the ED to have blood work done for an HCG check. -at this time, patient feeling better after taking Tylenol. Still no vaginal bleeding or spotting. Discussed signs of symptoms of spontaneous with the patient. Patient states that she is aware of those since she had a spontaneous in August of this year. Patient made aware when to return to the emergency room. -patient's urinalysis is positive for UTI. Patient is asymptomatic. However, since patient is , we will go ahead and treat, 1st dose of Macrobid given in the ED Differential Diagnosis Differential Diagnoses: The differential diagnosis associated with the presentation includes (Normal , spontaneous miscarriage) Lab Data [facility] Lab Attestation statement: I reviewed the patient's lab results. 04/28/23 22:48 04/28/23 22:48 Labs: Lab Results 04/28/23 04/29/23 Range/Units 22:48 02:54 WBC 4.8 (4.8-10.8) X10*3/uL RBC 4.39 (4.20-5.50) X10*6/uL Hgb 11.4 L (12.0-16.0) g/dl Hct 35.8 L (37.0-47.0) % MCV 81.5 (80.0-98.0) fL MCH 26.0 L (27.0-33.0) pg MCHC 31.8 (31.0-35.0) g/dl RDW 13.2 (11.0-16.0) % Plt Count 300 (160-400) X10*3/uL MPV 9.6 (9.4-12.3) fL Immature Gran % (Auto) 0.2 (0.0-0.4) % Neut % (Auto) 51.6 (45-73) % Lymph % (Auto) 36.5 (20-40) % [place] % (Auto) 9.6 (2-11) % Eos % (Auto) 1.9 (0-4) % Baso % (Auto) 0.2 (0-2) % Lymph # (Auto) 1.8 (1.2-4.9) X10*3/uL [place] # (Auto) 0.5 (0.1-1.2) X10*3/uL Eos # (Auto) 0.1 (0.0-0.4) X10*3/uL Baso # (Auto) 0.0 (0.0-0.2) X10*3/uL Abs Immat Gran (auto) 0.01 (0.00-0.03) X10*3/uL Absolute Neuts (auto) 2.5 (2.0-8.3) x10*3/uL Absolute Nucleated RBC 0.000 (0.0-0.012) X10*3/uL Nucleated RBC % (auto) 0.0 (0.0-0.2) /100WBC Sodium 142 (135-145) mmol/L Potassium 3.9 (3.3-5.1) mmol/L Chloride 109 H (96-108) mmol/L Carbon Dioxide 25 (22-29) mmol/L Anion Gap 12 (12-20) BUN 12 (9-16) mg/dL Creatinine 0.47 L (0.5-1.4) mg/dL Estim Creat Clear Calc 204.3 Estimated GFR > 60 Random Glucose 119 H (60-115) mg/dL Calcium 9.4 (8.4-10.2) mg/dL Total Bilirubin 0.3 (0.0-1.0) mg/dL AST 23 (5-31) U/L ALT 31 (0-31) U/L Alkaline Phosphatase 154 H (39-117) U/L Total Protein 6.5 (6.5-8.0) g/dL Albumin 3.8 (3.5-5.0) g/dL Beta HCG, Quant 2021 mIU/mL Urine Color Yellow Urine Appearance Clear Urine pH 5.5 (5.0-9.0) Ur Specific [place] 1.025 (1.005-1.025) Urine Protein Negative (Neg-Trace) mg/dL Urine Glucose (UA) Negative (Negative) mg/dL Urine Ketones Negative (Negative) mg/dL Urine Blood Negative (Negative) Urine Nitrite Negative (Negative) Ur Leukocyte Esterase Trace H (Negative) Urine RBC 3-5 H (0-2) /HPF Urine WBC 0-5 (0-5) /HPF Ur Squamous Epith Cells 6-10 (0-2) /HPF Urine Bacteria Trace (None Seen) Hyaline Casts 0-2 (0-2) /LPF Discharge Plan Discharge Clinical Impression: Patient Disposition: Home, Self-Care Instructions: Urinary Tract Infection in (ED) Additional Instructions: Please have your levels (hCG) rechecked in approximately 48 hours which will be April 30 around 23:00 or very early in the morning on May 01. Please follow-up with your primary care physician tomorrow. At that time, the lab will be closed. You may get your labs redone in the emergency room or through your OB [facility]. If you have any worsening or new symptoms, please return to the emergency room or call 911 Prescriptions: New nitrofurantoin monohyd/m-cryst [Macrobid] 100 mg capsule 100 mg PO Q12H 7 Days Qty: 14 0RF Rx Instructions: must administer with a meal/food No Action acetaminophen 325 mg Tablet 650 mg PO Q6H PRN (Reason: Pain, Mild (Pain Scale 1-3)) Qty: 30 0RF propylthiouracil 50 mg Tablet 100 mg PO TID Qty: 90 0RF famotidine 20 mg Tablet 20 mg PO BID Qty: 60 0RF propranolol 20 mg Tablet 20 mg PO BID Qty: 60 0RF Protocol: Hold for SBP/HR < HOLD for SBP < : 90 HOLD for HR < : 60 ondansetron HCl (PF) 4 mg/2 mL Solution 4 mg IVPUSH Q8H PRN (Reason: Nausea And Vomiting) Qty: 10 0RF Solu-Cortef Act-O-Vial (PF) 100 mg/2 mL Recon Soln 50 mg IVPUSH Q8H Qty: 10 0RF doxycycline hyclate 100 mg capsule 100 mg PO BID 7 Days Qty: 14 0RF metronidazole 500 mg tablet 500 mg PO BID 7 Days Qty: 14 0RF albuterol sulfate 90 mcg/actuation aerosol powdr breath activated 2 inh inhalation Q4-6H PRN (Reason: shortness of breath or wheezing) Qty: 1 0RF meclizine 25 mg tablet 25 mg PO TID PRN (Reason: dizziness) Qty: 20 0RF ketoconazole 2 % cream 1 appl topical BID 7 Days Qty: 30 0RF prednisone 20 mg tablet 40 mg PO DAILY Qty: 10 0RF diphenhydramine HCl [Benadryl] 25 mg capsule 25 mg PO TID PRN (Reason: itching) Qty: 20 0RF benzonatate 200 mg capsule 200 mg PO TID PRN (Reason: cough) Qty: 30 0RF albuterol sulfate [ProAir HFA] 90 mcg/actuation HFA aerosol inhaler 2 puff inhalation Q4-6H PRN (Reason: shortness of breath or wheezing) Qty: 8.5 0RF prednisone 20 mg tablet 40 mg PO DAILY Qty: 10 0RF benzonatate 200 mg capsule 200 mg PO TID PRN (Reason: cough) Qty: 30 0RF prednisone 20 mg tablet 40 mg PO DAILY Qty: 10 0RF albuterol sulfate [ProAir HFA] 90 mcg/actuation HFA aerosol inhaler 2 puff inhalation Q4-6H PRN (Reason: shortness of breath or wheezing) Qty: 8.5 0RF amoxicillin-pot clavulanate 875-125 mg tablet 1 tab PO BID Qty: 14 0RF metronidazole 500 mg tablet 500 mg PO BID 7 Days Qty: 14 0RF cefuroxime axetil 500 mg tablet 500 mg PO BID 7 Days Qty: 14 0RF Referrals: Fred Landeros MD [Physician] - 05/02/23
[2023-04-29 02:44] VITALS: BP 118/73; PULSE 104; RESP 17; TEMP 36.8; O2SAT 95
[2023-04-29] MEDS: Acetaminophen 325 MG TABLET 975 MG PO (03:00)
[2023-04-29 03:07] LABS: Appearance Urine Clear; Color Urine Yellow; Glucose Urine UA Negative (Negative); Leukocyte Esterase Urine Trace (Negative); Nitrite Urine Negative (Negative); PH 5.5 (5.0-9.0); Specific Gravity - Urine 1.025 (1.005-1.025); UMIC TRIGGER UACC YES; Urine Blood Negative (Negative); Urine Ketones Negative (Negative); Urine Protein Negative (Neg-Trace)
[2023-04-29 03:14] LABS: Bacteria Urine Trace (None Seen); Hyaline Casts Urine 0-2 /LPF (0-2); WBC Urine 0-5 /HPF (0-5)
[2023-04-29] MEDS: Nitrofurantoin Monohyd/M-Cryst 100 MG CAPSULE PO (05:15)
== END 2023-04-29 05:22 | disposition home or self-care (01) ==
PROVIDERS: Emergency Provider Emergency Medicine
DX: O26.891 Other specified pregnancy related conditions, first trimester (principal); R10.9 Unspecified abdominal pain; O23.41 Unspecified infection of urinary tract in pregnancy, first trimester; N39.0 Urinary tract infection, site not specified; Z3A.01 Less than 8 weeks gestation of pregnancy
CPT/HCPCS: 36415; 76801; 76817; 80053; 81001; 84702; 85025; 99284

== ENCOUNTER 2023-05-04 01:24 | Emergency (ER) | payer OTHER, SELFPAY ==
--- NOTE | 2023-05-04 | ECG_ITS ---
Test Reason : CHEST PAIN Blood Pressure : / mmHG Vent. Rate : 115 BPM Atrial Rate : 115 BPM P-R Int : 142 ms QRS Dur : 092 ms QT Int : 364 ms P-R-T Axes : 044 033 009 degrees QTc Int : 503 ms Sinus tachycardia Possible Left atrial enlargement Borderline ECG When compared with ECG of 17-APR-2023 22:55, No significant change was found Referred By: Generic ED Physician Electronically Signed By:Morgan Engel
[2023-05-04 01:39] VITALS: BP 136/80; PULSE 111; RESP 18; TEMP 36.2; O2SAT 98; BMI 38.7
[2023-05-04 01:42] LABS: MANUAL DIFF FLAG NO
[2023-05-04 01:43] LABS: Basophils Percent Auto 0.2 % (0-2); Eosinophils Absolute Auto 0.1 X10*3/uL (0.0-0.4); Eosinophils Percent Auto 0.9 % (0-4); Hematocrit 35.7 % (37.0-47.0); Hemoglobin 11.6 g/dl (12.0-16.0); Imm Gran Abs Auto 0.01 X10*3/uL (0.00-0.03); Imm Gran Pct Auto 0.2 % (0.0-0.4); Lymphocytes Absolute Auto 1.3 X10*3/uL (1.2-4.9); Lymphocytes Percent Auto 23.7 % (20-40); Mean Corpuscular HGB Conc 32.5 g/dl (31.0-35.0); Mean Corpuscular Hemoglobin 26.6 pg (27.0-33.0); Mean Corpuscular Volume 81.9 fL (80.0-98.0); Mean Platelet Volume 9.4 fL (9.4-12.3); Monocytes Absolute Auto 0.4 X10*3/uL (0.1-1.2); Monocytes Percent Auto 7.4 % (2-11); Neutrophils Absolute Auto 3.7 x10*3/uL (2.0-8.3); Neutrophils Percent Auto 67.6 % (45-73); Platelet Count 289 X10*3/uL (160-400); Red Blood Count 4.36 X10*6/uL (4.20-5.50); Red Cell Distribution Width 13.1 % (11.0-16.0); White Blood Count 5.5 X10*3/uL (4.8-10.8)
[2023-05-04 02:02] LABS: Alanine Aminotransferase 23 U/L (0-31); Albumin Level 3.9 g/dL (3.5-5.0); Alkaline Phosphatase 159 U/L (39-117); Anion Gap 12 (12-20); Aspartate Amino Transferase 15 U/L (5-31); Bilirubin Total 0.2 mg/dL (0.0-1.0); Blood Urea Nitrogen 13 mg/dL (9-16); Calcium 8.7 mg/dL (8.4-10.2); Carbon Dioxide 23 mmol/L (22-29); Chloride 108 mmol/L (96-108); Creatinine Clr Calc Pharmacy 208.5; Estimated Glomerular Filt Rate > 60; Glucose Random 93 mg/dL (60-115); Potassium 3.2 mmol/L (3.3-5.1); Sodium 140 mmol/L (135-145); Total Protein 6.6 g/dL (6.5-8.0)
[2023-05-04 02:19] LABS: Influenza A PCR NEGATIVE (Negative); Influenza B PCR NEGATIVE (Negative); Resp Syncy Virus RNA Qual PCR NEGATIVE (Negative); SARS COV2 PCR INHOUSE NEGATIVE (Negative)
[2023-05-04 02:53] LABS: Troponin-I High Sensitivity < 2.7 ng/L (<3.5-17.0)
[2023-05-04 03:00] LABS: HCG Quantitative 2823 mIU/mL
[2023-05-04 05:58] VITALS: BP 147/85; PULSE 109; RESP 17; O2SAT 98
--- NOTE | 2023-05-04 07:00 | PC.NURSE ---
Assumed care of pt at this time.
[2023-05-04 07:43] VITALS: BP 134/68; PULSE 104; RESP 18; O2SAT 97
--- NOTE | 2023-05-04 08:32 | ED.CHESTPAIN ---
HPI - Chest Pain General Chief Complaint: Chest Pain Stated Complaint: Chest Pain Time Seen by Provider: 05/04/23 07:54 Source: patient Mode of arrival: ambulatory History of Present Illness HPI narrative: 22-year-old female, , previously had preeclampsia with 1st , also reports hypothyroidism for which she is not currently taking medication, she was recently seen here and at that time ultrasound did not demonstrate IUP but she was early. Patient now presents with upper respiratory congestion with associated right-sided chest discomfort. Related Data Previous Rx's Medication Instructions Recorded acetaminophen 325 mg tablet 650 mg (2 x 325 mg) PO Q6H PRN 03/11/22 Pain, Mild (Pain Scale 1-3) #30 tabs famotidine 20 mg tablet 20 mg PO BID #60 tabs 03/11/22 hydrocortisone sod succ (PF) 100 50 mg IVPUSH Q8H #10 ea 03/11/22 mg/2 mL solution for injection (Solu-Cortef Act-O-Vial (PF)) ondansetron HCl (PF) 4 mg/2 mL 4 mg (2 mL) IVPUSH Q8H PRN Nausea 03/11/22 injection solution And Vomiting #10 mL propranolol 20 mg tablet 20 mg PO BID #60 tabs 03/11/22 propylthiouracil 50 mg tablet 100 mg (2 x 50 mg) PO TID #90 tabs 03/11/22 doxycycline hyclate 100 mg capsule 100 mg PO BID 7 days #14 caps 04/13/22 metronidazole 500 mg tablet 500 mg PO BID 7 days #14 tabs 04/13/22 albuterol sulfate 90 mcg/actuation 2 inh inhalation Q4-6H PRN 08/15/22 breath activated powder inhaler shortness of breath or wheezing #1 ea meclizine 25 mg tablet 25 mg PO TID PRN dizziness #20 tabs 09/01/22 metronidazole 500 mg tablet 500 mg PO BID 7 days #14 tabs 09/04/22 diphenhydramine HCl 25 mg capsule 25 mg PO TID PRN itching #20 caps 09/27/22 (Benadryl) ketoconazole 2 % topical cream 1 appl topical BID 7 days #30 grams 09/27/22 prednisone 20 mg tablet 40 mg (2 x 20 mg) PO DAILY #10 tabs 09/27/22 cefuroxime axetil 500 mg tablet 500 mg PO BID 7 days #14 tabs 03/11/23 albuterol sulfate 90 mcg/actuation 2 puff inhalation Q4-6H PRN 04/02/23 aerosol inhaler (ProAir HFA) shortness of breath or wheezing #8.5 grams benzonatate 200 mg capsule 200 mg PO TID PRN cough #30 caps 04/02/23 prednisone 20 mg tablet 40 mg (2 x 20 mg) PO DAILY #10 tabs 04/02/23 albuterol sulfate 90 mcg/actuation 2 puff inhalation Q4-6H PRN 04/15/23 aerosol inhaler (ProAir HFA) shortness of breath or wheezing #8.5 grams benzonatate 200 mg capsule 200 mg PO TID PRN cough #30 caps 04/15/23 prednisone 20 mg tablet 40 mg (2 x 20 mg) PO DAILY #10 tabs 04/15/23 amoxicillin 875 mg-potassium 1 tab PO BID #14 tabs 04/18/23 clavulanate 125 mg tablet nitrofurantoin 100 mg PO Q12H 7 days #14 caps 04/29/23 monohydrate/macrocrystals 100 mg capsule (Macrobid) Allergies Allergy/AdvReac Type Severity Reaction Status Date / Time sulfamethoxazole Allergy Intermediate HIVES Verified 05/04/23 01:39 [From BACTRIM] trimethoprim [From BACTRIM] Allergy Intermediate HIVES Verified 05/04/23 01:39 Review of Systems Review of Systems: Pertinent positives and negatives as stated in [facility] Past Medical History Source: nursing notes reviewed Medical History Sheltered homelessness History of depression Tachycardia Hyperthyroidism Surgical History No pertinent past surgical history Family History Family History Mother Multiple sclerosis Father Diabetes Sister No problems noted. Sister ADHD Son No problems noted. 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 GENERAL: Well developed, well nourished, in no acute distress. HEAD: Normocephalic/atraumatic, EYES: PERRLA, EOMI intact without pain, no nystagmus/pallor/icterus noted EARS: Ext canals without abnormality, TMs non-bulging and non-erythematous NOSE: Nares patent bilateral OROPHARYNX: no oral lesions noted, posterior pharynx clear and non-erythematous without noted tonsillar enlargement/erythema/exudates NECK: Supple, no adenopathy LUNGS: Normal breath sounds. No adventitious sounds or accessory muscle use. SpO2<97> CARDIOVASCULAR: Tachycardic rate and rhythm without noted murmurs, no JVD or lower extremity edema. ABDOMEN: Soft, non-tender, non-distended with bowel sounds. MUSCULOSKELETAL: No tenderness, deformities, or effusions noted on gross inspection. EXTREMITIES: No cyanosis, clubbing or edema. SKIN: Inspection of the skin reveals no rashes NEUROLOGIC: Alert and oriented x 4. Strength and sensation to light touch were grossly intact x 4. Medical Decision Making Medical Decision Making MDM Narrative: 22-year-old female with history and clinical presentation, DDX: Viral illness, doubt pneumonia as patient is afebrile, patient is chronically tachycardic, patient is currently being treated for UTI. I reviewed all investigations and hematologic indices are negative leukocytosis or left shift, there is a stable/chronic normocytic anemia and no thrombocytopenia. D-dimer undetectable. Chemistry indices do not demonstrate an ENEDINA and there is a mild hypokalemia and patient will receive 40 mEq of potassium chloride. Otherwise, there your no liver enzyme derangements and troponin high sensitivity is undetectable. Beta hCG -2823. Urinalysis negative for hematuria or infection. I reviewed the microbiology report which does not describe any culture growth and patient will be instructed to stop the antibiotics. She is strongly encouraged to follow-up with her warehouse operations associate. Viral testing is negative for influenza/COVID/RSV. Differential Diagnosis Differential Diagnoses: The differential diagnosis associated with the presentation includes Please see the discussion above Admission/Observation Consideration of admission/observation: Escalation of care including admission/observation considered Please see the discussion above Lab Data MDM Lab Attestation statement: I reviewed the patient's lab results. Please see the discussion above 05/04/23 01:36 05/04/23 01:36 Labs: Lab Results 05/04/23 05/04/23 05/04/23 Range/Units 01:36 08:47 09:36 WBC 5.5 (4.8-10.8) X10*3/uL RBC 4.36 (4.20-5.50) X10*6/uL Hgb 11.6 L (12.0-16.0) g/dl Hct 35.7 L (37.0-47.0) % MCV 81.9 (80.0-98.0) fL MCH 26.6 L (27.0-33.0) pg MCHC 32.5 (31.0-35.0) g/dl RDW 13.1 (11.0-16.0) % Plt Count 289 (160-400) X10*3/uL MPV 9.4 (9.4-12.3) fL Immature Gran % (Auto) 0.2 (0.0-0.4) % Neut % (Auto) 67.6 (45-73) % Lymph % (Auto) 23.7 (20-40) % [place] % (Auto) 7.4 (2-11) % Eos % (Auto) 0.9 (0-4) % Baso % (Auto) 0.2 (0-2) % Lymph # (Auto) 1.3 (1.2-4.9) X10*3/uL [place] # (Auto) 0.4 (0.1-1.2) X10*3/uL Eos # (Auto) 0.1 (0.0-0.4) X10*3/uL Baso # (Auto) 0.0 (0.0-0.2) X10*3/uL Abs Immat Gran (auto) 0.01 (0.00-0.03) X10*3/uL Absolute Neuts (auto) 3.7 (2.0-8.3) x10*3/uL Absolute Nucleated RBC 0.000 (0.0-0.012) X10*3/uL Nucleated RBC % (auto) 0.0 (0.0-0.2) /100WBC D-Dimer High Sensitivty < 150 NG/ML Sodium 140 (135-145) mmol/L Potassium 3.2 L (3.3-5.1) mmol/L Chloride 108 (96-108) mmol/L Carbon Dioxide 23 (22-29) mmol/L Anion Gap 12 (12-20) BUN 13 (9-16) mg/dL Creatinine 0.44 L (0.5-1.4) mg/dL Estim Creat Clear Calc 208.5 Estimated GFR > 60 Random Glucose 93 (60-115) mg/dL Calcium 8.7 D (8.4-10.2) mg/dL Total Bilirubin 0.2 (0.0-1.0) mg/dL AST 15 (5-31) U/L ALT 23 (0-31) U/L Alkaline Phosphatase 159 H (39-117) U/L Troponin I High Sens < 2.7 (<3.5-17.0) ng/L Total Protein 6.6 (6.5-8.0) g/dL Albumin 3.9 (3.5-5.0) g/dL Beta HCG, Quant 2823 mIU/mL Urine Color Yellow Urine Appearance Clear Urine pH 5.5 (5.0-9.0) Ur Specific [place] 1.020 (1.005-1.025) Urine Protein Negative (Neg-Trace) mg/dL Urine Glucose (UA) Negative (Negative) mg/dL Urine Ketones Negative (Negative) mg/dL Urine Blood Negative (Negative) Urine Nitrite Negative (Negative) Ur Leukocyte Esterase Negative (Negative) Influenza Type A (PCR) NEGATIVE (Negative) Influenza Type B (PCR) NEGATIVE (Negative) RSV RNA Qual (PCR) NEGATIVE (Negative) SARS-CoV-2 RNA (RT-PCR) NEGATIVE (Negative) Independent Interpretation I performed an independent interpretation of an: EKG Interpretation: Sinus tachycardia, HR-115, no STEMI, NC/QRS within normal limits, QTC prolonged, chronically tachycardic External Record Review External record reviewed: Outpatient record, Prior outpatient labs and Prior outpatient radiology Discharge Plan Discharge Clinical Impression: , Atypical chest pain, Viral illness Patient Disposition: Home, Self-Care Instructions: (ED), Viral Syndrome (ED) Additional Instructions: 1. Continue stay well hydrated, utilize [id number] Tylenol for any musculoskeletal discomfort. 2. Please follow-up with your primary care doctor in the next 1-2 days. Call your warehouse operations associate today. Return to the ER for any worsening symptoms. Prescriptions: No Action acetaminophen 325 mg Tablet 650 mg PO Q6H PRN (Reason: Pain, Mild (Pain Scale 1-3)) Qty: 30 0RF propylthiouracil 50 mg Tablet 100 mg PO TID Qty: 90 0RF famotidine 20 mg Tablet 20 mg PO BID Qty: 60 0RF propranolol 20 mg Tablet 20 mg PO BID Qty: 60 0RF Protocol: Hold for SBP/HR < HOLD for SBP < : 90 HOLD for HR < : 60 ondansetron HCl (PF) 4 mg/2 mL Solution 4 mg IVPUSH Q8H PRN (Reason: Nausea And Vomiting) Qty: 10 0RF Solu-Cortef Act-O-Vial (PF) 100 mg/2 mL Recon Soln 50 mg IVPUSH Q8H Qty: 10 0RF doxycycline hyclate 100 mg capsule 100 mg PO BID 7 Days Qty: 14 0RF metronidazole 500 mg tablet 500 mg PO BID 7 Days Qty: 14 0RF albuterol sulfate 90 mcg/actuation aerosol powdr breath activated 2 inh inhalation Q4-6H PRN (Reason: shortness of breath or wheezing) Qty: 1 0RF meclizine 25 mg tablet 25 mg PO TID PRN (Reason: dizziness) Qty: 20 0RF ketoconazole 2 % cream 1 appl topical BID 7 Days Qty: 30 0RF prednisone 20 mg tablet 40 mg PO DAILY Qty: 10 0RF diphenhydramine HCl [Benadryl] 25 mg capsule 25 mg PO TID PRN (Reason: itching) Qty: 20 0RF benzonatate 200 mg capsule 200 mg PO TID PRN (Reason: cough) Qty: 30 0RF albuterol sulfate [ProAir HFA] 90 mcg/actuation HFA aerosol inhaler 2 puff inhalation Q4-6H PRN (Reason: shortness of breath or wheezing) Qty: 8.5 0RF prednisone 20 mg tablet 40 mg PO DAILY Qty: 10 0RF benzonatate 200 mg capsule 200 mg PO TID PRN (Reason: cough) Qty: 30 0RF prednisone 20 mg tablet 40 mg PO DAILY Qty: 10 0RF albuterol sulfate [ProAir HFA] 90 mcg/actuation HFA aerosol inhaler 2 puff inhalation Q4-6H PRN (Reason: shortness of breath or wheezing) Qty: 8.5 0RF amoxicillin-pot clavulanate 875-125 mg tablet 1 tab PO BID Qty: 14 0RF nitrofurantoin monohyd/m-cryst [Macrobid] 100 mg capsule 100 mg PO Q12H 7 Days Qty: 14 0RF Rx Instructions: must administer with a meal/food metronidazole 500 mg tablet 500 mg PO BID 7 Days Qty: 14 0RF cefuroxime axetil 500 mg tablet 500 mg PO BID 7 Days Qty: 14 0RF
[2023-05-04 08:59] LABS: D Dimer High Sensitivity < 150 NG/ML
[2023-05-04 09:46] LABS: Appearance Urine Clear; Color Urine Yellow; Glucose Urine UA Negative (Negative); Leukocyte Esterase Urine Negative (Negative); Nitrite Urine Negative (Negative); PH 5.5 (5.0-9.0); Urine Blood Negative (Negative); Urine Ketones Negative (Negative); Urine Protein Negative (Neg-Trace)
[2023-05-04 10:21] VITALS: BP 129/77; PULSE 116; RESP 21; O2SAT 95
== END 2023-05-04 10:40 | disposition home or self-care (01) ==
PROVIDERS: Emergency Provider Student in an Organized Health Care Education/Training Program
DX: O98.519 Other viral diseases complicating pregnancy, unspecified trimester (principal); R07.89 Other chest pain; Z3A.00 Weeks of gestation of pregnancy not specified; Z20.822 Contact with and (suspected) exposure to COVID-19; Z20.828 Contact with and (suspected) exposure to other viral communicable diseases
CPT/HCPCS: 0241U; 36415; 80053; 81003; 84484; 84702; 85025; 85379; 93005; 99283; 99285

== ENCOUNTER → 2023-05-04 01:31 | Outpatient (BNV) | payer OTHER, SELFPAY | PROVIDERS: Emergency Provider Student in an Organized Health Care Education/Training Program; Visit Provider Internal Medicine Cardiovascular Disease | DX: R00.0 Tachycardia, unspecified (principal); R07.9 Chest pain, unspecified | CPT/HCPCS: 93010 ==

== ENCOUNTER 2023-05-08 19:36 | Emergency (ER) | payer OTHER, SELFPAY ==
--- NOTE | ~2023-05-08 | US_ITS ---
EXAMINATION: US OBSTETRICAL ULTRASOUND CLINICAL INFORMATION: Positive early . Bleeding with clots. Decreasing quantitative beta hCG values. COMPARISON: 04/29/2023 LMP: 03/11/2023. Gestational age by maternal dates is 8 weeks 2 days. Estimated date of delivery by maternal dates is 12/16/2023. Gestational age by maternal dates is 6 weeks 2 days. TECHNIQUE: Ultrasound of the maternal pelvis is performed using transabdominal and transvaginal transducers. Transvaginal imaging is performed due to inadequate visualization transabdominally. M-mode Doppler is also performed. FINDINGS: Within the the endometrial canal along the lower uterine segment and cervix, there is a rounded cystic focus which may correspond to a small gestational sac, measuring 5 x 3 x 3 mm, not significantly changed in size as compared to the prior ultrasound from 04/29/2023. No appreciable pole. No yolk sac or heart rate. There is additional debris is evident within the endometrium. There is endometrial thickening at the body. Uterus measures 7.4 x 4 x 5.3 cm (longitudinal by AP by transverse). MATERNAL ADNEXA: The right maternal ovary measures 3.3 x 1.9 x 1.2 cm. A 2 cm corpus luteum is present. No suspicious abnormalities. The left maternal ovary measures 3 x 1.1 x 1.9 cm. No cysts. There is no significant maternal adnexal mass. Trace fluid in the cul-de-sac. US/US OB pelvic and transvaginal IMPRESSION: A 5 mm cystic focus within the endometrial canal in the lower uterine segment and cervix may correspond to the previously seen gestational sac. As this is not significantly changed in size since the prior study and is now situated in the cervix, findings are consistent with a failed . No other gestational sacs are identified.
[2023-05-08 19:47] VITALS: BP 148/79; PULSE 113; RESP 20; TEMP 36.1; O2SAT 98; BMI 37.8
[2023-05-08 20:05] LABS: MANUAL DIFF FLAG NO
[2023-05-08 20:08] LABS: UPreg QC Valid YES; Urine Pregnancy POSITIVE (NEGATIVE)
[2023-05-08 20:10] LABS: Appearance Urine Cloudy; Color Urine Dark Yellow; Glucose Urine UA Negative (Negative); Leukocyte Esterase Urine Small (1+) (Negative); Nitrite Urine Negative (Negative); PH 5.5 (5.0-9.0); Specific Gravity - Urine 1.025 (1.005-1.025); UMIC TRIGGER UACC YES; Urine Blood Large (3+) (Negative); Urine Ketones Trace mg/dL (Negative); Urine Protein 100 (2+) mg/dL (Neg-Trace)
[2023-05-08 20:11] LABS: Basophils Percent Auto 0.2 % (0-2); Eosinophils Absolute Auto 0.1 X10*3/uL (0.0-0.4); Eosinophils Percent Auto 1.5 % (0-4); Hematocrit 36.1 % (37.0-47.0); Imm Gran Abs Auto 0.01 X10*3/uL (0.00-0.03); Imm Gran Pct Auto 0.2 % (0.0-0.4); Lymphocytes Absolute Auto 1.4 X10*3/uL (1.2-4.9); Lymphocytes Percent Auto 24.8 % (20-40); Mean Corpuscular HGB Conc 33.2 g/dl (31.0-35.0); Mean Corpuscular Volume 81.1 fL (80.0-98.0); Mean Platelet Volume 9.6 fL (9.4-12.3); Monocytes Absolute Auto 0.4 X10*3/uL (0.1-1.2); Neutrophils Absolute Auto 3.6 x10*3/uL (2.0-8.3); Neutrophils Percent Auto 65.3 % (45-73); Platelet Count 306 X10*3/uL (160-400); Red Blood Count 4.45 X10*6/uL (4.20-5.50); Red Cell Distribution Width 13.1 % (11.0-16.0); White Blood Count 5.5 X10*3/uL (4.8-10.8)
[2023-05-08 20:12] LABS: Bacteria Urine 1+ (None Seen); Hyaline Casts Urine 0-2 /LPF (0-2); RBC Urine >20 /HPF (0-2); UACC Culture Trigger YES
[2023-05-08 20:30] LABS: Alanine Aminotransferase 25 U/L (0-31); Albumin Level 3.9 g/dL (3.5-5.0); Alkaline Phosphatase 172 U/L (39-117); Anion Gap 14 (12-20); Aspartate Amino Transferase 19 U/L (5-31); Bilirubin Total 0.3 mg/dL (0.0-1.0); Blood Urea Nitrogen 10 mg/dL (9-16); Carbon Dioxide 23 mmol/L (22-29); Chloride 110 mmol/L (96-108); Creatinine Clr Calc Pharmacy 177.4; Estimated Glomerular Filt Rate > 60; Glucose Random 112 mg/dL (60-115); Potassium 3.6 mmol/L (3.3-5.1); Sodium 143 mmol/L (135-145); Total Protein 6.7 g/dL (6.5-8.0)
[2023-05-08 20:31] LABS: HCG Quantitative 2111 mIU/mL
--- NOTE | 2023-05-08 22:31 | PC.NURSE ---
this rn assumed care of pt. pt reports on tuesday she began spotting and then reports today blood increased. pt reports changing pad once every half hour with medium amount of red blood. pt reports passing medium size blood clot in waiting room. pt reports being 6 weeks at this time. pt reports intermittent lower abdominal cramping. pt reports seeing OB at beginning of . pt reports taking prenatals.
--- NOTE | 2023-05-08 22:36 | ED.PREGNANCY ---
HPI - General Chief complaint: Vaginal Bleeding Stated complaint: 6WKS preg and bleeding Time Seen by Provider: 05/08/23 22:31 Source: patient, RN notes reviewed and old records reviewed Mode of arrival: ambulatory History of Present Illness HPI Narrative: 22-year-old female at about 5 weeks gestation presenting to the ED complaining of vaginal spotting x5 days which progressed to passing clots and lower abdominal cramping x today. Patient reports associated lightheadedness. Patient was recently seen and treated in our ED on 04/29 for similar symptoms, had ultrasound at that time suggestive of early . Patient was seen again in our ED on 05/04 for unrelated symptoms, has yet to follow-up with OBGYN. Admits to prior miscarriage in August. Denies vaginal discharge, fever, vomiting, diarrhea. MD Complaint: vaginal bleeding Related Data Previous Rx's Medication Instructions Recorded acetaminophen 325 mg tablet 650 mg (2 x 325 mg) PO Q6H PRN 03/11/22 Pain, Mild (Pain Scale 1-3) #30 tabs famotidine 20 mg tablet 20 mg PO BID #60 tabs 03/11/22 hydrocortisone sod succ (PF) 100 50 mg IVPUSH Q8H #10 ea 03/11/22 mg/2 mL solution for injection (Solu-Cortef Act-O-Vial (PF)) ondansetron HCl (PF) 4 mg/2 mL 4 mg (2 mL) IVPUSH Q8H PRN Nausea 03/11/22 injection solution And Vomiting #10 mL propranolol 20 mg tablet 20 mg PO BID #60 tabs 03/11/22 propylthiouracil 50 mg tablet 100 mg (2 x 50 mg) PO TID #90 tabs 03/11/22 doxycycline hyclate 100 mg capsule 100 mg PO BID 7 days #14 caps 04/13/22 metronidazole 500 mg tablet 500 mg PO BID 7 days #14 tabs 04/13/22 albuterol sulfate 90 mcg/actuation 2 inh inhalation Q4-6H PRN 08/15/22 breath activated powder inhaler shortness of breath or wheezing #1 ea meclizine 25 mg tablet 25 mg PO TID PRN dizziness #20 tabs 09/01/22 metronidazole 500 mg tablet 500 mg PO BID 7 days #14 tabs 09/04/22 diphenhydramine HCl 25 mg capsule 25 mg PO TID PRN itching #20 caps 09/27/22 (Benadryl) ketoconazole 2 % topical cream 1 appl topical BID 7 days #30 grams 09/27/22 prednisone 20 mg tablet 40 mg (2 x 20 mg) PO DAILY #10 tabs 09/27/22 cefuroxime axetil 500 mg tablet 500 mg PO BID 7 days #14 tabs 03/11/23 albuterol sulfate 90 mcg/actuation 2 puff inhalation Q4-6H PRN 04/02/23 aerosol inhaler (ProAir HFA) shortness of breath or wheezing #8.5 grams benzonatate 200 mg capsule 200 mg PO TID PRN cough #30 caps 04/02/23 prednisone 20 mg tablet 40 mg (2 x 20 mg) PO DAILY #10 tabs 04/02/23 albuterol sulfate 90 mcg/actuation 2 puff inhalation Q4-6H PRN 04/15/23 aerosol inhaler (ProAir HFA) shortness of breath or wheezing #8.5 grams benzonatate 200 mg capsule 200 mg PO TID PRN cough #30 caps 04/15/23 prednisone 20 mg tablet 40 mg (2 x 20 mg) PO DAILY #10 tabs 04/15/23 amoxicillin 875 mg-potassium 1 tab PO BID #14 tabs 04/18/23 clavulanate 125 mg tablet nitrofurantoin 100 mg PO Q12H 7 days #14 caps 04/29/23 monohydrate/macrocrystals 100 mg capsule (Macrobid) nitrofurantoin 100 mg PO Q12H 7 days #14 caps 05/09/23 monohydrate/macrocrystals 100 mg capsule (Macrobid) Allergies Allergy/AdvReac Type Severity Reaction Status Date / Time sulfamethoxazole Allergy Intermediate HIVES Verified 05/04/23 01:39 [From BACTRIM] trimethoprim [From BACTRIM] Allergy Intermediate HIVES Verified 05/04/23 01:39 Review of Systems Review of Systems: Constitutional: No Fever, No Chills, No Fatigue, No Malaise ENT/Mouth: No Ear Pain, No Nasal Congestion, No sore throat, No Rhinorrhea, No Swallowing Difficulty Eyes: No Eye Pain, No Swelling, No Redness, No Vision Changes Cardiovascular: No Chest Pain, No SOB, No Edema, No Palpitations Respiratory: No Cough, No Sputum, No Dyspnea Gastrointestinal: +Nausea, No Vomiting, No Diarrhea, No Constipation, + Abdominal pain Genitourinary: +irregular bleeding, No Dysuria, No Urinary Frequency, No Hematuria, No Urinary Incontinence/retention, No Flank Pain Musculoskeletal: No joint pain, No Myalgias, No Joint Swelling Skin: No Skin Lesions, No rash Neuro: No Weakness, + lightheaded, No Headache Yes all other systems are reviewed and are negative Constitutional: Constitutional: Reports as per [facility] Past Medical History Attestation statement: The following information was validated with the patient. Source: old records reviewed Medical History Sheltered homelessness History of depression Tachycardia Hyperthyroidism Surgical History No pertinent past surgical history Family History Family History Mother Multiple sclerosis Father Diabetes Sister No problems noted. Sister ADHD Son No problems noted. 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 Physical Exam Vital Signs: Vital Signs: Last Vital Signs Temp 98.2 F 05/09/23 01:20 Pulse 109 H 05/09/23 01:20 Resp 16 05/09/23 01:20 BP 128/66 05/09/23 01:20 Pulse Ox 98 05/09/23 01:20 O2 Del Method Room Air 05/09/23 01:20 BMI result Body Mass Index 37.8 Const: General: cooperative, healthy appearing and no acute distress Orientation/consciousness: patient oriented x3 Limitations: no limitations HEENT: Head: Yes normal to inspection and Yes atraumatic Ears: hearing grossly normal bilaterally General nose exam: Normal external nose present Face and sinus: Yes normal facial exam Eyes: General: appearance normal, both eyes and all related structures EOM: EOMs intact bilaterally Neck: Neck: Yes normal visual inspection and Yes no meningeal signs Resp: Effort & Inspection: normal respiratory effort and no respiratory distress Auscultation: clear to auscultation bilaterally Cardio: Rate: regular rate Heart sounds: S1 normal heart sound present and S2 normal heart sound present GI: Inspection: Yes normal to inspection Palpation (GI): Soft to palpation, Tenderness to palpation present (GI) suprapubicly, no guarding and not rigid : Other: Bleeding/clots noted from cervical os, cleared with Q-tip, no active extravasation/hemorrhage. + bilateral adnexal tenderness. No appreciable mass General: Yes no CVA tenderness Speculum Exam - Vagina: vaginal bleeding Speculum Exam - Cervix: Cervical os open Bimanual exam- vagina & uterus: no cervical motion tenderness Bimanual Exam- Adnexa, other: tender bilaterally OB/external & speculum: Cervical os open and vaginal bleeding Back/Spine/Pelvis: Back: no CVA tenderness Skin: Rashes: no rashes Wounds: no wounds Neuro: General: patient oriented x3, tone normal and no meningeal signs Cranial nerves: Yes CN's II-XII intact bilaterally Gait exam (Neuro): Normal gait present Extrem: General: Yes normal to inspection Course Course Course Narrative: -2311--no leukocytosis. H&H stable. Labs otherwise reassuring. -hCG down trending, 2111 today, 2823 on 05/04 -UA contaminated however with evidence of infection > will try to obtain repeat clean-catch 0120--US OB pelvic and transvaginal IMPRESSION: A 5 mm cystic focus within the endometrial canal in the lower uterine segment and cervix may correspond to the previously seen gestational sac. As this is not significantly changed in size since the prior study and is now situated in the cervix, findings are consistent with a failed . No other gestational sacs are identified. > consulted OBGYNDr. Landeros who recommends if bleeding slowed, no evidence of active bleeding on pelvic exam, and if patient hemodynamically stable can follow-up outpatient with strict incomplete return precautions and to ome back with any bleeding. -patient's H&H stable. Bleeding has slowed since ED arrival. No evidence of active hemorrhage on pelvic exam. Vitals are stable > Tachycardia improving. Patient with chronic tachycardia VS reviewed from prior visits, low concern for anemia/hemodynamic instability >>discussed with patient including worrisome signs and symptoms and strict return precautions, and when to return to the emergency department. They verbalized understanding and feel safe for discharge at this time. Medications Administered Discontinued Medications Generic Name Dose Route Start Last Admin Trade Name Freq PRN Reason Stop Dose Admin Sodium Chloride 1,000 mls @ 999 mls/hr 05/08/23 22:45 05/09/23 01:17 Ns IV 05/08/23 23:45 Infused .Q1H1M NAVEED Infusion Medical Decision Making Medical Decision Making MDM Narrative: 22-year-old female at about 5 weeks gestation presenting to the ED complaining of vaginal spotting x5 days which progressed to passing clots and lower abdominal cramping x today. On exam tachycardic, anxious/tearful, abdomen soft with suprapubic tenderness, on pelvic exam vaginal bleeding/clots noted from Os, Os appears open with bilateral adnexal tenderness. Concern for early vs threatened/missed vs ectopic. Lower suspicion for TOA, appendicitis/diverticulitis. Rule out anemia Plan: Labs, UA, STI testing, pelvic ultrasound, orthostatics, re-evaluate Please refer to course for remaining clinical decision making, interpretation of labs/imaging results, and discussions with consultants and/or family members. Differential Diagnosis Differential Diagnoses: The differential diagnosis associated with the presentation includes As above Admission/Observation Consideration of admission/observation: Escalation of care including admission/observation considered Lab Data [facility] Lab Attestation statement: I reviewed the patient's lab results. 05/08/23 20:01 05/08/23 20:01 Labs: Lab Results 05/08/23 05/08/23 Range/Units 20:01 23:09 WBC 5.5 (4.8-10.8) X10*3/uL RBC 4.45 (4.20-5.50) X10*6/uL Hgb 12.0 (12.0-16.0) g/dl Hct 36.1 L (37.0-47.0) % MCV 81.1 (80.0-98.0) fL MCH 27.0 (27.0-33.0) pg MCHC 33.2 (31.0-35.0) g/dl RDW 13.1 (11.0-16.0) % Plt Count 306 (160-400) X10*3/uL MPV 9.6 (9.4-12.3) fL Immature Gran % (Auto) 0.2 (0.0-0.4) % Neut % (Auto) 65.3 (45-73) % Lymph % (Auto) 24.8 (20-40) % Winn % (Auto) 8.0 (2-11) % Eos % (Auto) 1.5 (0-4) % Baso % (Auto) 0.2 (0-2) % Lymph # (Auto) 1.4 (1.2-4.9) X10*3/uL Winn # (Auto) 0.4 (0.1-1.2) X10*3/uL Eos # (Auto) 0.1 (0.0-0.4) X10*3/uL Baso # (Auto) 0.0 (0.0-0.2) X10*3/uL Abs Immat Gran (auto) 0.01 (0.00-0.03) X10*3/uL Absolute Neuts (auto) 3.6 (2.0-8.3) x10*3/uL Absolute Nucleated RBC 0.000 (0.0-0.012) X10*3/uL Nucleated RBC % (auto) 0.0 (0.0-0.2) /100WBC Sodium 143 (135-145) mmol/L Potassium 3.6 (3.3-5.1) mmol/L Chloride 110 H (96-108) mmol/L Carbon Dioxide 23 (22-29) mmol/L Anion Gap 14 (12-20) BUN 10 (9-16) mg/dL Creatinine 0.51 (0.5-1.4) mg/dL Estim Creat Clear Calc 177.4 Estimated GFR > 60 Random Glucose 112 (60-115) mg/dL Calcium 9.0 (8.4-10.2) mg/dL Magnesium 1.8 (1.6-2.6) mg/dL Total Bilirubin 0.3 (0.0-1.0) mg/dL AST 19 (5-31) U/L ALT 25 (0-31) U/L Alkaline Phosphatase 172 H (39-117) U/L Total Protein 6.7 (6.5-8.0) g/dL Albumin 3.9 (3.5-5.0) g/dL Lipase 7 L (8-78) U/L Beta HCG, Quant 2111 mIU/mL Urine Color Dark Yellow Urine Appearance Cloudy Urine pH 5.5 (5.0-9.0) Ur Specific [place] 1.025 (1.005-1.025) Urine Protein 100 (2+) H (Neg-Trace) mg/dL Urine Glucose (UA) Negative (Negative) mg/dL Urine Ketones Trace (Negative) mg/dL Urine Blood Large (3+) H (Negative) Urine Nitrite Negative (Negative) Ur Leukocyte Esterase Small (1+) H (Negative) Urine RBC >20 H (0-2) /HPF Urine WBC 11-20 H (0-5) /HPF Ur Squamous Epith Cells 6-10 (0-2) /HPF Urine Bacteria 1+ (None Seen) Hyaline Casts 0-2 (0-2) /LPF Urine Test POSITIVE H (NEGATIVE) Chlam trachomat DNA PCR Cancelled N.gonorrhoeae DNA (PCR) Cancelled Blood Type A Positive Independent Interpretation I performed an independent interpretation of an: Ultrasound Radiology Impression Discussion of test interpretation with radiology: I have reviewed the radiologist's reading. External Record Review External record reviewed: Inpatient record, Office record, Outpatient record, Prior outpatient labs, Prior outpatient radiology, Primary care record and Outside ED record Tests considered The following testing was considered but not selected: As above Discharge Plan Discharge Clinical Impression: Incomplete , UTI (urinary tract infection) Patient Disposition: Home, Self-Care Instructions: Miscarriage (ED), Urinary Tract Infection in Women (DC) Additional Instructions: Your blood work shows that your hCG is down trending Your ultrasound is consistent with a failed . You do have some debris near your cervix. Youre having a miscarriage, if you have persistent or recurrent/unremitting bleeding, pain, fever, persistent nausea/vomiting return to the ED immediately YOU NEED TO FOLLOW-UP WITH OBGYN TOMORROW MORNING. CALL OFFICE AND MAKE APPOINTMENT/THEY SHOULD BE AWARE S CASE WAS DISCUSSED WITH ON-CALL OBGYN, Macrobid is an antibiotic please take as prescribed Prescriptions: New nitrofurantoin monohyd/m-cryst [Macrobid] 100 mg capsule 100 mg PO Q12H 7 Days Qty: 14 0RF Rx Instructions: must administer with a meal/food No Action acetaminophen 325 mg Tablet 650 mg PO Q6H PRN (Reason: Pain, Mild (Pain Scale 1-3)) Qty: 30 0RF propylthiouracil 50 mg Tablet 100 mg PO TID Qty: 90 0RF famotidine 20 mg Tablet 20 mg PO BID Qty: 60 0RF propranolol 20 mg Tablet 20 mg PO BID Qty: 60 0RF Protocol: Hold for SBP/HR < HOLD for SBP < : 90 HOLD for HR < : 60 ondansetron HCl (PF) 4 mg/2 mL Solution 4 mg IVPUSH Q8H PRN (Reason: Nausea And Vomiting) Qty: 10 0RF Solu-Cortef Act-O-Vial (PF) 100 mg/2 mL Recon Soln 50 mg IVPUSH Q8H Qty: 10 0RF doxycycline hyclate 100 mg capsule 100 mg PO BID 7 Days Qty: 14 0RF metronidazole 500 mg tablet 500 mg PO BID 7 Days Qty: 14 0RF albuterol sulfate 90 mcg/actuation aerosol powdr breath activated 2 inh inhalation Q4-6H PRN (Reason: shortness of breath or wheezing) Qty: 1 0RF meclizine 25 mg tablet 25 mg PO TID PRN (Reason: dizziness) Qty: 20 0RF ketoconazole 2 % cream 1 appl topical BID 7 Days Qty: 30 0RF prednisone 20 mg tablet 40 mg PO DAILY Qty: 10 0RF diphenhydramine HCl [Benadryl] 25 mg capsule 25 mg PO TID PRN (Reason: itching) Qty: 20 0RF benzonatate 200 mg capsule 200 mg PO TID PRN (Reason: cough) Qty: 30 0RF albuterol sulfate [ProAir HFA] 90 mcg/actuation HFA aerosol inhaler 2 puff inhalation Q4-6H PRN (Reason: shortness of breath or wheezing) Qty: 8.5 0RF prednisone 20 mg tablet 40 mg PO DAILY Qty: 10 0RF benzonatate 200 mg capsule 200 mg PO TID PRN (Reason: cough) Qty: 30 0RF prednisone 20 mg tablet 40 mg PO DAILY Qty: 10 0RF albuterol sulfate [ProAir HFA] 90 mcg/actuation HFA aerosol inhaler 2 puff inhalation Q4-6H PRN (Reason: shortness of breath or wheezing) Qty: 8.5 0RF amoxicillin-pot clavulanate 875-125 mg tablet 1 tab PO BID Qty: 14 0RF nitrofurantoin monohyd/m-cryst [Macrobid] 100 mg capsule 100 mg PO Q12H 7 Days Qty: 14 0RF Rx Instructions: must administer with a meal/food metronidazole 500 mg tablet 500 mg PO BID 7 Days Qty: 14 0RF cefuroxime axetil 500 mg tablet 500 mg PO BID 7 Days Qty: 14 0RF Referrals: [facility] [place] [facility] [Provider Group] - 1 day (IN THE MORNING)
[2023-05-08] MEDS: 0.9 % Sodium Chloride 1,000 ML 999 ML IV (23:04)
[2023-05-08 23:06] LABS: Lipase 7 U/L (8-78); Magnesium 1.8 mg/dL (1.6-2.6)
--- NOTE | 2023-05-09 00:18 | PC.NURSE ---
delay in fluid administration due to not being hooked back up after ultrasound. pt reattached at this time.
--- NOTE | 2023-05-09 01:14 | PM.GYNCN ---
LIBRARY CIRCULATION ASSISTANT - CN: HPI Data of Consult Consult date: 05/09/23 Primary Care Provider: Unknown Physician Consult Narrative Narrative: I was consulted on Charlie Juarez who is a 22 year old at approximate 5 weeks gestation presenting to the ED complaining of vaginal spotting over the last 5 days which progressed to vaginal bleeding with passage of blood clots associated with lower pelvic cramping today. The Patient was recently seen in the emergency room on 04/29 for similar symptoms, had ultrasound at that time suggestive of early . Patient was seen again in our ED on 05/04 for unrelated symptoms, has not followed up with OBGYN. No other additional concerns cc:: CC: OB PMFSH Past Medical History Medical History Sheltered homelessness History of depression Tachycardia Hyperthyroidism Family History Family History Mother Multiple sclerosis Father Diabetes Sister No problems noted. Sister ADHD Son No problems noted. 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 Meds Allergies Allergy/AdvReac Type Severity Reaction Status Date / Time sulfamethoxazole Allergy Intermediate HIVES Verified 05/11/23 13:35 [From BACTRIM] trimethoprim [From BACTRIM] Allergy Intermediate HIVES Verified 05/11/23 13:35 Home Medications Medication Instructions Recorded Confirmed Last Taken Type vits no.126-ferrous fum tab PO DAILY 05/11/23 Unknown History 28 mg iron-folic acid 800 mcg tablet (Classic ) LIBRARY CIRCULATION ASSISTANT Physical Exam Vitals Vital signs: Temp Pulse Resp BP Pulse Ox O2 Del Method 97.0 F 113 H 20 148/79 H 98 Room Air 05/08/23 19:47 05/08/23 19:47 05/08/23 19:47 05/08/23 19:47 05/08/23 19:47 05/08/23 19:47 BMI result Body Mass Index 37.8 Additional Comments: Physical exam according to KAYCEE Meza Open cervix with clots that were clear with Q-tip with no evidence of active vaginal bleeding LIBRARY CIRCULATION ASSISTANT - Results Labs 05/08/23 20:01 05/08/23 20:01 Labs: Short CBC 05/08/23 Range/Units 20:01 WBC 5.5 (4.8-10.8) X10*3/uL Hgb 12.0 (12.0-16.0) g/dl Hct 36.1 L (37.0-47.0) % Plt Count 306 (160-400) X10*3/uL BMP 05/08/23 20:01 Sodium 143 Potassium 3.6 Chloride 110 H Carbon Dioxide 23 BUN 10 Creatinine 0.51 Calcium 9.0 Liver Function 05/08/23 Range/Units 20:01 Total Bilirubin 0.3 (0.0-1.0) mg/dL AST 19 (5-31) U/L ALT 25 (0-31) U/L Alkaline Phosphatase 172 H (39-117) U/L Albumin 3.9 (3.5-5.0) g/dL Urine 05/08/23 Range/Units 20:01 Urine Color Dark Yellow Urine Appearance Cloudy Urine pH 5.5 (5.0-9.0) Ur Specific [place] 1.025 (1.005-1.025) Urine Protein 100 (2+) H (Neg-Trace) mg/dL Urine Glucose (UA) Negative (Negative) mg/dL Urine Test POSITIVE H (NEGATIVE) Imaging US - abdomen: Radiologist's impression: ITS Impressions Pelvic/Transvag US 05/09/23 00:05 IMPRESSION: A 5 mm cystic focus within the endometrial canal in the lower uterine segment and cervix may correspond to the previously seen gestational sac. As this is not significantly changed in size since the prior study and is now situated in the cervix, findings are consistent with a failed . No other gestational sacs are identified. Assessment and Plan (1) Miscarriage: Status: Acute Since her bleeding slowed down and there was no evidence of active vaginal bleeding on a pelvic exam and H&H is stable compared to 4 days ago, recommended to KAYCEE Ibarra to repeat heart rate and make sure the patient is hemodynamically stable and is no more having vaginal bleeding, if so discharge, the patient to follow-up in oupatient office in the morning. Incomplete warnings to be given to the patient she is to come back to emergency room in case of recurrence of her vaginal bleeding. HCG on 05/04 was 2823 repeat today was 2111. A positive. I spent a total of 20 minutes reviewing the chart, communicating with the emergency room provider , reviewed the chart and documenting in the medical record.
[2023-05-09 01:20] VITALS: BP 128/66; PULSE 109; RESP 16; TEMP 36.8; O2SAT 98
[2023-05-09 14:36] LABS: BV Int Neg Control Negative (Negative); BV Int Pos Control Positive (Positive)
== END 2023-05-09 01:45 | disposition home or self-care (01) ==
PROVIDERS: Physician Assistant; Emergency Provider Emergency Medicine
DX: O03.9 Complete or unspecified spontaneous abortion without complication (principal)
CPT/HCPCS: 36415; 76801; 76817; 80053; 81001; 81025; 83690; 83735; 84702; 85025; 86900; 86901; 87086; 87480; 87491; 87510; 87591; 87660; 96360; 96361; 99285

== ENCOUNTER 2023-05-11 09:53 | Outpatient (REF) | payer OTHER, SELFPAY ==
--- NOTE | ~2023-05-11 | US_ITS ---
EXAMINATION: US OBSTETRICAL ULTRASOUND CLINICAL INFORMATION: Complete spontaneous COMPARISON: 05/08/2023 : A 5 mm cystic focus within the endometrial canal in the lower uterine segment and cervix may correspond to the previously seen gestational sac. As this is not significantly changed in size since the prior study and is now situated in the cervix, findings are consistent with a failed . No other gestational sacs are identified. LMP: 03/11/2023. Gestational age by maternal dates is 8 weeks 5 days. Estimated date of delivery by maternal dates is 12/16/2023. TECHNIQUE: Both transabdominal endovaginal scanning was performed. FINDINGS: The uterus appears unremarkable measuring 7.4 x 3.5 x 4.8 cm for a volume of 65 mL. Gestational sac is not seen. The endometrium appears normal at 5 mm in thickness without fluid collections. No uterine fibroids. Incidental note made of nabothian cysts in the cervix. No free intraperitoneal fluid. Right ovary measures 3.2 x 1.4 x 1.1 cm for a volume of 2.1 mL and includes a 1.6 x 0.8 x 0.7 cm corpus luteal cyst. Left ovary measures 2.4 x 0.9 x 1.3 cm for a volume of 1.8 mL and appears unremarkable. US/US OB pelvic and transvaginal IMPRESSION: The previously seen small cystic focus in the endometrial canal is no longer present. Findings now appear to be consistent with a completed spontaneous .
[2023-05-11 10:57] LABS: HCG Quantitative 146 mIU/mL
[2023-05-11 14:37] LABS: Hematocrit 37.6 % (37.0-47.0); Hemoglobin 12.2 g/dl (12.0-16.0); Mean Corpuscular HGB Conc 32.4 g/dl (31.0-35.0); Mean Corpuscular Hemoglobin 26.8 pg (27.0-33.0); Mean Corpuscular Volume 82.6 fL (80.0-98.0); Mean Platelet Volume 9.8 fL (9.4-12.3); Platelet Count 313 X10*3/uL (160-400); Red Blood Count 4.55 X10*6/uL (4.20-5.50); White Blood Count 4.5 X10*3/uL (4.8-10.8)
== END 2023-05-11 09:54 | disposition home or self-care (01) ==
LOC: HO.LAB 09:53
PROVIDERS: Visit Provider Obstetrics & Gynecology
DX: O03.9 Complete or unspecified spontaneous abortion without complication (principal); R10.2 Pelvic and perineal pain; Z3A.08 8 weeks gestation of pregnancy; Z67.10 Type A blood, Rh positive
CPT/HCPCS: 36415; 76801; 76817; 84702; 85027; 99212

== ENCOUNTER 2023-05-11 13:21 | Outpatient (AMB) | payer OTHER, SELFPAY ==
--- NOTE | 2023-05-11 13:32 | MHC.OFFVIS ---
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 The following workup was done in the emergency: H&H .1, BV panel was negative, blood type A positive. HCG dropped to 2111 down from to 823 on 05/04. Pelvic ultrasound showed the following: A 5 mm cystic focus within the endometrial canal in the lower uterine segment and cervix may correspond to the previously seen gestational sac. As this is not significantly changed in size since the prior study and is now situated in the cervix, findings are consistent with a failed . No other gestational sacs are identified. The patient is doing well normal, her vaginal bleeding and cramping slowed down but still having some. Repeat H&H was 12.2/37.6 Pelvic ultrasound report not available but preliminary read showed no evidence of retained products of conception no gestational sac [facility] Medical History Sheltered homelessness History of depression Tachycardia Hyperthyroidism Surgical History No pertinent past surgical history Family History Mother Multiple sclerosis Father Diabetes Sister No problems noted. Sister ADHD Son No problems noted. 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 Review of Systems Const All systems reviewed & are unremarkable except as noted in HPI and below Physical Exam Vital Signs: Last Vital Signs BP 122/70 05/11/23 13:34 BMI result Body Mass Index 37.5 General: Yes no CVA tenderness External Female Exam: normal external appearance and normal appearance of the urethra Speculum Exam - Vagina: normal appearance of the vagina, normal palpation, no lesions and no masses Speculum Exam - Cervix: normal appearance of the cervix, normal palpation, no lesions, no masses, nontender and Other cervical findings present (No evidence of bleeding) Bimanual exam- vagina & uterus: normal bimanual exam, normal palpation, uterine size normal, normal palpation, uterine shape normal, No Cervical tenderness present and non-tender Bimanual Exam- Adnexa, other: normal adnexae Back/Spine/Pelvis Back: no CVA tenderness Assessment & Plan Assessment & Plan (1) Miscarriage: Code(s): O03.9 - Complete or unspecified spontaneous without complication Plan: GC/chlamydia taken, discussed the patient the results of the ultrasound and CBC. Signs insert of incomplete were discussed with the patient, she is to come back to emergency room or call in case of heavy vaginal bleeding. Will repeat HCG in 2 weeks if not 0 will follow it down to 0. Offer the patient different options of control, the patient declined at this point. Instructions given the patient to schedule a 2 week hCG follow-up appointment and in 2 months annual exam. All questions answered, the patient verbalized understanding Orders: Orders Complete Blood Count no Diff Today O03.9 - Complete or unspecified spontaneous without complication CT NG by PCR Today O03.9 - Complete or unspecified spontaneous without complication, R10.2 - Pelvic and perineal pain HCG Quantitative 2 Weeks O03.9 - Complete or unspecified spontaneous without complication Coding Level of Care Code Est Pt Level 3 (48035) Diagnoses Miscarriage O03.9
[2023-05-11 13:34] VITALS: BP 122/70; BMI 37.5
== END 2023-05-11 15:12 | disposition home or self-care (01) ==
LOC: HO.HWS 13:21
PROVIDERS: Visit Provider Obstetrics & Gynecology
DX: O03.9 Complete or unspecified spontaneous abortion without complication (principal)
CPT/HCPCS: 99213

== ENCOUNTER 2023-05-11 13:57 | Outpatient (REF) | payer OTHER, SELFPAY ==
[2023-05-12 11:48] LABS: CT PCR NOT DETECTED (Not Detect.); NG PCR NOT DETECTED (Not Detect.)
== END 2023-05-11 13:58 | disposition home or self-care (01) ==
LOC: HO.LNP 13:57
PROVIDERS: Visit Provider Obstetrics & Gynecology
DX: O03.9 Complete or unspecified spontaneous abortion without complication (principal); R10.2 Pelvic and perineal pain; Z11.3 Encounter for screening for infections with a predominantly sexual mode of transmission
CPT/HCPCS: 0353U

== ENCOUNTER 2023-06-23 17:45 | Emergency (ER) | payer MEDICAID, SELFPAY ==
--- NOTE | ~2023-06-23 | US_ITS ---
EXAMINATION: US OBSTETRICAL, LESS THAN 14 WEEKS FETUS US OBSTETRICAL, LESS THAN 14 WEEKS FETUS ADD GESTATION CLINICAL INFORMATION: Twin gestation. COMPARISON: Most recent pelvic ultrasound dated 05/11/2023. LMP: Unknown. Gestational age by maternal dates is unknown. Estimated date of delivery by maternal dates is unknown. TECHNIQUE: Transabdominal, transvaginal, cine, and Doppler detectable images were obtained. FINDINGS: There are 2 separate intrauterine gestations with separate gestational sacs, consistent with dichorionic, diamniotic . Fetus A has a crown-rump length of 0.42 cm corresponding to a gestational age of 6 weeks 1 day and YESICA of 02/15/2024. Unremarkable gestational sac and yolk sac. heart rate is approximately 82 bpm. Fetus B has a crown-rump length of 0.51 cm corresponding to a gestational age of 6 weeks 2 days and YESICA of 02/14/2024. Unremarkable gestational sac and yolk sac. heart rate is approximately 119 bpm. No evidence of subchorionic hemorrhage. No myometrial lesion. The right ovary is sonographically unremarkable measuring 1.9 x 1.1 x 1.4 cm. The left ovary measures 2.1 x 1.8 x 1.2 cm with simple cysts/follicles measuring up to 1.3 cm. Doppler detectable vascular flow within the right and left ovary. US/US OB <= 14 wk fetus add gest IMPRESSION: Dichorionic, diamniotic as described above. Fetus A has a heart rate of 82 bpm and fetus B has a heart rate of 119 bpm. No evidence of subchorionic hemorrhage.
--- NOTE | ~2023-06-23 | US_ITS ---
EXAMINATION: US OBSTETRICAL, LESS THAN 14 WEEKS FETUS US OBSTETRICAL, LESS THAN 14 WEEKS FETUS ADD GESTATION CLINICAL INFORMATION: Twin gestation. COMPARISON: Most recent pelvic ultrasound dated 05/11/2023. LMP: Unknown. Gestational age by maternal dates is unknown. Estimated date of delivery by maternal dates is unknown. TECHNIQUE: Transabdominal, transvaginal, cine, and Doppler detectable images were obtained. FINDINGS: There are 2 separate intrauterine gestations with separate gestational sacs, consistent with dichorionic, diamniotic . Fetus A has a crown-rump length of 0.42 cm corresponding to a gestational age of 6 weeks 1 day and YESICA of 02/15/2024. Unremarkable gestational sac and yolk sac. heart rate is approximately 82 bpm. Fetus B has a crown-rump length of 0.51 cm corresponding to a gestational age of 6 weeks 2 days and YESICA of 02/14/2024. Unremarkable gestational sac and yolk sac. heart rate is approximately 119 bpm. No evidence of subchorionic hemorrhage. No myometrial lesion. The right ovary is sonographically unremarkable measuring 1.9 x 1.1 x 1.4 cm. The left ovary measures 2.1 x 1.8 x 1.2 cm with simple cysts/follicles measuring up to 1.3 cm. Doppler detectable vascular flow within the right and left ovary. US/US OB <= 14 weeks fetus IMPRESSION: Dichorionic, diamniotic as described above. Fetus A has a heart rate of 82 bpm and fetus B has a heart rate of 119 bpm. No evidence of subchorionic hemorrhage.
[2023-06-23 18:06] VITALS: BP 124/95; PULSE 110; RESP 16; TEMP 36.6; O2SAT 98; BMI 36.3
--- NOTE | 2023-06-23 18:07 | ED_ITS ---
HPI - General Adult General Stated complaint: abd pain, ? Time Seen by Provider: 06/23/23 22:14 Source: patient Mode of arrival: ambulatory History of Present Illness HPI narrative: 23-year-old female presents with 2 days right lower and suprapubic abdominal discomfort that is burning in nature and radiates into the lower back, patient reports increased urination and some mild diarrhea but no nausea or vomiting. Related Data Home Medications Medication Instructions Recorded Confirmed vits no.[id number]-ferrous fum tab PO DAILY 05/11/23 28 mg iron-folic acid 800 mcg tablet (Classic ) Previous Rx's Medication Instructions Recorded acetaminophen 325 mg tablet 650 mg (2 x 325 mg) PO Q6H PRN 03/11/22 Pain, Mild (Pain Scale 1-3) #30 tabs doxycycline hyclate 100 mg capsule 100 mg PO BID 7 days #14 caps 04/13/22 albuterol sulfate 90 mcg/actuation 2 inh inhalation Q4-6H PRN 08/15/22 breath activated powder inhaler shortness of breath or wheezing #1 ea diphenhydramine HCl 25 mg capsule 25 mg PO TID PRN itching #20 caps 09/27/22 (Benadryl) ketoconazole 2 % topical cream 1 appl topical BID 7 days #30 grams 09/27/22 albuterol sulfate 90 mcg/actuation 2 puff inhalation Q4-6H PRN 04/02/23 aerosol inhaler (ProAir HFA) shortness of breath or wheezing #8.5 grams albuterol sulfate 90 mcg/actuation 2 puff inhalation Q4-6H PRN 04/15/23 aerosol inhaler (ProAir HFA) shortness of breath or wheezing #8.5 grams nitrofurantoin 100 mg PO Q12H 7 days #14 caps 05/09/23 monohydrate/macrocrystals 100 mg capsule (Macrobid) Allergies Allergy/AdvReac Type Severity Reaction Status Date / Time sulfamethoxazole Allergy Intermediate HIVES Verified 05/11/23 13:35 [From BACTRIM] trimethoprim [From BACTRIM] Allergy Intermediate HIVES Verified 05/11/23 13:35 Review of Systems 2 Review of Systems: Pertinent positives and negatives as stated in HPI PMFSH Past Medical History Source: nursing notes reviewed Medical History Sheltered homelessness History of depression Tachycardia Hyperthyroidism Surgical History No pertinent past surgical history Family History Family History Mother Multiple sclerosis Father Diabetes Sister No problems noted. Sister ADHD Son No problems noted. 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 GENERAL: Well developed, well nourished, in no acute distress. HEAD: Normocephalic/atraumatic EYES: PERRLA, EOMI EARS: Ext canals without abnormality NOSE: Nares patent bilateral OROPHARYNX: no oral lesions noted, posterior pharynx clear NECK: Supple, no adenopathy LUNGS: Normal breath sounds. No adventitious sounds or accessory muscle use. SpO2<96> CARDIOVASCULAR: Regular rate and rhythm without noted murmurs ABDOMEN: Soft, non-tender, non-distended with bowel sounds. MUSCULOSKELETAL: No tenderness, deformities, or effusions noted on gross inspection. EXTREMITIES: No cyanosis, clubbing or edema. SKIN: Inspection of the skin reveals no rashes NEUROLOGIC: Alert and oriented x 4. Strength and sensation to light touch were grossly intact x 4. Course Course Course Narrative: RME- 23-year-old female presents for evaluation lower abdominal pain and burning with urination for the last 2 days. Plan for UA test. 20:26 patient's urine hCG positive. I added on labs including serum hCG and a ultrasound to evaluate for ectopic 06/27/23--943--patient was diagnosed with UTI in twin gestations in the ED, however appears antibiotics were never sent. Called and spoke with patient this morning states she also went to [facility] Emergency Department had similar/repeat workup and antibiotics were sent, is currently on Keflex which will cover based on culture. Discussed with patient 1 fetus having low heart rate and she needs to follow up with OB. States she currently does not have insurance and is only covered with emergency visits, recommended she call [facility] and still try to get with OB DESTINI Medications Administered Discontinued Medications Generic Name Dose Route Start Last Admin Trade Name Norman PRN Reason Stop Dose Admin Acetaminophen 975 mg 06/23/23 22:25 06/23/23 22:40 Acetaminophen 325 Mg Tablet PO 06/23/23 22:26 975 mg ONCE ONE Administration Nitrofurantoin Macrocrystals 100 mg 06/23/23 22:16 06/23/23 22:41 Nitrofurantoin Monohyd/M-Cryst 100 Mg Capsule PO 06/23/23 22:17 100 mg ONCE ONE Administration Medical Decision Making Medical Decision Making [facility] Narrative: 23-year-old female with history and clinical presentation, DDX: UTI, ectopic, , viral illness. I reviewed all investigations and hematologic indices are negative for leukocytosis or left shift, there is no thrombocytopenia or anemia noted. Urinalysis noted to be positive for infection and [place] [address]. Chemistry indices otherwise do not demonstrate an ENEDINA or electrolyte/liver enzymes derangements. Pelvic Ob ultrasound demonstrates dichorionic, diamniotic . FHR-A: 82, FHR-B: 119 Patient received Tylenol as well as initial antibiotics here in the emergency room and is otherwise discharged with remaining course and instructions to resume vitamins and follow-up with obstetrics. Patient is aware of what she needs to do for her hyperthyroidism now that she is and is followed by an dispensing optician. Differential Diagnosis Differential Diagnoses: The differential diagnosis associated with the presentation includes Please see the discussion above Admission/Observation Consideration of admission/observation: Escalation of care including admission/observation considered Please see the discussion above Lab Data [facility] Lab Attestation statement: I reviewed the patient's lab results. Please see the discussions above 06/23/23 20:33 06/23/23 20:33 Labs: Lab Results 06/23/23 06/23/23 Range/Units 19:43 20:33 WBC 6.8 (4.8-10.8) X10*3/uL RBC 4.77 (4.20-5.50) X10*6/uL Hgb 12.7 (12.0-16.0) g/dl Hct 38.0 (37.0-47.0) % MCV 79.7 L (80.0-98.0) fL MCH 26.6 L (27.0-33.0) pg MCHC 33.4 (31.0-35.0) g/dl RDW 12.8 (11.0-16.0) % Plt Count 294 (160-400) X10*3/uL MPV 9.5 (9.4-12.3) fL Immature Gran % (Auto) 0.1 (0.0-0.4) % Neut % (Auto) 64.1 (45-73) % Lymph % (Auto) 27.4 (20-40) % [place] % (Auto) 7.2 (2-11) % Eos % (Auto) 0.9 (0-4) % Baso % (Auto) 0.3 (0-2) % Lymph # (Auto) 1.9 (1.2-4.9) X10*3/uL [place] # (Auto) 0.5 (0.1-1.2) X10*3/uL Eos # (Auto) 0.1 (0.0-0.4) X10*3/uL Baso # (Auto) 0.0 (0.0-0.2) X10*3/uL Abs Immat Gran (auto) 0.01 (0.00-0.03) X10*3/uL Absolute Neuts (auto) 4.4 (2.0-8.3) x10*3/uL Absolute Nucleated RBC 0.000 (0.0-0.012) X10*3/uL Nucleated RBC % (auto) 0.0 (0.0-0.2) /100WBC Sodium 139 (135-145) mmol/L Potassium 4.1 (3.3-5.1) mmol/L Chloride 109 H (96-108) mmol/L Carbon Dioxide 22 (22-29) mmol/L Anion Gap 12 (12-20) BUN 10 (9-16) mg/dL Creatinine 0.43 L (0.5-1.4) mg/dL Estim Creat Clear Calc 204.0 Estimated GFR > 60 Random Glucose 101 (60-115) mg/dL Calcium 9.4 (8.4-10.2) mg/dL Total Bilirubin 0.1 (0.0-1.0) mg/dL AST 17 (5-31) U/L ALT 26 (0-31) U/L Alkaline Phosphatase 165 H (39-117) U/L Total Protein 7.0 (6.5-8.0) g/dL Albumin 4.0 (3.5-5.0) g/dL Lipase 9 (8-78) U/L Beta HCG, Quant 91785 mIU/mL Urine Color Yellow Urine Appearance Cloudy Urine pH 5.5 (5.0-9.0) Ur Specific [place] 1.025 (1.005-1.025) Urine Protein 30 (1+) H (Neg-Trace) mg/dL Urine Glucose (UA) Negative (Negative) mg/dL Urine Ketones Negative (Negative) mg/dL Urine Blood Negative (Negative) Urine Nitrite Positive H (Negative) Ur Leukocyte Esterase Small (1+) H (Negative) Urine RBC 0-2 (0-2) /HPF Urine WBC 11-20 (0-5) /HPF Ur Squamous Epith Cells 6-10 (0-2) /HPF Calcium Oxalate Crystal Present Urine Bacteria 4+ (None Seen) Hyaline Casts 0-2 (0-2) /LPF Urine Test POSITIVE H (NEGATIVE) Radiology Impression Discussion of test interpretation with radiology: I have reviewed the radiologist's reading. Radiologist Impression: Please see the discussion above External Record Review External record reviewed: Outpatient record, Prior outpatient labs and Prior outpatient radiology Chronic Conditions Patient?s care impacted by: Other Hyperthyroidism Critical Care Time Critical Care Time Critical Care Time: Yes Total Critical Care Time: 30 Attestation: I personally attest to this time spent taking care of the patient. Discharge Plan Discharge Clinical Impression: Urinary tract infection, Twin Patient Disposition: Home, Self-Care Instructions: (ED), Urinary Tract Infection in (ED) Additional Instructions: 1. Continue to stay well hydrated, start daily vitamins, use Tylenol for pain control. 2. Please complete the entire course of antibiotics as prescribed. 3. Please touch base with your dispensing optician and make the necessary medication adjustments now that you are . 4. Please set up follow-up appointment with an unloader at your earliest convenience. Do not hesitate to return to the emergency room should you experience cramping, vaginal bleeding. Prescriptions: No Action acetaminophen 325 mg Tablet 650 mg PO Q6H PRN (Reason: Pain, Mild (Pain Scale 1-3)) Qty: 30 0RF doxycycline hyclate 100 mg capsule 100 mg PO BID 7 Days Qty: 14 0RF albuterol sulfate 90 mcg/actuation aerosol powdr breath activated 2 inh inhalation Q4-6H PRN (Reason: shortness of breath or wheezing) Qty: 1 0RF ketoconazole 2 % cream 1 appl topical BID 7 Days Qty: 30 0RF diphenhydramine HCl [Benadryl] 25 mg capsule 25 mg PO TID PRN (Reason: itching) Qty: 20 0RF albuterol sulfate [ProAir HFA] 90 mcg/actuation HFA aerosol inhaler 2 puff inhalation Q4-6H PRN (Reason: shortness of breath or wheezing) Qty: 8.5 0RF albuterol sulfate [ProAir HFA] 90 mcg/actuation HFA aerosol inhaler 2 puff inhalation Q4-6H PRN (Reason: shortness of breath or wheezing) Qty: 8.5 0RF nitrofurantoin monohyd/m-cryst [Macrobid] 100 mg capsule 100 mg PO Q12H 7 Days Qty: 14 0RF Rx Instructions: must administer with a meal/food Classic 28 mg iron- 800 mcg tablet PO DAILY Interventions: ED Discharge Assessment Last Done: 06/23/23 22:45 Discharge Date/Time: 06/23/23 22:47
[2023-06-23 20:05] LABS: UPreg QC Valid YES; Urine Pregnancy POSITIVE (NEGATIVE)
[2023-06-23 20:06] LABS: Appearance Urine Cloudy; Color Urine Yellow; Glucose Urine UA Negative (Negative); Leukocyte Esterase Urine Small (1+) (Negative); Nitrite Urine Positive (Negative); PH 5.5 (5.0-9.0); Specific Gravity - Urine 1.025 (1.005-1.025); UMIC TRIGGER UACC YES; Urine Blood Negative (Negative); Urine Ketones Negative (Negative); Urine Protein 30 (1+) mg/dL (Neg-Trace)
[2023-06-23 20:20] LABS: Bacteria Urine 4+ (None Seen); Calcium Oxalate Crystals Urine Present; Hyaline Casts Urine 0-2 /LPF (0-2); RBC Urine 0-2 /HPF (0-2); UACC Culture Trigger YES
[2023-06-23 20:39] LABS: Basophils Percent Auto 0.3 % (0-2); Eosinophils Absolute Auto 0.1 X10*3/uL (0.0-0.4); Eosinophils Percent Auto 0.9 % (0-4); Hemoglobin 12.7 g/dl (12.0-16.0); Imm Gran Abs Auto 0.01 X10*3/uL (0.00-0.03); Imm Gran Pct Auto 0.1 % (0.0-0.4); Lymphocytes Absolute Auto 1.9 X10*3/uL (1.2-4.9); Lymphocytes Percent Auto 27.4 % (20-40); MANUAL DIFF FLAG NO; Mean Corpuscular HGB Conc 33.4 g/dl (31.0-35.0); Mean Corpuscular Hemoglobin 26.6 pg (27.0-33.0); Mean Corpuscular Volume 79.7 fL (80.0-98.0); Mean Platelet Volume 9.5 fL (9.4-12.3); Monocytes Absolute Auto 0.5 X10*3/uL (0.1-1.2); Monocytes Percent Auto 7.2 % (2-11); Neutrophils Absolute Auto 4.4 x10*3/uL (2.0-8.3); Neutrophils Percent Auto 64.1 % (45-73); Platelet Count 294 X10*3/uL (160-400); Red Blood Count 4.77 X10*6/uL (4.20-5.50); Red Cell Distribution Width 12.8 % (11.0-16.0); White Blood Count 6.8 X10*3/uL (4.8-10.8)
[2023-06-23 21:03] LABS: Alanine Aminotransferase 26 U/L (0-31); Alkaline Phosphatase 165 U/L (39-117); Anion Gap 12 (12-20); Aspartate Amino Transferase 17 U/L (5-31); Bilirubin Total 0.1 mg/dL (0.0-1.0); Blood Urea Nitrogen 10 mg/dL (9-16); Calcium 9.4 mg/dL (8.4-10.2); Carbon Dioxide 22 mmol/L (22-29); Chloride 109 mmol/L (96-108); Estimated Glomerular Filt Rate > 60; Glucose Random 101 mg/dL (60-115); Lipase 9 U/L (8-78); Potassium 4.1 mmol/L (3.3-5.1); Sodium 139 mmol/L (135-145)
[2023-06-23 22:17] VITALS: BP 131/78; PULSE 109; RESP 17; TEMP 36.6; O2SAT 96
[2023-06-23] MEDS: Acetaminophen 325 MG TABLET 975 MG PO (22:40)
[2023-06-23] MEDS: Nitrofurantoin Monohyd/M-Cryst 100 MG CAPSULE PO (22:41)
== END 2023-06-23 22:47 | disposition home or self-care (01) ==
LOC: HO.ED 22:37
PROVIDERS: Physician Assistant; Emergency Provider Student in an Organized Health Care Education/Training Program
DX: O23.41 Unspecified infection of urinary tract in pregnancy, first trimester (principal); N39.0 Urinary tract infection, site not specified; B96.20 Unspecified Escherichia coli [E. coli] as the cause of diseases classified elsewhere; O30.041 Twin pregnancy, dichorionic/diamniotic, first trimester; Z3A.01 Less than 8 weeks gestation of pregnancy
CPT/HCPCS: 36415; 76801; 76802; 80053; 81001; 81025; 83690; 84702; 85025; 87086; 87088; 87186; 99284

== ENCOUNTER 2023-08-02 12:21 | Emergency (ER) | payer OTHER, SELFPAY ==
--- NOTE | ~2023-08-02 | US_ITS ---
EXAMINATION: US OBSTETRICAL ULTRASOUND CLINICAL INFORMATION: 12 with lower abdominal cramping. Twin B demise reported at [facility] approximately 5 weeks ago. COMPARISON: 06/23/2023 Estimated gestational age from previous ultrasound is 12 weeks 4 days with estimated delivery date of 02/11/2024. Age by last menstrual period is 12 weeks 3 days. TECHNIQUE: Obstetrical ultrasound performed. Permanent documented images obtained and cine loops provided. FINDINGS: Live Twin A intrauterine gestational sac with embryo/fetus, and cardiac activity of 153 bpm. [place]-rump length measures 5.99 cm corresponding to 12 week 4 day gestational age. There is no significant subchorionic hemorrhage or hematoma. Twin B gestational sac with yolk sac seen but no pole or cardiac activity, known prior demise. MATERNAL ADNEXA: The right maternal ovary was not seen. The left maternal ovary measures 2.3 x 1.2 x 1.2. There is no significant maternal adnexal mass. No maternal pelvic ascites. US/US OB <= 14 weeks fetus IMPRESSION: 1. Live intrauterine gestation (Twin A) with ultrasound gestational age of 12 weeks 4 days +/- 4 days. 2. Estimated date of delivery is 02/11/2024 +/- 4 days. 3. Known Twin B demise with gestational sac, yolk sac, but no pole or cardiac activity.
[2023-08-02 13:09] VITALS: BP 138/75; PULSE 110; RESP 20; TEMP 37; O2SAT 98; BMI 34.0
--- NOTE | 2023-08-02 13:13 | ED.GENADULT ---
HPI - General Adult General Chief complaint: Abdominal Pain Stated complaint: Abd pain - Time Seen by Provider: 08/02/23 16:04 Source: patient Limitations: no limitations History of Present Illness HPI narrative: 23 years old G4, at 12 weeks , presents emergency room for abdominal pain. Patient was initially diagnosed with twin however subsequent ultrasound done approximately 5 weeks ago showed demise of twin B. Patient reported that she is being having pain for the past few days, localized in the lower quadrant of the abdomen. Denies vaginal bleeding or vaginal pain. No dysuria Denies chest pain, shortness of breath or fever. Reports nausea and vomiting. Next OBGYN appointment is next week. Related Data Home Medications Medication Instructions Recorded Confirmed vits no.126-ferrous fum tab PO DAILY 05/11/23 28 mg iron-folic acid 800 mcg tablet (Classic ) Previous Rx's Medication Instructions Recorded acetaminophen 325 mg tablet 650 mg (2 x 325 mg) PO Q6H PRN 03/11/22 Pain, Mild (Pain Scale 1-3) #30 tabs doxycycline hyclate 100 mg capsule 100 mg PO BID 7 days #14 caps 04/13/22 albuterol sulfate 90 mcg/actuation 2 inh inhalation Q4-6H PRN 08/15/22 breath activated powder inhaler shortness of breath or wheezing #1 ea diphenhydramine HCl 25 mg capsule 25 mg PO TID PRN itching #20 caps 09/27/22 (Benadryl) ketoconazole 2 % topical cream 1 appl topical BID 7 days #30 grams 09/27/22 albuterol sulfate 90 mcg/actuation 2 puff inhalation Q4-6H PRN 04/02/23 aerosol inhaler (ProAir HFA) shortness of breath or wheezing #8.5 grams albuterol sulfate 90 mcg/actuation 2 puff inhalation Q4-6H PRN 04/15/23 aerosol inhaler (ProAir HFA) shortness of breath or wheezing #8.5 grams nitrofurantoin 100 mg PO Q12H 7 days #14 caps 05/09/23 monohydrate/macrocrystals 100 mg capsule (Macrobid) Allergies Allergy/AdvReac Type Severity Reaction Status Date / Time sulfamethoxazole Allergy Intermediate HIVES Verified 05/11/23 13:35 [From BACTRIM] trimethoprim [From BACTRIM] Allergy Intermediate HIVES Verified 05/11/23 13:35 Review of Systems Review of Systems: Yes all other systems are reviewed and are negative [facility] Past Medical History Medical History Sheltered homelessness History of depression Tachycardia Hyperthyroidism Surgical History No pertinent past surgical history Family History Family History Mother Multiple sclerosis Father Diabetes Sister No problems noted. Sister ADHD Son No problems noted. 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 Normal Bowel sounds. : No cva tenderness Neuro: Alert, oriented x4, PERRL Strenght 5/5 on all extremities Sensation is preserved in both lower and upper extremities Index to nose: normal Cranial Nerves II-XII grossly intact No dysarthria, or aphasia No neglet. Visual finley are normal bilaterally Psych: Cooperative, NO SI Course Course Course Narrative: RME: 23-year-old female 12 weeks A2 presents to the ED for lower abdominal cramping discomfort. Patient denies any vaginal discharge or vaginal bleeding. Labs ultrasound ordered. Reevaluation(s) Reevaluation #1: Tolerating PO. At this time I do not think patient requires hospitalization. I recommended the patient to follow-up with her OBGYN tomorrow. Time: 17:50 Medications Administered Discontinued Medications Generic Name Dose Route Start Last Admin Trade Name Norman PRN Reason Stop Dose Admin Acetaminophen 975 mg 08/02/23 17:25 08/02/23 17:47 Acetaminophen 325 Mg Tablet PO 08/02/23 17:26 975 mg ONCE ONE Administration Metoclopramide HCl 10 mg 08/02/23 17:25 08/02/23 17:47 Metoclopramide Hcl 10 Mg/2 Ml Vial IVPUSH 08/02/23 17:26 Not Given ONCE ONE Metoclopramide HCl 10 mg 08/02/23 17:35 08/02/23 17:47 Metoclopramide Hcl 10 Mg Tablet PO 08/02/23 17:36 10 mg ONCE ONE Administration Medical Decision Making Medical Decision Making [facility] Narrative: Presented to the emergency room for abdominal pain. Patient underwent ultrasound that showed intrauterine with normal heart rate for twin a and known demise of twin B. Lab work otherwise unremarkable. Plan Treat pain and nausea Reassurance Admission/Observation Consideration of admission/observation: Escalation of care including admission/observation considered Lab Data [facility] Lab Attestation statement: I reviewed the patient's lab results. 08/02/23 15:25 08/02/23 15:25 Labs: Lab Results 08/02/23 Range/Units 15:25 WBC 5.3 (4.8-10.8) X10*3/uL RBC 4.49 (4.20-5.50) X10*6/uL Hgb 12.0 (12.0-16.0) g/dl Hct 35.4 L (37.0-47.0) % MCV 78.8 L (80.0-98.0) fL MCH 26.7 L (27.0-33.0) pg MCHC 33.9 (31.0-35.0) g/dl RDW 13.0 (11.0-16.0) % Plt Count 280 (160-400) X10*3/uL MPV 9.2 L (9.4-12.3) fL Immature Gran % (Auto) 0.2 (0.0-0.4) % Neut % (Auto) 64.6 (45-73) % Lymph % (Auto) 25.8 (20-40) % Morris % (Auto) 7.5 (2-11) % Eos % (Auto) 1.7 (0-4) % Baso % (Auto) 0.2 (0-2) % Lymph # (Auto) 1.4 (1.2-4.9) X10*3/uL Morris # (Auto) 0.4 (0.1-1.2) X10*3/uL Eos # (Auto) 0.1 (0.0-0.4) X10*3/uL Baso # (Auto) 0.0 (0.0-0.2) X10*3/uL Abs Immat Gran (auto) 0.01 (0.00-0.03) X10*3/uL Absolute Neuts (auto) 3.4 (2.0-8.3) x10*3/uL Absolute Nucleated RBC 0.000 (0.0-0.012) X10*3/uL Nucleated RBC % (auto) 0.0 (0.0-0.2) /100WBC PT 13.2 (11.1-13.3) SEC INR 1.1 (0.9-1.1) APTT 27.3 (26.0-36.8) SEC Sodium 139 (135-145) mmol/L Potassium 3.5 (3.3-5.1) mmol/L Chloride 109 H (96-108) mmol/L Carbon Dioxide 25 (22-29) mmol/L Anion Gap 9 L (12-20) BUN 6 L (9-16) mg/dL Creatinine 0.44 L (0.5-1.4) mg/dL Estim Creat Clear Calc 192.5 Estimated GFR > 60 Random Glucose 111 (60-115) mg/dL Calcium 8.9 (8.4-10.2) mg/dL Total Bilirubin 0.2 (0.0-1.0) mg/dL AST 17 (5-31) U/L ALT 26 (0-31) U/L Alkaline Phosphatase 133 H (39-117) U/L Total Protein 6.7 (6.5-8.0) g/dL Albumin 3.9 (3.5-5.0) g/dL Lipase 7 L (8-78) U/L Beta HCG, Quant 18724 mIU/mL Urine Color Yellow Urine Appearance Clear Urine pH 6.5 (5.0-9.0) Ur Specific [place] 1.015 (1.005-1.025) Urine Protein Negative (Neg-Trace) mg/dL Urine Glucose (UA) Negative (Negative) mg/dL Urine Ketones Negative (Negative) mg/dL Urine Blood Negative (Negative) Urine Nitrite Negative (Negative) Ur Leukocyte Esterase Trace H (Negative) Urine RBC 0-2 (0-2) /HPF Urine WBC 0-5 (0-5) /HPF Ur Squamous Epith Cells 3-5 (0-2) /HPF Urine Bacteria None Seen (None Seen) Hyaline Casts 0-2 (0-2) /LPF Urine Test POSITIVE H (NEGATIVE) Independent Interpretation I performed an independent interpretation of an: Ultrasound (1. Live intrauterine gestation (Twin A) with ultrasound gestational age of 12 weeks 4 days +/- 4 days. 2. Estimated date of delivery is 02/11/2024 +/- 4 days. 3. Known Twin B demise with gestational sac, yolk sac, but no pole or cardiac activity.) Discharge Plan Discharge Clinical Impression: Abdominal pain Patient Disposition: Home, Self-Care Instructions: Abdominal Pain in (ED) Additional Instructions: You were seen in the emergency room for abdominal pain. Your ultrasound showed a live intrauterine and unfortunately the known demise of twin B At home for pain we recommend Tylenol 1000 mg every 6 hours. Please follow-up with your OBGYN tomorrow Prescriptions: No Action acetaminophen 325 mg Tablet 650 mg PO Q6H PRN (Reason: Pain, Mild (Pain Scale 1-3)) Qty: 30 0RF doxycycline hyclate 100 mg capsule 100 mg PO BID 7 Days Qty: 14 0RF albuterol sulfate 90 mcg/actuation aerosol powdr breath activated 2 inh inhalation Q4-6H PRN (Reason: shortness of breath or wheezing) Qty: 1 0RF ketoconazole 2 % cream 1 appl topical BID 7 Days Qty: 30 0RF diphenhydramine HCl [Benadryl] 25 mg capsule 25 mg PO TID PRN (Reason: itching) Qty: 20 0RF albuterol sulfate [ProAir HFA] 90 mcg/actuation HFA aerosol inhaler 2 puff inhalation Q4-6H PRN (Reason: shortness of breath or wheezing) Qty: 8.5 0RF albuterol sulfate [ProAir HFA] 90 mcg/actuation HFA aerosol inhaler 2 puff inhalation Q4-6H PRN (Reason: shortness of breath or wheezing) Qty: 8.5 0RF nitrofurantoin monohyd/m-cryst [Macrobid] 100 mg capsule 100 mg PO Q12H 7 Days Qty: 14 0RF Rx Instructions: must administer with a meal/food Classic 28 mg iron- 800 mcg tablet PO DAILY Stand Alone Forms: Work/School Release Interventions: ED Discharge Assessment Last Done: 08/02/23 18:09 Discharge Date/Time: 08/02/23 18:09
[2023-08-02 15:30] LABS: MANUAL DIFF FLAG NO
[2023-08-02 15:36] LABS: Appearance Urine Clear; Color Urine Yellow; Glucose Urine UA Negative (Negative); Leukocyte Esterase Urine Trace (Negative); Nitrite Urine Negative (Negative); PH 6.5 (5.0-9.0); Specific Gravity - Urine 1.015 (1.005-1.025); UMIC TRIGGER UACC YES; Urine Blood Negative (Negative); Urine Ketones Negative (Negative); Urine Protein Negative (Neg-Trace)
[2023-08-02 15:37] LABS: Basophils Percent Auto 0.2 % (0-2); Eosinophils Absolute Auto 0.1 X10*3/uL (0.0-0.4); Eosinophils Percent Auto 1.7 % (0-4); Hematocrit 35.4 % (37.0-47.0); Imm Gran Abs Auto 0.01 X10*3/uL (0.00-0.03); Imm Gran Pct Auto 0.2 % (0.0-0.4); Lymphocytes Absolute Auto 1.4 X10*3/uL (1.2-4.9); Lymphocytes Percent Auto 25.8 % (20-40); Mean Corpuscular HGB Conc 33.9 g/dl (31.0-35.0); Mean Corpuscular Hemoglobin 26.7 pg (27.0-33.0); Mean Corpuscular Volume 78.8 fL (80.0-98.0); Mean Platelet Volume 9.2 fL (9.4-12.3); Monocytes Absolute Auto 0.4 X10*3/uL (0.1-1.2); Monocytes Percent Auto 7.5 % (2-11); Neutrophils Absolute Auto 3.4 x10*3/uL (2.0-8.3); Neutrophils Percent Auto 64.6 % (45-73); Platelet Count 280 X10*3/uL (160-400); Red Blood Count 4.49 X10*6/uL (4.20-5.50); White Blood Count 5.3 X10*3/uL (4.8-10.8)
[2023-08-02 15:38] LABS: INTERNATIONAL NORM RATIO 1.1 (0.9-1.1); Prothrombin Time 13.2 SEC (11.1-13.3); Urine Pregnancy POSITIVE (NEGATIVE)
[2023-08-02 15:39] LABS: UPreg QC Valid YES
[2023-08-02 15:41] LABS: Partial Thromboplastin Time 27.3 SEC (26.0-36.8)
[2023-08-02 15:44] LABS: Bacteria Urine None Seen (None Seen); Hyaline Casts Urine 0-2 /LPF (0-2); RBC Urine 0-2 /HPF (0-2); WBC Urine 0-5 /HPF (0-5)
[2023-08-02 15:57] LABS: Alanine Aminotransferase 26 U/L (0-31); Albumin Level 3.9 g/dL (3.5-5.0); Alkaline Phosphatase 133 U/L (39-117); Anion Gap 9 (12-20); Aspartate Amino Transferase 17 U/L (5-31); Bilirubin Total 0.2 mg/dL (0.0-1.0); Blood Urea Nitrogen 6 mg/dL (9-16); Calcium 8.9 mg/dL (8.4-10.2); Carbon Dioxide 25 mmol/L (22-29); Chloride 109 mmol/L (96-108); Creatinine Clr Calc Pharmacy 192.5; Estimated Glomerular Filt Rate > 60; Glucose Random 111 mg/dL (60-115); Lipase 7 U/L (8-78); Potassium 3.5 mmol/L (3.3-5.1); Sodium 139 mmol/L (135-145); Total Protein 6.7 g/dL (6.5-8.0)
[2023-08-02 16:55] VITALS: BP 135/66; PULSE 109; RESP 16; TEMP 36.7; O2SAT 100
[2023-08-02] MEDS: Acetaminophen 325 MG TABLET 975 MG PO (17:47)
[2023-08-02] MEDS: Metoclopramide HCl 10 MG TABLET PO (17:47)
--- NOTE | 2023-08-02 17:54 | PC.NURSE ---
patient a&ox3, c/o 11/29 abd pain, pt medicated for pain and nausea, repeat vitals being performed, call oakes within reach, will continue to monitor
[2023-08-02 17:57] VITALS: BP 98/67; PULSE 99; RESP 18; TEMP 36.2; O2SAT 100
== END 2023-08-02 18:09 | disposition home or self-care (01) ==
PROVIDERS: Physician Assistant; Emergency Provider Student in an Organized Health Care Education/Training Program
DX: O26.91 Pregnancy related conditions, unspecified, first trimester (principal); R10.2 Pelvic and perineal pain; Z3A.12 12 weeks gestation of pregnancy; Z79.899 Other long term (current) drug therapy
CPT/HCPCS: 36415; 76801; 80053; 81001; 81025; 83690; 84702; 85025; 85610; 85730; 96374; 99284

== ENCOUNTER 2023-09-16 22:59 | Emergency (ER) | payer OTHER, SELFPAY ==
[2023-09-16 23:02] VITALS: BP 135/87; PULSE 113; RESP 20; TEMP 36.7; O2SAT 94; BMI 37.0
[2023-09-17 02:07] VITALS: BP 128/83; PULSE 110; RESP 16; TEMP 36.8; O2SAT 98
--- NOTE | 2023-09-17 02:41 | ED_ITS ---
HPI - General Adult General Chief complaint: General Medical Stated complaint: Lip numbness and tingling on tongue Time Seen by Provider: 09/17/23 02:28 Source: patient Mode of arrival: ambulatory Limitations: no limitations History of Present Illness HPI narrative: Patient comes to emergency room complaining of tongue tingling and bottom lip numbness bilaterally for a few hours. Patient states that she had this sensation when she was exposed to shellfish, but patient states that she has not had any allergic reactions recently or exposed to seafood. No other known allergies other than Bactrim. Patient denies trouble swallowing or breathing. No rash. Currently patient is approximately at 18 weeks of gestational age, it has a . Patient denies any vaginal bleeding, intermittent abdominal discomfort but nothing severe per patient. Related Data Home Medications ?Medication ?Instructions ?Recorded ?Confirmed vits no.126-ferrous fum tab PO DAILY 05/11/23 28 mg iron-folic acid 800 mcg tablet (Classic ) Previous Rx's ?Medication ?Instructions ?Recorded acetaminophen 325 mg tablet 650 mg (2 x 325 mg) PO Q6H PRN 03/11/22 Pain, Mild (Pain Scale 1-3) #30 tabs doxycycline hyclate 100 mg capsule 100 mg PO BID 7 days #14 caps 04/13/22 albuterol sulfate 90 mcg/actuation 2 inh inhalation Q4-6H PRN 08/15/22 breath activated powder inhaler shortness of breath or wheezing #1 ea diphenhydramine HCl 25 mg capsule 25 mg PO TID PRN itching #20 caps 09/27/22 (Benadryl) ketoconazole 2 % topical cream 1 appl topical BID 7 days #30 grams 09/27/22 albuterol sulfate 90 mcg/actuation 2 puff inhalation Q4-6H PRN 04/02/23 aerosol inhaler (ProAir HFA) shortness of breath or wheezing #8.5 grams albuterol sulfate 90 mcg/actuation 2 puff inhalation Q4-6H PRN 04/15/23 aerosol inhaler (ProAir HFA) shortness of breath or wheezing #8.5 grams nitrofurantoin 100 mg PO Q12H 7 days #14 caps 05/09/23 monohydrate/macrocrystals 100 mg capsule (Macrobid) Allergies Allergy/AdvReac Type Severity Reaction Status Date / Time sulfamethoxazole Allergy Intermediate HIVES Verified 09/16/23 23:03 [From BACTRIM] trimethoprim [From BACTRIM] Allergy Intermediate HIVES Verified 09/16/23 23:03 shellfish derived Allergy Anaphylaxis Verified 09/16/23 23:12 Review of Systems Review of Systems: Constitutional : No Weight loss, No Fever, No Chills, No Night Sweats, No Fatigue, No Malaise ENT/Mouth : Complaining of paresthesias of the lower lip and tongue, No Hearing loss, No Ear Pain, No Nasal Congestion, No Sinus Pain, No Hoarseness, No sore throat, No Rhinorrhea, No Swallowing Difficulty Eyes: No Eye Pain, No Swelling, No Redness, No Foreign Body, No Discharge, No Vision Changes Cardiovascular : No Chest Pain, No SOB, No Dyspnea on Exertion, No Orthopnea, No Edema, No Palpitations Respiratory : No Cough, No Sputum, No Wheezing, No Smoke Exposure, No Dyspnea Gastrointestinal : No Nausea, No Vomiting, No Diarrhea, No Constipation, No abdominal Pain, No Hematochezia, No Melena Genitourinary : no irregular bleeding, No Dysuria, No Urinary Frequency, No Hematuria, No Urinary Incontinence, No Urgency, No Flank Pain, No Urinary Flow Changes, No Hesitancy Musculoskeletal : No joint pain, No Myalgias, No Joint Swelling Skin : No Skin Lesions, No rash Neuro : No Weakness, No Numbness, No Paresthesias, No Loss of Consciousness, No Dizziness, No Headache Psych : No Anxiety/Panic, No Depression, No SI/HI/AH/VH, No Social Issues, Heme/Lymph: No Bruising, No Bleeding,No Lymphadenopathy Endocrine : No Polyuria, No Polydipsia, No Temperature Intolerance [facility] Past Medical History Medical History Sheltered homelessness History of depression Tachycardia Hyperthyroidism Surgical History No pertinent past surgical history Family History Family History Mother Multiple sclerosis Father Diabetes Sister No problems noted. Sister ADHD Son No problems noted. 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 Oriented X3. No acute distress. Eyes: Pupils equal, round and reactive to light. ENT: Pharynx normal. Neck: Normal inspection. Neck supple. No lymph nodes noted. No crepitus CVS: Normal heart rate and rhythm. Pulses normal. Normal S1 and S2 Respiratory: No respiratory distress. Breath sounds normal. No Wheezing. No rales Abdomen: Soft and nontender. No rigidity. No distention. Bedside ultrasound shows a single , intrauterine, heart rate 120-130, good movement Skin: Skin warm and dry. Normal skin color. Normal skin turgor. . It was noted that patient has ecchymosis in the lower abdomen bilaterally. (per patient, insulin injection sites) Extremities: No lower extremity edema. No Lacerations. No Rash Neuro: Oriented X 3. No motor deficit. No sensory deficit. Moving all extremities. No slurred speech. CN 2 through 12 grossly intact, NIH score 0 Psych: calm, cooperative, normal affect NIH Stroke Scale Level of Consciousness: Alert Level of Consciousness Questions: Answers both questions correctly Level of Consciousness Commands: Performs both tasks correctly Best Gaze: Normal Visual: No visual loss Facial Palsy: Normal Motor Arm (Right): No drift Motor Arm (Left): No drift Motor Leg (Right): No drift Motor Leg (Left): No drift Limb Ataxia: Absent Sensory: Normal Best Language: No aphasia Dysarthia: Normal Extinction and Inattention: No abnormality Score: 0 Course Course Course Narrative: -on physical exam, patient was noted to have ecchymosis in the lower abdomen. Patient states that she was diagnosed with gestational diabetes and is injecting herself with insulin. Patient denies any physical abuse. Medical Decision Making Medical Decision Making MDM Narrative: -patient was given a dose of p.o. prednisone and Benadryl. -patient has no signs of allergic reaction -patient is neurologically intact, NIH 0 -bedside ultrasound shows good heart rate and movement Differential Diagnosis Differential Diagnoses: The differential diagnosis associated with the presentation includes (Paresthesias, instead allergic reaction) Discharge Plan Discharge Clinical Impression: Paresthesia of lower lip Patient Disposition: Home, Self-Care Instructions: Paresthesia (ED) Additional Instructions: Please follow-up with your primary care physician tomorrow. If you have any worsening or new symptoms, please return to the emergency room or call 911 Prescriptions: No Action acetaminophen 325 mg Tablet 650 mg PO Q6H PRN (Reason: Pain, Mild (Pain Scale 1-3)) Qty: 30 0RF doxycycline hyclate 100 mg capsule 100 mg PO BID 7 Days Qty: 14 0RF albuterol sulfate 90 mcg/actuation aerosol powdr breath activated 2 inh inhalation Q4-6H PRN (Reason: shortness of breath or wheezing) Qty: 1 0RF ketoconazole 2 % cream 1 appl topical BID 7 Days Qty: 30 0RF diphenhydramine HCl [Benadryl] 25 mg capsule 25 mg PO TID PRN (Reason: itching) Qty: 20 0RF albuterol sulfate [ProAir HFA] 90 mcg/actuation HFA aerosol inhaler 2 puff inhalation Q4-6H PRN (Reason: shortness of breath or wheezing) Qty: 8.5 0RF albuterol sulfate [ProAir HFA] 90 mcg/actuation HFA aerosol inhaler 2 puff inhalation Q4-6H PRN (Reason: shortness of breath or wheezing) Qty: 8.5 0RF nitrofurantoin monohyd/m-cryst [Macrobid] 100 mg capsule 100 mg PO Q12H 7 Days Qty: 14 0RF Rx Instructions: must administer with a meal/food Classic 28 mg iron- 800 mcg tablet PO DAILY Print Language: Estonian
[2023-09-17] MEDS: predniSONE 20 MG TABLET 40 MG PO (02:59)
[2023-09-17 03:04] VITALS: BP 128/83; PULSE 110; RESP 16; TEMP 36.8; O2SAT 98
== END 2023-09-17 03:04 | disposition home or self-care (01) ==
PROVIDERS: Emergency Provider Emergency Medicine
DX: O26.892 Other specified pregnancy related conditions, second trimester (principal); R20.2 Paresthesia of skin; Z3A.18 18 weeks gestation of pregnancy; Z91.013 Allergy to seafood; Z88.2 Allergy status to sulfonamides
CPT/HCPCS: 99283; 99284

== ENCOUNTER 2023-11-08 23:13 | Emergency (ER) | payer OTHER, SELFPAY ==
[2023-11-08 23:26] VITALS: BP 135/78; PULSE 118; RESP 18; TEMP 36.7; O2SAT 97; BMI 38.4
[2023-11-08 23:44] LABS: Basophils Percent Auto 0.2 % (0-2); Eosinophils Absolute Auto 0.2 X10*3/uL (0.0-0.4); Eosinophils Percent Auto 2.9 % (0-4); Hematocrit 33.4 % (37.0-47.0); Hemoglobin 11.5 g/dl (12.0-16.0); Imm Gran Abs Auto 0.02 X10*3/uL (0.00-0.03); Imm Gran Pct Auto 0.2 % (0.0-0.4); Lymphocytes Absolute Auto 1.4 X10*3/uL (1.2-4.9); Lymphocytes Percent Auto 17.3 % (20-40); MANUAL DIFF FLAG NO; Mean Corpuscular HGB Conc 34.4 g/dl (31.0-35.0); Mean Corpuscular Hemoglobin 27.5 pg (27.0-33.0); Mean Corpuscular Volume 79.9 fL (80.0-98.0); Mean Platelet Volume 9.3 fL (9.4-12.3); Monocytes Absolute Auto 0.8 X10*3/uL (0.1-1.2); Monocytes Percent Auto 9.7 % (2-11); Neutrophils Absolute Auto 5.6 x10*3/uL (2.0-8.3); Neutrophils Percent Auto 69.7 % (45-73); Platelet Count 288 X10*3/uL (160-400); Red Blood Count 4.18 X10*6/uL (4.20-5.50); Red Cell Distribution Width 12.7 % (11.0-16.0)
[2023-11-08 23:50] LABS: Appearance Urine Clear; Color Urine Yellow; Glucose Urine UA Negative (Negative); Leukocyte Esterase Urine Moderate (2+) (Negative); Nitrite Urine Negative (Negative); UMIC TRIGGER UACC YES; Urine Blood Negative (Negative); Urine Ketones Trace mg/dL (Negative); Urine Protein Trace mg/dL (Neg-Trace)
[2023-11-08 23:55] LABS: Bacteria Urine None Seen (None Seen); Hyaline Casts Urine 0-2 /LPF (0-2); RBC Urine 0-2 /HPF (0-2); UACC Culture Trigger YES
[2023-11-09 00:04] LABS: Anion Gap 12 (12-20); Blood Urea Nitrogen 4 mg/dL (9-16); Calcium 8.3 mg/dL (8.4-10.2); Carbon Dioxide 18 mmol/L (22-29); Chloride 110 mmol/L (96-108); Creatinine Clr Calc Pharmacy 205.9; Estimated Glomerular Filt Rate > 60; Glucose Random 111 mg/dL (60-115); Potassium 3.4 mmol/L (3.3-5.1); Sodium 137 mmol/L (135-145)
[2023-11-09 00:05] LABS: HCG Quantitative 6438 mIU/mL
[2023-11-09 00:36] VITALS: BP 120/72; PULSE 108; RESP 18; O2SAT 97
--- NOTE | 2023-11-09 00:47 | PC.NURSE ---
Doppler used to monitor fetus. HR 145 in LRQ, strong kicks felt by mother and t/w when moving doppler.
[2023-11-09] MEDS: Acetaminophen 325 MG TABLET 975 MG PO (00:58)
[2023-11-09] MEDS: Lidocaine 4 % Patch ADH..PATCH 1 PATCH TRANSDERMA (00:59)
[2023-11-09 01:04] LABS: COVID-19 Test Negative (Negative); IDNOW Serial# 6674DD1D
--- NOTE | 2023-11-09 01:06 | ED.GENADULT ---
HPI - General Adult General Chief complaint: Abdominal Pain Stated complaint: lower back/abd pain Time Seen by Provider: 11/09/23 00:02 Source: patient Mode of arrival: ambulatory History of Present Illness ED Provider: Dr Cano HPI narrative: 23-year-old female, , 26 weeks with uncomplicated thus far other than development of gestational diabetes for which she is being followed at [facility] obstetrics, denies any vaginal bleeding/loss of fluid and continues to feel the baby move but she does not feel it is moving as much, she does describe some lower abdominal discomfort but characterizes it as coming over bilateral inguinal areas and also reports some lower back discomfort without associated fever/chills/diarrhea and she states that she has had persistent nausea throughout her and denies any vomiting. She also denies any sick contacts. Related Data Home Medications ?Medication ?Instructions ?Recorded ?Confirmed vits no.126-ferrous fum tab PO DAILY 05/11/23 28 mg iron-folic acid 800 mcg tablet (Classic ) Previous Rx's ?Medication ?Instructions ?Recorded acetaminophen 325 mg tablet 650 mg (2 x 325 mg) PO Q6H PRN 03/11/22 Pain, Mild (Pain Scale 1-3) #30 tabs doxycycline hyclate 100 mg capsule 100 mg PO BID 7 days #14 caps 04/13/22 albuterol sulfate 90 mcg/actuation 2 inh inhalation Q4-6H PRN 08/15/22 breath activated powder inhaler shortness of breath or wheezing #1 ea diphenhydramine HCl 25 mg capsule 25 mg PO TID PRN itching #20 caps 09/27/22 (Benadryl) ketoconazole 2 % topical cream 1 appl topical BID 7 days #30 grams 09/27/22 albuterol sulfate 90 mcg/actuation 2 puff inhalation Q4-6H PRN 04/02/23 aerosol inhaler (ProAir HFA) shortness of breath or wheezing #8.5 grams albuterol sulfate 90 mcg/actuation 2 puff inhalation Q4-6H PRN 04/15/23 aerosol inhaler (ProAir HFA) shortness of breath or wheezing #8.5 grams nitrofurantoin 100 mg PO Q12H 7 days #14 caps 05/09/23 monohydrate/macrocrystals 100 mg capsule (Macrobid) nitrofurantoin 100 mg PO Q12H 7 days #14 caps 11/09/23 monohydrate/macrocrystals 100 mg capsule (Macrobid) Allergies Allergy/AdvReac Type Severity Reaction Status Date / Time sulfamethoxazole Allergy Intermediate HIVES Verified 11/08/23 23:28 [From BACTRIM] trimethoprim [From BACTRIM] Allergy Intermediate HIVES Verified 11/08/23 23:28 shellfish derived Allergy Anaphylaxis Verified 11/08/23 23:28 Review of Systems Review of Systems: Pertinent positives and negatives as stated in [facility] Past Medical History Source: nursing notes reviewed Medical History Sheltered homelessness History of depression Tachycardia Hyperthyroidism Surgical History No pertinent past surgical history Family History Family History Mother Multiple sclerosis Father Diabetes Sister No problems noted. Sister ADHD Son No problems noted. 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 GENERAL: Well developed, well nourished, in no acute distress. HEAD: Normocephalic/atraumatic EYES: PERRLA, EOMI EARS: Ext canals without abnormality NOSE: Nares patent bilateral OROPHARYNX: no oral lesions noted, posterior pharynx clear NECK: Supple, no adenopathy LUNGS: Normal breath sounds. No adventitious sounds or accessory muscle use. SpO2<97> CARDIOVASCULAR: Regular rate and rhythm without noted murmurs ABDOMEN: Soft, non-tender, non-distended with bowel sounds. MUSCULOSKELETAL: No tenderness, deformities, or effusions noted on gross inspection. EXTREMITIES: No cyanosis, clubbing or edema. SKIN: Inspection of the skin reveals no rashes NEUROLOGIC: Alert and oriented x 4. Strength and sensation to light touch were grossly intact x 4. Medications Administered Discontinued Medications Generic Name Dose Route Start Last Admin Trade Name Erickq PRN Reason Stop Dose Admin Acetaminophen 975 mg 11/09/23 00:48 11/09/23 00:58 Acetaminophen 325 Mg Tablet PO 11/09/23 00:49 975 mg ONCE ONE Administration Lidocaine 1 patch 11/09/23 00:48 11/09/23 00:59 Lidocaine 4 % Patch Adh..Patch TRANSDERMA 11/09/23 00:49 1 patch ONCE ONE Administration Protocol Medical Decision Making Medical Decision Making [facility] Narrative: 23-year-old female with history and clinical presentation, DDX: Viral illness, UTI, lower back pain of , round ligament syndrome, no clinical suspicion for renal colic or gastroenteritis and heart tones are noted to be 145 with positive movement. Provided patient with lidocaine patch and Tylenol, otherwise reviewed all investigations there is no evidence of leukocytosis and anemia is likely of and there is no thrombocytopenia. Chemistry indices do not demonstrate an ENEDINA there is a noted drop in bicarb suggestive of possible mild dehydration. HCG-6438 and urinalysis is significant for moderate leukocyte esterase and WBCs. COVID-19 is negative. Patient offered the lidocaine patch and Tylenol, will treat for UTI, otherwise patient is hemodynamically stable, no concern for condition of fetus at this time. Differential Diagnosis Differential Diagnoses: The differential diagnosis associated with the presentation includes Please see the discussion above Admission/Observation Consideration of admission/observation: Escalation of care including admission/observation considered Please see the discussion above Lab Data [facility] Lab Attestation statement: I reviewed the patient's lab results. Please see the discussion above 11/08/23 23:39 11/08/23 23:39 Labs: Lab Results 11/08/23 11/09/23 Range/Units 23:39 00:45 WBC 8.0 (4.8-10.8) X10*3/uL RBC 4.18 L (4.20-5.50) X10*6/uL Hgb 11.5 L (12.0-16.0) g/dl Hct 33.4 L (37.0-47.0) % MCV 79.9 L (80.0-98.0) fL MCH 27.5 (27.0-33.0) pg MCHC 34.4 (31.0-35.0) g/dl RDW 12.7 (11.0-16.0) % Plt Count 288 (160-400) X10*3/uL MPV 9.3 L (9.4-12.3) fL Immature Gran % (Auto) 0.2 (0.0-0.4) % Neut % (Auto) 69.7 (45-73) % Lymph % (Auto) 17.3 L (20-40) % [place] % (Auto) 9.7 (2-11) % Eos % (Auto) 2.9 (0-4) % Baso % (Auto) 0.2 (0-2) % Lymph # (Auto) 1.4 (1.2-4.9) X10*3/uL [place] # (Auto) 0.8 (0.1-1.2) X10*3/uL Eos # (Auto) 0.2 (0.0-0.4) X10*3/uL Baso # (Auto) 0.0 (0.0-0.2) X10*3/uL Abs Immat Gran (auto) 0.02 (0.00-0.03) X10*3/uL Absolute Neuts (auto) 5.6 (2.0-8.3) x10*3/uL Absolute Nucleated RBC 0.000 (0.0-0.012) X10*3/uL Nucleated RBC % (auto) 0.0 (0.0-0.2) /100WBC Sodium 137 (135-145) mmol/L Potassium 3.4 (3.3-5.1) mmol/L Chloride 110 H (96-108) mmol/L Carbon Dioxide 18 L (22-29) mmol/L Anion Gap 12 (12-20) BUN 4 L (9-16) mg/dL Creatinine 0.44 L (0.5-1.4) mg/dL Estim Creat Clear Calc 205.9 Estimated GFR > 60 Random Glucose 111 (60-115) mg/dL Calcium 8.3 L D (8.4-10.2) mg/dL Beta HCG, Quant 6438 mIU/mL Urine Color Yellow Urine Appearance Clear Urine pH 6.0 (5.0-9.0) Ur Specific [place] 1.020 (1.005-1.025) Urine Protein Trace (Neg-Trace) mg/dL Urine Glucose (UA) Negative (Negative) mg/dL Urine Ketones Trace (Negative) mg/dL Urine Blood Negative (Negative) Urine Nitrite Negative (Negative) Ur Leukocyte Esterase Moderate (2+) H (Negative) Urine RBC 0-2 (0-2) /HPF Urine WBC 6-10 H (0-5) /HPF Ur Squamous Epith Cells 11-20 (0-2) /HPF Urine Bacteria None Seen (None Seen) Hyaline Casts 0-2 (0-2) /LPF COVID-19 (TONJA) Negative (Negative) COVID-19 Clin Com See Note External Record Review External record reviewed: Outpatient record, Prior outpatient labs and Prior outpatient radiology Critical Care Time Critical Care Time Critical Care Time: Yes Total Critical Care Time: 30 Attestation: I personally attest to this time spent taking care of the patient. Discharge Plan Discharge Clinical Impression: Urinary tract infection during , Back pain Patient Disposition: Home, Self-Care Instructions: Back Pain (ED), Urinary Tract Infection in (ED) Additional Instructions: 1. Increase the amount of water intake and complete the entire course of antibiotics as prescribed for your urinary tract infection. 2. Should you develop any worsening symptoms please do not hesitate to return to the emergency room. 3. 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 Prescriptions: New nitrofurantoin monohyd/m-cryst [Macrobid] 100 mg capsule 100 mg PO Q12H 7 Days Qty: 14 0RF Rx Instructions: must administer with a meal/food No Action acetaminophen 325 mg Tablet 650 mg PO Q6H PRN (Reason: Pain, Mild (Pain Scale 1-3)) Qty: 30 0RF doxycycline hyclate 100 mg capsule 100 mg PO BID 7 Days Qty: 14 0RF albuterol sulfate 90 mcg/actuation aerosol powdr breath activated 2 inh inhalation Q4-6H PRN (Reason: shortness of breath or wheezing) Qty: 1 0RF ketoconazole 2 % cream 1 appl topical BID 7 Days Qty: 30 0RF diphenhydramine HCl [Benadryl] 25 mg capsule 25 mg PO TID PRN (Reason: itching) Qty: 20 0RF albuterol sulfate [ProAir HFA] 90 mcg/actuation HFA aerosol inhaler 2 puff inhalation Q4-6H PRN (Reason: shortness of breath or wheezing) Qty: 8.5 0RF albuterol sulfate [ProAir HFA] 90 mcg/actuation HFA aerosol inhaler 2 puff inhalation Q4-6H PRN (Reason: shortness of breath or wheezing) Qty: 8.5 0RF nitrofurantoin monohyd/m-cryst [Macrobid] 100 mg capsule 100 mg PO Q12H 7 Days Qty: 14 0RF Rx Instructions: must administer with a meal/food Classic 28 mg iron- 800 mcg tablet PO DAILY Print Language: Amharic
[2023-11-09 01:32] VITALS: BP 120/84; PULSE 106; RESP 20; TEMP 36.6; O2SAT 100
[2023-11-09] MEDS: Nitrofurantoin Monohyd/M-Cryst 100 MG CAPSULE PO (01:33)
[2023-11-09 01:36] VITALS: BP 120/84; PULSE 106; RESP 20; TEMP 36.6; O2SAT 100
== END 2023-11-09 01:37 | disposition home or self-care (01) ==
PROVIDERS: Emergency Provider Student in an Organized Health Care Education/Training Program
DX: O23.42 Unspecified infection of urinary tract in pregnancy, second trimester (principal); N39.0 Urinary tract infection, site not specified; Z3A.26 26 weeks gestation of pregnancy; M54.50 Low back pain, unspecified
CPT/HCPCS: 36415; 80048; 81001; 84702; 85025; 87086; 87635; 99283; 99284